=== PATIENT | female | born 1995 | race Caucasian/White ===

== ENCOUNTER 2016-12-07 18:43 | Emergency (ER) | payer OTHER, MEDICAID ==
[~2016-12-07] VITALS: Ht 172.7 cm; Wt 59.0 kg
[~2016-12-07 18:43] MED LIST: ACHYD1T PO; ALBU17AE23 IH; ALBU17AE3 IH; ALBUTERAL INHALER; AMOX250C PO; AMOX500C2 PO; AMOXIL; AZIT-21 PO; CARAFATE; CEPH500C PO; CLIN300C3 PO; DCS100C PO; DIPH25CA79 PO; DOCU100C37 PO; FAMO20TA5 PO; FLUC200T PO; FLUC200T5; FLUO20CA25 PO; HYDR-3812 PO; HYDR-3816 PO; HYDR1CAP2 PO; HYDR1TAB8 OP; HYDR25CA PO; IBP800T PO; IBUP-1780 PO; LORA10TA7 PO; METO-354 PO; METR500T PO; METR500T21 PO; MTR500T PO; NITR100C10; NITR100C3 PO; NITR100C44 PO; OMEP20CA12 PO; OMEP20CA6 PO; ONDA-42 SL; ONDA-43 PO; ONDA8TAB13 PO; ONDAN4ODT PO; OXYC-465 PO; PANT40SU PO; PANT40TA2 PO; PRD20T PO; PRED20TA PO; PREN-136 PO; PREN-148 PO; PROTONIX; RANI150C11 PO; RANI75TA30 PO; RNT150T PO; SERT25TA PO; [UNRECOGNIZED DRUG - OTHER] PO
[2016-12-07 19:07] LABS: BILIRUBIN,URINE NEGATIVE (NEGATIVE); KETONES,URINE NEGATIVE (NEGATIVE); LEUKOCYTE ESTERASE ,URINE 2+ (NEGATIVE); NITRITE,URINE NEGATIVE (NEGATIVE); PH,URINE 6 (5-9); PROTEIN,URINE 1+ (NEGATIVE); UROBILINOGEN,URINE NORMAL (NORMAL)
--- NOTE | 2016-12-07 19:17 | ED Abdominal Pain ---
General Chief Complaint: Abdominal/GI Problems Stated Complaint: UPPER ABD PAIN Nursing Triage Note: patient reports LUQ abdomen for 2 months with nausea, patient reports pain is worse with BMs. Patient reports she was seen here for same previously and was seen by OBGYN this week. Sepsis Screen: No Definite Risk Source of Information: Patient, Other (significant other) Exam Limitations: No Limitations History of Present Illness Time Seen By Provider: 19:17 Initial Comments 21-year-old female patient presents to the emergency department complaints of left upper quadrant abdominal pain for approximately 2 months. Does complain of nausea. Pain is worse with having bowel movements. Denies diarrhea, constipation, hematochezia, melena. Patient does report hesitancy with urination. Patient did have a gallbladder ultrasound which was negative. Patient was seen by Dr. Julien recently with an ultrasound of the pelvis. Patient is supposed follow-up with him for these results. Patient was started on Diflucan due to a recent yeast infection. Patient was also seen in the emergency department by Dr. Sung on 11/18 and given metronidazole twice a day for 7 days due to bacterial vaginosis. Patient states she still has several pills left and did not start the medication for approximately one week after being seen. Later states she also lost the prescription and started some metronidazole she had from a 1 year ago. Patient had recent upper endoscopy by Dr. Eaton with findings of hiatal hernia, esophagitis, duodenal ulcers, and gastric ulcers. Patient states she is a lost approximately 40 pounds in 3 months. Delivered her last child 3 months ago. Reports gaining 30 pounds with her last . Timing/Duration: Other (2 months) Severity/Quality: Aching Location: LUQ Radiation: No Radiation Activities at Onset: None Modifying Factors: Worsens With Defecating Allergies and Home Medications Allergies Coded Allergies: paroxetine (Verified Allergy, Severe, DIFF SWALLOWING, 10/09/16) Home Medications Fluconazole 200 Mg Tablet #3 (Reported) Metronidazole 500 Mg Tablet #14 500 MG PO BID Prescribed by: JAYLEN SUNG on 11/18/16 0916 Metronidazole 500 Mg Tablet #14 500 MG PO BID Prescribed by: MALORIE FLORES on 12/07/16 2048 Polyethylene Glycol 3350 119 Gm Powder #1 17 GM PO UD 17 g po BID x3d, then 17 g po qHS prn constipation. Prescribed by: MALORIE FLORES on 12/07/162047 Review of Systems Constitutional: No chills, No diaphoresis, No fever, No malaise EENTM: No Symptoms Reported Respiratory: No Symptoms Reported Cardiovascular: No Symptoms Reported Gastrointestinal: See HPIDenies Abdomen Distended, Abdominal PainDenies Blood Streaked Stools, Denies Constipated, Denies Diarrhea, Denies Difficulty Swallowing, Denies Nausea, Poor AppetiteDenies Poor Fluid Intake, Denies Rectal Bleeding, Denies Vomiting Genitourinary: Denies Burning, Denies Discharge, Denies Drainage, Denies Frequency, Denies Flank Pain, Denies Hematuria, Denies Pain, Other (hesitency) Musculoskeletal: no symptoms reported Skin: no symptoms reported Psychiatric/Neurological: No Symptoms Reported All Other Systems Reviewed Negative Unless Noted: Yes (Negative excepted noted.) Past Izhpilb-Eoqfuh-Srifjo Hx Patient Social History Alcohol Use: Denies Use Recreational Drug Use: No Smoking Status: Current Everyday Smoker Type Used: Cigarettes Former Smoker/When Quit: May 30, 2014 Recent Foreign Travel: No Contact w/Someone Who Travel: No Recent Infectious Disease Expo: No Recent Hopitalizations: Yes (CHILD 08/2016) Physical Abuse Screen: No Sexual Abuse: No Immunizations Up To Date Tetanus Booster (TDap): Less than 5yrs Date of Influenza Vaccine: Nov 22, 2014 Seasonal Allergies Seasonal Allergies: Yes Surgeries HX Surgeries: Yes (EGDs X2 ) Respiratory Hx Respiratory Disorders: Yes (prior exercise induced asthma) Respiratory Disorders: Asthma Cardiovascular Hx Cardiac Disorders: Yes Cardiac Disorders: Irregular Heartbeat Neurological Hx Neurological Disorders: No 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 System Hx 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 Disorders: No (ABNORMAL PAP) Sexually Transmitted Disease: No HIV/AIDS: No Female 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 Genitourinary Hx Genitourinary Disorders: Yes Genitourinary Disorders: UTI-Chronic Gastrointestinal Hx Gastrointestinal Disorders: Yes (EOSINOPHILLIC GASTROENTERITIS/CHRONIC STOMACH PROBLEMS) Gastrointestinal Disorders: Crohns Disease Musculoskeletal Hx Musculoskeletal Disorders: Yes Musculoskeletal Disorders: Fractures Endocrine Hx Endocrine Disorders: No HEENT HX ENT Disorders: No (GLASSES) Cancer Hx Cancer: No Psychosocial Hx Psychiatric Problems: Yes Behavioral Health Disorders: Anxiety, Bipolar, Depression Integumentary HX Skin/Integumentary Disorder: No Blood Transfusions Hx Blood Disorders: No Adverse Reaction to a Blood Tr: No (N/A) Reviewed Nursing Assessment Reviewed/Agree w Nursing PMH: Yes Family Medical History Significant Family History: No Pertinent Family Hx Family Medial History: FH: bipolar disorder 19 MOTHER FH: heart disease UNCLE Hepatitis C 19 MOTHER Hypertension MATERNAL GRANDFATHER Physical Exam Vital Signs Capillary Refill : Less Than 3 Seconds General Appearance: WD/WN no apparent distress other (Patient sitting up in the exam bed looking at her phone. NAD.) thin HEENT: PERRL/EOMI pharynx normal Neck: supple normal inspection Respiratory: lungs clear normal breath sounds no respiratory distress Cardiovascular: normal peripheral pulses regular rate, rhythm no edema no murmur Peripheral Pulses: 2+ Dorsalis Pedis (R), 2+ Left Dors-Pedis (L), 2+ Radial Pulses (R), 2+ Radial Pulses (L) Gastrointestinal: normal bowel sounds non tender (unable to reproduce tenderness on exam.) softNo guarding, No rebound, No hernia, No mass Genital/Rectal: other (pelvic exam deferred as patient had recent pelvic exam and patient is scheduled to f/u with dr. julien.) Extremities: normal inspection no pedal edema normal capillary refill Back: normal inspection no CVA tenderness Neurologic/Psychiatric: alert oriented x 3 depressed affect (flat, depressed affect.) Skin: normal color warm/dry Laceration Repair : Suture Size: 4-0 Progress/Results/Core Measures Results/Orders Lab Results Laboratory Tests Test 12/07/16 18:59 Range/Units Urine Bacteria TRACE /HPF Urine Bilirubin NEGATIVE NEGATIVE Urine Casts NONE /LPF Urine Clarity SLIGHTLY CLOUDY Urine Color YELLOW Urine Crystals NONE /LPF Urine Culture Indicated NO Urine Glucose (UA) NEGATIVE NEGATIVE Urine Ketones NEGATIVE NEGATIVE Urine Leukocyte Esterase 2+ H NEGATIVE Urine Mucus SMALL H /LPF Urine Nitrite NEGATIVE NEGATIVE Urine Protein 1+ H NEGATIVE Urine RBC NONE /HPF Urine RBC (Auto) NEGATIVE NEGATIVE Urine Specific [place] 1.020 1.016-1.022 Urine Squamous Epithelial Cells 2-5 /HPF Urine Urobilinogen NORMAL NORMAL MG/DL Urine WBC 0-2 /HPF Urine pH 6 5-9 My Orders Orders-MALORIE FLORES Acute Abd Series (12/07/16 19:31) Vital Signs/I&O Blood Pressure Mean: 89 Diagnostic Imaging Diagonstic Imaging: Xray Plain Films/CT/US/NM/MRI: abdomen Comments FINDINGS: PA chest: Heart size is normal. The pulmonary vessels appear unremarkable. There is no pneumothorax, mediastinal widening or pleural fluid demonstrated. The lungs are clear. Abdomen: AP upright and supine views of the abdomen were obtained. There is no evidence of free intraperitoneal air. The bowel gas pattern is unremarkable. No urinary tract calcifications are suspected. The osseous structures appear unremarkable. IMPRESSION: No evidence of an acute cardiopulmonary or abdominal process. Dictated by: Dictated on workstation # [id number] Reviewed: Reviewed by Me (radiology report reviewed by me.) Departure Communication Progress Notes All records reviewed from her recent visits and procedures. All laboratory and diagnostic findings discussed with the patient. I discussed with the patient the importance of taking her medications as instructed by the prescriber and until completion. Also discussed with the patient that she was diagnosed with bacterial vaginosis and needs to complete a full treatment of this as well as to continue with the Diflucan as prescribed by Dr. Julien. Advised patient to follow-up with Dr. Julien as an outpatient as well as to find a primary care physician and establish care. Patient states she has difficulty with remembering to take her medication. I have advised patient to set a timer or alarm on her phone to remind her of medication times. Proceed with discharge to home. All return precautions were discussed with the patient as described in the discharge instructions of this report. Patient voices understanding and agrees with the treatment plan. Patient case discussed with Dr. Yusuf, he agrees with the plan of care. Impression Impression: Primary Impression: Chronic abdominal pain Additional Impression: Non compliance w medication regimen Disposition: 01 HOME, SELF-CARE Condition: Improved Departure-Patient Inst. Decision time for Depature: 20:46 Referrals: CHATA JULIEN MD NO,LOCAL PHYSICIAN (PCP) Primary Care Physician Patient Instructions: Acute Abdomen (Belly Pain), Adult (DC), Urinary Tract Infection, Adult (DC) Add. Discharge Instructions: All discharge instructions reviewed with patient and/or family. Voiced understanding. Medications as instructed. Take antibiotics as prescribed. Finish the complete 7 days of antibiotics. If you have difficulty remembering the evening or afternoon dose, set a timer on your phone to remind you. Drink plenty of fluids. Avoid caffeinated beverages, carbonated beverages, fatty foods, spicy foods, alcohol, smoking, second hand smoke, marijuana, Motrin, Aleve, and aspirin. Do not eat within 2 hours of lying down. Follow-up with Dr. Julien and the family practitioner of your choice for recheck, call for appointment time Thursday. Return to the emergency department for worsened symptoms or any other concerns. Scripts Polyethylene Glycol 3350 (Miralax)119 Gm [id number] Gm PO UD #1 EA Ref 0 17 g po BID x3d, then 17 g po qHS prn constipation. Prov:MALORIE FLORES 12/07/16 Metronidazole 500 Mg [id number] Mg PO BID #14 TAB Ref 0 Prov:MALORIE FLORES 12/07/16 Work/School Note: [employer] MALORIE FLORES Dec 07, 2016 19:17
[2016-12-07 19:20] LABS: WBC,URINE 0-2 /HPF
--- NOTE | 2016-12-07 20:02 | Diagnostic Imaging Report ---
INDICATION: Upper abdominal pain. COMPARISON: None. EXAMINATION: Acute abdomen series. FINDINGS: PA chest: Heart size is normal. The pulmonary vessels appear unremarkable. There is no pneumothorax, mediastinal widening or pleural fluid demonstrated. The lungs are clear. Abdomen: AP upright and supine views of the abdomen were obtained. There is no evidence of free intraperitoneal air. The bowel gas pattern is unremarkable. No urinary tract calcifications are suspected. The osseous structures appear unremarkable. IMPRESSION: No evidence of an acute cardiopulmonary or abdominal process. Dictated by: Dictated on workstation # [id number]
[2016-12-07] MEDS ORDERED: METR500T21 PO (20:48)
[2016-12-07] MEDS ORDERED: POLY119P5 PO (20:48)
[2016-12-07 20:59] VITALS: BP 118/68
== END 2016-12-07 21:00 | disposition home or self-care (01) ==
LOC: EDUNIT# 18:43 → ER 18:45
DX: R10.12 Left upper quadrant pain (principal); G89.29 Other chronic pain; F17.210 Nicotine dependence, cigarettes, uncomplicated; Z91.19 Patient's noncompliance with other medical treatment and regimen
CPT/HCPCS: 74022; 81000

== ENCOUNTER 2016-12-08 15:22 | Emergency (ER) | payer OTHER, MEDICAID ==
[~2016-12-08] VITALS: Ht 172.7 cm; Wt 59.0 kg
[~2016-12-08 15:22] MED LIST changes: +POLY119P5 PO
[2016-12-08] MEDS ORDERED: HYDROcodone/APAP 7.5 MG/325 MG (LORTAB, LORCET PLUS) TABLET PO STA (16:03)
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
[2016-12-08 17:34] VITALS: BP 114/77
== END 2016-12-08 17:34 | disposition home or self-care (01) ==
LOC: EDUNIT# 15:22 → ER 15:23
DX: S00.03XA Contusion of scalp, initial encounter (principal); S00.83XA Contusion of other part of head, initial encounter; Y04.0XXA Assault by unarmed brawl or fight, initial encounter; Y99.8 Other external cause status
CPT/HCPCS: 70450; 70486; 72125

== ENCOUNTER 2017-02-14 17:17 | Emergency (ER) | payer MEDICAID, OTHER ==
[~2017-02-14] VITALS: Ht 172.7 cm; Wt 59.0 kg
[2017-02-14 17:46] LABS: BILIRUBIN,URINE NEGATIVE (NEGATIVE); KETONES,URINE NEGATIVE (NEGATIVE); LEUKOCYTE ESTERASE ,URINE 1+ (NEGATIVE); NITRITE,URINE NEGATIVE (NEGATIVE); PH,URINE 8 (5-9); PROTEIN,URINE NEGATIVE (NEGATIVE); UROBILINOGEN,URINE NORMAL (NORMAL)
[2017-02-14 17:52] LABS: SQUAMOUS EPITHELIAL CELL,UR 0-2 /HPF; WBC,URINE 0-2 /HPF
[2017-02-14] MEDS ORDERED: AZITHROMYCIN 250 MG TAB (ZITHROMAX) PO ONE (18:00)
[2017-02-14] MEDS ORDERED: cefTRIAXone 1 GM (ROCEPHIN) VIAL IM ONE (18:00)
[2017-02-14] MEDS ORDERED: LIDOCAINE 1% INJ 20 ML (XYLOCAINE) VIAL INJ ONE (18:00)
--- NOTE | 2017-02-14 18:17 | ED GI ---
General Chief Complaint: Abdominal/GI Problems Stated Complaint: ABD PAIN, BLOOD IN STOOL, 7 WKS PREG Nursing Triage Note: PT REPORTS LOWER ABDOMINAL PAIN X 2 MONTHS. PT REPORTS SHE WAS SEEN IN ED BEFORE FOR SIMILIAR PAIN AND DIAGNOSED WITH CONSTIPATION. PT REPORTS SHE NOTICED BLOOD IN HER STOOL TODAY. PT ALSO REPORTS VAGINAL DISCHARGE AND ODOR. Sepsis Screen: No Definite Risk Source of Information: Patient Exam Limitations: No Limitations History of Present Illness Time Seen By Provider: 17:25 Initial Comments This 21-year-old lady presents to the emergency room with primary complaint of bloody stool. She had one bowel movement today with blood around it. She denies any prior episodes. She also reports having migratory abdominal pain for the past few months. It seems to hurt worse around the time she has a bowel movement. Pain seems to be more concentrated in the right lower quadrant but is not consistent. She has nausea without vomiting. She reports being approximately 7 weeks with last menstrual period at the end of November. She had one ultrasound performed at the [facility] demonstrating a single live intrauterine . She reports there was some fluid in the right adnexa based on what was communicated to her. Patient also gives a history of ulcers and H. pylori. She admits to not completing the therapy as prescribed for H. pylori. She has had endoscopy 3. She also reports having a history of abnormal Pap smears multiple times. Finally she complains of vaginal discharge and odor. Patient did not state a history of Crohn's disease but it is noted in her chart. Allergies and Home Medications Allergies Coded Allergies: paroxetine (Verified Allergy, Severe, DIFF SWALLOWING, 10/09/16) Home Medications No Active Prescriptions or Reported Meds Review of Systems Constitutional: no symptoms reported EENTM: No Symptoms Reported Respiratory: No Symptoms Reported Cardiovascular: No Symptoms Reported Gastrointestinal: See HPI Genitourinary: See HPI Musculoskeletal: no symptoms reported Skin: no symptoms reported Psychiatric/Neurological: No Symptoms Reported Endocrine: No Symptoms Reported Past Mghuste-Yxmsts-Obnfqa Hx Patient Social History Alcohol Use: Denies Use Recreational Drug Use: No Smoking Status: Former Smoker Type Used: Cigarettes Former Smoker/When Quit: May 30, 2014 Recent Foreign Travel: No Contact w/Someone Who Travel: No Recent Infectious Disease Expo: No Recent Hopitalizations: Yes (CHILD 08/2016) Immunizations Up To Date Tetanus Booster (TDap): Less than 5yrs Date of Influenza Vaccine: Nov 22, 2014 Seasonal Allergies Seasonal Allergies: Yes Surgeries HX Surgeries: Yes (EGDs X3) Respiratory Hx Respiratory Disorders: Yes (prior exercise induced asthma) Respiratory Disorders: Asthma Cardiovascular Hx Cardiac Disorders: Yes Cardiac Disorders: Irregular Heartbeat Neurological Hx Neurological Disorders: No 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 System : Yes Hx 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 Disorders: No (ABNORMAL PAP) Sexually Transmitted Disease: No HIV/AIDS: No Female 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 Genitourinary Hx Genitourinary Disorders: Yes Genitourinary Disorders: UTI-Chronic Gastrointestinal Hx Gastrointestinal Disorders: Yes (EOSINOPHILLIC GASTROENTERITIS/CHRONIC STOMACH PROBLEMS H PYLORI) Gastrointestinal Disorders: Crohns Disease Musculoskeletal Hx Musculoskeletal Disorders: Yes Musculoskeletal Disorders: Fractures Endocrine Hx Endocrine Disorders: No HEENT HX ENT Disorders: No (GLASSES) Cancer Hx Cancer: No Psychosocial Hx Psychiatric Problems: Yes Behavioral Health Disorders: Anxiety, Bipolar, Depression Integumentary HX Skin/Integumentary Disorder: No Blood Transfusions Hx Blood Disorders: No Adverse Reaction to a Blood Tr: No (N/A) Family Medical History Significant Family History: No Pertinent Family Hx Family Medial History: FH: bipolar disorder 19 MOTHER FH: heart disease UNCLE Hepatitis C 19 MOTHER Hypertension MATERNAL GRANDFATHER Physical Exam Vital Signs VS - Last 72 Hours, by Label 02/14/17 17:30 Temp 98.1 Pulse 79 Resp 18 B/P 126/74 Pulse Ox 98 Capillary Refill : Less Than 3 Seconds General Appearance: WD/WN no apparent distress HEENT: PERRL/EOMI normal ENT inspection Neck: normal inspection Respiratory: lungs clear normal breath sounds no respiratory distress no accessory muscle use Cardiovascular: regular rate, rhythm no edema no murmur Gastrointestinal: normal bowel sounds non tender soft Rectal: normal exam normal rectal tone heme negative stool Extremities: normal inspection no pedal edema Pelvic: normal external exam normal adnexa discharge (mucousy purulent discharge from the cervical os) tender w/ cervical motion other (erythematous friable tissue posterior to the cervical os) Neurologic/Psychiatric: clock smith II-XII nml as tested no motor/sensory deficits alert normal mood/affect oriented x 3 Skin: normal color warm/dry Laceration Repair : Suture Size: 4-0 Progress/Results/Core Measures Results/Orders Lab Results Laboratory Tests Test 02/14/17 17:39 02/14/17 17:46 Range/Units Urine Amorphous Sediment FEW ZAN PHOSPHATE H /LPF Urine Bacteria NONE /HPF Urine Bilirubin NEGATIVE NEGATIVE Urine Casts NONE /LPF Urine Clarity CLEAR Urine Color YELLOW Urine Crystals PRESENT H /LPF Urine Culture Indicated NO Urine Glucose (UA) NEGATIVE NEGATIVE Urine Ketones NEGATIVE NEGATIVE Urine Leukocyte Esterase 1+ H NEGATIVE Urine Mucus NEGATIVE /LPF Urine Nitrite NEGATIVE NEGATIVE Urine Test POSITIVE NEGATIVE Urine Protein NEGATIVE NEGATIVE Urine RBC NONE /HPF Urine RBC (Auto) NEGATIVE NEGATIVE Urine Specific [place] 1.015 L 1.016-1.022 Urine Squamous Epithelial Cells 0-2 /HPF Urine Urobilinogen NORMAL NORMAL MG/DL Urine WBC 0-2 /HPF Urine pH 8 5-9 Micro Results Microbiology My Orders Orders-DIVINA CASANOVA MD Wet Prep (02/14/17 17:38) Neisseria Gonorrhea Dna (02/14/17 17:38) Chlamydia Dna (02/14/17 17:38) Genital Culture (02/14/17 17:38) Ua Culture If Indicated (02/14/17 17:38) Fecal Occult Bedside (02/14/17 17:38) Hcg,Qualitative Urine (02/14/17 17:52) Ceftriaxone Injection (Rocephin Injectio (02/14/17 18:00) Lidocaine 1% Injection (Xylocaine 1% Inj (02/14/17 18:00) Azithromycin Tablet (Zithromax Tablet) (02/14/17 18:00) Medications Given in ED Current Medications Medications Dose Ordered Sig/Angel Route Start Time Stop Time Status Last Admin Dose Admin Azithromycin 500 mg ONCE ONCE PO 02/14/17 18:00 02/14/17 18:01 DC 02/14/17 17:58 500 MG Ceftriaxone Sodium 1,000 mg ONCE ONCE IM 02/14/17 18:00 02/14/17 18:01 DC 02/14/17 17:57 1,000 MG Lidocaine HCl 2.1 ml ONCE ONCE INJ 02/14/17 18:00 02/14/17 18:01 DC 02/14/17 17:58 2.1 ML Vital Signs/I&O Vital Sign - Last 12Hours 02/14/17 17:30 Temp 98.1 Pulse 79 Resp 18 B/P 126/74 Pulse Ox 98 Blood Pressure Mean: 91 Point of Care Testing Fecal Occult: Negative Progress Note : Progress Note Patient was treated empirically with Rocephin and azithromycin. She was strongly encouraged to follow up with Dr. Vann for review of the final vaginal culture results. She was instructed to have nothing per vagina until then. She has established care appointment with [facility] and was urged to follow-up there as soon as possible. Departure Impression Impression: Primary Impression: Cervicitis Additional Impressions: Generalized abdominal pain Bloody stool Disposition: HOME, SELF-CARE Condition: Improved Departure-Patient Inst. Decision time for Depature: 18:15 Referrals: NO,LOCAL PHYSICIAN (PCP/Family) Primary Care Physician Patient Instructions: Acute Abdomen (Belly Pain), Adult (DC) Add. Discharge Instructions: Follow-up with Dr. Vann and your primary care provider soon as possible. No intercourse or anything vaginally until your final cultures are reviewed with a doctor. Return to emergency room if symptoms worsen. If symptoms do not improve after today's antibiotic treatment, ask your doctor about possibly performing stool studies and cultures. All discharge instructions reviewed with patient and/or family. Voiced understanding. Scripts No Active Prescriptions or Reported Meds Copy Copies To 1: CHATA VANN MD Copies To 2: NORAH HEBERT MD, JOSHUA T MD Feb 14, 2017 18:17
[2017-02-14 18:25] VITALS: BP 121/72
== END 2017-02-14 18:24 | disposition home or self-care (01) ==
LOC: EDUNIT# 17:17 → ER 17:19
DX: O99.611 Diseases of the digestive system complicating pregnancy, first trimester (principal); K92.1 Melena; O26.891 Other specified pregnancy related conditions, first trimester; R10.84 Generalized abdominal pain; O23.591 Infection of other part of genital tract in pregnancy, first trimester; Z3A.01 Less than 8 weeks gestation of pregnancy
CPT/HCPCS: 36415; 81000; 84703; 87070; 87210; 87491; 87591; 96372; 99284

== ENCOUNTER 2017-04-08 18:21 | Emergency (ER) | payer MEDICAID ==
[~2017-04-08] VITALS: Ht 172.7 cm; Wt 59.0 kg
[2017-04-08] MEDS ORDERED: METR500T21 (18:39)
[2017-04-08] MEDS ORDERED: FLUC200T5 (18:39)
--- NOTE | 2017-04-08 18:40 | ED Upper Extremity ---
General Chief Complaint: Upper Extremity Stated Complaint: L WRIST PAIN Nursing Triage Note: AMBULATED TO ROOM 10 WITH COMPLAINTS OF CHRONIC LEFT WRIST PAIN THAT BEGAN HURTING AGAIN ON THURSDAY. Nursing Sepsis Screen: No Definite Risk Source: patient Exam Limitations: no limitations History of Present Illness Time seen by provider: 18:37 Initial Comments To ER with many months of left wrist pain and instability. She states that yesterday she reached behind her back to scratch her back at work and felt as though her wrist popped out of place. She does not recall any particular injury but states that the wrist instability and popping sensation has been present for many months. Onset: just prior to arrival Severity: moderate Pain/Injury Location: left wrist Method of Injury: unknown Modifying Factors: Worse With Movement Allergies and Home Medications Allergies Coded Allergies: paroxetine (Verified Allergy, Severe, DIFF SWALLOWING, 10/09/16) Home Medications Fluconazole 200 Mg Tablet, #3 (Reported) Metronidazole 500 Mg Tablet, #14 (Reported) Constitutional: see HPI EENTM: see HPI Respiratory: no symptoms reported Cardiovascular: no symptoms reported Genitourinary: no symptoms reported Musculoskeletal: see HPI Skin: no symptoms reported Psychiatric/Neurological: No Symptoms Reported Past Bupteus-Zkikvl-Jbltgx Hx Patient Social History Type Used: Cigarettes Former Smoker/When Quit: May 30, 2014 Recent Foreign Travel: No Contact w/Someone Who Travel: No Recent Infectious Disease Expo: No Recent Hopitalizations: No Immunizations Up To Date Tetanus Booster (TDap): Less than 5yrs Date of Influenza Vaccine: Nov 22, 2014 Seasonal Allergies Seasonal Allergies: Yes Surgeries HX Surgeries: Yes (EGDs X3) Respiratory Hx Respiratory Disorders: Yes (prior exercise induced asthma) Respiratory Disorders: Asthma Cardiovascular Hx Cardiac Disorders: Yes Cardiac Disorders: Irregular Heartbeat Neurological Hx Neurological Disorders: No 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 System Hx 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 Disorders: No (ABNORMAL PAP) Sexually Transmitted Disease: No HIV/AIDS: No Female 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 Genitourinary Hx Genitourinary Disorders: Yes Genitourinary Disorders: UTI-Chronic Gastrointestinal Hx Gastrointestinal Disorders: Yes (EOSINOPHILLIC GASTROENTERITIS/CHRONIC STOMACH PROBLEMS H PYLORI) Gastrointestinal Disorders: Crohns Disease Musculoskeletal Hx Musculoskeletal Disorders: Yes Musculoskeletal Disorders: Fractures Endocrine Hx Endocrine Disorders: No HEENT HX ENT Disorders: No (GLASSES) Cancer Hx Cancer: No Psychosocial Hx Psychiatric Problems: Yes Behavioral Health Disorders: Anxiety, Bipolar, Depression Integumentary HX Skin/Integumentary Disorder: No Blood Transfusions Hx Blood Disorders: No Adverse Reaction to a Blood Tr: No (N/A) Family Medical History Significant Family History: No Pertinent Family Hx Family Medial History: FH: bipolar disorder 19 MOTHER FH: heart disease UNCLE Hepatitis C 19 MOTHER Hypertension MATERNAL GRANDFATHER Physical Exam Vital Signs Vital Sign - Last 12Hours 04/08/17 18:30 Temp 98.0 Pulse 92 B/P (MAP) 116/66 Pulse Ox 98 Capillary Refill : Less Than 3 Seconds General Appearance: WD/WN, no apparent distress HEENT: PERRL/EOMI, normal ENT inspection Neck: non-tender, full range of motion Cardiovascular: regular rate, rhythm, no murmur Respiratory: no respiratory distress, no accessory muscle use Gastrointestinal: normal bowel sounds, non tender Shoulder: normal inspection, non-tender Elbow/Forearm: normal inspection, non-tender, Left Hand: Left (there is no ecchymosis deformity abrasion or erythema) Laceration Repair : Suture Size: 4-0 Progress/Results/Core Measures Results/Orders My Orders Orders - JAVI ALANIZ APRN Wrist, Left, 3 Views Or More (04/08/17 18:37) Vital Signs/I&O Vital Sign - Last 12Hours 04/08/17 18:30 Temp 98.0 Pulse 92 B/P (MAP) 116/66 Pulse Ox 98 Blood Pressure Mean: 83 Departure Impression Impression: Primary Impression: Wrist joint instability Disposition: 01 HOME, SELF-CARE Condition: Stable Departure-Patient Inst. Decision time for Depature: 18:39 Referrals: CAT SY,LOCAL PHYSICIAN (PCP) Primary Care Physician Patient Instructions: Common Wrist Injuries (DC) Add. Discharge Instructions: 1. Wear the splint at all times except when showering until directed otherwise by Dr. Sy 2. Call Dr. Sy tomorrow to make an appointment to be seen All discharge instructions reviewed with patient and/or family. Voiced understanding. JAVI ALANIZ APRN April 08, 2017 18:40
--- NOTE | 2017-04-08 18:59 | Diagnostic Imaging Report ---
INDICATION: Pain. Three views were obtained. FINDINGS: The alignment is normal. There is no fracture or dislocation. Soft tissues are unremarkable. IMPRESSION: No focal abnormality in the left wrist. Dictated by: Dictated on workstation # [id number]
[2017-04-08 19:19] VITALS: BP 116/66
== END 2017-04-08 19:19 | disposition home or self-care (01) ==
LOC: EDUNIT# 18:21 → ER 18:23
DX: M25.532 Pain in left wrist (principal)
CPT/HCPCS: 73110; 99283

== ENCOUNTER 2017-06-11 06:39 | Emergency (ER) | payer MEDICAID ==
[~2017-06-11] VITALS: Ht 172.7 cm; Wt 63.5 kg
[~2017-06-11 06:39] MED LIST changes: +METR500T21
[2017-06-11] MEDS ORDERED: NITR100C10 (07:02)
[2017-06-11] MEDS ORDERED: BUPR150T14 (07:02)
[2017-06-11] MEDS ORDERED: FLUO20CA25 (07:02)
[2017-06-11 07:13] LABS: BASOPHILS % (AUTO) 0 % (0-10); EOSINOPHILS # (AUTO) 0.1 10^3/uL (0.0-0.3); EOSINOPHILS % (AUTO) 1 % (0-10); LYMPHOCYTES # (AUTO) 1.9 X 10^3 (1.0-4.0); LYMPHOCYTES % (AUTO) 20 % (12-44); MEAN CORPUSCULAR HEMOGLOBIN 30 PG (25-34); MEAN CORPUSCULAR HGB CONC 33 G/DL (32-36); MEAN CORPUSCULAR VOLUME 90 FL (80-99); MEAN PLATELET VOLUME 9.3 FL (7.4-10.4); MONOCYTES # (AUTO) 0.8 X 10^3 (0.0-1.0); MONOCYTES % (AUTO) 9 % (0-12); NEUTROPHILS # (AUTO) 6.5 X 10^3 (1.8-7.8); NEUTROPHILS % (AUTO) 70 % (42-75); PLATELET COUNT 249 10^3/uL (130-400); RED BLOOD COUNT 3.91 10^6/uL (4.35-5.85); RED CELL DISTRIBUTION WIDTH 12.8 % (10.0-14.5); WHITE BLOOD COUNT 9.3 10^3/uL (4.3-11.0)
[2017-06-11 07:14] LABS: BILIRUBIN,URINE NEGATIVE (NEGATIVE); KETONES,URINE NEGATIVE (NEGATIVE); LEUKOCYTE ESTERASE ,URINE NEGATIVE (NEGATIVE); NITRITE,URINE NEGATIVE (NEGATIVE); PH,URINE 7 (5-9); PROTEIN,URINE NEGATIVE (NEGATIVE); UROBILINOGEN,URINE NORMAL (NORMAL)
[2017-06-11 07:29] LABS: WBC,URINE RARE /HPF
[2017-06-11 07:38] LABS: ALANINE AMINOTRANSFERASE 11 U/L (0-55); ALBUMIN 3.5 GM/DL (3.2-4.5); ANION GAP 11 MMOL/L (5-14); ASPARTATE AMINO TRANSFERASE 11 U/L (5-34); BILIRUBIN,TOTAL 0.4 MG/DL (0.1-1.0); BLOOD UREA NITROGEN 6 MG/DL (7-18); BUN/CREATININE RATIO 11; CALCIUM 9.1 MG/DL (8.5-10.1); CARBON DIOXIDE 22 MMOL/L (21-32); CHLORIDE 104 MMOL/L (98-107); CREATININE SERUM 0.57 MG/DL (0.60-1.30); GFR ESTIMATED > 60; GLUCOSE 76 MG/DL (70-105); POTASSIUM 3.5 MMOL/L (3.6-5.0); SODIUM 137 MMOL/L (135-145); TOTAL PROTEIN 6.4 GM/DL (6.4-8.2)
--- NOTE | 2017-06-11 08:08 | ED General ---
General Chief Complaint: Psych/Social Disorder Stated Complaint: FEVER,ANXIETY,24 WKS PREG Nursing Triage Note: States that she has been taking Wellbutin times 5 days. States that for last 2 days has felt like heart is racing and she is hot, her mind won't shut off and that her baby is very active. She has researched it and she thinks she is having a reaction. Now states that she has nausea and a rash on back. Nursing Sepsis Screen: No Definite Risk Source of Information: Patient Exam Limitations: No Limitations History of Present Illness Time Seen by Provider: 08:03 Initial Comments The patient is a 21-year-old white female who is 24 weeks . She presents today with complaints of what she believes to be a medication reaction with Wellbutrin. She states that she has been taking this about 5 days. She finds herself troubled by hot flashes palpitations anxiety and even the sense that she might have a seizure. She has been here 56 times lifetime. She has had previous pregnancies with deliveries on 01/09/15 and 09/05/16. She is estimated to be 24 weeks at this time. She states she believes the baby to even be more active on this medication. She reports that the symptoms seem to be abating since she has been here. Timing/Duration: 24 Hours Modifying Factors: improves with Medication Allergies and Home Medications Allergies Coded Allergies: paroxetine (Verified Allergy, Severe, DIFF SWALLOWING, 10/09/16) fluoxetine (Unverified Allergy, Unknown, 06/11/17) Home Medications Bupropion HCl 150 Mg Tablet.er, #60 (Reported) Fluconazole 200 Mg Tablet, #3 (Reported) Fluoxetine HCl 20 Mg Capsule, #30 (Reported) Metronidazole 500 Mg Tablet, #14 (Reported) Nitrofurantoin Monohyd/M-Cryst 100 Mg Capsule, #14 (Reported) Constitutional: see HPI EENTM: no symptoms reported Respiratory: no symptoms reported Cardiovascular: palpitations Gastrointestinal: no symptoms reported Genitourinary: no symptoms reported Musculoskeletal: no symptoms reported Skin: no symptoms reported Psychiatric/Neurological: Anxiety, Emotional Problems Hematologic/Lymphatic: No Symptoms Reported Immunological/Allergic: no symptoms reported Past Ckrabqv-Giyaev-Mmpswv Hx Patient Social History Alcohol Use: Denies Use Recreational Drug Use: No Type Used: Cigarettes Former Smoker/When Quit: May 30, 2014 Recent Foreign Travel: No Contact w/Someone Who Travel: No Recent Infectious Disease Expo: No Recent Hopitalizations: No Immunizations Up To Date Tetanus Booster (TDap): Less than 5yrs Date of Influenza Vaccine: Nov 22, 2014 Seasonal Allergies Seasonal Allergies: Yes Surgeries HX Surgeries: Yes (EGDs X3) Respiratory Hx Respiratory Disorders: Yes (prior exercise induced asthma) Respiratory Disorders: Asthma Cardiovascular Hx Cardiac Disorders: Yes Cardiac Disorders: Irregular Heartbeat Neurological Hx Neurological Disorders: No 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 System Hx : 2 Hx Para: 3 Hx 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 Disorders: No (ABNORMAL PAP) Sexually Transmitted Disease: No HIV/AIDS: No Female 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 Genitourinary Hx Genitourinary Disorders: Yes Genitourinary Disorders: UTI-Chronic Gastrointestinal Hx Gastrointestinal Disorders: Yes (EOSINOPHILLIC GASTROENTERITIS/CHRONIC STOMACH PROBLEMS H PYLORI) Gastrointestinal Disorders: Crohns Disease Musculoskeletal Hx Musculoskeletal Disorders: Yes Musculoskeletal Disorders: Fractures Endocrine Hx Endocrine Disorders: No HEENT HX ENT Disorders: No (GLASSES) Cancer Hx Cancer: No Psychosocial Hx Psychiatric Problems: Yes Behavioral Health Disorders: Anxiety, Bipolar, Depression Integumentary HX Skin/Integumentary Disorder: No Blood Transfusions Hx Blood Disorders: No Adverse Reaction to a Blood Tr: No (N/A) Family Medical History Significant Family History: No Pertinent Family Hx Family Medial History: FH: bipolar disorder 19 MOTHER FH: heart disease UNCLE Hepatitis C 19 MOTHER Hypertension MATERNAL GRANDFATHER Physical Exam Vital Signs Vital Sign - Last 12Hours 06/11/17 06:52 Temp 98.0 Pulse 96 Resp 18 B/P (MAP) 128/70 Pulse Ox 99 Capillary Refill : Less Than 3 Seconds General Appearance: Anxious, Mild Distress Eyes: Bilateral Eye Normal Inspection HEENT: Normal ENT Inspection Neck: Full Range of Motion, Normal Inspection, Non Tender, Supple, Carotid Bruit Respiratory: Chest Non Tender Cardiovascular: Regular Rate, Rhythm, No Edema, No Gallop, No JVD, No Murmur, Normal Peripheral Pulses Gastrointestinal: Normal Bowel Sounds, No Organomegaly, No Pulsatile Mass, Non Tender, Soft Extremity: Normal Capillary Refill, Normal Inspection, Normal Range of Motion, Non Tender, No Calf Tenderness, No Pedal Edema Neurologic/Psychiatric: Alert, Oriented x3, No Motor/Sensory Deficits, technical asst II- XII Norm as Tested Skin: Normal Color, Warm/Dry Lymphatic: No Adenopathy Laceration Repair : Suture Size: 4-0 Progress/Results/Core Measures Results/Orders Lab Results Laboratory Tests Test 06/11/17 06:50 06/11/17 07:07 Range/Units Urine Color YELLOW Urine Clarity CLEAR Urine pH 7 5-9 Urine Specific [place] 1.005 L 1.016-1.022 Urine Protein NEGATIVE NEGATIVE Urine Glucose (UA) NEGATIVE NEGATIVE Urine Ketones NEGATIVE NEGATIVE Urine Nitrite NEGATIVE NEGATIVE Urine Bilirubin NEGATIVE NEGATIVE Urine Urobilinogen NORMAL NORMAL MG/DL Urine Leukocyte Esterase NEGATIVE NEGATIVE Urine RBC (Auto) NEGATIVE NEGATIVE Urine RBC NONE /HPF Urine WBC RARE /HPF Urine Squamous Epithelial Cells 2-5 /HPF Urine Crystals NONE /LPF Urine Bacteria TRACE /HPF Urine Casts NONE /LPF Urine Mucus NEGATIVE /LPF Urine Culture Indicated NO Urine Opiates Screen NEGATIVE NEGATIVE Urine Oxycodone Screen NEGATIVE NEGATIVE Urine Methadone Screen NEGATIVE NEGATIVE Urine Propoxyphene Screen NEGATIVE NEGATIVE Urine Barbiturates Screen NEGATIVE NEGATIVE Ur Tricyclic Antidepressants Screen NEGATIVE NEGATIVE Urine Phencyclidine Screen NEGATIVE NEGATIVE Urine Amphetamines Screen NEGATIVE NEGATIVE Urine Methamphetamines Screen NEGATIVE NEGATIVE Urine Benzodiazepines Screen NEGATIVE NEGATIVE Urine Cocaine Screen NEGATIVE NEGATIVE Urine Cannabinoids Screen NEGATIVE NEGATIVE White Blood Count 9.3 4.3-11.0 10^3/uL Red Blood Count 3.91 L 4.35-5.85 10^6/uL Hemoglobin 11.8 11.5-16.0 G/DL Hematocrit 35 35-52 % Mean Corpuscular Volume 90 80-99 FL Mean Corpuscular Hemoglobin 30 25-34 PG Mean Corpuscular Hemoglobin Concent 33 32-36 G/DL Red Cell Distribution Width 12.8 10.0-14.5 % Platelet Count 249 130-400 10^3/uL Mean Platelet Volume 9.3 7.4-10.4 FL Neutrophils (%) (Auto) 70 42-75 % Lymphocytes (%) (Auto) 20 12-44 % Monocytes (%) (Auto) 9 0-12 % Eosinophils (%) (Auto) 1 0-10 % Basophils (%) (Auto) 0 0-10 % Neutrophils # (Auto) 6.5 1.8-7.8 X 10^3 Lymphocytes # (Auto) 1.9 1.0-4.0 X 10^3 Monocytes # (Auto) 0.8 0.0-1.0 X 10^3 Eosinophils # (Auto) 0.1 0.0-0.3 10^3/uL Basophils # (Auto) 0.0 0.0-0.1 10^3/uL Sodium Level 137 135-145 MMOL/L Potassium Level 3.5 L 3.6-5.0 MMOL/L Chloride Level 104 98-107 MMOL/L Carbon Dioxide Level 22 21-32 MMOL/L Anion Gap 11 5-14 MMOL/L Blood Urea Nitrogen 6 L 7-18 MG/DL Creatinine 0.57 L 0.60-1.30 MG/DL Estimat Glomerular Filtration Rate > 60 BUN/Creatinine Ratio 11 Glucose Level 76 70-105 MG/DL Calcium Level 9.1 8.5-10.1 MG/DL Total Bilirubin 0.4 0.1-1.0 MG/DL Aspartate Amino Transf (AST/SGOT) 11 5-34 U/L Alanine Aminotransferase (ALT/SGPT) 11 0-55 U/L Alkaline Phosphatase 44 40-136 U/L Total Protein 6.4 6.4-8.2 GM/DL Albumin 3.5 3.2-4.5 GM/DL My Orders Orders - DARLING SOFIA MD Cbc With Automated Diff (06/11/17 06:51) Comprehensive Metabolic Panel (06/11/17 06:51) Drug Screen Stat (Urine) (06/11/17 06:51) Ua Culture If Indicated (06/11/17 06:51) Vital Signs/I&O Vital Sign - Last 12Hours 06/11/17 06:52 Temp 98.0 Pulse 96 Resp 18 B/P (MAP) 128/70 Pulse Ox 99 Blood Pressure Mean: 89 Departure Impression Impression: Primary Impression: untoward medication effect Disposition: 01 HOME, SELF-CARE Condition: Improved Departure-Patient Inst. Decision time for Depature: 08:07 Referrals: NO,LOCAL PHYSICIAN (PCP) Primary Care Physician Add. Discharge Instructions: All discharge instructions reviewed with patient and/or family. Voiced understanding. Contact Dr. Vann's office prior to taking any more Wellbutrin DARLING SOFIA MD Jun 11, 2017 08:07
[2017-06-11 08:15] VITALS: BP 124/68
== END 2017-06-11 08:15 | disposition home or self-care (01) ==
LOC: EDUNIT# 06:39 → ER 06:42
DX: O99.89 Other specified diseases and conditions complicating pregnancy, childbirth and the puerperium (principal); F31.9 Bipolar disorder, unspecified; T43.295A Adverse effect of other antidepressants, initial encounter; F41.9 Anxiety disorder, unspecified; Z3A.24 24 weeks gestation of pregnancy
CPT/HCPCS: 36415; 80053; 80306; 81000; 85025; 99283

== ENCOUNTER 2017-06-16 14:03 | Outpatient (CLI) | payer MEDICAID ==
[~2017-06-16] VITALS: Ht 172.7 cm; Wt 66.2 kg
[~2017-06-16 14:03] MED LIST changes: +BUPR150T14; +FLUO20CA25
[2017-06-16] MEDS ORDERED: METR500T PO (14:39)
[2017-06-16] MEDS ORDERED: NITR-65 PO (14:39)
[2017-06-16] MEDS ORDERED: PREN1TAB86 PO (14:39)
[2017-06-16 14:41] LABS: BILIRUBIN,URINE NEGATIVE (NEGATIVE); KETONES,URINE 1+ (NEGATIVE); LEUKOCYTE ESTERASE ,URINE NEGATIVE (NEGATIVE); NITRITE,URINE NEGATIVE (NEGATIVE); PH,URINE 6.5 (5-9); PROTEIN,URINE NEGATIVE (NEGATIVE); UROBILINOGEN,URINE NORMAL (NORMAL)
[2017-06-16 14:50] LABS: SQUAMOUS EPITHELIAL CELL,UR RARE /HPF; WBC,URINE RARE /HPF
[2017-06-16 15:00] VITALS: BP 112/64
[2017-06-16 15:03] LABS: BASOPHILS # (AUTO) 0.1 10^3/uL (0.0-0.1); BASOPHILS % (AUTO) 0 % (0-10); EOSINOPHILS # (AUTO) 0.1 10^3/uL (0.0-0.3); EOSINOPHILS % (AUTO) 1 % (0-10); LYMPHOCYTES # (AUTO) 1.9 X 10^3 (1.0-4.0); LYMPHOCYTES % (AUTO) 16 % (12-44); MEAN CORPUSCULAR HEMOGLOBIN 30 PG (25-34); MEAN CORPUSCULAR HGB CONC 34 G/DL (32-36); MEAN CORPUSCULAR VOLUME 90 FL (80-99); MEAN PLATELET VOLUME 9.4 FL (7.4-10.4); MONOCYTES % (AUTO) 8 % (0-12); NEUTROPHILS # (AUTO) 8.8 X 10^3 (1.8-7.8); NEUTROPHILS % (AUTO) 74 % (42-75); PLATELET COUNT 243 10^3/uL (130-400); RED BLOOD COUNT 3.73 10^6/uL (4.35-5.85); RED CELL DISTRIBUTION WIDTH 12.7 % (10.0-14.5); WHITE BLOOD COUNT 11.9 10^3/uL (4.3-11.0)
[2017-06-16 15:25] VITALS: BP 101/53
[2017-06-16 15:38] LABS: ALANINE AMINOTRANSFERASE 12 U/L (0-55); ALBUMIN 3.4 GM/DL (3.2-4.5); ANION GAP 8 MMOL/L (5-14); ASPARTATE AMINO TRANSFERASE 11 U/L (5-34); BILIRUBIN,TOTAL 0.3 MG/DL (0.1-1.0); BLOOD UREA NITROGEN 7 MG/DL (7-18); BUN/CREATININE RATIO 12; CALCIUM 8.8 MG/DL (8.5-10.1); CARBON DIOXIDE 22 MMOL/L (21-32); CHLORIDE 105 MMOL/L (98-107); CREATININE SERUM 0.57 MG/DL (0.60-1.30); GFR ESTIMATED > 60; GLUCOSE 106 MG/DL (70-105); POTASSIUM 3.5 MMOL/L (3.6-5.0); SODIUM 135 MMOL/L (135-145); TOTAL PROTEIN 6.1 GM/DL (6.4-8.2)
[2017-06-16] MEDS ORDERED: D5 LR IV SOLUTION 1,000 ML IV ONE ×2 (15:40→15:45)
[2017-06-16 15:45] VITALS: BP 109/56
--- NOTE | 2017-06-17 11:24 | Physician Query-Final Dx ---
ILIANA KAMARA 06/17/17 1124: Clinic Account Progress/Dx Physician Query: Please give diagnosis Date of Service Jun 16, 2017 at 14:03 CHATA VINCENT MD 06/17/17 2345: Clinic Account Progress/Dx DIAGNOSIS: Diagnosis false labor ILIANA KAMARA Jun 17, 2017 11:24 CHATA VINCENT MD Jun 17, 2017 23:45
== END 2017-06-16 16:50 | disposition home or self-care (01) ==
LOC: WSo 14:03 → LDRP 14:03 → WSo 16:50
PROVIDERS: ATTEND Obstetrics & Gynecology
DX: O47.02 False labor before 37 completed weeks of gestation, second trimester (principal); Z3A.24 24 weeks gestation of pregnancy
CPT/HCPCS: 36415; 80053; 81000; 85025; 96360; 99214

== ENCOUNTER 2017-08-16 21:11 | Observation (INO) | payer MEDICAID ==
[~2017-08-16] VITALS: Ht 172.7 cm; Wt 72.7 kg
[~2017-08-16 21:11] MED LIST changes: +NITR-65 PO; +PREN1TAB86 PO
[2017-08-16 21:38] VITALS: BP 129/71
[2017-08-16] MEDS ORDERED: D5 LR IV SOLUTION 1,000 ML IV ONE (21:45)
[2017-08-16 22:17] LABS: BASOPHILS % (AUTO) 0 % (0-10); EOSINOPHILS # (AUTO) 0.1 10^3/uL (0.0-0.3); EOSINOPHILS % (AUTO) 0 % (0-10); LYMPHOCYTES # (AUTO) 1.1 X 10^3 (1.0-4.0); LYMPHOCYTES % (AUTO) 7 % (12-44); MEAN CORPUSCULAR HEMOGLOBIN 30 PG (25-34); MEAN CORPUSCULAR HGB CONC 33 G/DL (32-36); MEAN CORPUSCULAR VOLUME 90 FL (80-99); MONOCYTES # (AUTO) 1.1 X 10^3 (0.0-1.0); MONOCYTES % (AUTO) 7 % (0-12); NEUTROPHILS # (AUTO) 13.3 X 10^3 (1.8-7.8); NEUTROPHILS % (AUTO) 85 % (42-75); PLATELET COUNT 205 10^3/uL (130-400); RED BLOOD COUNT 3.73 10^6/uL (4.35-5.85); WHITE BLOOD COUNT 15.7 10^3/uL (4.3-11.0)
[2017-08-16] MEDS ORDERED: RIMA100T PO (22:30)
[2017-08-16 22:42] LABS: BILIRUBIN,URINE NEGATIVE (NEGATIVE); KETONES,URINE 3+ (NEGATIVE); LEUKOCYTE ESTERASE ,URINE 1+ (NEGATIVE); NITRITE,URINE NEGATIVE (NEGATIVE); PH,URINE 7 (5-9); PROTEIN,URINE 1+ (NEGATIVE); UROBILINOGEN,URINE NORMAL (NORMAL)
[2017-08-16 22:53] LABS: ALANINE AMINOTRANSFERASE 13 U/L (0-55); ALBUMIN 3.3 GM/DL (3.2-4.5); ANION GAP 10 MMOL/L (5-14); ASPARTATE AMINO TRANSFERASE 14 U/L (5-34); BILIRUBIN,TOTAL 0.9 MG/DL (0.1-1.0); BLOOD UREA NITROGEN 3 MG/DL (7-18); BUN/CREATININE RATIO 6; CALCIUM 8.5 MG/DL (8.5-10.1); CARBON DIOXIDE 19 MMOL/L (21-32); CHLORIDE 108 MMOL/L (98-107); CREATININE SERUM 0.52 MG/DL (0.60-1.30); GFR ESTIMATED > 60; GLUCOSE 86 MG/DL (70-105); POTASSIUM 3.3 MMOL/L (3.6-5.0); SODIUM 137 MMOL/L (135-145)
[2017-08-16 22:54] LABS: BAND NEUTROPHILS 4 %; BASOPHILS % (MANUAL) 1 %; LYMPHOCYTES % (MANUAL) 8 %; NEUTROPHILS % (MANUAL) 75 %
[2017-08-16 23:02] LABS: SQUAMOUS EPITHELIAL CELL,UR 25-50 /HPF
[2017-08-16] MEDS ORDERED: ceFAZolin 1,000 MG (ANCEF) VIAL ONE (23:20)
[2017-08-16] MEDS ORDERED: NS (IVPB) 50 ML ONE (23:21)
[2017-08-16] MEDS: ACETAMINOPHEN 500 MG TAB (TYLENOL) PO PRN (23:32)
[2017-08-16] MEDS: ceFAZolin INJECTION 1,000 MG in NS (IVPB) 50 ML IV SCH (23:34)
[2017-08-16] MEDS: D5 LR IV SOLUTION 1,000 ML IV SCH (23:34)
[2017-08-17 03:00] VITALS: BP 101/54
[2017-08-17] MEDS: ceFAZolin INJECTION 1,000 MG in NS (IVPB) 50 ML IV SCH ×3 (05:43→19:33)
[2017-08-17] MEDS: ACETAMINOPHEN 500 MG TAB (TYLENOL) PO PRN (06:00)
[2017-08-17 07:13] VITALS: BP 117/68
[2017-08-17 07:15] VITALS: BP 107/57
[2017-08-17] MEDS: D5 LR IV SOLUTION 1,000 ML IV SCH ×4 (07:30→17:20)
[2017-08-17] MEDS ORDERED: BUTORPHANOL INJ 2 MG/ML (STADOL) VIAL IV ONE (07:30)
--- NOTE | 2017-08-17 08:03 | History & Physical ---
History and Physical Date Seen by Provider: Aug 17, 2017 Time Seen by Provider: 07:58 this patient is a 21-year-old white female who presented last evening with complaint of pain and contractions and urinary frequency. Was consistent with a pyelonephritis. She has been started on Ancef. She also complains of diffuse myalgia and has experienced diarrhea and 8 pains over the last 2 days. She denies rupture membranes or bleeding. She is currently at 33 weeks gestation. Patient has had a persistent problem with bacterial vaginosis. has problems with GERD. Patient has a history of depression. Allergies are to Prozac and Paxil Medications are Diflucan vaginal meds Wellbutrin Past medical history, past surgical history, obstetric history, family history, social histories are per the antepartum record HEENT exam is normal Neck is supple no lymphadenopathy no thyromegaly Abdomen is gravid soft fairly significant tenderness on palpation suprapubically otherwisenontender nondistended Extreme show clubbing cyanosis. There is no Homans sign. 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 Monitor shows rare contractions with normal heart rate pattern Laboratory Tests Test 08/16/17 20:25 08/16/17 22:00 Range/Units Urine Color YELLOW Urine Clarity CLEAR Urine pH 7 5-9 Urine Specific [place] 1.010 L 1.016-1.022 Urine Protein 1+ H NEGATIVE Urine Glucose (UA) NEGATIVE NEGATIVE Urine Ketones 3+ H NEGATIVE Urine Nitrite NEGATIVE NEGATIVE Urine Bilirubin NEGATIVE NEGATIVE Urine Urobilinogen NORMAL NORMAL MG/DL Urine Leukocyte Esterase 1+ H NEGATIVE Urine RBC (Auto) 5+ H NEGATIVE Urine RBC 50-100 H /HPF Urine WBC 2-5 /HPF Urine Squamous Epithelial Cells 25-50 H /HPF Urine Crystals NONE /LPF Urine Bacteria TRACE /HPF Urine Casts NONE /LPF Urine Mucus NEGATIVE /LPF Urine Culture Indicated YES White Blood Count 15.7 H 4.3-11.0 10^3/uL Red Blood Count 3.73 L 4.35-5.85 10^6/uL Hemoglobin 11.2 L 11.5-16.0 G/DL Hematocrit 34 L 35-52 % Mean Corpuscular Volume 90 80-99 FL Mean Corpuscular Hemoglobin 30 25-34 PG Mean Corpuscular Hemoglobin Concent 33 32-36 G/DL Red Cell Distribution Width 13.0 10.0-14.5 % Platelet Count 205 130-400 10^3/uL Mean Platelet Volume 10.0 7.4-10.4 FL Neutrophils (%) (Auto) 85 H 42-75 % Lymphocytes (%) (Auto) 7 L 12-44 % Monocytes (%) (Auto) 7 0-12 % Eosinophils (%) (Auto) 0 0-10 % Basophils (%) (Auto) 0 0-10 % Neutrophils # (Auto) 13.3 H 1.8-7.8 X 10^3 Lymphocytes # (Auto) 1.1 1.0-4.0 X 10^3 Monocytes # (Auto) 1.1 H 0.0-1.0 X 10^3 Eosinophils # (Auto) 0.1 0.0-0.3 10^3/uL Basophils # (Auto) 0.0 0.0-0.1 10^3/uL Neutrophils % (Manual) 75 % Lymphocytes % (Manual) 8 % Monocytes % (Manual) 12 % Basophils % (Manual) 1 % Band Neutrophils 4 % Blood Morphology Comment NORMAL Sodium Level 137 135-145 MMOL/L Potassium Level 3.3 L 3.6-5.0 MMOL/L Chloride Level 108 H 98-107 MMOL/L Carbon Dioxide Level 19 L 21-32 MMOL/L Anion Gap 10 5-14 MMOL/L Blood Urea Nitrogen 3 L 7-18 MG/DL Creatinine 0.52 L 0.60-1.30 MG/DL Estimat Glomerular Filtration Rate > 60 BUN/Creatinine Ratio 6 Glucose Level 86 70-105 MG/DL Calcium Level 8.5 8.5-10.1 MG/DL Total Bilirubin 0.9 0.1-1.0 MG/DL Aspartate Amino Transf (AST/SGOT) 14 5-34 U/L Alanine Aminotransferase (ALT/SGPT) 13 0-55 U/L Alkaline Phosphatase 107 40-136 U/L Total Protein 6.0 L 6.4-8.2 GM/DL Albumin 3.3 3.2-4.5 GM/DL Laboratory Tests 08/16/17 22:00 Patient's white blood cell count is elevated with a left shift. UA is consistent with pyelonephritis was 50-100 white cells. Urine culture is pending Assessment and plan 33 week with pyelonephritis in a patient who has a history of urinary tract infections. She is currently on Ancef and we'll continue that pending the results of the urine culture. Supportive care and maintenance in regard to her allergy and other complaints. We will analgesics as necessary for comfort. Anticipate discharge home when symptoms have resolved pyelonephritis Allergies and Home Medications Allergies Coded Allergies: paroxetine (Verified Allergy, Severe, DIFF SWALLOWING, 10/09/16) fluoxetine (Unverified Allergy, Unknown, 06/11/17) Home Medications Metronidazole 500 Mg Tablet, 500 MG PO TWICE DAILY WEEKLY, (Reported) Vit W-Ca,Fe,FA(<1 mg) 1 Each Tablet, 1 TAB PO DAILY, (Reported) Rimantadine HCl 100 Mg Tablet, 100 MG PO PRN, (Reported) CHATA VINCENT MD Aug 17, 2017 8:03 am
[2017-08-17] MEDS: FAMOTIDINE 20MG/2ML IV (PEPCID) IVP SCH ×2 (08:53→20:11)
[2017-08-17] MEDS ORDERED: IOHEXOL 350 MG/ML 100 ML (OMNIPAQUE 350) VIAL IV ONE (09:00)
[2017-08-17] MEDS ORDERED: NS 100 ML (IVPB) BAG IV ONE (09:00)
--- NOTE | 2017-08-17 09:58 | Consultation-Cardiology ---
HPI-Cardiology Cardiology Consultation Date of Consultation 08/17/17 Date of Admission Time Seen by Provider: 09:00 Indication: chest pain HPI 21 years old lady well known to my practice, I have seen her in September 2016 for palpitation. Was in her usual state of health, she is 33 weeks , having fever and chills, back pain, started to have contractions and came to the hospital for evaluation during the hospital stay she started having chest pain described it as achiness on the left side of her chest radiating to the left axillary area and left shoulder, usually worsening by any movement or by taking a breath. Responded to pain medication. Patient was fairly anxious about her pain. Currently feeling better after receiving the pain medication. She denied any palpitation except for occasional feeling of skipped beat for the past few months. Being treated for pyelonephritis. She denied any syncope or near syncopal episode. Home Medications & Allergies Allergies: Coded Allergies: paroxetine (Verified Allergy, Severe, DIFF SWALLOWING, 10/09/16) fluoxetine (Unverified Allergy, Unknown, 06/11/17) Home Medication List Reviewed: Yes AAK-Tivvtf-Pnpxst Hx Patient Social History Smoking Status: Former Smoker Former smoker/When Quit: May 30, 2014 Type Used: Cigarettes Recent Foreign Travel: No Recent Infectious Disease Expo: No Recent Hopitalizations: No Physical Abuse Screen: No Sexual Abuse: No Immunizations Up To Date Tetanus Booster (TDap): Less than 5yrs Date of Influenza Vaccine: Nov 22, 2014 Past Medical History Past medical history as discussed below Family Medical History Significant Family History: No Pertinent Family Hx Family History: 19 MOTHER FH: bipolar disorder Hepatitis C UNCLE FH: heart disease MATERNAL GRANDFATHER Hypertension Constitutional: see HPI, weakness EENTM: see HPI Respiratory: see HPI, short of breath Cardiovascular: see HPI, chest pain Gastrointestinal: see HPI, heartburn Genitourinary: see HPI, frequency Musculoskeletal: see HPI, back pain Skin: no symptoms reported, see HPI, No change in color, No change in hair/ nails, No dryness, No hx of skin cancer, No lesions, No lumps, No pruritus, No rash, No other Psychiatric/Neurological: No Symptoms Reported, See HPI, Anxiety Reviewed Test Results Reviewed Test Results Lab Laboratory Tests Test 08/16/17 20:25 08/16/17 22:00 Range/Units Urine Color YELLOW Urine Clarity CLEAR Urine pH 7 5-9 Urine Specific [place] 1.010 L 1.016-1.022 Urine Protein 1+ H NEGATIVE Urine Glucose (UA) NEGATIVE NEGATIVE Urine Ketones 3+ H NEGATIVE Urine Nitrite NEGATIVE NEGATIVE Urine Bilirubin NEGATIVE NEGATIVE Urine Urobilinogen NORMAL NORMAL MG/DL Urine Leukocyte Esterase 1+ H NEGATIVE Urine RBC (Auto) 5+ H NEGATIVE Urine RBC 50-100 H /HPF Urine WBC 2-5 /HPF Urine Squamous Epithelial Cells 25-50 H /HPF Urine Crystals NONE /LPF Urine Bacteria TRACE /HPF Urine Casts NONE /LPF Urine Mucus NEGATIVE /LPF Urine Culture Indicated YES White Blood Count 15.7 H 4.3-11.0 10^3/uL Red Blood Count 3.73 L 4.35-5.85 10^6/uL Hemoglobin 11.2 L 11.5-16.0 G/DL Hematocrit 34 L 35-52 % Mean Corpuscular Volume 90 80-99 FL Mean Corpuscular Hemoglobin 30 25-34 PG Mean Corpuscular Hemoglobin Concent 33 32-36 G/DL Red Cell Distribution Width 13.0 10.0-14.5 % Platelet Count 205 130-400 10^3/uL Mean Platelet Volume 10.0 7.4-10.4 FL Neutrophils (%) (Auto) 85 H 42-75 % Lymphocytes (%) (Auto) 7 L 12-44 % Monocytes (%) (Auto) 7 0-12 % Eosinophils (%) (Auto) 0 0-10 % Basophils (%) (Auto) 0 0-10 % Neutrophils # (Auto) 13.3 H 1.8-7.8 X 10^3 Lymphocytes # (Auto) 1.1 1.0-4.0 X 10^3 Monocytes # (Auto) 1.1 H 0.0-1.0 X 10^3 Eosinophils # (Auto) 0.1 0.0-0.3 10^3/uL Basophils # (Auto) 0.0 0.0-0.1 10^3/uL Neutrophils % (Manual) 75 % Lymphocytes % (Manual) 8 % Monocytes % (Manual) 12 % Basophils % (Manual) 1 % Band Neutrophils 4 % Blood Morphology Comment NORMAL Sodium Level 137 135-145 MMOL/L Potassium Level 3.3 L 3.6-5.0 MMOL/L Chloride Level 108 H 98-107 MMOL/L Carbon Dioxide Level 19 L 21-32 MMOL/L Anion Gap 10 5-14 MMOL/L Blood Urea Nitrogen 3 L 7-18 MG/DL Creatinine 0.52 L 0.60-1.30 MG/DL Estimat Glomerular Filtration Rate > 60 BUN/Creatinine Ratio 6 Glucose Level 86 70-105 MG/DL Calcium Level 8.5 8.5-10.1 MG/DL Total Bilirubin 0.9 0.1-1.0 MG/DL Aspartate Amino Transf (AST/SGOT) 14 5-34 U/L Alanine Aminotransferase (ALT/SGPT) 13 0-55 U/L Alkaline Phosphatase 107 40-136 U/L Total Protein 6.0 L 6.4-8.2 GM/DL Albumin 3.3 3.2-4.5 GM/DL Physical Exam Vital Signs Vital Sign - Last 12Hours 08/16/17 21:38 Temp 97.4 Pulse 97 Resp 20 B/P (MAP) 129/71 O2 Delivery Room Air Capillary Refill : General Appearance: WD/WN, Mild Distress Eyes: Bilateral Eye Normal Inspection, Bilateral Eye PERRL, Bilateral Eye EOMI HEENT: PERRL/EOMI, TMs Normal, Normal ENT Inspection, Pharynx Normal Neck: Full Range of Motion, Normal Inspection, Non Tender, Supple, Carotid Bruit Respiratory: Chest Non Tender, Lungs Clear, Normal Breath Sounds, No Accessory Muscle Use, No Respiratory Distress Cardiovascular: No Edema, No Gallop, No JVD, Normal Peripheral Pulses, Systolic Murmur, Tachycardia Gastrointestinal: Normal Bowel Sounds, No Organomegaly, No Pulsatile Mass, Non Tender, Soft Back: Normal Inspection, No CVA Tenderness, No Vertebral Tenderness Extremity: Normal Capillary Refill, Normal Inspection, Normal Range of Motion, Non Tender, No Calf Tenderness, No Pedal Edema Neurologic/Psychiatric: Alert, Oriented x3, No Motor/Sensory Deficits, Normal Mood/Affect Skin: Normal Color, Warm/Dry Lymphatic: No Adenopathy A/P-Cardiology Admission Diagnosis Chest pain nonspecific etiology Sinus tachycardia Pyelonephritis Assessment/Plan Chest pain, nonspecific etiology, musculoskeletal in nature, EKG showed nondiagnostic changes, she has history of palpitation and frequent premature ventricular contractions. I will place the patient on telemetry and monitor for the next 24 hours, I will evaluate 2-D echocardiogram. Sinus tachycardia, could be secondary to anxiety or pyelonephritis. I will place patient on telemetry. Pyelonephritis, managed by Dr. Vann, receiving antibiotics. History of bacterial vaginosis for which she received metronidazole and Diflucan , 33 weeks, followed and managed by ROSELINE Sharif MD Aug 17, 2017 09:58
--- NOTE | 2017-08-17 10:17 | Diagnostic Imaging Report ---
PROCEDURE: CT angiography of the chest with contrast. TECHNIQUE: Multiple contiguous axial images were obtained through the chest after uneventful bolus administration of intravenous contrast. Reconstructed CTA MIP acquisitions were also performed. INDICATION: Left-sided chest pain. 100 mL of Omnipaque 350 administered intravenously. The patient is . The [id number] is limited inferiorly. The costophrenic angles are not fully included to decrease radiation. FINDINGS: There is moderate opacification of the pulmonary arteries with the central pulmonary trunk, right and left pulmonary arteries, and the lobar branches demonstrate normal opacification. Most of the segmental branches are evaluated without evidence of pulmonary embolism. Particularly the subsegmental branches are less optimally evaluated due to the level of arterial opacification. There is no significant consolidation. Minimal bibasilar atelectasis however is present. The heart size is normal. The thoracic aorta is normal in caliber. Anterior soft tissue density in the mediastinum is compatible with thymic remnant. No mass or lymphadenopathy seen otherwise. No pericardial or pleural effusion. The osseous structures appear grossly unremarkable. IMPRESSION: There is moderate opacification of the pulmonary arteries with no pulmonary embolism seen to the segmental level. The subsegmental branches are not well evaluated on this exam. Dictated by: Dictated on workstation # [id number]
[2017-08-17] MEDS ORDERED: oxyCODONE/APAP 10/325MG (PERCOCET 10) TABLET PO ONE (12:09)
[2017-08-17 12:22] VITALS: BP 115/70
[2017-08-17] MEDS: oxyCODONE/APAP 10/325MG (PERCOCET 10) TABLET PO PRN ×3 (12:22→20:11)
[2017-08-17 14:52] LABS: BASOPHILS % (AUTO) 0 % (0-10); EOSINOPHILS % (AUTO) 0 % (0-10); LYMPHOCYTES # (AUTO) 0.6 X 10^3 (1.0-4.0); LYMPHOCYTES % (AUTO) 6 % (12-44); MEAN CORPUSCULAR HEMOGLOBIN 30 PG (25-34); MEAN CORPUSCULAR HGB CONC 33 G/DL (32-36); MEAN CORPUSCULAR VOLUME 92 FL (80-99); MEAN PLATELET VOLUME 9.8 FL (7.4-10.4); MONOCYTES # (AUTO) 0.6 X 10^3 (0.0-1.0); MONOCYTES % (AUTO) 6 % (0-12); NEUTROPHILS # (AUTO) 8.8 X 10^3 (1.8-7.8); NEUTROPHILS % (AUTO) 88 % (42-75); PLATELET COUNT 191 10^3/uL (130-400); RED BLOOD COUNT 3.64 10^6/uL (4.35-5.85); RED CELL DISTRIBUTION WIDTH 13.2 % (10.0-14.5)
--- NOTE | 2017-08-17 15:33 | Physical Therapy Evaluation ---
PT Evaluation-General Medical Diagnosis Admission Date Aug 17, 2017 at 07:16 Medical Diagnosis: flank pain Onset Date: Aug 16, 2017 Therapy Diagnosis Therapy Diagnosis: pain Height/Weight Height (Feet): 5 Height (Inches): 8.00 Weight (Pounds): 160 Weight (Ounces): 6.0 Precautions Precautions/Isolations: Standard Precautions Referral Physician: Ruperto Reason for Referral: Evaluation/Treatment Medical History Current History Pt is 33 weeks , admitted yesterday with contractions. Currently complaining of a sharp pain posterior to her left breast that radiates to her back medial border of inferior scapula. Describes it as a "knife/stabbing pain " a "stitch"; also notes pain left cervical paraspinal and upper trap region. Reports increased pain with a deep breath. She reports she has been belching and when she belches it is painful. Prior/Core FIM Prior Level of Function Functional [place] Measure 0=Not Assessed/NA 4=Minimal Assistance 1=Total Assistance 5=Supervision or Setup 2=Maximal Assistance 6=Modified [place] 3=Moderate Assistance 7=Complete [place] PT Evaluation-Current Subjective Pt reports her pain is less currently due to recent pain medication. Reports her pain is less when she is standing. Currently rates her pain as 6/10 -- and as described as above. Pt expresses concern that it is more medically involved. She is currently wearing telemetry and has been seen by Dr. Espino. Transfers Functional [place] Measure 0=Not Assessed/NA 4=Minimal Assistance 1=Total Assistance 5=Supervision or Setup 2=Maximal Assistance 6=Modified [place] 3=Moderate Assistance 7=Complete [place] Treatment Assessment reveals slightly decreased mobility of the first rib on the left as well as sluggish movement in the thoracic spine region left side. Performed light joint mobilization to these areas as well as soft tissue work in the left upper trap region. Instructed pt in and demonstrated how to perform self stretching for thoracic rotation, flexion/extension and overhead reach all paired with deep breathing to facilitate mobility as well as self mobilization througout the thoracici spine. Post treatment, pt reports her pain was slightly decreased. Assessment/Needs Rehab Potential: Good PT Custodial Goals Custodial Goals PT Slat Pickler Goals Time Frame: Aug 19, 2017 Goal is for pt to perform HEP indep and report decreased pain. PT Plan Problem List Problem List: Other (pain) Treatment/Plan Treatment Plan: Continue Plan of Care Treatment Plan: Education, Therapeutic Exercise, Other (manual therapy techniques) Treatment Duration: Aug 19, 2017 Frequency: 5 times per week Estimated Hrs Per Day: .25 hour per day (to .5 hr/day) Patient and/or Family Agrees t: Yes Safety Risks/Education Teaching Recipient: Patient Teaching Methods: Demonstration, Discussion Response to Teaching: Return Demonstration Education on HEP as described above. Time/GCodes Time In: 1420 Time Out: 1453 Total Billed Treatment Time: 33 Total Billed Treatment visit EVM 15 Man 18 ANTONIO BLACK PT Aug 17, 2017 15:33
[2017-08-17 16:28] VITALS: BP 90/52
[2017-08-17 19:34] VITALS: BP 128/65
[2017-08-17] MEDS ORDERED: hydrOXYzine (VISTARIL) 25 MG CAP PO PRN (19:45)
[2017-08-18] MEDS: D5 LR IV SOLUTION 1,000 ML IV SCH (02:15)
[2017-08-18] MEDS: ceFAZolin INJECTION 1,000 MG in NS (IVPB) 50 ML IV SCH (02:15)
[2017-08-18] MEDS: oxyCODONE/APAP 10/325MG (PERCOCET 10) TABLET PO PRN ×2 (02:30→08:43)
[2017-08-18 02:31] VITALS: BP 110/55
--- NOTE | 2017-08-18 07:39 | Progress Note-Standard ---
Standard Progress Note Progress Notes/Assess & Plan Date Seen by Provider: Aug 18, 2017 Time Seen by Provider: 07:36 Progress/Assessment & Plan patient is now without complaint. Her shoulder pain has improved her pelvic pain has decreased significantly wedged contractions resolved. She is tolerating by mouth well. Voiding well and is requesting discharge home. Laboratory Tests Test 08/17/17 14:33 Range/Units White Blood Count 10.0 4.3-11.0 10^3/uL Red Blood Count 3.64 L 4.35-5.85 10^6/uL Hemoglobin 11.0 L 11.5-16.0 G/DL Hematocrit 34 L 35-52 % Mean Corpuscular Volume 92 80-99 FL Mean Corpuscular Hemoglobin 30 25-34 PG Mean Corpuscular Hemoglobin Concent 33 32-36 G/DL Red Cell Distribution Width 13.2 10.0-14.5 % Platelet Count 191 130-400 10^3/uL Mean Platelet Volume 9.8 7.4-10.4 FL Neutrophils (%) (Auto) 88 H 42-75 % Lymphocytes (%) (Auto) 6 L 12-44 % Monocytes (%) (Auto) 6 0-12 % Eosinophils (%) (Auto) 0 0-10 % Basophils (%) (Auto) 0 0-10 % Neutrophils # (Auto) 8.8 H 1.8-7.8 X 10^3 Lymphocytes # (Auto) 0.6 L 1.0-4.0 X 10^3 Monocytes # (Auto) 0.6 0.0-1.0 X 10^3 Eosinophils # (Auto) 0.0 0.0-0.3 10^3/uL Basophils # (Auto) 0.0 0.0-0.1 10^3/uL Vital Signs Date Time Temp Pulse Resp B/P (MAP) Pulse Ox O2 Delivery O2 Flow Rate FiO2 08/18/17 02:31 97.5 93 18 110/55 99 Room Air 08/18/17 01:00 82 08/17/17 19:34 98.8 100 18 128/65 99 Room Air 08/17/17 19:00 113 08/17/17 16:28 99.5 109 18 90/52 99 08/17/17 12:22 99.0 104 20 115/70 100 Room Air vital signs are stable. Patient is afebrile. Microbiology 08/16/17 Wet Prep - Final, Complete 08/16/17 Urine Culture - Preliminary, Resulted NO GROWTH The abdomen is gravid soft nontender nondistended Extremities show no clubbing cyanosis. There is no Homans sign. assessment and plan hospital day number 2 for observation for labor and symptoms and side effects of a urinary tract infection. Patient also has muscular aches and pains related to changes due to . She was improved in that regard with her physical therapy evaluation. We will continue physical therapy outpatient. is now on Keflex by mouth will continue that for another week and follow-up in clinic. Final Diagnosis UTI/false labor CHATA VINCENT MD Aug 18, 2017 7:38 am
[2017-08-18] MEDS ORDERED: CEPH250C PO (07:42)
[2017-08-18] MEDS ORDERED: OXYC-465 PO (07:42)
[2017-08-18] MEDS ORDERED: HYDR-3781 PO (07:42)
--- NOTE | 2017-08-18 07:44 | Discharge Instructions ---
Discharge Instructions Discharge Medications New, Converted or Re-Newed RX: RX on Chart Patient Instructions Patient Instructions: as directed Return to The Hospital For: as directed Activity & Diet Discharge Diet: No Restrictions Activity as Tolerated: Yes Orders-Post D/C & Referrals return to clinic as scheduled for her KOBI return promptly for any signs symptoms and indications of labor schedule outpatient follow up appointment with physical therapy for back shoulder and neck pain Please call in rx to patient pharmacy CHATA VINCENT MD Aug 18, 2017 7:44 am
[2017-08-18 08:40] VITALS: BP 103/60
--- NOTE | 2017-08-18 08:49 | Physical Therapy Progress Note ---
Therapy Progress Note Patient visit. Pt notes she is still a bit sore /, but is feeling better. Reports the treatment yesterday helped and she did the stretches last night. Feel her pain is manageable at this time and is discharging home. She reports she feels she will be able to care for her children. Doctor wrote for continued therapy on an outpt basis. Assisted nursing with establishing the appointment. DC PT on the inpt level. Pt visit only this date. ANTONIO BLACK PT Aug 18, 2017 08:49
[2017-08-18] MEDS ORDERED: CEPHALEXIN 250 MG (KEFLEX) CAP PO SCH (09:00)
[2017-08-18 09:54] VITALS: BP 103/60
[2017-08-18 11:10] VITALS: BP 103/60
== END 2017-08-18 07:42 | disposition home or self-care (01) ==
LOC: WSo 21:11 → LDRP 21:11 → WSo 08-17 07:15 → LDRP 08-17 07:15 → UNDOADMOB 08-17 07:16 → LDRP 08-17 08:15 → UNDODISOB 08-18 11:10 → EDSTATUS 08-18 13:52
PROVIDERS: ADMIT Obstetrics & Gynecology; ATTEND Obstetrics & Gynecology
DX: R07.9 Chest pain, unspecified (principal); R00.0 Tachycardia, unspecified; O23.03 Infections of kidney in pregnancy, third trimester; O23.593 Infection of other part of genital tract in pregnancy, third trimester; O99.613 Diseases of the digestive system complicating pregnancy, third trimester; K21.9 Gastro-esophageal reflux disease without esophagitis; O99.343 Other mental disorders complicating pregnancy, third trimester; Z3A.33 33 weeks gestation of pregnancy
CPT/HCPCS: 36415; 71275; 80053; 81000; 85007; 85025; 85027; 87088; 87210; 93005; 93306; 99211; G0378

== ENCOUNTER 2017-08-24 12:36 | Outpatient (CLI) | payer MEDICAID ==
[~2017-08-24] VITALS: Ht 172.7 cm; Wt 72.1 kg
[~2017-08-24 12:36] MED LIST changes: +CEPH250C PO; +HYDR-3781 PO; +RIMA100T PO
[2017-08-24 12:53] LABS: BILIRUBIN,URINE NEGATIVE (NEGATIVE); KETONES,URINE 1+ (NEGATIVE); LEUKOCYTE ESTERASE ,URINE 1+ (NEGATIVE); NITRITE,URINE NEGATIVE (NEGATIVE); PH,URINE 7 (5-9); PROTEIN,URINE NEGATIVE (NEGATIVE); UROBILINOGEN,URINE 1 MG/DL (NORMAL)
[2017-08-24 13:00] VITALS: BP 117/64
[2017-08-24 13:11] LABS: WBC,URINE RARE /HPF
[2017-08-24] MEDS ORDERED: D5 LR IV SOLUTION 1,000 ML IV SCH (13:45)
[2017-08-24] MEDS ORDERED: CATHETER FLUSH 10 ML SYR IV PRN (14:30)
--- NOTE | 2017-08-25 11:10 | Physician Query-Final Dx ---
VIOLA DELAROSA 08/25/17 1110: Clinic Account Progress/Dx Physician Query: Please give diagnosis Date of Service Aug 24, 2017 at 12:36 CHATA VINCENT MD 08/26/17 0719: Clinic Account Progress/Dx DIAGNOSIS: Diagnosis false labor VIOLA DELAROSA Aug 25, 2017 11:10 CHATA VINCENT MD Aug 26, 2017 07:19
== END 2017-08-24 15:00 | disposition home or self-care (01) ==
LOC: LDRP 12:36 → WSo 12:36
PROVIDERS: ATTEND Obstetrics & Gynecology
DX: O47.03 False labor before 37 completed weeks of gestation, third trimester (principal); Z3A.34 34 weeks gestation of pregnancy
CPT/HCPCS: 81000; 87088; 96360; 99213

== ENCOUNTER 2017-09-07 13:28 | Outpatient (CLI) | payer MEDICAID ==
[~2017-09-07] VITALS: Ht 170.9 cm; Wt 74.0 kg
[2017-09-07 13:40] VITALS: BP 114/67
[2017-09-07 13:57] LABS: BILIRUBIN,URINE NEGATIVE (NEGATIVE); KETONES,URINE NEGATIVE (NEGATIVE); LEUKOCYTE ESTERASE ,URINE NEGATIVE (NEGATIVE); NITRITE,URINE NEGATIVE (NEGATIVE); PH,URINE 7 (5-9); PROTEIN,URINE NEGATIVE (NEGATIVE); UROBILINOGEN,URINE NORMAL (NORMAL)
[2017-09-07] MEDS ORDERED: FLUC150T PO (14:01)
[2017-09-07 14:04] LABS: WBC,URINE RARE /HPF
[2017-09-07] MEDS ORDERED: INFLUENZA TRIvalent 2017-2018 0.5 ML/45 MCG SYR IM ONE (14:15)
[2017-09-07] MEDS ORDERED: AZIT500T2 PO (14:18)
--- NOTE | 2017-09-08 16:45 | Physician Query-Final Dx ---
VIOLA DELAROSA 09/08/17 1645: Clinic Account Progress/Dx Physician Query: Please give diagnosis Date of Service Sep 07, 2017 at 13:28 CHATA VINCENT MD 09/09/17 0724: Clinic Account Progress/Dx DIAGNOSIS: Diagnosis false labor VIOLA DELAROSA Sep 08, 2017 16:45 CHATA VINCENT MD Sep 09, 2017 07:24
== END 2017-09-07 14:20 | disposition home or self-care (01) ==
LOC: WSo 13:28 → LDRP 13:30 → WSo 14:20
PROVIDERS: ATTEND Obstetrics & Gynecology
DX: O47.03 False labor before 37 completed weeks of gestation, third trimester (principal); Z3A.36 36 weeks gestation of pregnancy
CPT/HCPCS: 81000; 87088; 99214

== ENCOUNTER 2017-09-10 15:27 | Emergency (ER) | payer MEDICAID ==
[~2017-09-10] VITALS: Ht 172.7 cm; Wt 74.8 kg
[~2017-09-10 15:27] MED LIST changes: +AZIT500T2 PO; +FLUC150T PO
[2017-09-10 16:24] VITALS: BP 98/65
[2017-09-15] MEDS ORDERED: OXYC-465 PO (07:05)
[2017-09-15] MEDS ORDERED: IBUP-1780 PO (07:05)
[2017-09-15] MEDS ORDERED: DOCU100C37 PO (07:05)
== END 2017-09-10 17:40 | disposition left against medical advice (07) ==
LOC: EDUNIT# 15:27 → ER 15:28
DX: R07.9 Chest pain, unspecified (principal); J11.1 Influenza due to unidentified influenza virus with other respiratory manifestations
CPT/HCPCS: 99281

== ENCOUNTER 2017-09-13 10:49 | Outpatient (CLI) | payer MEDICAID ==
[~2017-09-13] VITALS: Ht 172.7 cm; Wt 72.6 kg
[2017-09-13 11:03] VITALS: BP 109/63
[2017-09-13] MEDS ORDERED: INFLUENZA TRIvalent 2017-2018 0.5 ML/45 MCG SYR IM ONE (11:30)
[2017-09-13] MEDS ORDERED: RANI150T90 PO (11:53)
[2017-09-13 13:00] VITALS: BP 109/63
--- NOTE | 2017-09-14 16:10 | Physician Query-Final Dx ---
ILIANA KAMARA 09/14/17 1610: Clinic Account Progress/Dx Physician Query: Please give diagnosis Date of Service Sep 13, 2017 at 10:49 CHATA VINCENT MD 09/15/17 0717: Clinic Account Progress/Dx DIAGNOSIS: Diagnosis false labor ILIANA KAMARA Sep 14, 2017 16:10 CHATA VINCENT MD Sep 15, 2017 07:17
== END 2017-09-13 13:00 | disposition home or self-care (01) ==
LOC: LDRP 10:49 → WSo 10:49
PROVIDERS: ATTEND Obstetrics & Gynecology
DX: O47.1 False labor at or after 37 completed weeks of gestation (principal); Z3A.37 37 weeks gestation of pregnancy
CPT/HCPCS: 90471; 99214

== ENCOUNTER 2017-09-14 11:14 | Inpatient (IN) | payer MEDICAID ==
[2017-09-14] VITALS (35 sets, daily range): BP systolic 106–132; BP diastolic 49–82
[~2017-09-14 11:14] MED LIST changes: +D5 LR IV SOLUTION 1,000 ML IV ONE; +RANI150T90 PO
[2017-09-14] MEDS ORDERED: OXYTOCIN/NORMAL SALINE 500 ML IV SCH ×3 (11:48→13:14)
[2017-09-14] MEDS ORDERED: D5 LR IV SOLUTION 1,000 ML IV SCH ×2 (11:48→13:13)
[2017-09-14] MEDS ORDERED: MINERAL OIL CONCENTRATE 99.9% 15 ML UDC TOP PRN (12:00)
[2017-09-14 12:01] LABS: BASOPHILS % (AUTO) 0 % (0-10); EOSINOPHILS # (AUTO) 0.1 10^3/uL (0.0-0.3); EOSINOPHILS % (AUTO) 1 % (0-10); LYMPHOCYTES # (AUTO) 2.1 X 10^3 (1.0-4.0); LYMPHOCYTES % (AUTO) 16 % (12-44); MEAN CORPUSCULAR HEMOGLOBIN 29 PG (25-34); MEAN CORPUSCULAR HGB CONC 33 G/DL (32-36); MEAN CORPUSCULAR VOLUME 88 FL (80-99); MEAN PLATELET VOLUME 10.6 FL (7.4-10.4); MONOCYTES % (AUTO) 8 % (0-12); NEUTROPHILS # (AUTO) 9.4 X 10^3 (1.8-7.8); NEUTROPHILS % (AUTO) 75 % (42-75); PLATELET COUNT 233 10^3/uL (130-400); RED BLOOD COUNT 3.97 10^6/uL (4.35-5.85); RED CELL DISTRIBUTION WIDTH 13.5 % (10.0-14.5); WHITE BLOOD COUNT 12.5 10^3/uL (4.3-11.0)
[2017-09-14] MEDS ORDERED: SUFENTA 0.6MCG/ML BUPIVA 0.125 100 ML ONE (12:57)
[2017-09-14] MEDS ORDERED: TETANUS,DIPTH,PERTUSS P/F (BOOSTRIX) 0.5 ML VIAL IM ONE (13:15)
[2017-09-14] MEDS ORDERED: BENZOCAINE/MENTHOL (DERMOPLAST) 56 ML CAN TP PRN (13:15)
--- NOTE | 2017-09-14 13:16 | OB Bishop Score ---
Reese Score 9 CHATA VINCENT MD Sep 14, 2017 1:16 pm
[2017-09-14] MEDS ORDERED: fentaNYL INJECTION 100 MCG/2 ML AMP ONE (13:20)
[2017-09-14] MEDS ORDERED: CATHETER FLUSH 10 ML SYR IV SCH (14:00)
--- NOTE | 2017-09-14 15:20 | History & Physical ---
History and Physical Date Seen by Provider: Sep 14, 2017 Time Seen by Provider: 15:15 this patient is a 22-year-old white female with a due date October 04, 2017 putting her at 37 and 1/7 weeks gestation. She was seen in my clinic on this date found to be dilated 4 cm and 70 percent effaced. She had been 2-2-1/ 2 on the day prior up in labor and delivery. She complained of persistent contractions of persistent wetness. Nitrazine was negative but fern test was equivocal. Her KIKE was 3.8. GBS culture after 35 weeks gestation that was negative. She was sent to labor and delivery for admission and management. I suspect she is in early labor and I'm concerned that she may be leaking amniotic fluid. She does have a history of very rapid labors. On labor and delivery she has been allowed an epidural and her cervix had changed to almost 5 cm since she was seen in my clinic. Her contractions are somewhat irregular. Allergies are to Prozac and Paxil. Indications are vitamins Past medical history, past surgical history, obstetric history, family history, and social histories are per the antepartum record HEENT exam is normal Neck is supple no lymphadenopathy no thyromegaly Abdomen is gravid soft nontender nondistended Extremities show clubbing cyanosis. There is no Homans sign Pelvic exam current exam is 5+ and Ms. dilated 70-80 percent effaced and 0 to + 1 station vertex presentation with a bulging bag that was ruptured artificially releasing clear fluid. Monitor shows contractions every 4-8 minutes. Areas a normal heart rate pattern. Laboratory Tests 09/14/17 11:38 Lab work is reassuring Assessment and plan at 37-1/7 weeks gestation likely in labor. She also possibly has been leaking some amniotic fluid. However there was a small amount of fluid on amniotomy. Her KIKE my clinic was 3.8 cm area that was down from over 6 cm earlier this month. She is currently receiving Pitocin for induction of labor and/or augmentation of labor UA she has a very favorable cervix has had both of her other 2 babies at 37 weeks gestation and history of rapid labors. I expect she will have her baby vaginally fairly shortly term with oligohydramnios and early labor Allergies and Home Medications Allergies Coded Allergies: paroxetine (Verified Allergy, Severe, DIFF SWALLOWING, 10/09/16) fluoxetine (Unverified Allergy, Unknown, 06/11/17) Home Medications Vit W-Ca,Fe,FA(<1 mg) 1 Each Tablet, 1 TAB PO DAILY, (Reported) Ranitidine HCl 150 Mg Tablet, 150 MG PO BID, (Reported) CHATA VINCENT MD Sep 14, 2017 3:20 pm
[2017-09-14] MEDS ORDERED: LIDOCAINE/EPI 2% 1:200,00 (XYLOCAINE) 10 ML VIAL ONE (15:59)
[2017-09-14] MEDS ORDERED: METHYLERGONOVINE 0.2 MG/ML (METHERGINE) AMP ONE (16:45)
[2017-09-14] MEDS: KETOROLAC 30 MG/ML VIAL IV SCH (17:26)
[2017-09-14] MEDS ORDERED: LACTATED RINGERS 1,000 ML IV ONE (17:57)
[2017-09-14] MEDS ORDERED: NALOXONE 0.4 MG/ML 1 ML (NARCAN) VIAL IV PRN (18:00)
[2017-09-14] MEDS ORDERED: CATHETER FLUSH 10 ML SYR IV PRN (18:00)
[2017-09-14] MEDS ORDERED: EPIDURAL (SUFENTA 0.6MCG/ML BUPIVA 0.125%) 100 ML BAG EPI SCH (18:00)
[2017-09-14] MEDS ORDERED: APAP 300 MG/CODEINE 30 MG (TYLENOL #3) TAB PO PRN (18:15)
[2017-09-14] MEDS ORDERED: METHYLERGONOVINE 0.2 MG/ML (METHERGINE) AMP IM NR (19:00)
[2017-09-14] MEDS ORDERED: WITCH HAZEL(TUCKS) 40 EA JAR ONE (20:43)
[2017-09-14] MEDS: DOCUSATE SODIUM 100 MG (COLACE) CAP PO SCH (22:19)
[2017-09-14] MEDS: oxyCODONE/APAP 10/325MG (PERCOCET 10) TABLET PO PRN (22:20)
[2017-09-15] MEDS: KETOROLAC 30 MG/ML VIAL IV SCH ×3 (00:18→20:11)
[2017-09-15 03:20] VITALS: BP 97/63
[2017-09-15] MEDS: oxyCODONE/APAP 10/325MG (PERCOCET 10) TABLET PO PRN ×5 (03:46→22:02)
--- NOTE | 2017-09-15 05:48 | OPERATIVE REPORT ---
DATE OF SERVICE: 09/14/2017 DELIVERY NOTE The patient delivered by the term operative vaginal delivery, a viable male infant with Apgars of 7 and 9 at 1 and 5 minutes respectively, weight 7 pounds 15 ounces, cord blood pH was 7.10 and the time was 1627. Mom was pushing, the heart rate dropped down onto the 90s and after about 5 minutes, the mom unable to expel the baby. Rae forceps were applied. Correct placement was confirmed and then with gentle traction along with pelvic access with the next two contractions, the head delivered over the perineum. The was bulb suctioned on delivery of the head and again on completion of delivery. The infant was stimulated and dried while the cord remained pulsatile. The was quickly pink, moved all extremities, had excellent tone and reflexes after about the first minute. Baby had a lusty cry and was quickly pink. The umbilical cord when pulseless was doubly clamped. Father cut the cord. The baby was passed to mom's abdomen. The placenta delivered spontaneously Razo. It was normal with a 3-vessel cord. The cervix, vagina, rectum and perineum were examined and found intact except for a first degree left posterior lateral perineal laceration and a right labial laceration in the upper one third of the labia majora and minora. Both of these were repaired under local analgesia with a single suture of 3-0 Vicryl Rapide. The patient tolerated the repair well. The patient had fairly minimal bleeding for the first 8-10 minutes after delivery, but then began experiencing increased lochia and bleeding, massage and increasing the Pitocin and adding a dose of Methergine were controlling the bleeding. Good examination of the vagina was accomplished. There were no lacerations in the vaginal wall. There were no cervical lacerations. Once the uterus was finally began to contract vigorously, then the bleeding normalized. Sponge and needle counts were correct on completion of the delivery and the repair. Estimated blood loss was around 500 mL. The patient tolerated the delivery and the repair well and remained in the LDR for recovery. The baby remained with the mom. Job ID: [id number] DocumentID: [id number] Dictated Date: 09/14/2017 17:03:44 Manager Cardiac Date: 09/15/2017 05:48:11 Dictated By: CHATA VINCENT MD
--- NOTE | 2017-09-15 07:02 | Progress Note-Standard ---
Standard Progress Note Progress Notes/Assess & Plan Date Seen by Provider: Sep 15, 2017 Time Seen by Provider: 07:02 Progress/Assessment & Plan patient is without complaint. She is ablating, voiding, tolerating by mouth, has good pain control. Vital Signs Date Time Temp Pulse Resp B/P (MAP) Pulse Ox O2 Delivery O2 Flow Rate FiO2 09/14/17 20:00 98.2 82 18 116/58 98 Room Air 09/14/17 18:29 97.3 88 18 123/82 09/14/17 18:13 67 18 124/55 09/14/17 17:58 71 18 113/59 09/14/17 17:43 97.7 70 18 107/57 09/14/17 17:28 65 18 107/57 09/14/17 17:13 79 18 108/53 09/14/17 17:07 87 18 110/67 09/14/17 16:53 81 18 124/57 09/14/17 16:44 92 18 124/49 vital signs are stable. Patient afebrile. Fundus is firm below the umbilicus and nontender. Extreme show clubbing cyanosis. There is no Homans sign. There is minimal pretibial pitting edema that is normal. Assessment and plan day number 1 status post term operative vaginal delivery doing well. Plan is for routine convalescence care today and discharge home tomorrow Final Diagnosis term operative vaginal delivery CHATA VINCENT MD Sep 15, 2017 7:02 am
[2017-09-15] MEDS ORDERED: IBUP-1780 PO (07:05)
[2017-09-15] MEDS ORDERED: DOCU100C37 PO (07:05)
[2017-09-15] MEDS ORDERED: OXYC-465 PO (07:05)
--- NOTE | 2017-09-15 07:06 | Discharge Instructions ---
Discharge Instructions Discharge Medications New, Converted or Re-Newed RX: RX on Chart Patient Instructions Patient Instructions: as directed Return to The Hospital For: as directed Activity & Diet Discharge Diet: No Restrictions Activity as Tolerated: No Orders-Post D/C & Referrals Follow Up Appt: Call to make follow up appt. for patient in 4 weeks. Activity Per routine post vaginal delivery instructions. Please call in RX to patient pharmacy. Diet as tolerated Patient may shower or tub bathe as desired. CHATA VINCENT MD Sep 15, 2017 7:06 am
[2017-09-15 09:10] VITALS: BP 100/57
[2017-09-15] MEDS: DOCUSATE SODIUM 100 MG (COLACE) CAP PO SCH ×2 (09:13→20:13)
[2017-09-15] MEDS: IBUPROFEN 800 MG (MOTRIN) TAB PO SCH ×2 (13:31→20:13)
[2017-09-15 13:38] VITALS: BP 111/68
--- NOTE | 2017-09-15 15:06 | Anesthesia-Regional Post-Op ---
Regional Patient Condition Mental Status: Alert, Oriented x3 Circulation: Same as Pre-Op Headache: Absent Sensation: Full Recovery Motor Block: Absent Post Op Complications Complications None Follow Up Care/Instructions Patient Instructions None needed. Anesthesia/Patient Condition Patient is doing well, no complaints, stable vital signs, no apparent adverse anesthesia problems. MARTÍNEZ SMITH DO Sep 15, 2017 15:06
[2017-09-15 20:13] VITALS: BP 117/68
[2017-09-16 02:16] VITALS: BP 100/55
[2017-09-16] MEDS: IBUPROFEN 800 MG (MOTRIN) TAB PO SCH ×3 (02:16→14:55)
[2017-09-16] MEDS: oxyCODONE/APAP 10/325MG (PERCOCET 10) TABLET PO PRN ×3 (04:05→14:55)
--- NOTE | 2017-09-16 07:47 | Progress Note-Standard ---
Standard Progress Note Progress Notes/Assess & Plan Date Seen by Provider: Sep 16, 2017 Time Seen by Provider: 07:45 Progress/Assessment & Plan patient is without complaint. She is ablating, voiding, tolerating by mouth, has good pain control. Vital Signs Date Time Temp Pulse Resp B/P (MAP) Pulse Ox O2 Delivery O2 Flow Rate FiO2 09/14/17 20:00 98.2 82 18 116/58 98 Room Air 09/14/17 18:29 97.3 88 18 123/82 09/14/17 18:13 67 18 124/55 09/14/17 17:58 71 18 113/59 09/14/17 17:43 97.7 70 18 107/57 09/14/17 17:28 65 18 107/57 09/14/17 17:13 79 18 108/53 09/14/17 17:07 87 18 110/67 09/14/17 16:53 81 18 124/57 09/14/17 16:44 92 18 124/49 vital signs are stable. Patient afebrile. Fundus is firm below the umbilicus and nontender. Extreme show clubbing cyanosis. There is no Homans sign. There is minimal pretibial pitting edema that is normal. Assessment and plan day number 1 status post term operative vaginal delivery doing well. Plan is for routine convalescence care today and discharge home tomorrow September 16, 2017 Patient without complaint. She is ambulating, voiding, tolerating by mouth, has good pain control. Vital Signs Date Time Temp Pulse Resp B/P (MAP) Pulse Ox O2 Delivery O2 Flow Rate FiO2 09/16/17 02:16 97.0 58 20 100/55 99 Room Air 09/15/17 20:13 97.6 70 20 117/68 99 Room Air 09/15/17 13:38 97.3 78 20 111/68 09/15/17 09:10 98.0 70 20 100/57 99 Room Air vital signs are stable. Patient is afebrile. Fundus is firm below the umbilicus nontender. Extreme show clubbing cyanosis. There is no Homans sign. Assessment and plan status post term operative vaginal delivery doing well. Plan is for discharge home when necessary patient request Final Diagnosis term operative vaginal delivery CHATA VINCENT MD Sep 16, 2017 7:47 am
[2017-09-16 07:50] VITALS: BP 109/70
[2017-09-16] MEDS: DOCUSATE SODIUM 100 MG (COLACE) CAP PO SCH (09:00)
[2017-09-16 13:39] VITALS: BP 116/68
[2017-09-16 14:55] VITALS: BP 109/66
== END 2017-09-16 16:30 | disposition home or self-care (01) | DRG 775 ==
LOC: LDRP 11:14
PROVIDERS: ADMIT Obstetrics & Gynecology; ATTEND Obstetrics & Gynecology
PROC: 0HQ9XZZ Repair Perineum Skin, External Approach (ICD-10-PCS; principal; 2017-09-14)
PROC: 10E0XZZ Delivery of Products of Conception, External Approach (ICD-10-PCS; 2017-09-14)
DX: O70.0 First degree perineal laceration during delivery (principal); O41.03X0 Oligohydramnios, third trimester, not applicable or unspecified; Z3A.37 37 weeks gestation of pregnancy; Z37.0 Single live birth
CPT/HCPCS: 36415; 85025; 86850; 86900; 86901

== ENCOUNTER 2017-11-17 18:58 | Emergency (ER) | payer MEDICAID ==
[~2017-11-17] VITALS: Ht 172.7 cm; Wt 65.8 kg
[~2017-11-17 18:58] MED LIST changes: -D5 LR IV SOLUTION 1,000 ML IV ONE
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
--- NOTE | 2017-11-17 19:24 | Diagnostic Imaging Report ---
INDICATION: Right wrist pain Three views of the right wrist show no fracture, dislocation or other acute abnormalities. IMPRESSION: Negative right wrist Dictated by: Dictated on workstation # [id number]
[2017-11-17 19:31] VITALS: BP 143/68
== END 2017-11-17 19:37 | disposition home or self-care (01) ==
LOC: EDUNIT# 18:58 → ER 19:00
DX: M25.531 Pain in right wrist (principal); J45.909 Unspecified asthma, uncomplicated; F41.9 Anxiety disorder, unspecified; F31.9 Bipolar disorder, unspecified; Z97.5 Presence of (intrauterine) contraceptive device; Z82.49 Family history of ischemic heart disease and other diseases of the circulatory system; Z87.440 Personal history of urinary (tract) infections; Z87.891 Personal history of nicotine dependence; Z87.19 Personal history of other diseases of the digestive system; W22.09XA Striking against other stationary object, initial encounter
CPT/HCPCS: 73110; 99282

== ENCOUNTER 2018-04-12 13:29 | Emergency (ER) | payer SELFPAY ==
[~2018-04-12] VITALS: Ht 172.7 cm; Wt 65.8 kg
[~2018-04-12 13:29] MED LIST changes: +ACHD5005 PO; +HYDR-34 PO; -HYDR-3812 PO; -HYDR-3816 PO
--- NOTE | 2018-04-12 14:39 | ED EENT ---
History of Present Illness General Chief Complaint: Oral/Throat Problems Stated Complaint: SWOLLEN THROAT,FEVER Nursing Triage Note: C/O FEVER FOR 2 DAYS; ALSO HAS BEEN COUGHING FOR @2 WEEKS. PT. STATES SHE HAS WHITE SPOTS ON THROAT, CHEST HURTS WHEN BREATHING ET "CANNOT TAKE DEEP BREATHS". Source: patient Exam Limitations: no limitations History of Present Illness Date Seen by Provider: April 12, 2018 Time Seen by Provider: 14:39 Initial Comments 22-year-old female patient presents to the emergency department with complaints of cough for 2 weeks and fever with sore throat for 2 days. Denies shortness of air, but states her ribs and chest to hurt with breathing. Patient does have a history of exercise-induced asthma and reactive airway disease. Denies contacting a PCP for symptoms. Timing/Duration: gradual Location: throat Prearrival Treatment: no prearrival treatment Modifying Factors: Worse With Coughing, Worse With Other (throat pain worse with swallowing) Allergies and Home Medications Allergies Coded Allergies: paroxetine (Verified Allergy, Severe, DIFF SWALLOWING, 10/09/16) fluoxetine (Unverified Allergy, Unknown, 06/11/17) Home Medications Cephalexin 500 Mg Capsule, 500 MG PO TID Prescribed by: MALORIE FLORES on 04/12/18 1526 Prednisone 20 Mg Tab, 40 MG PO DAILY Prescribed by: MALORIE FLORES on 04/12/18 1526 Patient Home Medication List Home Medication List Reviewed: Yes Review of Systems Constitutional: chills, fever, malaise Eyes: No Symptoms Reported Ears: No Symptoms Reported Nose: no symptoms reported Mouth: no symptoms reported Throat: see HPI, pain; denies hoarse, denies aphonia, denies muffled; painful swallowing; denies difficulty with fluids Respiratory: see HPI, cough, phlegm (yellow to green phlegm), short of breath ( intermittent shortness of air. Denies current shortness of air.); No stridor; wheezing (intermittent wheezing), other Cardiovascular: no symptoms reported; No chest pain, No palpitations Gastrointestinal: No abdominal pain, No constipation, No diarrhea, No loss of appetite, No nausea, No vomiting Musculoskeletal: no symptoms reported Skin: no symptoms reported Neurological: No Symptoms Reported All Other Systems Reviewed Negative Unless Noted: Yes (Negative excepted noted.) Past Htmknck-Pxjohz-Kprqym Hx Patient Social History Alcohol Use: Denies Use Recreational Drug Use: No Type Used: Cigarettes Former Smoker, Quit: Jan 05, 2017 2nd Hand Smoke Exposure: Yes Recent Foreign Travel: No Contact w/Someone Who Travel: No Recent Infectious Disease Expo: No Recent Hopitalizations: No Physical Abuse: No Sexual Abuse: No Immunizations Up To Date Tetanus Booster (TDap): Unknown PED Vaccines UTD: No Date of Influenza Vaccine: Aug 30, 2017 Seasonal Allergies Seasonal Allergies: Yes Past Medical History Surgeries: Yes (EGDs X3) Respiratory: Yes (prior exercise induced asthma) Asthma Cardiac: Yes Irregular Heartbeat Neurological: No : No 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 Disorders: No (ABNORMAL PAP) Female 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 Sexually Transmitted Disease: No HIV/AIDS: No Genitourinary: No UTI-Chronic Gastrointestinal: Yes (EOSINOPHILLIC GASTROENTERITIS/CHRONIC STOMACH PROBLEMS H PYLORI) Crohns Disease Musculoskeletal: Yes Fractures Endocrine: No HEENT: No Cancer: No Psychosocial: Yes Anxiety, Bipolar, Depression Nursing Suicide Risk Score: 0 Integumentary: No Blood Disorders: No Adverse Reaction/Blood Tranf: No (N/A) Family Medical History Reviewed Nursing Family Hx FH: bipolar disorder 19 MOTHER FH: heart disease UNCLE Hepatitis C 19 MOTHER Hypertension MATERNAL GRANDFATHER No Pertinent Family Hx Physical Exam Vital Signs Vital Signs - First Documented 04/12/18 04/12/18 14:19 15:56 Temp 97.1 Pulse 73 Resp 20 B/P (MAP) 110/63 (79) Pulse Ox 100 O2 Delivery Room Air General Appearance: WD/WN, no apparent distress Eyes: bilateral eye normal inspection, bilateral eye PERRL, bilateral eye EOMI Ears: bilateral ear auricle normal, bilateral ear canal normal, bilateral ear TM normal Nose: No sinus tenderness; other (positive nasal congestion) Mouth/Throat: normal mouth inspection; No excessive drooling, No mandibular swelling, No maxillary swelling, No pharynx swelling, No tongue swollen; tonsillar exudate, tonsillar swelling; No uvula swelling, No voice changes Neck: full range of motion, supple, other (lymphadenopathy bilaterally with tenderness to palpation.) Cardiovascular: normal peripheral pulses, regular rate, rhythm, no edema, no murmur Respiratory: lungs clear, no respiratory distress, no accessory muscle use, decreased breath sounds (decreased breath sounds bilateral bases) Gastrointestinal: normal bowel sounds, non tender, soft, no organomegaly; No distended Neurologic/Psychiatric: alert, normal mood/affect, oriented x 3 Skin: normal color, warm/dry Procedures/Interventions Suture Size: 4-0 Progress/Results/Core Measures Results/Orders Lab Results Laboratory Tests Test 04/12/18 14:12 Range/Units Group A Streptococcus Screen NEGATIVE NEGATIVE My Orders Orders - MALORIE FLORES PA Rapid Strep A Screen (04/12/18 13:39) Chest Pa/Lat (2 View) (04/12/18 14:13) Ketorolac Injection (Toradol Injection) (04/12/18 15:12) Ceftriaxone Injection (Rocephin Injectio (04/12/18 15:15) Lidocaine 1% Inj 50 Ml (Xylocaine 1% Inj (04/12/18 15:15) Rx-Albuterol Inhaler (Rx-Proair) (04/12/18 15:16) Lidocaine 1% Inj 20 Ml (Xylocaine 1% Inj (04/12/18 15:35) Medications Given in ED Current Medications Medications Dose Ordered Sig/Angel Route Start Time Stop Time Status Last Admin Dose Admin Ceftriaxone Sodium 1,000 mg ONCE ONCE IM 04/12/18 15:15 04/12/18 15:16 DC 04/12/18 15:45 1,000 MG Lidocaine HCl 2.1 ml ONCE ONCE IJ 04/12/18 15:15 04/12/18 15:16 DC 04/12/18 15:45 2.1 ML Vital Signs/I&O 04/12/18 04/12/18 14:19 15:56 Temp 97.1 97.1 Pulse 73 73 Resp 20 B/P (MAP) 110/63 (79) 110/63 (79) Pulse Ox 100 100 O2 Delivery Room Air Blood Pressure Mean: 79 Diagnostic Imaging Diagonstic Imaging: Xray Plain Films/CT/US/NM/MRI: chest Comments CHEST PA/LAT (2 VIEW) EXAMINATION: CHEST (PA AND LATERAL) CLINICAL INDICATION: 22-year-old female, fever for two days and cough. COMPARISON: CT chest 2016. Chest radiograph April 11, 2015. FINDINGS: Heart size and mediastinal contours are unchanged. There is no identified pneumothorax. There is no pleural effusion. There is no identified focal airspace consolidation. IMPRESSION: No identified acute cardiopulmonary abnormality. Dictated by: Dictated on workstation # [id number] Reviewed: Reviewed by Me (radiology report reviewed by me) Departure Communication (Admissions) Laboratory and diagnostic findings discussed with the patient. Plan for discharge to home. Patient was given 1 g Rocephin IM and 60 mg of Toradol IM prior to discharge. Patient to return to the emergency department for worsened symptoms or any other concerns. Impression Primary Impression: Acute pharyngitis Qualified Codes: J02.9 - Acute pharyngitis, unspecified Additional Impression: Bronchitis, acute Qualified Codes: J20.9 - Acute bronchitis, unspecified Disposition: HOME, SELF-CARE Condition: Improved Departure-Patient Inst. Decision time for Depature: 15:14 Referrals: NO,LOCAL PHYSICIAN (PCP/Family) Primary Care Physician Patient Instructions: Acute Bronchitis, Adult (DC), DR. MONTIEL-TONSILS, Strep Throat (DC) Add. Discharge Instructions: All discharge instructions reviewed with patient and/or family. Voiced understanding. Medications as instructed. Tylenol Extra Strength over-the- counter as directed for pain or fever. Ibuprofen 800 mg by mouth every 8 hours as needed for pain or fever. Push fluids. Throat lozenges and throat sprays wipn-klt-tdeindt as needed for throat pain. Warm salt water gargles as needed for pain. Tqvn-kdq-uinmuds decongestants as needed for symptoms. Follow-up with your primary care provider of choice for recheck as an outpatient if no improvement in symptoms. Return in the emergency department for worsened symptoms or any other concerns. 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
--- NOTE | 2018-04-12 14:43 | Diagnostic Imaging Report ---
EXAMINATION: CHEST (PA AND LATERAL) CLINICAL INDICATION: 22-year-old female, fever for two days and cough. COMPARISON: CT chest 08/17/2017. Chest radiograph April 11, 2015. FINDINGS: Heart size and mediastinal contours are unchanged. There is no identified pneumothorax. There is no pleural effusion. There is no identified focal airspace consolidation. IMPRESSION: No identified acute cardiopulmonary abnormality. Dictated by: Dictated on workstation # [id number]
[2018-04-12] MEDS ORDERED: KETOROLAC 60 MG/2 ML VIAL IM STA (15:12)
[2018-04-12] MEDS ORDERED: LIDOCAINE 1% INJ 50 ML (XYLOCAINE) VIAL IJ ONE (15:15)
[2018-04-12] MEDS ORDERED: cefTRIAXone 1 GM (ROCEPHIN) VIAL IM ONE (15:15)
[2018-04-12] MEDS ORDERED: RX-ALBUTEROL INHALER (PROAIR) 8 GM IH STA (15:16)
[2018-04-12] MEDS ORDERED: PRD20T PO (15:26)
[2018-04-12] MEDS ORDERED: CEPH500C PO (15:26)
[2018-04-12] MEDS ORDERED: LIDOCAINE 1% INJ 20 ML 20 ML VIAL ONE (15:35)
[2018-04-12 15:56] VITALS: BP 110/63
== END 2018-04-12 16:00 | disposition home or self-care (01) ==
LOC: EDUNIT# 13:29 → ER 13:30
DX: J02.9 Acute pharyngitis, unspecified (principal); J20.9 Acute bronchitis, unspecified; J45.990 Exercise induced bronchospasm; F41.9 Anxiety disorder, unspecified; F31.9 Bipolar disorder, unspecified; Z97.5 Presence of (intrauterine) contraceptive device; Z82.49 Family history of ischemic heart disease and other diseases of the circulatory system; Z87.19 Personal history of other diseases of the digestive system; Z87.891 Personal history of nicotine dependence; Z88.8 Allergy status to other drugs, medicaments and biological substances; Z79.52 Long term (current) use of systemic steroids
CPT/HCPCS: 71046; 87430; 96372

== ENCOUNTER 2018-05-04 17:34 | Emergency (ER) | payer SELFPAY | END 2018-05-04 17:55 | disposition left against medical advice (07) | LOC: EDUNIT# 17:34 → ER 17:35 | DX: R11.10 Vomiting, unspecified (principal) ==

== ENCOUNTER 2018-07-07 14:30 | Emergency (ER) | payer SELFPAY ==
[~2018-07-07] VITALS: Ht 172.7 cm; Wt 59.0 kg
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
[2018-07-07] MEDS ORDERED: METH-313 PO (15:56)
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
--- NOTE | 2018-07-07 16:19 | Diagnostic Imaging Report ---
EXAMINATION: Cervical spine. INDICATION: Neck pain. FINDINGS: AP, lateral, odontoid, and both oblique views were obtained. The lateral view shows slight anterior angulation of the upper four cervical segments. This appearance is similar to the prior CT cervical spine exam of 12/08/2016. The intervertebral disc spaces are fairly well maintained. The oblique views failed to show any sign of bony foraminal encroachment. There is no fracture or acute bony abnormality evident. There is no evidence for retropharyngeal edema. The lung apices are clear. IMPRESSION: There is no evidence for an acute bony abnormality. Dictated by: Dictated on workstation # [id number]
[2018-07-07 16:28] VITALS: BP 129/79
== END 2018-07-07 16:28 | disposition home or self-care (01) ==
LOC: EDUNIT# 14:30 → ER 14:32
DX: S16.1XXA Strain of muscle, fascia and tendon at neck level, initial encounter (principal); J45.990 Exercise induced bronchospasm; F41.9 Anxiety disorder, unspecified; F31.9 Bipolar disorder, unspecified; Z88.8 Allergy status to other drugs, medicaments and biological substances; Z87.891 Personal history of nicotine dependence; Z87.440 Personal history of urinary (tract) infections; Z87.19 Personal history of other diseases of the digestive system; V49.49XA Driver injured in collision with other motor vehicles in traffic accident, initial encounter
CPT/HCPCS: 70450; 72050

== ENCOUNTER 2018-12-29 13:39 | Emergency (ER) | payer MEDICAID, OTHER ==
[~2018-12-29] VITALS: Ht 172.7 cm; Wt 61.2 kg
[~2018-12-29 13:39] MED LIST changes: +METH-313 PO; +METR-145; +METR-145 PO; -METR500T21; -METR500T21 PO
[2018-12-29] MEDS ORDERED: ORPHENADRINE 60 MG/2 ML (NORFLEX) AMP IV ONE (14:15)
[2018-12-29] MEDS ORDERED: KETOROLAC 30 MG/ML VIAL IVP ONE (14:15)
[2018-12-29] MEDS ORDERED: METH-313 PO (14:19)
[2018-12-29] MEDS ORDERED: PRD20T PO (14:19)
--- NOTE | 2018-12-29 14:19 | ED Back Pain ---
General Stated Complaint: LOWER BACK PAIN Source of Information: Patient Exam Limitations: No Limitations History of Present Illness Date Seen by Provider: Dec 29, 2018 Time Seen by Provider: 14:16 Initial Comments To ER with right low back pain for about one week. She's been using icy hot patches, alternating they are back and body and Aleve with minimal and temporary improvement. The pain does not radiate down either leg, no bowel or bladder loss of control and no dysuria. No history of this. No preceding trauma that she can recall. It's much worse with movement and bending forward. It radiates up the right side of her back to the midthoracic spine. No fevers or chills. Location: Lumbar Spine, Paraspinous Muscles Timing/Duration: 1 Week Severity: Moderate Associated Symptoms: lower back pain Allergies and Home Medications Allergies Coded Allergies: paroxetine (Verified Allergy, Severe, DIFF SWALLOWING, 10/09/16) fluoxetine (Unverified Allergy, Unknown, 06/11/17) Home Medications Methocarbamol 750 Mg Tablet, 750 MG PO Q6H PRN for PAIN-MODERATE TO SEVERE Prescribed by: JAVI ALANIZ on 07/07/18 1556 Methocarbamol 750 Mg Tablet, 750 MG PO Q6H PRN for PAIN-MODERATE Prescribed by: JAVI ALANIZ on 12/29/18 1419 Prednisone 20 Mg Tab, 40 MG PO DAILY Prescribed by: JAVI ALANIZ on 12/29/18 1419 Patient Home Medication List Home Medication List Reviewed: Yes Review of Systems Constitutional: see HPI; No chills, No fever EENTM: see HPI Respiratory: no symptoms reported Cardiovascular: no symptoms reported Genitourinary: no symptoms reported Musculoskeletal: see HPI, back pain Skin: no symptoms reported Psychiatric/Neurological: No Symptoms Reported Past Ykhmwie-Iefvpw-Rzxhfi Hx Patient Social History Type Used: Cigarettes Former Smoker, Quit: Jan 05, 2017 2nd Hand Smoke Exposure: Yes Recent Hopitalizations: No Immunizations Up To Date Tetanus Booster (TDap): Unknown PED Vaccines UTD: No Date of Influenza Vaccine: Aug 30, 2017 Seasonal Allergies Seasonal Allergies: Yes Past Medical History Surgeries: Yes (EGDs X3) Respiratory: Yes (prior exercise induced asthma) Asthma Cardiac: Yes Irregular Heartbeat Neurological: No 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 Disorders: No (ABNORMAL PAP) Female 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 Sexually Transmitted Disease: No HIV/AIDS: No Genitourinary: No UTI-Chronic Gastrointestinal: Yes (EOSINOPHILLIC GASTROENTERITIS/CHRONIC STOMACH PROBLEMS H PYLORI) Crohns Disease Musculoskeletal: Yes Fractures Endocrine: No HEENT: No Cancer: No Psychosocial: Yes Anxiety, Bipolar, Depression Integumentary: No Blood Disorders: No Adverse Reaction/Blood Tranf: No (N/A) Family Medical History FH: bipolar disorder 19 MOTHER FH: heart disease UNCLE Hepatitis C 19 MOTHER Hypertension MATERNAL GRANDFATHER No Pertinent Family Hx Physical Exam Vital Signs Capillary Refill : Height, Weight, BMI Height: 5'8.00" Weight: 130lbs. 0oz. 58.534797tz; 24.3 BMI Method:Stated General Appearance: No Apparent Distress, WD/WN HEENT: PERRL/EOMI Respiratory: No Accessory Muscle Use, No Respiratory Distress Gastrointestinal: Normal Bowel Sounds, Non Tender, Soft Back: Decreased Range of Motion, Other (the right sacroiliac joint is the location of pain, this area and just superior to this is tender to palpation.) Extremity: Normal Capillary Refill, Normal Inspection Neurologic/Psychiatric: Alert, Oriented x3 Skin: Normal Color, Warm/Dry Procedures/Interventions Suture Size: 4-0 Progress/Results/Core Measures Results/Orders Lab Results Laboratory Tests Test 12/29/18 14:03 12/29/18 14:12 Range/Units Urine Color YELLOW Urine Clarity CLEAR Urine pH 6.5 5-9 Urine Specific [place] 1.005 L 1.016-1.022 Urine Protein NEGATIVE NEGATIVE Urine Glucose (UA) NEGATIVE NEGATIVE Urine Ketones NEGATIVE NEGATIVE Urine Nitrite NEGATIVE NEGATIVE Urine Bilirubin NEGATIVE NEGATIVE Urine Urobilinogen NORMAL NORMAL MG/DL Urine Leukocyte Esterase 1+ H NEGATIVE Urine RBC (Auto) NEGATIVE NEGATIVE Urine RBC NONE /HPF Urine WBC 0-2 /HPF Urine Squamous Epithelial Cells 10-25 H /HPF Urine Crystals NONE /LPF Urine Bacteria FEW H /HPF Urine Casts NONE /LPF Urine Mucus NEGATIVE /LPF Urine Culture Indicated YES White Blood Count 7.0 4.3-11.0 10^3/uL Red Blood Count 4.70 4.35-5.85 10^6/uL Hemoglobin 14.5 11.5-16.0 G/DL Hematocrit 44 35-52 % Mean Corpuscular Volume 93 80-99 FL Mean Corpuscular Hemoglobin 31 25-34 PG Mean Corpuscular Hemoglobin Concent 33 32-36 G/DL Red Cell Distribution Width 12.9 10.0-14.5 % Platelet Count 398 130-400 10^3/uL Mean Platelet Volume 8.9 7.4-10.4 FL Neutrophils (%) (Auto) 65 42-75 % Lymphocytes (%) (Auto) 28 12-44 % Monocytes (%) (Auto) 6 0-12 % Eosinophils (%) (Auto) 1 0-10 % Basophils (%) (Auto) 0 0-10 % Neutrophils # (Auto) 4.6 1.8-7.8 X 10^3 Lymphocytes # (Auto) 1.9 1.0-4.0 X 10^3 Monocytes # (Auto) 0.4 0.0-1.0 X 10^3 Eosinophils # (Auto) 0.1 0.0-0.3 10^3/uL Basophils # (Auto) 0.0 0.0-0.1 10^3/uL Sodium Level 141 135-145 MMOL/L Potassium Level 3.8 3.6-5.0 MMOL/L Chloride Level 104 98-107 MMOL/L Carbon Dioxide Level 27 21-32 MMOL/L Anion Gap 10 5-14 MMOL/L Blood Urea Nitrogen 13 7-18 MG/DL Creatinine 0.77 0.60-1.30 MG/DL Estimat Glomerular Filtration Rate > 60 BUN/Creatinine Ratio 17 Glucose Level 56 *L 70-105 MG/DL Calcium Level 9.4 8.5-10.1 MG/DL Serum Test, Qualitative NEGATIVE NEGATIVE My Orders Orders - JAVI ALANIZ APRN Ua Culture If Indicated (12/29/18 14:14) Hcg,Qualitative Serum (12/29/18 14:14) Cbc With Automated Diff (12/29/18 14:14) Basic Metabolic Panel (12/29/18 14:14) Iv Heplock-Insert (Order) (12/29/18 14:14) Ketorolac Injection (Toradol Injection) (12/29/18 14:15) Orphenadrine Injection (Norflex Injectio (12/29/18 14:15) Urine Culture (12/29/18 14:03) Departure Communication (Admissions) 1502-feeling much better at this time. We'll discharged home. 1512-lab reports a low glucose. However patient states that she ate just before she came here, has no symptoms of diaphoresis nausea or lightheadedness. We will discharged home. Impression Primary Impression: Sacroiliitis Disposition: HOME, SELF-CARE Condition: Stable Departure-Patient Inst. Decision time for Depature: 14:18 Referrals: NO,LOCAL PHYSICIAN (PCP/Family) Primary Care Physician Patient Instructions: Sacroiliac Joint Pain Add. Discharge Instructions: 1. Return to ER for any concerns 2. Follow-up with your doctor next week 3. Scripts Methocarbamol (Robaxin-750) 750 Mg Tablet 750 MG PO Q6H PRN for PAIN-MODERATE, #10 TAB Prov: JAVI ALANIZ APRN 12/29/18 Prednisone (Prednisone) 20 Mg Tab 40 MG PO DAILY, #6 TAB Prov: JAVI ALANIZ APRN 12/29/18 Work/School Note: Work Release Form Date Seen in the Emergency Department: Dec 29, 2018 Return to Work: Dec 31, 2018 Images Torso/Trunk 1 - Tenderness JAVI ALANIZ APRN Dec 29, 2018 14:19
[2018-12-29 14:26] LABS: BASOPHILS % (AUTO) 0 % (0-10); EOSINOPHILS # (AUTO) 0.1 10^3/uL (0.0-0.3); EOSINOPHILS % (AUTO) 1 % (0-10); HEMATOCRIT 44 % (35-52); HEMOGLOBIN 14.5 G/DL (11.5-16.0); LYMPHOCYTES # (AUTO) 1.9 X 10^3 (1.0-4.0); LYMPHOCYTES % (AUTO) 28 % (12-44); MEAN CORPUSCULAR HEMOGLOBIN 31 PG (25-34); MEAN CORPUSCULAR HGB CONC 33 G/DL (32-36); MEAN CORPUSCULAR VOLUME 93 FL (80-99); MEAN PLATELET VOLUME 8.9 FL (7.4-10.4); MONOCYTES # (AUTO) 0.4 X 10^3 (0.0-1.0); MONOCYTES % (AUTO) 6 % (0-12); NEUTROPHILS # (AUTO) 4.6 X 10^3 (1.8-7.8); NEUTROPHILS % (AUTO) 65 % (42-75); PLATELET COUNT 398 10^3/uL (130-400); RED CELL DISTRIBUTION WIDTH 12.9 % (10.0-14.5)
[2018-12-29 14:27] LABS: BILIRUBIN,URINE NEGATIVE (NEGATIVE); CLARITY,URINE CLEAR; COLOR,URINE YELLOW; GLUCOSE, URINE (UA) NEGATIVE (NEGATIVE); KETONES,URINE NEGATIVE (NEGATIVE); LEUKOCYTE ESTERASE ,URINE 1+ (NEGATIVE); NITRITE,URINE NEGATIVE (NEGATIVE); PH,URINE 6.5 (5-9); PROTEIN,URINE NEGATIVE (NEGATIVE); UROBILINOGEN,URINE NORMAL (NORMAL)
[2018-12-29 14:42] LABS: BACTERIA,URINE FEW /HPF; WBC,URINE 0-2 /HPF
[2018-12-29 14:47] LABS: BUN/CREATININE RATIO 17; CALCIUM 9.4 MG/DL (8.5-10.1); CARBON DIOXIDE 27 MMOL/L (21-32); CHLORIDE 104 MMOL/L (98-107); CREATININE SERUM 0.77 MG/DL (0.60-1.30); GFR ESTIMATED > 60; POTASSIUM 3.8 MMOL/L (3.6-5.0); SODIUM 141 MMOL/L (135-145)
[2018-12-29 15:05] LABS: GLUCOSE 56 MG/DL (70-105)
[2018-12-29 15:23] VITALS: BP 111/79
== END 2018-12-29 15:23 | disposition home or self-care (01) ==
LOC: EDUNIT# 13:39 → ER 13:40
DX: M46.1 Sacroiliitis, not elsewhere classified (principal); J45.909 Unspecified asthma, uncomplicated; F41.9 Anxiety disorder, unspecified; F31.9 Bipolar disorder, unspecified; Z87.440 Personal history of urinary (tract) infections; Z87.19 Personal history of other diseases of the digestive system; Z97.5 Presence of (intrauterine) contraceptive device; Z82.49 Family history of ischemic heart disease and other diseases of the circulatory system; Z88.8 Allergy status to other drugs, medicaments and biological substances; Z79.52 Long term (current) use of systemic steroids; Z87.891 Personal history of nicotine dependence
CPT/HCPCS: 36415; 80048; 81000; 84703; 85025; 87088

== ENCOUNTER 2019-04-13 15:36 | Emergency (ER) | payer MEDICAID ==
[~2019-04-13] VITALS: Ht 172.7 cm; Wt 59.0 kg
[2019-04-13 16:45] LABS: BILIRUBIN,URINE NEGATIVE (NEGATIVE); CLARITY,URINE SLIGHTLY CLOUDY; COLOR,URINE YELLOW; GLUCOSE, URINE (UA) NEGATIVE (NEGATIVE); KETONES,URINE NEGATIVE (NEGATIVE); LEUKOCYTE ESTERASE ,URINE NEGATIVE (NEGATIVE); NITRITE,URINE NEGATIVE (NEGATIVE); PH,URINE 6 (5-9); PROTEIN,URINE NEGATIVE (NEGATIVE); UROBILINOGEN,URINE NORMAL (NORMAL)
[2019-04-13 16:58] LABS: BACTERIA,URINE NEGATIVE /HPF; RBC,URINE RARE /HPF; WBC,URINE RARE /HPF
--- NOTE | 2019-04-13 17:35 | NUR ---
MANOJ REPORTS PT HAS REFUSED A VAGINAL EXAM.
--- NOTE | 2019-04-13 17:39 | ED GU-Female ---
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 STATES HAS BEEN GOING ON FOR THE LAST MONTH. WAS DIAGNOSED WITH STI A MONTH AGO. STATES PAIN AND BLEEDING WORSENED LAST NIGHT. PT STATES SHE IS HAVING CRAMPING. STATES BLEEDING IS WORSE AFTER INTERCOURSE. Nursing Sepsis Screen: No Definite Risk Source: patient Exam Limitations: no limitations History of Present Illness Date Seen by Provider: April 13, 2019 Time Seen by Provider: 16:28 Initial Comments 23-year-old female who presents to the emergency room with complaints of intermittent vaginal bleeding after intercourse for the past month. She reports she has history of STDs but has received treatment. She reports that the bleeding is only after intercourse and believes that her IUD is in the wrong place. Timing/Duration: other (1 month) Associated Symptoms: denies symptoms Allergies and Home Medications Allergies Coded Allergies: paroxetine (Verified Allergy, Severe, DIFF SWALLOWING, 10/09/16) fluoxetine (Unverified Allergy, Unknown, 06/11/17) Home Medications Methocarbamol 750 Mg Tablet, 750 MG PO Q6H PRN for PAIN-MODERATE TO SEVERE Prescribed by: JAVI ALANIZ on 07/07/18 1556 Methocarbamol 750 Mg Tablet, 750 MG PO Q6H PRN for PAIN-MODERATE Prescribed by: JAVI ALANIZ on 12/29/18 1419 Prednisone 20 Mg Tab, 40 MG PO DAILY Prescribed by: JAVI ALANIZ on 12/29/18 1419 Patient Home Medication List Home Medication List Reviewed: Yes Review of Systems Review of Systems Constitutional: see HPI; No chills, No fever Genitourinary: see HPI, other (vaginal bleeding after intercourse) : No All Other Systemes Reviewed Negative Unless Noted: Yes Past Kfxsuha-Nmqqfc-Tldpqj Hx Past Med/Social Hx: Reviewed Nursing Past Med/Soc Hx Patient Social History Alcohol Use: Denies Use Recreational Drug Use: No Type Used: Cigarettes Former Smoker, Quit: Jan 05, 2017 2nd Hand Smoke Exposure: Yes Recent Foreign Travel: No Contact w/Someone Who Travel: No Recent Infectious Disease Expo: No Recent Hopitalizations: No Immunizations Up To Date Tetanus Booster (TDap): Unknown PED Vaccines UTD: Yes Date of Influenza Vaccine: Aug 30, 2017 Seasonal Allergies Seasonal Allergies: Yes Past Medical History Surgeries: Yes (EGDs X3) Respiratory: Yes (prior exercise induced asthma) Asthma Cardiac: Yes Irregular Heartbeat Neurological: No 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 Disorders: No (ABNORMAL PAP) Female 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 Sexually Transmitted Disease: No HIV/AIDS: No Genitourinary: No UTI-Chronic Gastrointestinal: Yes (EOSINOPHILLIC GASTROENTERITIS/CHRONIC STOMACH PROBLEMS H PYLORI) Crohns Disease Musculoskeletal: Yes Fractures Endocrine: No HEENT: No Cancer: No Psychosocial: Yes Anxiety, Bipolar, Depression Integumentary: No Blood Disorders: No Adverse Reaction/Blood Tranf: No (N/A) Family Medical History Reviewed Nursing Family Hx FH: bipolar disorder 19 MOTHER FH: heart disease UNCLE Hepatitis C 19 MOTHER Hypertension MATERNAL GRANDFATHER No Pertinent Family Hx Physical Exam Vital Signs Vital Signs - First Documented 04/13/19 15:47 Temp 98.4 Pulse 81 Resp 20 B/P (MAP) 114/75 (88) Pulse Ox 99 O2 Delivery Room Air Capillary Refill : Less Than 3 Seconds Height, Weight, BMI Height: 5'8.00" Weight: 130lbs. 0oz. 58.285156qh; 24.3 BMI Method:Stated General Appearance: WD/WN, no apparent distress Cardiovascular: normal peripheral pulses, regular rate, rhythm, no edema, no gallop, no JVD, no murmur Respiratory: chest non-tender, lungs clear, normal breath sounds, no respiratory distress, no accessory muscle use, respiratory distress Extremities: normal capillary refill Neurologic/Psychiatric: alert, normal mood/affect, oriented x 3 Skin: normal color, warm/dry Procedures/Interventions Suture Size: 4-0 Progress/Results/Core Measures Suspected Sepsis Recent Fever Within 48 Hours: No Infection Criteria Present: None New/Unexplained Altered Menta: No Sepsis Screen: No Definite Risk SIRS Temperature:98.4 Pulse: 81 Respiratory Rate: 20 Blood Pressure 114 /75 Mean: 88 Results/Orders Lab Results Laboratory Tests Test 04/13/19 16:39 Range/Units Urine Color YELLOW Urine Clarity SLIGHTLY CLOUDY Urine pH 6 5-9 Urine Specific [place] 1.010 L 1.016-1.022 Urine Protein NEGATIVE NEGATIVE Urine Glucose (UA) NEGATIVE NEGATIVE Urine Ketones NEGATIVE NEGATIVE Urine Nitrite NEGATIVE NEGATIVE Urine Bilirubin NEGATIVE NEGATIVE Urine Urobilinogen NORMAL NORMAL MG/DL Urine Leukocyte Esterase NEGATIVE NEGATIVE Urine RBC (Auto) 2+ H NEGATIVE Urine RBC RARE /HPF Urine WBC RARE /HPF Urine Squamous Epithelial Cells 10-25 H /HPF Urine Crystals NONE /LPF Urine Bacteria NEGATIVE /HPF Urine Casts NONE /LPF Urine Mucus NEGATIVE /LPF Urine Culture Indicated NO My Orders Orders - MANOJ EVERETT Ua Culture If Indicated (04/13/19 16:28) Urine Bedside (04/13/19 16:28) Lokesh Payam Dna Urine Test (04/13/19 17:02) Chlamydia Trachomatis Urine (04/13/19 17:02) Us Non Ob Pelvis Comp/Transvag (04/13/19 16:28) Vital Signs/I&O Capillary Refill : Less Than 3 Seconds Blood Pressure Mean: 88 Progress Note : Time: 17:33 Progress Note I have seen and evaluated the patient. She has deferred her vaginal exam at this time. She agrees with plan of care, plans for discharge, return precautions were given. Diagnostic Imaging Comments NAME: KENDELL GONZALEZ [facility] REC#: [id number] PT STATUS: DEP ER : 1995 PHYSICIAN: MANOJ EVERETT ADMIT DATE: 04/13/19/ER Signed Date of Exam: 04/13/19 US NON OB PELVIS COMP/TRANSVAG PROCEDURE: US Non-OB pelvis comp/trans. TECHNIQUE: Multiple realtime grayscale images were obtained of the pelvis in various projections endovaginally. Transabdominal imaging was also performed. INDICATION: Abdominal pain. FINDINGS: Uterus measures 7.0 x 5.4 x 4.1 cm with normal endometrial thickness of 0.2 cm. There is no evidence of uterine mass. No pelvic free fluid is identified. There is intrauterine device in the fundal endometrium. No adnexal region abnormality is identified. There is normal blood flow to both ovaries with multiple small follicles. IMPRESSION: Unremarkable pelvic ultrasound with good positioning of intrauterine device. Dictated by: Dictated on workstation # [id number] Dict: 04/13/195 Trans: 04/13/191854 Interpreted by: LIBRA LOPEZ MD Electronically signed by: LIBRA LOPEZ MD 04/13/191854 Reviewed: Reviewed by Me Departure Impression Primary Impression: vaginal bleeding after intercourse Disposition: 01 HOME, SELF-CARE Condition: Stable/Unchanged Departure-Patient Inst. Decision time for Depature: 17:33 Referrals: [facility] (PCP/Family) Primary Care Physician Patient Instructions: IRREGULAR VAGINAL BLEEDING Add. Discharge Instructions: Call first thing tomorrow morning to schedule an appointment with Cindy Willson at replaced by [facility]. Return back to the emergency room for worsening symptoms or concerns as needed. All discharge instructions reviewed with patient and/or family. Voiced understanding. MANOJ EVERETT April 13, 2019 17:39
[2019-04-13 17:47] VITALS: BP 114/75
== END 2019-04-13 17:47 | disposition home or self-care (01) ==
LOC: EDUNIT# 15:36 → ER 15:38
DX: N93.9 Abnormal uterine and vaginal bleeding, unspecified (principal); J45.990 Exercise induced bronchospasm; F41.9 Anxiety disorder, unspecified; F31.9 Bipolar disorder, unspecified; B19.20 Unspecified viral hepatitis C without hepatic coma; Z82.49 Family history of ischemic heart disease and other diseases of the circulatory system; Z87.19 Personal history of other diseases of the digestive system; Z87.440 Personal history of urinary (tract) infections; Z88.8 Allergy status to other drugs, medicaments and biological substances; Z86.19 Personal history of other infectious and parasitic diseases; Z97.5 Presence of (intrauterine) contraceptive device; Z79.52 Long term (current) use of systemic steroids; Z87.891 Personal history of nicotine dependence
CPT/HCPCS: 36415; 76830; 76856; 81000; 84703; 87491; 87591

== ENCOUNTER 2020-01-25 10:37 | Emergency (ER) | payer MEDICAID ==
[~2020-01-25] VITALS: Ht 172 cm; Wt 54.8 kg
[~2020-01-25 10:37] MED LIST changes: -FLUO20CA25; +FLUO20CA46
[2020-01-25 10:44] VITALS: BP 102/70
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
[2020-01-25 11:39] LABS: BILIRUBIN,URINE NEGATIVE (NEGATIVE); CLARITY,URINE CLOUDY; COLOR,URINE YELLOW; GLUCOSE, URINE (UA) NEGATIVE (NEGATIVE); KETONES,URINE NEGATIVE (NEGATIVE); LEUKOCYTE ESTERASE ,URINE 1+ (NEGATIVE); NITRITE,URINE POSITIVE (NEGATIVE); PH,URINE 5.5 (5-9); PROTEIN,URINE NEGATIVE (NEGATIVE)
[2020-01-25 11:55] LABS: AMPHETAMINE SCREEN, URINE POSITIVE (NEGATIVE); BARBITURATE SCREEN URINE NEGATIVE (NEGATIVE); BENZODIAZEPINES SCREEN URINE NEGATIVE (NEGATIVE); CANNABINOID SCREEN, URINE POSITIVE (NEGATIVE); COCAINE SCREEN URINE NEGATIVE (NEGATIVE); METHADONE STAT NEGATIVE (NEGATIVE); METHAMPHETAMINE SCREEN URINE S POSITIVE (NEGATIVE); OPIATE SCREEN URINE NEGATIVE (NEGATIVE); OXYCODONE STAT NEGATIVE (NEGATIVE); PROPOXYPHENE STAT NEGATIVE (NEGATIVE); TRICYCLIC ANTIDEPRESSANTS SCRE NEGATIVE (NEGATIVE)
[2020-01-25 11:57] LABS: BACTERIA,URINE LARGE /HPF; WBC,URINE 50-100 /HPF
[2020-01-25 11:57] LABS: BASOPHILS % (AUTO) 0 % (0-10); EOSINOPHILS # (AUTO) 0.1 10^3/uL (0.0-0.3); EOSINOPHILS % (AUTO) 1 % (0-10); HEMATOCRIT 40 % (35-52); HEMOGLOBIN 13.9 G/DL (11.5-16.0); LYMPHOCYTES # (AUTO) 1.7 X 10^3 (1.0-4.0); LYMPHOCYTES % (AUTO) 27 % (12-44); MEAN CORPUSCULAR HEMOGLOBIN 31 PG (25-34); MEAN CORPUSCULAR HGB CONC 35 G/DL (32-36); MEAN CORPUSCULAR VOLUME 90 FL (80-99); MEAN PLATELET VOLUME 8.8 FL (7.4-10.4); MONOCYTES # (AUTO) 0.4 X 10^3 (0.0-1.0); MONOCYTES % (AUTO) 7 % (0-12); NEUTROPHILS % (AUTO) 65 % (42-75); PLATELET COUNT 356 10^3/uL (130-400); WHITE BLOOD COUNT 6.2 10^3/uL (4.3-11.0)
--- NOTE | 2020-01-25 12:09 | NUR ---
REPORT GIVEN TO SHORTY ALMANZAR
[2020-01-25 12:22] LABS: ALANINE AMINOTRANSFERASE 11 U/L (0-55); ALBUMIN 4.4 GM/DL (3.2-4.5); ALKALINE PHOSPHATASE 40 U/L (40-136); BUN/CREATININE RATIO 20; CALCIUM 9.4 MG/DL (8.5-10.1); CARBON DIOXIDE 25 MMOL/L (21-32); CHLORIDE 106 MMOL/L (98-107); CREATININE SERUM 0.81 MG/DL (0.60-1.30); GFR ESTIMATED > 60; GLUCOSE 101 MG/DL (70-105); SALICYLATE < 5.0 MG/DL (5.0-20.0); SODIUM 139 MMOL/L (135-145); TOTAL PROTEIN 6.9 GM/DL (6.4-8.2)
[2020-01-25 12:27] LABS: ACETAMINOPHEN < 10 UG/ML (10-30)
[2020-01-25 12:42] LABS: TSH (THYROID ANALYZER) 0.63 UIU/ML (0.35-4.94)
--- NOTE | 2020-01-25 13:20 | NUR ---
[facility] mental health to assess the patient.
[2020-01-25] MEDS ORDERED: HYDR25CA PO (14:27)
[2020-01-25] MEDS ORDERED: NITR-65 PO (14:27)
[2020-01-25] MEDS ORDERED: hydrOXYzine (VISTARIL/ATARAX) 25 MG capsule/tablet PO ONE (14:30)
[2020-01-25] MEDS ORDERED: NITROFURANTOIN 100 MG (MACROBID) CAPSULE PO ONE (14:30)
== END 2020-01-25 15:08 | disposition home or self-care (01) ==
LOC: EDUNIT# 10:37 → ER 10:38
DX: F41.9 Anxiety disorder, unspecified (principal); N39.0 Urinary tract infection, site not specified; F43.10 Post-traumatic stress disorder, unspecified; J45.909 Unspecified asthma, uncomplicated; F31.9 Bipolar disorder, unspecified; Z77.22 Contact with and (suspected) exposure to environmental tobacco smoke (acute) (chronic); Z87.891 Personal history of nicotine dependence; Z88.8 Allergy status to other drugs, medicaments and biological substances; Z79.52 Long term (current) use of systemic steroids; Z82.49 Family history of ischemic heart disease and other diseases of the circulatory system
CPT/HCPCS: 36415; 80053; 80306; 80320; 80329; 81000; 84443; 84703; 85025; 87077; 87088; 87186; 93005

== ENCOUNTER 2020-02-25 22:55 | Observation (INO) | payer MEDICAID ==
[~2020-02-25] VITALS: Ht 157 cm; Wt 55.7 kg
[2020-02-25] MEDS ORDERED: NS IV 1000 ML 1,000 ML IV SCH (23:18)
[2020-02-25 23:32] LABS: BASOPHILS % (AUTO) 0 % (0-10); EOSINOPHILS # (AUTO) 0.2 10^3/uL (0.0-0.3); EOSINOPHILS % (AUTO) 2 % (0-10); HEMATOCRIT 39 % (35-52); HEMOGLOBIN 13.5 G/DL (11.5-16.0); LYMPHOCYTES # (AUTO) 3.5 X 10^3 (1.0-4.0); LYMPHOCYTES % (AUTO) 33 % (12-44); MEAN CORPUSCULAR HEMOGLOBIN 31 PG (25-34); MEAN CORPUSCULAR HGB CONC 35 G/DL (32-36); MEAN CORPUSCULAR VOLUME 88 FL (80-99); MEAN PLATELET VOLUME 8.6 FL (7.4-10.4); MONOCYTES # (AUTO) 0.7 X 10^3 (0.0-1.0); MONOCYTES % (AUTO) 7 % (0-12); NEUTROPHILS # (AUTO) 6.2 X 10^3 (1.8-7.8); NEUTROPHILS % (AUTO) 58 % (42-75); PLATELET COUNT 407 10^3/uL (130-400); WHITE BLOOD COUNT 10.6 10^3/uL (4.3-11.0)
[2020-02-25 23:48] LABS: ALANINE AMINOTRANSFERASE 11 U/L (0-55); ALBUMIN 4.9 GM/DL (3.2-4.5); ALKALINE PHOSPHATASE 51 U/L (40-136); BUN/CREATININE RATIO 15; CALCIUM 9.5 MG/DL (8.5-10.1); CARBON DIOXIDE 24 MMOL/L (21-32); CHLORIDE 104 MMOL/L (98-107); GFR ESTIMATED > 60; GLUCOSE 125 MG/DL (70-105); MAGNESIUM 2.1 MG/DL (1.6-2.4); POTASSIUM 3.8 MMOL/L (3.6-5.0); SALICYLATE < 5.0 MG/DL (5.0-20.0); SODIUM 138 MMOL/L (135-145); TOTAL PROTEIN 7.7 GM/DL (6.4-8.2)
[2020-02-26 00:07] LABS: ACETAMINOPHEN < 10 UG/ML (10-30)
[2020-02-26 00:09] LABS: TSH (THYROID ANALYZER) 2.03 UIU/ML (0.35-4.94)
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
[2020-02-26] MEDS ORDERED: LACTATED RINGERS 1,000 ML IV ONE (04:26)
[2020-02-26] MEDS ORDERED: NS IV 1000 ML 1,000 ML ONE (05:14)
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
--- NOTE | 2020-02-26 05:18 | NUR ---
Notified Dr. Shetty pt's BP 87/48 at this time. Received order NS at 100mL/hr
[2020-02-26 05:21] VITALS: BP 87/48
[2020-02-26] MEDS ORDERED: NS IV 1000 ML 1,000 ML IV SCH (05:30)
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
[2020-02-26] MEDS ORDERED: FLU QUADRIvalent (5+ YOA) 2019-2020 (AFLURIA) 0.5 ML IM ONE ×2 (07:15→15:49)
[2020-02-26 07:37] VITALS: BP 92/60
--- NOTE | 2020-02-26 11:17 | NUR ---
[facility] Administrator responded to referral but pt was sleeping and did not disturb.
[2020-02-26 11:22] VITALS: BP 95/60
[2020-02-26] MEDS ORDERED: ACETAMINOPHEN 325 MG TABLET PO PRN (11:45)
--- NOTE | 2020-02-26 12:01 | NUR ---
fever of 100. tylenol ordered per MD. diet also advanced to soft for lunch since pt will DC this afternoon pending ride home
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
--- NOTE | 2020-02-26 12:30 | NUR ---
Pt to DC. PT stated to and this RN she does not have a home and does not have anyone she could call that would be willing to come get her. with permission from PT this RN called both emergency contacts listed twice leaving a message for one. No luck finding a ride at this time. will try again
[2020-02-26 12:57] LABS: BILIRUBIN,URINE NEGATIVE (NEGATIVE); CLARITY,URINE SL CLOUDY; COLOR,URINE YELLOW; GLUCOSE, URINE (UA) NEGATIVE (NEGATIVE); KETONES,URINE NEGATIVE (NEGATIVE); LEUKOCYTE ESTERASE ,URINE 2+ (NEGATIVE); NITRITE,URINE NEGATIVE (NEGATIVE); PROTEIN,URINE NEGATIVE (NEGATIVE)
[2020-02-26 13:06] LABS: BACTERIA,URINE LARGE /HPF
[2020-02-26 13:13] LABS: AMPHETAMINE SCREEN, URINE POSITIVE (NEGATIVE); BARBITURATE SCREEN URINE NEGATIVE (NEGATIVE); BENZODIAZEPINES SCREEN URINE NEGATIVE (NEGATIVE); CANNABINOID SCREEN, URINE NEGATIVE (NEGATIVE); COCAINE SCREEN URINE NEGATIVE (NEGATIVE); METHADONE STAT NEGATIVE (NEGATIVE); METHAMPHETAMINE SCREEN URINE S POSITIVE (NEGATIVE); OPIATE SCREEN URINE NEGATIVE (NEGATIVE); OXYCODONE STAT NEGATIVE (NEGATIVE); PROPOXYPHENE STAT NEGATIVE (NEGATIVE); TRICYCLIC ANTIDEPRESSANTS SCRE NEGATIVE (NEGATIVE)
[2020-02-26 15:30] VITALS: BP 109/75
--- NOTE | 2020-02-26 16:00 | NUR ---
emergency contacts have still not answered but Pt stated she would call a friend who would be able to pick her up later in the day.
--- NOTE | 2020-02-26 16:07 | NUR ---
flu shot given per patient request. right upper deltoid
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
[2020-02-26 17:24] VITALS: BP 109/75
== END 2020-02-26 17:24 | disposition home or self-care (01) ==
LOC: EDUNIT# 22:55 → ER 22:57 → 4TH 02-26 04:02
PROVIDERS: ADMIT Internal Medicine; ATTEND Internal Medicine
DX: S00.83XA Contusion of other part of head, initial encounter (principal); S00.11XA Contusion of right eyelid and periocular area, initial encounter; F15.188 Other stimulant abuse with other stimulant-induced disorder; F41.9 Anxiety disorder, unspecified; F31.9 Bipolar disorder, unspecified; F43.10 Post-traumatic stress disorder, unspecified; Z91.5 Personal history of self-harm; Y04.0XXA Assault by unarmed brawl or fight, initial encounter; Y07.03 Male partner, perpetrator of maltreatment and neglect; Z23 Encounter for immunization
CPT/HCPCS: 36415; 70450; 70486; 72125; 80053; 80306; 80320; 80329; 81000; 83735; 84443; 84703; 85025; 86141; 87077; 87088; 87186; G0378

== ENCOUNTER 2020-05-02 12:03 | Emergency (ER) | payer SELFPAY ==
[~2020-05-02] VITALS: Ht 172 cm; Wt 56.8 kg
[2020-05-02 12:35] LABS: BILIRUBIN,URINE NEGATIVE (NEGATIVE); CLARITY,URINE CLEAR; COLOR,URINE YELLOW; GLUCOSE, URINE (UA) NEGATIVE (NEGATIVE); KETONES,URINE NEGATIVE (NEGATIVE); LEUKOCYTE ESTERASE ,URINE 1+ (NEGATIVE); NITRITE,URINE POSITIVE (NEGATIVE); PH,URINE 6.5 (5-9); PROTEIN,URINE NEGATIVE (NEGATIVE)
[2020-05-02 12:44] LABS: BACTERIA,URINE LARGE /HPF
[2020-05-02 12:45] LABS: AMPHETAMINE SCREEN, URINE POSITIVE (NEGATIVE); BARBITURATE SCREEN URINE NEGATIVE (NEGATIVE); BENZODIAZEPINES SCREEN URINE NEGATIVE (NEGATIVE); CANNABINOID SCREEN, URINE POSITIVE (NEGATIVE); COCAINE SCREEN URINE NEGATIVE (NEGATIVE); METHADONE STAT NEGATIVE (NEGATIVE); METHAMPHETAMINE SCREEN URINE S POSITIVE (NEGATIVE); OPIATE SCREEN URINE NEGATIVE (NEGATIVE); OXYCODONE STAT NEGATIVE (NEGATIVE); PROPOXYPHENE STAT NEGATIVE (NEGATIVE); TRICYCLIC ANTIDEPRESSANTS SCRE NEGATIVE (NEGATIVE)
[2020-05-02 12:55] LABS: BASOPHILS % (AUTO) 0 % (0-10); EOSINOPHILS # (AUTO) 0.1 10^3/uL (0.0-0.3); EOSINOPHILS % (AUTO) 1 % (0-10); HEMATOCRIT 41 % (35-52); HEMOGLOBIN 13.9 G/DL (11.5-16.0); LYMPHOCYTES % (AUTO) 26 % (12-44); MEAN CORPUSCULAR HEMOGLOBIN 31 PG (25-34); MEAN CORPUSCULAR HGB CONC 34 G/DL (32-36); MEAN CORPUSCULAR VOLUME 89 FL (80-99); MEAN PLATELET VOLUME 8.7 FL (7.4-10.4); MONOCYTES # (AUTO) 0.6 X 10^3 (0.0-1.0); MONOCYTES % (AUTO) 8 % (0-12); NEUTROPHILS # (AUTO) 4.9 X 10^3 (1.8-7.8); NEUTROPHILS % (AUTO) 65 % (42-75); PLATELET COUNT 394 10^3/uL (130-400); RED CELL DISTRIBUTION WIDTH 12.5 % (10.0-14.5); WHITE BLOOD COUNT 7.5 10^3/uL (4.3-11.0)
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
[2020-05-02 13:01] LABS: CHLORIDE 102 MMOL/L (98-107); POTASSIUM 3.7 MMOL/L (3.6-5.0); SODIUM 138 MMOL/L (135-145)
[2020-05-02 13:02] LABS: ALBUMIN 4.7 GM/DL (3.2-4.5)
[2020-05-02 13:03] LABS: CALCIUM 9.6 MG/DL (8.5-10.1)
[2020-05-02 13:04] LABS: GLUCOSE 92 MG/DL (70-105); TOTAL PROTEIN 7.6 GM/DL (6.4-8.2)
[2020-05-02 13:05] LABS: CARBON DIOXIDE 26 MMOL/L (21-32)
[2020-05-02 13:06] LABS: BILIRUBIN,TOTAL 1.3 MG/DL (0.1-1.0)
[2020-05-02 13:08] LABS: ALKALINE PHOSPHATASE 54 U/L (40-136); CREATININE SERUM 0.79 MG/DL (0.60-1.30); GFR ESTIMATED > 60
[2020-05-02 13:09] LABS: ACETAMINOPHEN < 10 UG/ML (10-30); BUN/CREATININE RATIO 16
[2020-05-02 13:11] LABS: ALANINE AMINOTRANSFERASE 29 U/L (0-55); SALICYLATE < 5.0 MG/DL (5.0-20.0)
[2020-05-02] MEDS ORDERED: cefTRIAXone 1,000 MG/2.86 ml vial (IM ONLY) IM ONE (13:45)
[2020-05-02] MEDS ORDERED: LIDOCAINE 1% INJ 20 ML 20 ML VIAL INJ ONE (13:45)
--- NOTE | 2020-05-02 13:59 | NUR ---
[facility]. INFO FAXED TO DR SOLANO WHO WILL CALL DR SUNG BACK. TALKED WITH DEBI MESSINA WHO WILL ACCEPT TRANSPORT.
--- NOTE | 2020-05-02 14:41 | NUR ---
DR SUNG IN ROOM TALKING TO PT BECAUSE SHE DOES NOT WANT TO STAY AND SHE THINKS SHE IS PREGNENT. PT NOTIFIED THAT THE BLOOD AND URINE TEST WAS BOTH NEGATIVE.
--- NOTE | 2020-05-02 15:08 | NUR ---
PT HAS DECIDED SHE WANTS TO LEAVE NOTIFIED AND MIKIE NOTIFIED.
[2020-05-02] MEDS ORDERED: CEPH500T PO (15:12)
[2020-05-02 15:16] VITALS: BP 125/84
== END 2020-05-02 15:15 | disposition home or self-care (01) ==
LOC: EDUNIT# 12:03 → ER 12:04
DX: F41.9 Anxiety disorder, unspecified (principal); F32.9 Major depressive disorder, single episode, unspecified; F15.10 Other stimulant abuse, uncomplicated; N39.0 Urinary tract infection, site not specified; F43.10 Post-traumatic stress disorder, unspecified; F17.210 Nicotine dependence, cigarettes, uncomplicated; Z88.8 Allergy status to other drugs, medicaments and biological substances; Z82.49 Family history of ischemic heart disease and other diseases of the circulatory system
CPT/HCPCS: 36415; 80053; 80306; 80320; 80329; 81000; 84703; 85025; 87077; 87088; 87186; 93005

== ENCOUNTER 2020-05-13 09:23 | Emergency (ER) | payer SELFPAY ==
[~2020-05-13] VITALS: Ht 172.7 cm; Wt 54.5 kg
[~2020-05-13 09:23] MED LIST changes: +CEPH500T PO
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
[2020-05-13 11:35] VITALS: BP 109/64
== END 2020-05-13 11:37 | disposition home or self-care (01) ==
LOC: EDUNIT# 09:23 → ER 09:24
DX: S09.90XA Unspecified injury of head, initial encounter (principal); S16.1XXA Strain of muscle, fascia and tendon at neck level, initial encounter; S09.93XA Unspecified injury of face, initial encounter; F17.210 Nicotine dependence, cigarettes, uncomplicated; Z88.8 Allergy status to other drugs, medicaments and biological substances; Z82.49 Family history of ischemic heart disease and other diseases of the circulatory system; Y04.0XXA Assault by unarmed brawl or fight, initial encounter
CPT/HCPCS: 70450; 70486; 72125; 84703; 99283

== ENCOUNTER 2020-07-04 19:23 | Emergency (ER) | payer SELFPAY ==
[~2020-07-04] VITALS: Ht 173 cm; Wt 61.8 kg
[2020-07-04 19:51] VITALS: BP 129/80
[2020-07-04] MEDS ORDERED: OLANZapine 5 MG ODT (ZyPREXA ZYDIS) PO ONE (20:15)
[2020-07-04 20:20] LABS: BASOPHILS % (AUTO) 0 % (0-10); EOSINOPHILS # (AUTO) 0.1 10^3/uL (0.0-0.3); EOSINOPHILS % (AUTO) 1 % (0-10); HEMATOCRIT 38 % (35-52); HEMOGLOBIN 12.7 G/DL (11.5-16.0); LYMPHOCYTES # (AUTO) 1.6 X 10^3 (1.0-4.0); LYMPHOCYTES % (AUTO) 16 % (12-44); MEAN CORPUSCULAR HEMOGLOBIN 31 PG (25-34); MEAN CORPUSCULAR HGB CONC 34 G/DL (32-36); MEAN CORPUSCULAR VOLUME 91 FL (80-99); MEAN PLATELET VOLUME 8.4 FL (7.4-10.4); MONOCYTES # (AUTO) 0.8 X 10^3 (0.0-1.0); MONOCYTES % (AUTO) 8 % (0-12); NEUTROPHILS # (AUTO) 7.3 X 10^3 (1.8-7.8); NEUTROPHILS % (AUTO) 74 % (42-75); PLATELET COUNT 444 10^3/uL (130-400); RED CELL DISTRIBUTION WIDTH 12.2 % (10.0-14.5); WHITE BLOOD COUNT 9.9 10^3/uL (4.3-11.0)
[2020-07-04 20:32] LABS: BILIRUBIN,URINE NEGATIVE (NEGATIVE); COLOR,URINE YELLOW; GLUCOSE, URINE (UA) NEGATIVE (NEGATIVE); KETONES,URINE NEGATIVE (NEGATIVE); LEUKOCYTE ESTERASE ,URINE 2+ (NEGATIVE); NITRITE,URINE NEGATIVE (NEGATIVE); PROTEIN,URINE NEGATIVE (NEGATIVE)
[2020-07-04 20:36] LABS: CLARITY,URINE SL CLOUDY
[2020-07-04 20:37] LABS: BACTERIA,URINE TRACE /HPF
[2020-07-04 20:40] LABS: AMPHETAMINE SCREEN, URINE POSITIVE (NEGATIVE); BENZODIAZEPINES SCREEN URINE NEGATIVE (NEGATIVE); CANNABINOID SCREEN, URINE POSITIVE (NEGATIVE); COCAINE SCREEN URINE NEGATIVE (NEGATIVE); METHAMPHETAMINE SCREEN URINE S POSITIVE (NEGATIVE)
[2020-07-04 20:41] LABS: BARBITURATE SCREEN URINE NEGATIVE (NEGATIVE); METHADONE STAT NEGATIVE (NEGATIVE); OPIATE SCREEN URINE NEGATIVE (NEGATIVE); OXYCODONE STAT NEGATIVE (NEGATIVE); PROPOXYPHENE STAT NEGATIVE (NEGATIVE); TRICYCLIC ANTIDEPRESSANTS SCRE NEGATIVE (NEGATIVE)
[2020-07-04 20:42] LABS: ALANINE AMINOTRANSFERASE 33 U/L (0-55); ALBUMIN 4.7 GM/DL (3.2-4.5); ALKALINE PHOSPHATASE 84 U/L (40-136); BILIRUBIN,TOTAL 0.6 MG/DL (0.1-1.0); BUN/CREATININE RATIO 10; CARBON DIOXIDE 24 MMOL/L (21-32); CHLORIDE 104 MMOL/L (98-107); CREATININE SERUM 0.82 MG/DL (0.60-1.30); GFR ESTIMATED > 60; GLUCOSE 95 MG/DL (70-105); POTASSIUM 3.9 MMOL/L (3.6-5.0); SALICYLATE < 5.0 MG/DL (5.0-20.0); SODIUM 139 MMOL/L (135-145); TOTAL PROTEIN 7.6 GM/DL (6.4-8.2)
[2020-07-04 20:43] LABS: ACETAMINOPHEN < 10 UG/ML (10-30)
--- NOTE | 2020-07-04 21:15 | ED Psychosocial ---
General Chief Complaint: Psych/Social Disorder Stated Complaint: PSYCH EVAL Nursing Triage Note: pt presents to Ed with bizzare behaviors. pt is restless and very anxious. has walked out of ED once already. states she thinks she has schizophrenia but is not sure. appears to responding top external stimuli Source: patient Exam Limitations: no limitations History of Present Illness Date Seen by Provider: Jul 04, 2020 Time Seen by Provider: 20:03 Initial Comments Here with report of not doing well on her current medication regimen for her underlying mental health disorder. She thinks she might have schizophrenia which may very well be. She has multiple visits with us usually after methamphetamine abuse. She does admit to using methamphetamine recently. She has been taking hydroxyzine for anxiety. She is slow speaking and does appear to have possible auditory hallucinations but denies suicidality or homicidality. Denies fever, chills, breathing problems, nausea, vomiting, diarrhea or contact with COVID-19. Admits to being recently admitted inpatient in [place] for her psychiatric problems. She initially checked and but then left quickly became back. She consents to evaluation. She is concerned about her family and concerned that she is okay and they are okay. Timing/Duration: week, changing over time Severity: moderate Associated Symptoms: anxiety, impaired concentration Allergies and Home Medications Allergies Coded Allergies: paroxetine (Verified Allergy, Severe, DIFF SWALLOWING, 10/09/16) fluoxetine (Unverified Allergy, Unknown, 06/11/17) Home Medications Cephalexin 500 Mg Tablet, 500 MG PO BID Prescribed by: JAYLEN SUNG on 05/02/20 1512 Patient Home Medication List Home Medication List Reviewed: Yes Review of Systems Constitutional: see HPI; No chills, No fever EENTM: No nose congestion, No nose pain Respiratory: No cough, No short of breath Cardiovascular: No chest pain, No edema Gastrointestinal: No abdominal pain, No nausea, No vomiting Genitourinary: no symptoms reported Musculoskeletal: no symptoms reported Psychiatric/Neurological: Anxiety, Depressed, Emotional Problems All Other Systems Reviewed Negative Unless Noted: Yes Past Imwigpg-Lqrpyg-Etntfk Hx Past Med/Social Hx: Reviewed Nursing Past Med/Soc Hx Patient Social History Alcohol Use: Denies Use Alcohol Beverage of Choice: Beer Recreational Drug Use: No (pt denies) Drug of Choice: meth, marijuana Smoking Status: Current Everyday Smoker Type Used: Cigarettes Former Smoker, Quit: Jan 05, 2017 2nd Hand Smoke Exposure: Yes Recent Foreign Travel: No Contact w/Someone Who Travel: No Recent Infectious Disease Expo: No Recent Hopitalizations: Yes (psych) Physical Abuse: No Sexual Abuse: No Mistreated: No Fear: No Immunizations Up To Date Tetanus Booster (TDap): Unknown PED Vaccines UTD: Yes Date of Influenza Vaccine: Aug 30, 2017 Seasonal Allergies Seasonal Allergies: No Past Medical History Surgeries: No Respiratory: No Asthma Cardiac: No Irregular Heartbeat Neurological: No 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 Disorders: No (ABNORMAL PAP) Female 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 Sexually Transmitted Disease: No HIV/AIDS: No Genitourinary: No UTI-Chronic Gastrointestinal: No Crohns Disease Musculoskeletal: No Fractures Endocrine: No HEENT: No Cancer: No Psychosocial: Yes Anxiety, Personality Disorder, Schizophrenia Integumentary: No Blood Disorders: No Adverse Reaction/Blood Tranf: No (N/A) Family Medical History FH: bipolar disorder 19 MOTHER FH: heart disease UNCLE Hepatitis C 19 MOTHER Hypertension MATERNAL GRANDFATHER No Pertinent Family Hx Physical Exam Vital Signs - First Documented 07/04/20 19:51 Temp 36.9 Pulse 98 Resp 19 B/P (MAP) 129/80 (96) O2 Delivery Room Air Capillary Refill : Less Than 3 Seconds Height, Weight, BMI Height: 5'8.00" Weight: 130lbs. 0oz. 58.501765vn; 20.00 BMI Method:Stated General Appearance: WD/WN, no apparent distress HEENT: PERRL/EOMI, TMs normal, pharynx normal Neck: full range of motion, supple Respiratory: lungs clear, normal breath sounds Cardiovascular: regular rate, rhythm, no murmur Peripheral Pulses: 2+ Dorsalis Pedis (R), 2+ Left Dors-Pedis (L), 2+ Radial Pulses (R), 2+ Radial Pulses (L) Gastrointestinal: non tender, soft Extremities: non-tender, normal inspection Neurologic/Psychiatric: alert, oriented x 3 Appearance/Memory: appropriate appearance, neat Behavior/Eye Contact: cooperative, decreased rate of speech Thoughts/Hallucinations: auditory hallucinations (does appear to be hearing voices but denies this. Has stuttered conversation she is listening to something else and then answering.) Skin: normal color, warm/dry Procedures/Interventions Suture Size: 4-0 Progress/Results/Core Measures Results/Orders Lab Results Laboratory Tests Test 07/04/20 20:12 07/04/20 20:24 Range/Units White Blood Count 9.9 4.3-11.0 10^3/uL Red Blood Count 4.15 L 4.35-5.85 10^6/uL Hemoglobin 12.7 11.5-16.0 G/DL Hematocrit 38 35-52 % Mean Corpuscular Volume 91 80-99 FL Mean Corpuscular Hemoglobin 31 25-34 PG Mean Corpuscular Hemoglobin Concent 34 32-36 G/DL Red Cell Distribution Width 12.2 10.0-14.5 % Platelet Count 444 H 130-400 10^3/uL Mean Platelet Volume 8.4 7.4-10.4 FL Neutrophils (%) (Auto) 74 42-75 % Lymphocytes (%) (Auto) 16 12-44 % Monocytes (%) (Auto) 8 0-12 % Eosinophils (%) (Auto) 1 0-10 % Basophils (%) (Auto) 0 0-10 % Neutrophils # (Auto) 7.3 1.8-7.8 X 10^3 Lymphocytes # (Auto) 1.6 1.0-4.0 X 10^3 Monocytes # (Auto) 0.8 0.0-1.0 X 10^3 Eosinophils # (Auto) 0.1 0.0-0.3 10^3/uL Basophils # (Auto) 0.0 0.0-0.1 10^3/uL Sodium Level 139 135-145 MMOL/L Potassium Level 3.9 3.6-5.0 MMOL/L Chloride Level 104 98-107 MMOL/L Carbon Dioxide Level 24 21-32 MMOL/L Anion Gap 11 5-14 MMOL/L Blood Urea Nitrogen 8 7-18 MG/DL Creatinine 0.82 0.60-1.30 MG/DL Estimat Glomerular Filtration Rate > 60 BUN/Creatinine Ratio 10 Glucose Level 95 70-105 MG/DL Calcium Level 10.0 8.5-10.1 MG/DL Corrected Calcium 8.5-10.1 MG/DL Total Bilirubin 0.6 0.1-1.0 MG/DL Aspartate Amino Transf (AST/SGOT) 15 5-34 U/L Alanine Aminotransferase (ALT/SGPT) 33 0-55 U/L Alkaline Phosphatase 84 40-136 U/L Total Protein 7.6 6.4-8.2 GM/DL Albumin 4.7 H 3.2-4.5 GM/DL Serum Test, Qualitative NEGATIVE NEGATIVE Salicylates Level < 5.0 L 5.0-20.0 MG/DL Acetaminophen Level < 10 L 10-30 UG/ML Serum Alcohol < 10 <10 MG/DL Urine Color YELLOW Urine Clarity SL CLOUDY Urine pH 6.0 5-9 Urine Specific [place] <=1.005 1.016-1.022 Urine Protein NEGATIVE NEGATIVE Urine Glucose (UA) NEGATIVE NEGATIVE Urine Ketones NEGATIVE NEGATIVE Urine Nitrite NEGATIVE NEGATIVE Urine Bilirubin NEGATIVE NEGATIVE Urine Urobilinogen 0.2 < = 1.0 MG/DL Urine Leukocyte Esterase 2+ H NEGATIVE Urine RBC (Auto) NEGATIVE NEGATIVE Urine RBC NONE /HPF Urine WBC 2-5 /HPF Urine Squamous Epithelial Cells 2-5 /HPF Urine Crystals NONE /LPF Urine Bacteria TRACE /HPF Urine Casts NONE /LPF Urine Mucus NEGATIVE /LPF Urine Culture Indicated NO Urine Opiates Screen NEGATIVE NEGATIVE Urine Oxycodone Screen NEGATIVE NEGATIVE Urine Methadone Screen NEGATIVE NEGATIVE Urine Propoxyphene Screen NEGATIVE NEGATIVE Urine Barbiturates Screen NEGATIVE NEGATIVE Ur Tricyclic Antidepressants Screen NEGATIVE NEGATIVE Urine Phencyclidine Screen NEGATIVE NEGATIVE Urine Amphetamines Screen POSITIVE H NEGATIVE Urine Methamphetamines Screen POSITIVE H NEGATIVE Urine Benzodiazepines Screen NEGATIVE NEGATIVE Urine Cocaine Screen NEGATIVE NEGATIVE Urine Cannabinoids Screen POSITIVE H NEGATIVE My Orders Orders - JAYLEN SUNG MD Ua Culture If Indicated (07/04/20 20:03) Cbc With Automated Diff (07/04/20 20:03) Comprehensive Metabolic Panel (07/04/20 20:03) Alcohol (07/04/20 20:03) Drug Screen Stat (Urine) (07/04/20 20:03) Acetaminophen (07/04/20 20:03) Salicylate (07/04/20 20:03) Ekg Tracing (07/04/20 20:03) Ed Iv/Invasive Line Start (07/04/20 20:03) Monitor-Rhythm Ecg Trace Only (07/04/20 20:03) Bh Status Checks/Observation Q15M (07/04/20 20:03) Hcg,Qualitative Serum (07/04/20 20:03) Olanzapine Orally Dissolve Tab (Zyprexa (07/04/20 20:15) Medications Given in ED Current Medications Medications Dose Ordered Sig/Angel Route Start Time Stop Time Status Last Admin Dose Admin Olanzapine 5 mg ONCE ONCE PO 07/04/20 20:15 07/04/20 20:16 DC 07/04/20 20:14 5 MG Vital Signs/I&O 07/04/20 19:51 Temp 36.9 Pulse 98 Resp 19 B/P (MAP) 129/80 (96) O2 Delivery Room Air Blood Pressure Mean: 96 Progress Progress Note : Progress Note Seen and evaluated. Labs, UA, UDS and blood for test ordered. Zyprexa 5 mg by mouth ordered. Monitor patient. 2109: Patient has been cooperative and agreeing to evaluation but now states that she would like to leave. Apparently her mother is here and wants to take her to [facility]. We have advised that we will continue her care here and would try to find appropriate mental health care if needed but she would like to go. Denies suicidal or homicidal thoughts. Has taken no actions of harm currently. Patient signed out AMA. Left prior to instructions given. I did inform her that if she checked into another facility that she could let them know that she was seen here so we could transfer records if needed. Again offered to continue evaluation and she declined. Departure Impression Primary Impression: Anxiety Additional Impression: Drug abuse Disposition: AGAINST MEDICAL ADVICE Condition: Stable/Unchanged Departure-Patient Inst. Decision time for Depature: 21:16 Referrals: [facility] (PCP/Family) Primary Care Physician Patient Instructions: Drug Abuse and Drug Addiction (DC), Leaving Against Medical Advice Add. Discharge Instructions: All discharge instructions reviewed with patient and/or family. Voiced understanding. Verbal instructions as above. Patient left without paperwork. JAYLEN SUNG MD Jul 04, 2020 21:15
== END 2020-07-04 21:11 | disposition left against medical advice (07) ==
LOC: EDUNIT# 19:23 → ER 19:25
DX: F41.9 Anxiety disorder, unspecified (principal); F15.10 Other stimulant abuse, uncomplicated; F17.210 Nicotine dependence, cigarettes, uncomplicated; Z88.0 Allergy status to penicillin; Z82.49 Family history of ischemic heart disease and other diseases of the circulatory system
CPT/HCPCS: 80053; 80306; 81000; 84703; 85025; 93005; 99283; G0480 ×3; 36415; 80320; 80329

== ENCOUNTER 2020-08-19 19:59 | Emergency (ER) | payer SELFPAY ==
[~2020-08-19] VITALS: Ht 168 cm; Wt 60.8 kg
[~2020-08-19 19:59] MED LIST changes: -OXYC-465 PO; +OXYC-556 PO
[2020-08-19] MEDS ORDERED: HYDR-700 (20:28)
--- NOTE | 2020-08-19 20:59 | ED Psychosocial ---
General Chief Complaint: Psych/Social Disorder Stated Complaint: MENTAL HEALTH ISSUES Nursing Triage Note: c/o feeling suicidal since discharge from [facility] approx. 1 month ago. denies speaking with mental health about this. (RHIANNON ARANDA MOTHER SUPERIOR) History of Present Illness Date Seen by Provider: Aug 19, 2020 Time Seen by Provider: 20:59 Initial Comments This is a 24-year-old female who presents to the ER with suicidal ideation. States she was kicked at her mom's house 3 weeks ago and has been living "on the streets." States she can no longer live on the "street" because she does not feel as if she will live very much longer and feels like taking her own life. At this time she does not have an active plan. Reports increasing symptoms and depression and anxiety. States she was discharged from inpatient mental health services at [facility] in May and she was supposed to receive an Invega injection upon discharge, but she forgot to have this done. She is also having verbal and visual hallucinations. States she has been seeing a dos santos that she knows is there, although others are not able to see it. Also reports having vivid dreams of the future "that come true". States she was standing at a new location looking up her son because he was about to fall, and a couple days later, she found herself at this location although she had never been there prior. She states any time she is not distracted by coloring, friends, or doing an activity she has suicidal ideation. She does report recent methamphetamine use 3 days ago. But denies any drug or alcohol use since that time. She is requesting inpatient services for help. (RHIANNON ARANDA MOTHER SUPERIOR) Allergies and Home Medications Allergies Coded Allergies: paroxetine (Verified Allergy, Severe, DIFF SWALLOWING, 10/09/16) fluoxetine (Unverified Allergy, Unknown, 06/11/17) Home Medications Cephalexin 500 Mg Tablet, 500 MG PO BID Prescribed by: JAYLEN SUNG on 05/02/20 1512 Patient Home Medication List Home Medication List Reviewed: Yes (RHIANNON ARANDA APRN) Review of Systems Constitutional: no symptoms reported EENTM: no symptoms reported Respiratory: no symptoms reported Cardiovascular: no symptoms reported Gastrointestinal: no symptoms reported Genitourinary: no symptoms reported Musculoskeletal: no symptoms reported Skin: no symptoms reported Psychiatric/Neurological: No Symptoms Reported (RHIANNON ARANDA APRN) Past Mrgptsr-Kgxmuf-Fmdzft Hx Patient Social History Alcohol Use: Rarely Uses Number of Drinks Today: AA Alcohol Beverage of Choice: Beer Recreational Drug Use: Yes Drug of Choice: meth, cannibus,rx Smoking Status: Current Everyday Smoker Type Used: Cigarettes Former Smoker, Quit: Jan 05, 2017 2nd Hand Smoke Exposure: Yes Recent Foreign Travel: No Contact w/Someone Who Travel: No Recent Infectious Disease Expo: No Recent Hopitalizations: Yes (psych) Physical Abuse: No Sexual Abuse: No Mistreated: No Fear: No (RHIANNON ARANDA APRN) Immunizations Up To Date Tetanus Booster (TDap): Unknown PED Vaccines UTD: Yes Date of Influenza Vaccine: Aug 30, 2017 (RHIANNON ARANDA APRN) Seasonal Allergies Seasonal Allergies: No (RHIANNON ARANDA APRN) Past Medical History Surgeries: No (egd) Respiratory: No Asthma Cardiac: No Irregular Heartbeat Neurological: No : No 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 Disorders: No (ABNORMAL PAP) Female 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 [facility] NURSE STAFF History: IUD Sexually Transmitted Disease: No HIV/AIDS: No Genitourinary: No UTI-Chronic Gastrointestinal: No Crohns Disease Musculoskeletal: No Fractures Endocrine: No HEENT: No Cancer: No Psychosocial: Yes Anxiety, Personality Disorder, Schizophrenia Integumentary: No Blood Disorders: No Adverse Reaction/Blood Tranf: No (N/A) (RHIANNON ARANDA APRN) Family Medical History FH: bipolar disorder 19 MOTHER FH: heart disease UNCLE Hepatitis C 19 MOTHER Hypertension MATERNAL GRANDFATHER No Pertinent Family Hx (RHIANNON ARANDA APRN) Physical Exam Vital Signs - First Documented 08/19/20 20:20 Temp 36.6 Pulse 81 Resp 16 B/P (MAP) 125/86 (99) Pulse Ox 99 O2 Delivery Room Air (JAYLEN SUNG MD) Capillary Refill : Less Than 3 Seconds (RHIANNON ARANDA APRN) Height, Weight, BMI Height: 5'8.00" Weight: 130lbs. 0oz. 58.201608sp; 21.00 BMI Method:Stated General Appearance: WD/WN, no apparent distress HEENT: PERRL/EOMI, pharynx normal Neck: non-tender, full range of motion, supple, normal inspection Respiratory: chest non-tender, lungs clear, normal breath sounds, no respiratory distress, no accessory muscle use Cardiovascular: regular rate, rhythm, no edema, no murmur Gastrointestinal: normal bowel sounds, non tender, soft Extremities: normal range of motion, non-tender, normal inspection, normal capillary refill Neurologic/Psychiatric: no motor/sensory deficits, alert, oriented x 3, other (vigilant expression ) Behavior/Eye Contact: cooperative, good eye contact, decreased rate of speech, compulsive Thoughts/Hallucinations: flight of ideas, paranoid, persecution, visual hallucinations Skin: normal color, warm/dry (RHIANNON ARANDA APRN) Procedures/Interventions Suture Size: 4-0 (RHIANNON ARANDA APRN) Progress/Results/Core Measures Results/Orders Lab Results Laboratory Tests Test 08/19/20 20:26 08/19/20 20:55 Range/Units Urine Color YELLOW Urine Clarity CLEAR Urine pH 7.0 5-9 Urine Specific [place] <=1.005 1.016-1.022 Urine Protein NEGATIVE NEGATIVE Urine Glucose (UA) NEGATIVE NEGATIVE Urine Ketones NEGATIVE NEGATIVE Urine Nitrite NEGATIVE NEGATIVE Urine Bilirubin NEGATIVE NEGATIVE Urine Urobilinogen 0.2 < = 1.0 MG/DL Urine Leukocyte Esterase 2+ H NEGATIVE Urine RBC (Auto) NEGATIVE NEGATIVE Urine RBC 0-2 /HPF Urine WBC 2-5 /HPF Urine Squamous Epithelial Cells 10-25 H /HPF Urine Crystals NONE /LPF Urine Bacteria FEW H /HPF Urine Casts NONE /LPF Urine Mucus NEGATIVE /LPF Urine Yeast FEW H /HPF Urine Culture Indicated NO Urine Opiates Screen NEGATIVE NEGATIVE Urine Oxycodone Screen NEGATIVE NEGATIVE Urine Methadone Screen NEGATIVE NEGATIVE Urine Propoxyphene Screen NEGATIVE NEGATIVE Urine Barbiturates Screen NEGATIVE NEGATIVE Ur Tricyclic Antidepressants Screen NEGATIVE NEGATIVE Urine Phencyclidine Screen NEGATIVE NEGATIVE Urine Amphetamines Screen NEGATIVE NEGATIVE Urine Methamphetamines Screen NEGATIVE NEGATIVE Urine Benzodiazepines Screen NEGATIVE NEGATIVE Urine Cocaine Screen NEGATIVE NEGATIVE Urine Cannabinoids Screen NEGATIVE NEGATIVE White Blood Count 9.0 4.3-11.0 10^3/uL Red Blood Count 4.54 4.35-5.85 10^6/uL Hemoglobin 13.7 11.5-16.0 G/DL Hematocrit 41 35-52 % Mean Corpuscular Volume 89 80-99 FL Mean Corpuscular Hemoglobin 30 25-34 PG Mean Corpuscular Hemoglobin Concent 34 32-36 G/DL Red Cell Distribution Width 12.0 10.0-14.5 % Platelet Count 373 130-400 10^3/uL Mean Platelet Volume 8.9 7.4-10.4 FL Neutrophils (%) (Auto) 55 42-75 % Lymphocytes (%) (Auto) 34 12-44 % Monocytes (%) (Auto) 10 0-12 % Eosinophils (%) (Auto) 1 0-10 % Basophils (%) (Auto) 0 0-10 % Neutrophils # (Auto) 5.0 1.8-7.8 X 10^3 Lymphocytes # (Auto) 3.0 1.0-4.0 X 10^3 Monocytes # (Auto) 0.9 0.0-1.0 X 10^3 Eosinophils # (Auto) 0.1 0.0-0.3 10^3/uL Basophils # (Auto) 0.0 0.0-0.1 10^3/uL Sodium Level 140 135-145 MMOL/L Potassium Level 3.9 3.6-5.0 MMOL/L Chloride Level 102 98-107 MMOL/L Carbon Dioxide Level 28 21-32 MMOL/L Anion Gap 10 5-14 MMOL/L Blood Urea Nitrogen 6 L 7-18 MG/DL Creatinine 0.75 0.60-1.30 MG/DL Estimat Glomerular Filtration Rate > 60 BUN/Creatinine Ratio 8 Glucose Level 87 70-105 MG/DL Calcium Level 9.6 8.5-10.1 MG/DL Corrected Calcium 8.5-10.1 MG/DL Total Bilirubin 0.4 0.1-1.0 MG/DL Aspartate Amino Transf (AST/SGOT) 19 5-34 U/L Alanine Aminotransferase (ALT/SGPT) 18 0-55 U/L Alkaline Phosphatase 52 40-136 U/L Total Protein 7.7 6.4-8.2 GM/DL Albumin 4.6 H 3.2-4.5 GM/DL Salicylates Level < 5.0 L 5.0-20.0 MG/DL Acetaminophen Level < 10 L 10-30 UG/ML Serum Alcohol < 10 <10 MG/DL (JYALEN SUNG MD) My Orders Orders - JAYLEN SUNG MD Olanzapine Orally Dissolve Tab (Zyprexa (08/20/20 00:00) Diflucan 150mg Po (08/19/20 23:59) (JAYLEN SUNG MD) Medications Given in ED Current Medications Medications Dose Ordered Sig/Angel Route Start Time Stop Time Status Last Admin Dose Admin Lorazepam 0.5 mg ONCE ONCE IVP 08/19/20 22:00 08/19/20 22:01 DC 08/19/20 21:58 0.5 MG (JAYLEN SUNG MD) Vital Signs/I&O 08/19/20 20:20 Temp 36.6 Pulse 81 Resp 16 B/P (MAP) 125/86 (99) Pulse Ox 99 O2 Delivery Room Air (JAYLEN SUNG MD) Blood Pressure Mean: 99 Progress Progress Note : Progress Note 0: He came out of the room at this time was very accusatory toward staff, stating she needed IV fluids and she knows she needs IV fluids, but the nurse is refusing to help her. Repetitively insisted she needed medical help not "mental help". She began packing up her belongings stating she would rather on the streets than in this Hospital where nobody will help her. She attempted to remove her IV several times, stating she is just going to leave. After providing reassurance that I was here to help her she was able to calm down and relax in the bed. Staff is currently working on finding inpatient beds available. (RHIANNON ARANDA APRN) Progress Note : Progress Note 2300: Assumed care from Rhiannon Aranda APRN pending evaluation for mental health transfer. 2358: Currently there are no beds in [place] and [place] is evaluating her for inpatient. Patient is very concerned about her health and capability. Very concerned about her mental health and still states that she feels like she is going to and she is unable to cope. Zyprexa 5 mg by mouth. Patient does have yeast in her urine so we will give Diflucan 150 mg by mouth times one to resolve that issue. Patient would benefit from inpatient psychiatric care. Monitor patient. (JAYLEN SUNG MD) Progress Note #1: Time: 08:48 Progress Note Icing care of this patient from Dr. Sung at 06:00. She has been sleeping quietly since then. [facility] has been contacted. They're presently in meetings and have not been able to make a determination on her admission status at this point. Progress Note #2: Time: 10:15 Progress Note [facility] requested a COVID screening before admission. COVID screen was negative. Patient is now up and eating breakfast. She still desires transfer for help with her suicidal ideation and schizophrenia. Transfer has been accepted by Dr. Clement. [facility] with [facility] with [facility]. Transportation is anticipated prior to 14:00. Progress Note #3: Time: 12:20 Progress Note Patient is alert with normal vital signs. Transporter is here to take her to [facility]. Lab was notified the secondary COVID19 test will not be performed as the initial test was for screening purposes only on an asymptomatic patient. (DIVINA CASANOVA MD) Initial ECG Impression Date: Aug 19, 2020 (RHIANNON ARANDA MOTHER SUPERIOR) Departure Impression Primary Impression: Suicidal ideation Additional Impression: Schizophrenia Qualified Codes: F20.9 - Schizophrenia, unspecified Disposition: 65 XFER TO PSYCH HOSP/UNIT Condition: Stable Transfer Transfer Reason: Exceeds level of care Time Spoke to Accepting Phy: 10:11 Transfer Progress Notes Transfer accepted by Dr. Clement Transfer Time: 12:20 Transfer Facility: [facility] in [place], [place] Method of Transfer: HTS (DIVINA CASANOVA MD) Departure-Patient Inst. Referrals: [facility] (PCP/Family) Primary Care Physician RHIANNON ARANDA APRN Aug 19, 2020 20:59 JAYLEN SUNG MD Aug 20, 2020 00:03 DIVINA CASANOVA MD Aug 20, 2020 09:01
[2020-08-19 21:05] LABS: BASOPHILS % (AUTO) 0 % (0-10); EOSINOPHILS # (AUTO) 0.1 10^3/uL (0.0-0.3); EOSINOPHILS % (AUTO) 1 % (0-10); HEMATOCRIT 41 % (35-52); HEMOGLOBIN 13.7 G/DL (11.5-16.0); LYMPHOCYTES % (AUTO) 34 % (12-44); MEAN CORPUSCULAR HEMOGLOBIN 30 PG (25-34); MEAN CORPUSCULAR HGB CONC 34 G/DL (32-36); MEAN CORPUSCULAR VOLUME 89 FL (80-99); MEAN PLATELET VOLUME 8.9 FL (7.4-10.4); MONOCYTES # (AUTO) 0.9 X 10^3 (0.0-1.0); MONOCYTES % (AUTO) 10 % (0-12); NEUTROPHILS % (AUTO) 55 % (42-75); PLATELET COUNT 373 10^3/uL (130-400)
[2020-08-19 21:08] LABS: BILIRUBIN,URINE NEGATIVE (NEGATIVE); CLARITY,URINE CLEAR; COLOR,URINE YELLOW; GLUCOSE, URINE (UA) NEGATIVE (NEGATIVE); KETONES,URINE NEGATIVE (NEGATIVE); LEUKOCYTE ESTERASE ,URINE 2+ (NEGATIVE); NITRITE,URINE NEGATIVE (NEGATIVE); PROTEIN,URINE NEGATIVE (NEGATIVE)
[2020-08-19 21:15] LABS: ALBUMIN 4.6 GM/DL (3.2-4.5); CHLORIDE 102 MMOL/L (98-107); POTASSIUM 3.9 MMOL/L (3.6-5.0); SODIUM 140 MMOL/L (135-145)
[2020-08-19 21:16] LABS: CALCIUM 9.6 MG/DL (8.5-10.1)
[2020-08-19 21:17] LABS: GLUCOSE 87 MG/DL (70-105)
[2020-08-19 21:17] LABS: BACTERIA,URINE FEW /HPF; RBC,URINE 0-2 /HPF
[2020-08-19 21:18] LABS: YEAST,URINE FEW /HPF
[2020-08-19 21:18] LABS: TOTAL PROTEIN 7.7 GM/DL (6.4-8.2)
[2020-08-19 21:19] LABS: BILIRUBIN,TOTAL 0.4 MG/DL (0.1-1.0); CARBON DIOXIDE 28 MMOL/L (21-32)
[2020-08-19 21:21] LABS: ALKALINE PHOSPHATASE 52 U/L (40-136); CREATININE SERUM 0.75 MG/DL (0.60-1.30); GFR ESTIMATED > 60
[2020-08-19 21:22] LABS: BUN/CREATININE RATIO 8
[2020-08-19 21:24] LABS: ALANINE AMINOTRANSFERASE 18 U/L (0-55); SALICYLATE < 5.0 MG/DL (5.0-20.0)
[2020-08-19 21:29] LABS: ACETAMINOPHEN < 10 UG/ML (10-30)
[2020-08-19 21:30] LABS: AMPHETAMINE SCREEN, URINE NEGATIVE (NEGATIVE); BARBITURATE SCREEN URINE NEGATIVE (NEGATIVE); BENZODIAZEPINES SCREEN URINE NEGATIVE (NEGATIVE); CANNABINOID SCREEN, URINE NEGATIVE (NEGATIVE); COCAINE SCREEN URINE NEGATIVE (NEGATIVE); METHADONE STAT NEGATIVE (NEGATIVE); METHAMPHETAMINE SCREEN URINE S NEGATIVE (NEGATIVE); OPIATE SCREEN URINE NEGATIVE (NEGATIVE); OXYCODONE STAT NEGATIVE (NEGATIVE); PROPOXYPHENE STAT NEGATIVE (NEGATIVE); TRICYCLIC ANTIDEPRESSANTS SCRE NEGATIVE (NEGATIVE)
--- NOTE | 2020-08-19 21:45 | NUR ---
[facility] has no inpatient psych beds available
--- NOTE | 2020-08-19 21:47 | NUR ---
[facility] no female inpatient psych beds available.
--- NOTE | 2020-08-19 21:50 | NUR ---
farshad will review chart for possible admission. pt out to desk requesting iv fluids.
[2020-08-19] MEDS ORDERED: LORazepam INJ 2 MG/ML (ATIVAN) VIAL IVP ONE (22:00)
--- NOTE | 2020-08-19 22:25 | NUR ---
MEDICAL CHART FAXED TO [facility] AT [phone]
--- NOTE | 2020-08-19 23:26 | NUR ---
[facility] VERIFIED RECIEPT OF FAX.
[2020-08-19] MEDS ORDERED: FLUCONAZOLE 150 MG TABLET (ED ONLY) PO STA (23:59)
[2020-08-20] MEDS ORDERED: OLANZapine 5 MG ODT (ZyPREXA ZYDIS) PO ONE
--- NOTE | 2020-08-20 00:13 | NUR ---
ZYPREXA GIVEN FOR PT'S AGGITATION. NO OTHER NEEDS AT THIS TIME.
--- NOTE | 2020-08-20 01:00 | NUR ---
PT RESTING NO DISTRESS NOTED.
--- NOTE | 2020-08-20 03:00 | NUR ---
PT RESTING NO DISTRESS NOTED.
--- NOTE | 2020-08-20 05:00 | NUR ---
pt resting, no needs at this time.
--- NOTE | 2020-08-20 06:55 | NUR ---
Recieved report from SHORTY Gannon to assume care of pt at this time.
--- NOTE | 2020-08-20 07:17 | NUR ---
pt resting in room with lights dimmed at this time. no distress noted.
--- NOTE | 2020-08-20 08:31 | NUR ---
[facility] called at this time for an update. intake reports DR is in a meeting but will evaluate pt chart when he gets out.
--- NOTE | 2020-08-20 08:45 | NUR ---
pt reports no new needs at this time but agrees to breakfast meal tray. Dietary notified. Pt updated on progress with [facility].
--- NOTE | 2020-08-20 10:53 | NUR ---
pt resting at this time. no complaints reported.
[2020-08-20 12:23] VITALS: BP 103/68
== END 2020-08-20 12:23 ==
LOC: EDUNIT# 19:59 → ER 20:01
DX: R45.851 Suicidal ideations (principal); F20.9 Schizophrenia, unspecified; F17.210 Nicotine dependence, cigarettes, uncomplicated; Z20.828 Contact with and (suspected) exposure to other viral communicable diseases; Z82.49 Family history of ischemic heart disease and other diseases of the circulatory system; Z88.8 Allergy status to other drugs, medicaments and biological substances
CPT/HCPCS: 80053; 80306; 81000; 85025; 93005; 99284; G0480 ×3; U0002; 36415; 80320; 80329; 87635

== ENCOUNTER 2021-04-04 21:42 | Emergency (ER) | payer SELFPAY ==
[~2021-04-04] VITALS: Ht 172.7 cm; Wt 81.6 kg
[~2021-04-04 21:42] MED LIST changes: +HYDR-700
[2021-04-04 22:42] LABS: BASOPHILS % (AUTO) 0 % (0-10); EOSINOPHILS # (AUTO) 0.1 10^3/uL (0.0-0.3); EOSINOPHILS % (AUTO) 1 % (0-10); HEMATOCRIT 41 % (35-52); HEMOGLOBIN 13.6 g/dL (11.5-16.0); LYMPHOCYTES # (AUTO) 1.9 10^3/uL (1.0-4.0); LYMPHOCYTES % (AUTO) 20 % (12-44); MEAN CORPUSCULAR HEMOGLOBIN 30 pg (25-34); MEAN CORPUSCULAR HGB CONC 33 g/dL (32-36); MEAN CORPUSCULAR VOLUME 90 fL (80-99); MEAN PLATELET VOLUME 8.7 fL (9.0-12.2); MONOCYTES # (AUTO) 0.7 10^3/uL (0.0-1.0); MONOCYTES % (AUTO) 8 % (0-12); NEUTROPHILS # (AUTO) 6.8 10^3/uL (1.8-7.8); NEUTROPHILS % (AUTO) 71 % (42-75); PLATELET COUNT 341 10^3/uL (130-400); WHITE BLOOD COUNT 9.7 10^3/uL (4.3-11.0)
[2021-04-04 22:54] LABS: PROTHROMBIN TIME PATIENT 13.3 SEC (12.2-14.7)
[2021-04-04] MEDS ORDERED: KETOROLAC 30 MG/ML VIAL IVP ONE (23:00)
[2021-04-04 23:02] LABS: ALANINE AMINOTRANSFERASE 31 U/L (0-55); ALBUMIN 4.5 GM/DL (3.2-4.5); ALKALINE PHOSPHATASE 67 U/L (40-136); BILIRUBIN,TOTAL 0.4 MG/DL (0.1-1.0); BUN/CREATININE RATIO 9; CALCIUM 9.5 MG/DL (8.5-10.1); CARBON DIOXIDE 28 MMOL/L (21-32); CHLORIDE 103 MMOL/L (98-107); CREATINE KINASE 88 U/L (29-168); CREATININE SERUM 0.78 MG/DL (0.60-1.30); GFR ESTIMATED > 60; GLUCOSE 95 MG/DL (70-105); LIPASE 42 U/L (8-78); MAGNESIUM 2.5 MG/DL (1.6-2.4); SODIUM 137 MMOL/L (135-145); TOTAL PROTEIN 7.2 GM/DL (6.4-8.2)
[2021-04-04 23:12] LABS: BILIRUBIN,URINE NEGATIVE (NEGATIVE); CLARITY,URINE CLEAR; COLOR,URINE YELLOW; GLUCOSE, URINE (UA) NEGATIVE (NEGATIVE); KETONES,URINE NEGATIVE (NEGATIVE); LEUKOCYTE ESTERASE ,URINE 1+ (NEGATIVE); NITRITE,URINE NEGATIVE (NEGATIVE); PH,URINE 7.5 (5-9); PROTEIN,URINE NEGATIVE (NEGATIVE)
[2021-04-04 23:12] LABS: CREATINE KINASE MB 0.5 NG/ML (<6.6)
[2021-04-04 23:17] LABS: WBC,URINE 0-2 /HPF
[2021-04-04 23:18] LABS: BACTERIA,URINE TRACE /HPF; SQUAMOUS EPITHELIAL CELL,UR 0-2 /HPF
[2021-04-04 23:22] LABS: AMPHETAMINE SCREEN, URINE POSITIVE (NEGATIVE); BARBITURATE SCREEN URINE NEGATIVE (NEGATIVE); BENZODIAZEPINES SCREEN URINE NEGATIVE (NEGATIVE); CANNABINOID SCREEN, URINE NEGATIVE (NEGATIVE); COCAINE SCREEN URINE NEGATIVE (NEGATIVE); METHADONE STAT NEGATIVE (NEGATIVE); METHAMPHETAMINE SCREEN URINE S POSITIVE (NEGATIVE); OPIATE SCREEN URINE NEGATIVE (NEGATIVE); OXYCODONE STAT NEGATIVE (NEGATIVE); PROPOXYPHENE STAT NEGATIVE (NEGATIVE); TRICYCLIC ANTIDEPRESSANTS SCRE NEGATIVE (NEGATIVE)
[2021-04-04 23:31] LABS: ACETAMINOPHEN < 10 UG/ML (10-30)
--- NOTE | 2021-04-04 23:39 | ED General ---
General Chief Complaint: Chest Pain Stated Complaint: CHEST PAIN, BREATHING ISSUES,HEAD ACHE, DRUG USAGE Nursing Triage Note: PATIENT HAVING PAIN IN HER CHEST, STATES SHE HAS BEEN HAVING PAIN FOR SEVERAL WEEKS AND TODAY WHILE MOVING A COUCH BEGAN HAVING INCREASED PAIN AND SHORTNESS OF BREATH. ALSO VERBALIZES REMORSE FOR HER DRUG USAGE OF METHAMPHETAMINE AND CRACK SHE USED 2 DAYS AGO. STATES HER CHEST PAIN IS WORSE WHEN SHE USES THE AFOREMENTIONED ILLICIT DRUGS AND WITH ACTIVITY. Nursing Sepsis Screen: No Definite Risk Source of Information: Patient (SOMEWHAT DIFFICULT HISTORIAN) History of Present Illness Date Seen by Provider: April 04, 2021 Time Seen by Provider: 22:12 Initial Comments PT ARRIVES VIA POV FROM HOME C/O CHEST PAIN--STATES SHE HAS HAD IT FOR "MONTHS" STATES "IT USED TO BE SHARP AND NOW IT'S DULL AND HURTS TO TOUCH IT" --POINTS TO LEFT UPPER CHEST C/O PALPATIONS AT TIMES, NOT NOW C/O "TROUBLE BREATHING" AT TIMES, NOT NOW STATES SHE HAS BEEN HAVING "PANIC ATTACKS" AND HAS BEEN "SAD" LATELY STATES SHE HAD PAINS IN HER HEAD EARLIER TODAY, NOT NOW NO FEVER C/O NON-PRODUCTIVE COUGH--NOT SURE HOW LONG SHE HAS HAD IT NO LOSS OF TASTE/SMELL NO SORE THROAT NO GI SYMPTOMS NO BODY ACHES DENIES ANY KNOWN EXPOSURE TO COVID-19 HAS NOT RECEIVED COVID-19 VACCINE OR FLU VACCINE STATES SHE USES METH, COCAINE AND CRACK--STATES SHE SMOKED METH TODAY AND USED CRACK 2 DAYS AGO STATES THAT HER SYMPTOMS ARE WORSE WHEN SHE USES DRUGS STATES "I'VE BEEN CONCERNED ABOUT MY MENTAL" STATES "IT FEELS LIKE I'M TOXIC IN AN ABSTRACT PSYCHOSIS" "OVER JEALOUS" "DELUSIONAL PSYCHOSIS" "THOUGHTS ALL MESSED UP" --THESE SYMPTOMS ARE ONGOING AND ARE NOT NEW TODAY, AND OCCUR WHEN SHE USES DRUGS DENIES ANY SUICIDAL OR HOMICIDAL THOUGHTS/GESTURES/ATTEMPTS PT HAS NOT TAKEN ANY OF HER REGULAR MEDICATIONS TODAY, AND HAS NOT TAKEN ANYTHING FOR CURRENT SYMPTOMS AT ANY TIME HAS NOT [facility]IL [facility]. Allergies and Home Medications Allergies Coded Allergies: paroxetine (Verified Allergy, Severe, DIFF SWALLOWING, 10/09/16) fluoxetine (Unverified Allergy, Unknown, 06/11/17) Home Medications Cephalexin 500 Mg Tablet, 500 MG PO BID Prescribed by: JAYLEN SUNG on 05/02/20 1512 Naproxen 500 Mg Tablet., 500 MG PO BID Prescribed by: EDELMIRA CANTU on 04/04/21 6232 Patient Home Medication List Home Medication List Reviewed: Yes Review of Systems Review of Systems Constitutional: no symptoms reported; No chills, No diaphoresis, No dizziness, No fever, No malaise EENTM: no symptoms reported Respiratory: see HPI Cardiovascular: see HPI Gastrointestinal: no symptoms reported Genitourinary: No discharge; dysuria : No (LMP--UNKONWN, HAD IUD IN PLACE, BUT WAS REMOVED 08/2020-NO PERIOD SINCE) Musculoskeletal: no symptoms reported Skin: no symptoms reported Psychiatric/Neurological: See HPI Past Jaaeldx-Vgotcz-Klloex Hx Past Med/Social Hx: Reviewed and Corrections made Patient Social History Alcohol Use: Occasionally Uses Number of Drinks Today: AA Alcohol Beverage of Choice: Beer Drug of Choice: meth, cannibus, COCAINE, CRACK Smoking Status: Current Everyday Smoker Type Used: Cigarettes 2nd Hand Smoke Exposure: Yes Recent Infectious Disease Expo: No Substance type: Methamphetamine, Marijuana, Other (COCAINE, CRACK,) Immunizations Up To Date Tetanus Booster (TDap): Unknown PED Vaccines UTD: Yes Date of Influenza Vaccine: Aug 30, 2017 Seasonal Allergies Seasonal Allergies: No Past Medical History Surgeries: Yes (EGD) Respiratory: Yes Asthma Cardiac: Yes Palpitations Neurological: No : No (NO PERIOD SINCE IUD PLACED, BUT IT WAS REMOVED 08/2020) 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 Disorders: Yes (ABNORMAL PAP) Female 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 History: IUD (REMOVED 08/2020) Sexually Transmitted Disease: No HIV/AIDS: No Genitourinary: Yes UTI-Chronic Gastrointestinal: Yes (GASTRITIS) Crohns Disease, Esophagitis Musculoskeletal: Yes Fractures Endocrine: No HEENT: No Cancer: No Psychosocial: Yes (POLYSUBSTANCE ABUSE; PARANOID SCHIZOPHRENIA) Anxiety, Personality Disorder, Schizophrenia, Depression Integumentary: No Blood Disorders: No Adverse Reaction/Blood Tranf: No (N/A) Family Medical History FH: bipolar disorder 19 MOTHER FH: heart disease UNCLE Hepatitis C 19 MOTHER Hypertension MATERNAL GRANDFATHER No Pertinent Family Hx SOCIAL HISTORY: -ETOH--OCCASIONAL USE -DRUGS--LONG HISTORY OF METHAMPHETAMINES, COCAINE, CRACK, THC. DENIES IV USE--STATES SHE SMOKES DRUGS -SMOKES 1 PPD Physical Exam Vital Signs Vital Signs - First Documented 04/04/21 22:10 Temp 37.1 Pulse 93 Resp 22 B/P (MAP) 136/92 (107) Pulse Ox 100 O2 Delivery Room Air Capillary Refill : Less Than 3 Seconds Height, Weight, BMI Height: 5'8.00" Weight: 130lbs. 0oz. 58.303899bl; 27.00 BMI Method:Stated General Appearance: No Apparent Distress, WD/WN, Other (PT FREQUENTLY PUSHING ON HER LEFT CHEST AND BREAST, AND STATES PUSHING ON IT HURTS, YET SHE CONTINUES TO DO IT. ) HEENT: PERRL/EOMI Neck: Full Range of Motion, Normal Inspection, Non Tender, Supple; No Carotid Bruit, No JVD Respiratory: Normal Breath Sounds, No Accessory Muscle Use, No Respiratory Distress, Other (MARKED TENDERNESS TO LEFT UPPER CHEST AND BREAST. PALPATION REPRODUCES PAIN. BREAST APPEARS NORMAL. ) Cardiovascular: Regular Rate, Rhythm, No Edema, No JVD, No Murmur, Normal Peripheral Pulses Gastrointestinal: Non Tender, Soft Back: No CVA Tenderness Extremity: Normal Inspection Neurologic/Psychiatric: Alert, Oriented x3, No Motor/Sensory Deficits, supervisor nut processing II- XII Norm as Tested, Other (MILDLY ANXIOUS) Skin: Normal Color, Warm/Dry, Other (MULTIPLE SORES/SCARS/SCABS TO FACE) Procedures/Interventions Suture Size: 4-0 Progress/Results/Core Measures Suspected Sepsis Recent Fever Within 48 Hours: No Infection Criteria Present: None New/Unexplained Altered Menta: No Sepsis Screen: No Definite Risk SIRS Temperature: Pulse: 93 Respiratory Rate: 22 Laboratory Tests 04/04/21 22:25: White Blood Count 9.7 Blood Pressure 136 /92 Mean: 107 Laboratory Tests 04/04/21 22:25: Creatinine 0.78, INR Comment 1.0, Platelet Count 341, Total Bilirubin 0.4 Results/Orders Lab Results Laboratory Tests Test 04/04/21 22:25 04/04/21 23:05 Range/Units White Blood Count 9.7 4.3-11.0 10^3/uL Red Blood Count 4.55 3.80-5.11 10^6/uL Hemoglobin 13.6 11.5-16.0 g/dL Hematocrit 41 35-52 % Mean Corpuscular Volume 90 80-99 fL Mean Corpuscular Hemoglobin 30 25-34 pg Mean Corpuscular Hemoglobin Concent 33 32-36 g/dL Red Cell Distribution Width 12.6 10.0-14.5 % Platelet Count 341 130-400 10^3/uL Mean Platelet Volume 8.7 L 9.0-12.2 fL Immature Granulocyte % (Auto) 1 % Neutrophils (%) (Auto) 71 42-75 % Lymphocytes (%) (Auto) 20 12-44 % Monocytes (%) (Auto) 8 0-12 % Eosinophils (%) (Auto) 1 0-10 % Basophils (%) (Auto) 0 0-10 % Neutrophils # (Auto) 6.8 1.8-7.8 10^3/uL Lymphocytes # (Auto) 1.9 1.0-4.0 10^3/uL Monocytes # (Auto) 0.7 0.0-1.0 10^3/uL Eosinophils # (Auto) 0.1 0.0-0.3 10^3/uL Basophils # (Auto) 0.0 0.0-0.1 10^3/uL Immature Granulocyte # (Auto) 0.1 0.0-0.1 10^3/uL Prothrombin Time 13.3 12.2-14.7 SEC INR Comment 1.0 0.8-1.4 Activated Partial Thromboplast Time 29 24-35 SEC Sodium Level 137 135-145 MMOL/L Potassium Level 4.0 3.6-5.0 MMOL/L Chloride Level 103 98-107 MMOL/L Carbon Dioxide Level 28 21-32 MMOL/L Anion Gap 6 5-14 MMOL/L Blood Urea Nitrogen 7 7-18 MG/DL Creatinine 0.78 0.60-1.30 MG/DL Estimat Glomerular Filtration Rate > 60 BUN/Creatinine Ratio 9 Glucose Level 95 70-105 MG/DL Calcium Level 9.5 8.5-10.1 MG/DL Corrected Calcium 9.1 8.5-10.1 MG/DL Magnesium Level 2.5 H 1.6-2.4 MG/DL Total Bilirubin 0.4 0.1-1.0 MG/DL Aspartate Amino Transf (AST/SGOT) 17 5-34 U/L Alanine Aminotransferase (ALT/SGPT) 31 0-55 U/L Alkaline Phosphatase 67 40-136 U/L Total Creatine Kinase 88 29-168 U/L Creatine Kinase MB 0.5 <6.6 NG/ML Myoglobin 21.0 10.0-92.0 NG/ML Troponin I < 0.028 <0.028 NG/ML B-Type Natriuretic Peptide < 10.0 <100.0 PG/ML Total Protein 7.2 6.4-8.2 GM/DL Albumin 4.5 3.2-4.5 GM/DL Lipase 42 8-78 U/L Serum Test, Qualitative NEGATIVE NEGATIVE Acetaminophen Level < 10 L 10-30 UG/ML Serum Alcohol 13 H <10 MG/DL SARS-CoV-2 RNA (RT-PCR) Not Detected Not Detecte Urine Color YELLOW Urine Clarity CLEAR Urine pH 7.5 5-9 Urine Specific [place] 1.010 L 1.016-1.022 Urine Protein NEGATIVE NEGATIVE Urine Glucose (UA) NEGATIVE NEGATIVE Urine Ketones NEGATIVE NEGATIVE Urine Nitrite NEGATIVE NEGATIVE Urine Bilirubin NEGATIVE NEGATIVE Urine Urobilinogen 0.2 < = 1.0 MG/DL Urine Leukocyte Esterase 1+ H NEGATIVE Urine RBC (Auto) NEGATIVE NEGATIVE Urine RBC NONE /HPF Urine WBC 0-2 /HPF Urine Squamous Epithelial Cells 0-2 /HPF Urine Crystals NONE /LPF Urine Bacteria TRACE /HPF Urine Casts NONE /LPF Urine Mucus NEGATIVE /LPF Urine Culture Indicated NO Urine Opiates Screen NEGATIVE NEGATIVE Urine Oxycodone Screen NEGATIVE NEGATIVE Urine Methadone Screen NEGATIVE NEGATIVE Urine Propoxyphene Screen NEGATIVE NEGATIVE Urine Barbiturates Screen NEGATIVE NEGATIVE Ur Tricyclic Antidepressants Screen NEGATIVE NEGATIVE Urine Phencyclidine Screen NEGATIVE NEGATIVE Urine Amphetamines Screen POSITIVE H NEGATIVE Urine Methamphetamines Screen POSITIVE H NEGATIVE Urine Benzodiazepines Screen NEGATIVE NEGATIVE Urine Cocaine Screen NEGATIVE NEGATIVE Urine Cannabinoids Screen NEGATIVE NEGATIVE Micro Results Microbiology 04/04/21 Influenza Types A,B Antigen (RIGO) - Final, Complete My Orders Orders - EDELMIRA CANTU DO Ed Iv/Invasive Line Start (04/04/21 22:13) Ekg Tracing (04/04/21 22:13) Monitor-Rhythm Ecg Trace Only (04/04/21 22:13) Chest 1 View, Ap/Pa Only (04/04/21 22:13) Acetaminophen (04/04/21 22:13) Alcohol (04/04/21 22:13) BNP (04/04/21 22:13) Cbc With Automated Diff (04/04/21 22:13) Comprehensive Metabolic Panel (04/04/21 22:13) Creatine Kinase (04/04/21 22:13) Creatine Kinase Mb (04/04/21 22:13) Drug Screen Stat (Urine) (04/04/21 22:13) Hcg,Qualitative Serum (04/04/21 22:13) Lipase (04/04/21 22:13) Magnesium (04/04/21 22:13) Protime With Inr (04/04/21 22:13) Partial Thromboplastin Time (04/04/21 22:13) Ua Culture If Indicated (04/04/21 22:13) Myoglobin Serum (04/04/21 22:13) Troponin I (04/04/21 22:13) Influenza A And B Antigens (04/04/21 22:20) Covid 19 Inhouse Test (04/04/21 22:20) Ketorolac Injection (Toradol Injection) (04/04/21 23:00) Rx-Naproxen (Rx-Naprosyn) (04/04/21 23:42) Medications Given in ED Vital Signs/I&O 04/04/21 04/04/21 04/05/21 22:10 22:10 00:06 Temp 37.1 Pulse 93 99 Resp 22 18 B/P (MAP) 136/92 (107) 132/79 (107) Pulse Ox 100 100 O2 Delivery Room Air Room Air Capillary Refill : Less Than 3 Seconds Blood Pressure Mean: 107 Progress Note : Progress Note GIVEN TORADOL WITH EASING OF PAIN NO DETERIORATION IN PT'S CONDITION DURING ER STAY DISCUSSED PT'S DRUG USE AND STATES AT DISMISSAL THAT SHE HAS BEEN IN [facility] SUBSTANCE ABUSE PROGRAM, BUT STATES "THEY DON'T KNOW I'VE RELAPSED". STATES SHE HAS NOT BEEN THERE FOR A COUPLE OF MONTHS. PT STATES SHE WANTS TO GET CLEAN AND STATES SHE WILL CALL THEM IN THE MORNING TO GET BACK INTO THE PROGRAM. ECG Initial ECG Impression Date: April 04, 2021 Initial ECG Impression Time: 22:12 Initial ECG Rate: 88 Initial ECG Rhythm: Normal Sinus Diagnostic Imaging Comments CXR--NO ACUTE PROCESS, PENDING RADIOLOGIST REVIEW Reviewed: Reviewed by Me Departure Impression Primary Impression: Left-sided chest wall pain Additional Impression: Methamphetamine use Disposition: 01 HOME, SELF-CARE Condition: Improved Departure-Patient Inst. Decision time for Depature: 23:34 Referrals: [facility] [place] Primary Care Physician Patient Instructions: Chest Pain That Is Not Caused by the Heart (DC), Costochondritis (DC), Drug Abuse and Drug Addiction (DC), Methamphetamine, Drug Abuse Treatment Add. Discharge Instructions: HOME, REST NO DRUGS OR ALCOHOL AVOID PUSHING ON THE SORE AREAS ON YOUR CHEST FOLLOW UP WITH [facility] IN THE NEXT FEW DAYS FOR FURTHER CARE AND TO RE-ESTABLISH WITH THEIR SUBSTANCE ABUSE TREATMENT PROGRAM All discharge instructions reviewed with patient and/or family. Voiced understanding. Scripts Naproxen (Naproxen) 500 Mg Tablet. 500 MG PO BID, #20 TAB Prov: EDELMIRA CANTU DO 04/04/21 EDELMIRA CANTU DO April 04, 2021 23:39
[2021-04-04] MEDS ORDERED: RX-NAPROXEN (NAPROSYN) 250 MG TAB PPK#4 PO STA (23:42)
[2021-04-04] MEDS ORDERED: NAPR500T8 PO (23:42)
[2021-04-05 00:06] VITALS: BP 132/79
--- NOTE | 2021-04-05 06:23 | Diagnostic Imaging Report ---
INDICATION: Chest pain. FINDINGS: The heart size, mediastinal configuration, and pulmonary vascularity are within normal limits. There is no pleural effusion, pneumothorax, or pneumonia. The osseous structures are unremarkable. IMPRESSION: No acute cardiopulmonary abnormality. Dictated by: Dictated on workstation # [id number]
== END 2021-04-05 | disposition home or self-care (01) ==
LOC: EDUNIT# 21:42 → ER 21:47
DX: R07.89 Other chest pain (principal); F15.90 Other stimulant use, unspecified, uncomplicated; J45.909 Unspecified asthma, uncomplicated; F17.210 Nicotine dependence, cigarettes, uncomplicated; Z88.8 Allergy status to other drugs, medicaments and biological substances; Z20.822 Contact with and (suspected) exposure to COVID-19
CPT/HCPCS: 71045; 80053; 80306; 81000; 82550; 82553; 83690; 83735; 83874; 83880; 84484; 84703; 85025; 85610; 85730; 87804; 93005; 93041; 99284; G0480 ×2; U0002; 36415; 80320; 80329; 87635

== ENCOUNTER 2021-08-04 06:47 | Emergency (ER) | payer SELFPAY ==
[~2021-08-04] VITALS: Ht 172 cm; Wt 68.0 kg
[~2021-08-04 06:47] MED LIST changes: +NAPR500T8 PO
[2021-08-04 07:24] LABS: BASOPHILS % (AUTO) 1 % (0-10); EOSINOPHILS # (AUTO) 0.1 10^3/uL (0.0-0.3); EOSINOPHILS % (AUTO) 1 % (0-10); HEMATOCRIT 40 % (35-52); HEMOGLOBIN 13.3 g/dL (11.5-16.0); LYMPHOCYTES # (AUTO) 1.7 10^3/uL (1.0-4.0); LYMPHOCYTES % (AUTO) 21 % (12-44); MEAN CORPUSCULAR HEMOGLOBIN 31 pg (25-34); MEAN CORPUSCULAR HGB CONC 33 g/dL (32-36); MEAN CORPUSCULAR VOLUME 92 fL (80-99); MEAN PLATELET VOLUME 8.5 fL (9.0-12.2); MONOCYTES # (AUTO) 0.6 10^3/uL (0.0-1.0); MONOCYTES % (AUTO) 8 % (0-12); NEUTROPHILS # (AUTO) 5.6 10^3/uL (1.8-7.8); NEUTROPHILS % (AUTO) 69 % (42-75); PLATELET COUNT 364 10^3/uL (130-400); WHITE BLOOD COUNT 8.2 10^3/uL (4.3-11.0)
[2021-08-04 07:43] LABS: ALBUMIN 4.5 GM/DL (3.2-4.5); POTASSIUM 3.7 MMOL/L (3.6-5.0)
[2021-08-04 07:44] LABS: CALCIUM 9.6 MG/DL (8.5-10.1)
[2021-08-04 07:45] LABS: TOTAL PROTEIN 7.6 GM/DL (6.4-8.2)
[2021-08-04 07:47] LABS: BILIRUBIN,TOTAL 0.3 MG/DL (0.1-1.0)
[2021-08-04 07:49] LABS: CREATININE SERUM 0.73 MG/DL (0.60-1.30); PROTHROMBIN TIME PATIENT 13.1 SEC (12.2-14.7)
--- NOTE | 2021-08-04 08:11 | Diagnostic Imaging Report ---
Indication: Chest pain Frontal chest obtained at 0805 a.m. and compared to 04/04/2021. Heart and mediastinal silhouette are normal in appearance. The lungs are clear. There is no pneumothorax or pleural fluid. IMPRESSION: Negative chest. Dictated by: Dictated on workstation # [id number]
[2021-08-04] MEDS ORDERED: ASPIRIN 81 MG CHEW (CHILDREN'S ASA) PO ONE (08:15)
--- NOTE | 2021-08-04 08:21 | ED Chest Pain ---
General Chief Complaint: Cardiac/General Problems Stated Complaint: USED METH/SEEKING HELP/CHEST PRESSURE/SOB/ANXIETY Nursing Triage Note: pt presents to ed with complaints of cp and soa x 2 months but worse today. pt reports it got worse today after she smoked meth. Source: patient Exam Limitations: no limitations History of Present Illness Date Seen by Provider: Aug 04, 2021 Time Seen by Provider: 07:00 Initial Comments This 25-year-old young lady presents to the emergency room with primary complaint of chest pain. She has been having intermittent chest pain for a few months but reports a more in tenths chest pain over about the past 4 hours. She does use methamphetamines and last used last night. She uses by smoking. She does have a little bit of shortness of breath and pain with breathing. She describes it as a burning sensation. Patient also has paranoid schizophrenia for which she is medicated. Allergies and Home Medications Allergies Coded Allergies: paroxetine (Verified Allergy, Severe, DIFF SWALLOWING, 10/09/16) fluoxetine (Unverified Allergy, Unknown, 06/11/17) Patient Home Medication List Home Medication List Reviewed: Yes Cephalexin (Cephalexin) 500 Mg Tablet, 500 MG PO BID Prescribed by: JAYLEN SUNG on 05/02/20 1512 Hydroxyzine HCl (Hydroxyzine HCl) 25 Mg Tablet, (Reported) Entered as Reported by: POLO OLGUIN on 08/19/202027 Naproxen (Naproxen) 500 Mg Tablet.dr, 500 MG PO BID Prescribed by: EDELMIRA CANTU on 04/04/21 2342 Review of Systems Review of Systems Constitutional: no symptoms reported EENTM: No Symptoms Reported Respiratory: See HPI Cardiovascular: See HPI Gastrointestinal: No Symptoms Reported Genitourinary: No Symptoms Reported Musculoskeletal: no symptoms reported Skin: no symptoms reported Psychiatric/Neurological: See HPI Endocrine: No Symptoms Reported Hematologic/Lymphatic: No Symptoms Reported Past Lmirofh-Vohxfg-Oqbnvp Hx Patient Social History Tobacco Use?: Yes Tobacco type used: Cigarettes Smoking Status: Current Everyday Smoker Substance use?: Yes Substance type: Methamphetamine, Marijuana Alcohol Frequency: Several times a month Pt feels they are or have been: No Immunizations Up To Date Tetanus Booster (TDap): Unknown PED Vaccines UTD: Yes Seasonal Allergies Seasonal Allergies: No Past Medical History Surgery/Hospitalization HX: pmh: paranoid schizophrenia Surgeries: Yes (EGD) Respiratory: Yes Asthma Cardiac: Yes Palpitations Neurological: No : No 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 Disorders: Yes (ABNORMAL PAP) Female 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 Sexually Transmitted Disease: No HIV/AIDS: No Genitourinary: Yes UTI-Chronic Gastrointestinal: Yes (GASTRITIS) Crohns Disease, Esophagitis Musculoskeletal: Yes Fractures Endocrine: No HEENT: No Cancer: No Psychosocial: Yes (POLYSUBSTANCE ABUSE; PARANOID SCHIZOPHRENIA) Anxiety, Personality Disorder, Schizophrenia, Depression Integumentary: No Blood Disorders: No Adverse Reaction/Blood Tranf: No (N/A) Family Medical History FH: bipolar disorder 19 MOTHER FH: heart disease UNCLE Hepatitis C 19 MOTHER Hypertension MATERNAL GRANDFATHER No Pertinent Family Hx SOCIAL HISTORY: -ETOH--OCCASIONAL USE -DRUGS--LONG HISTORY OF METHAMPHETAMINES, COCAINE, CRACK, THC. DENIES IV USE--STATES SHE SMOKES DRUGS -SMOKES 1 PPD Physical Exam Vital Signs Vital Signs - First Documented 08/04/21 07:21 Temp 35.6 Pulse 81 Resp 20 B/P (MAP) 132/84 (100) Pulse Ox 100 Capillary Refill : Less Than 3 Seconds Height, Weight, BMI Height: 5'8.00" Weight: 130lbs. 0oz. 58.637614mn; 22.00 BMI Method:Stated General Appearance: WD/WN, Anxious, Mild Distress HEENT: PERRL/EOMI, Normal ENT Inspection Neck: Normal Inspection Respiratory: Lungs Clear, Normal Breath Sounds, No Accessory Muscle Use Cardiovascular: Regular Rate, Rhythm, No Edema, No Murmur Gastrointestinal: Normal Bowel Sounds, Non Tender, Soft Extremity: Normal Inspection, No Calf Tenderness, No Pedal Edema Neurologic/Psychiatric: Alert, Oriented x3, No Motor/Sensory Deficits, office sweeper II- XII Norm as Tested, Other (At times seems a bit confused. Responses to questions sometimes delayed. Seems frustrated at times and/or anxious) Skin: Normal Color, Warm/Dry Procedures/Interventions Suture Size: 4-0 Progress/Results/Core Measures Results/Orders Lab Results Laboratory Tests Test 08/04/21 07:13 08/04/21 09:37 Range/Units White Blood Count 8.2 4.3-11.0 10^3/uL Red Blood Count 4.36 3.80-5.11 10^6/uL Hemoglobin 13.3 11.5-16.0 g/dL Hematocrit 40 35-52 % Mean Corpuscular Volume 92 80-99 fL Mean Corpuscular Hemoglobin 31 25-34 pg Mean Corpuscular Hemoglobin Concent 33 32-36 g/dL Red Cell Distribution Width 12.5 10.0-14.5 % Platelet Count 364 130-400 10^3/uL Mean Platelet Volume 8.5 L 9.0-12.2 fL Immature Granulocyte % (Auto) 1 % Neutrophils (%) (Auto) 69 42-75 % Lymphocytes (%) (Auto) 21 12-44 % Monocytes (%) (Auto) 8 0-12 % Eosinophils (%) (Auto) 1 0-10 % Basophils (%) (Auto) 1 0-10 % Neutrophils # (Auto) 5.6 1.8-7.8 10^3/uL Lymphocytes # (Auto) 1.7 1.0-4.0 10^3/uL Monocytes # (Auto) 0.6 0.0-1.0 10^3/uL Eosinophils # (Auto) 0.1 0.0-0.3 10^3/uL Basophils # (Auto) 0.0 0.0-0.1 10^3/uL Immature Granulocyte # (Auto) 0.1 0.0-0.1 10^3/uL Prothrombin Time 13.1 12.2-14.7 SEC INR Comment 1.0 0.8-1.4 Activated Partial Thromboplast Time 27 24-35 SEC Sodium Level 137 135-145 MMOL/L Potassium Level 3.7 3.6-5.0 MMOL/L Chloride Level 101 98-107 MMOL/L Carbon Dioxide Level 25 21-32 MMOL/L Anion Gap 11 5-14 MMOL/L Blood Urea Nitrogen 6 L 7-18 MG/DL Creatinine 0.73 0.60-1.30 MG/DL Estimat Glomerular Filtration Rate 96 BUN/Creatinine Ratio 8 Glucose Level 96 70-105 MG/DL Calcium Level 9.6 8.5-10.1 MG/DL Corrected Calcium 9.2 8.5-10.1 MG/DL Magnesium Level 2.0 1.6-2.4 MG/DL Total Bilirubin 0.3 0.1-1.0 MG/DL Aspartate Amino Transf (AST/SGOT) 17 5-34 U/L Alanine Aminotransferase (ALT/SGPT) 21 0-55 U/L Alkaline Phosphatase 59 40-136 U/L Myoglobin 21.6 10.0-92.0 NG/ML Troponin I 0.029 H < 0.028 <0.028 NG/ML Total Protein 7.6 6.4-8.2 GM/DL Albumin 4.5 3.2-4.5 GM/DL Serum Test, Qualitative NEGATIVE NEGATIVE Influenza Type A (RT-PCR) Not Detected Not Detecte Influenza Type B (RT-PCR) Not Detected Not Detecte SARS-CoV-2 RNA (RT-PCR) Not Detected Not Detecte D-Dimer < 0.27 0.00-0.49 UG/ML My Orders Orders - DIVINA CASANOVA MD Cbc With Automated Diff (08/04/21 06:57) Magnesium (08/04/21 06:57) Chest 1 View, Ap/Pa Only (08/04/21 06:57) Ekg Tracing (08/04/21 06:57) Comprehensive Metabolic Panel (08/04/21 06:57) Myoglobin Serum (08/04/21 06:57) Protime With Inr (08/04/21 06:57) Partial Thromboplastin Time (08/04/21 06:57) O2 (08/04/21 06:57) Monitor-Rhythm Ecg Trace Only (08/04/21 06:57) Ed Iv/Invasive Line Start (08/04/21 06:57) Troponin I (08/04/21 06:57) Covid 19 Inhouse Test (08/04/21 06:57) Influenza A And B By Pcr (08/04/21 06:57) Hcg,Qualitative Serum (08/04/21 06:57) Aspirin Chewable Tablet (Baby Aspirin Ch (08/04/21 08:15) Fibrin Degradation Products (08/04/21 08:14) Troponin I (08/04/21 09:15) Lorazepam Injection (Ativan Injection) (08/04/21 08:45) Olanzapine Tablet (Zyprexa Tablet) (08/04/21 10:42) Ketorolac Injection (Toradol Injection) (08/04/21 11:00) Medications Given in ED Vital Signs/I&O 08/04/21 08/04/21 07:21 11:26 Temp 35.6 Pulse 81 94 Resp 20 18 B/P (MAP) 132/84 (100) 121/89 Pulse Ox 100 99 Blood Pressure Mean: 100 Progress Progress Note #1: Time: 08:20 Progress Note Patient was seen and examined on arrival. Work-up has been unremarkable except for troponin is right at the cutoff range reading 0.029. Aspirin is now being administered and we will repeat troponin in 2 hours. Progress Note #2: Time: 10:53 Progress Note Repeat troponin is normal. Previous value was clinically insignificant, especially in the context of an atypical chest pain reproducible with palpation and inspiration. Patient feels "normal" after receiving the Ativan. She states her mother is picking up her medications today and she plans to resume them. In the meantime, I will give her a small dose of Zyprexa to help with the paranoid symptoms. She acknowledges that her methamphetamine use is a major problem. She plans to isolate in her home with her roommate who is not a user. She plans to avoid contact with her other friends that do use. She plans to seek rehab on an outpatient basis. She reports history of suicidal thinking within the past month but denies any suicidal ideation at this time. Toradol is being given for the chest pain. Initial ECG Impression Date: Aug 04, 2021 Initial ECG Impression Time: 07:13 Initial ECG Rate: 75 Initial ECG Rhythm: Normal Sinus Initial ECG Intervals: Normal Initial ECG Impression: Normal Comment Normal sinus rhythm with no ST elevation or depression. No abnormal intervals or axis deviation. Diagnostic Imaging Diagonstic Imaging: Xray Plain Films/CT/US/NM/MRI: chest Comments Chest x-ray reviewed by me and report reviewed. See report below: NAME: KENDELL GONZALEZ [facility] REC#: [id number] PT STATUS: REG ER : 1995 PHYSICIAN: DIVINA CASANOVA MD ADMIT DATE: 08/04/21/ER Draft Date of Exam:08/04/21 CHEST 1 VIEW, AP/PA ONLY Indication: Chest pain Frontal chest obtained at 0805 a.m. and compared to 04/04/2021. Heart and mediastinal silhouette are normal in appearance. The lungs are clear. There is no pneumothorax or pleural fluid. IMPRESSION: Negative chest. Dictated on workstation # [id number] Dict: 08/04/2104 Trans: 08/04/21 0810 [facility] [id number] Interpreted by: ADITYA CUELLO MD Departure Impression Primary Impression: Chest pain Qualified Codes: R07.9 - Chest pain, unspecified Additional Impressions: Paranoid schizophrenia Anxiety Methamphetamine abuse Disposition: 01 HOME, SELF-CARE Condition: Improved Departure-Patient Inst. Decision time for Depature: 10:52 Referrals: [facility] [place] (PCP/Family) Primary Care Physician Patient Instructions: Methamphetamine, Schizophrenia Add. Discharge Instructions: Resume your usual medications today and follow-up with a primary care provider and your behavioral health provider soon as possible. Abstain completely from methamphetamine and other illicit substances as these will exacerbate your mental health diagnoses. Call with questions or concerns. Return to the ER if you have worsening symptoms. All discharge instructions reviewed with patient and/or family. Voiced understanding. DIVINA CASANOVA MD Aug 04, 2021 08:21
[2021-08-04] MEDS ORDERED: LORazepam INJ 2 MG/ML (ATIVAN) VIAL IVP ONE (08:45)
[2021-08-04] MEDS ORDERED: OLANZapine 2.5 MG (ZyPREXA) TAB PO STA (10:42)
[2021-08-04] MEDS ORDERED: KETOROLAC 30 MG/ML VIAL IVP ONE (11:00)
[2021-08-04 11:26] VITALS: BP 121/89
== END 2021-08-04 11:26 | disposition home or self-care (01) ==
LOC: EDUNIT# 06:47 → ER 06:49
DX: R07.9 Chest pain, unspecified (principal); F20.0 Paranoid schizophrenia; F41.9 Anxiety disorder, unspecified; F15.10 Other stimulant abuse, uncomplicated; J45.909 Unspecified asthma, uncomplicated; F17.210 Nicotine dependence, cigarettes, uncomplicated; Z20.822 Contact with and (suspected) exposure to COVID-19
CPT/HCPCS: 36415; 71045; 80053; 83735; 83874; 84484; 84703; 85025; 85379; 85610; 85730; 87636; 93005; 93041

== ENCOUNTER 2021-09-10 16:13 | Emergency (ER) | payer SELFPAY ==
[~2021-09-10] VITALS: Ht 173 cm; Wt 63.5 kg
--- NOTE | 2021-09-10 16:59 | ED Psychosocial ---
General Chief Complaint: Psych/Social Disorder Stated Complaint: PSYCH Source: patient Exam Limitations: no limitations History of Present Illness Date Seen by Provider: Sep 10, 2021 Time Seen by Provider: 15:42 Initial Comments Hannah is a 26-year-old who presents to the emergency department by ambulance today after "partying all night" for her birthday. Reportedly "snorted" a bunch of benzos and did methamphetamine. It was possibly a roommate who called the ambulance to have her transported to the ER. At presentation the patient appears very paranoid, denies suicidal or homicidal ideation. States that she was not trying to kill her self. Is preoccupied with her "safety" and her family safety. She states that "a bunch of people are after me". She endorses hallucinations both auditory and visual. She states that the TV talks to her. She states that a tele niraj has been telling her things through the TV. She denies command hallucinations but states that she often hears voices that tell her things, random things. She states she has had recent dysuria with urgency and frequency. She is concerned about sexually transmitted infection. She has had nausea without vomiting. No diarrhea. No Covid concerns. Denies fevers or chills or productive cough. Does smoke. Patient is grandiose and hyperreligious. She insists that she wants to go home. She knows that she needs mental health treatment but states that it is her son's birthday in the next couple of days and she also does not want to be inpatient over Halloween. She promises that she will come back to seek further mental health treatment. Does not want to stay in the department for mental health screen. All other review of systems reviewed and negative except as stated. Timing/Duration: yesterday Severity: severe Associated Symptoms: anxiety, impaired concentration, ingestion Allergies and Home Medications Allergies Coded Allergies: paroxetine (Verified Allergy, Severe, DIFF SWALLOWING, 10/09/16) fluoxetine (Unverified Allergy, Unknown, 06/11/17) Patient Home Medication List Home Medication List Reviewed: Yes Cephalexin (Cephalexin) 500 Mg Tablet, 500 MG PO BID Prescribed by: JAYLEN SUNG on 05/02/20 151 Hydroxyzine HCl (Hydroxyzine HCl) 25 Mg Tablet, (Reported) Entered as Reported by: POLO OLGUIN on 08/19/202027 Naproxen (Naproxen) 500 Mg Tablet.dr, 500 MG PO BID Prescribed by: EDELMIRA CANTU on 04/04/21 2342 Sulfamethoxazole/Trimethoprim (Bactrim Ds Tablet) 1 Each Tablet, 1 EACH PO BID Prescribed by: SARAH MOURA on 09/10/21 182 Review of Systems Constitutional: see HPI EENTM: no symptoms reported Respiratory: no symptoms reported Cardiovascular: no symptoms reported Gastrointestinal: no symptoms reported Genitourinary: dysuria, frequency : No Control/STD Prophylaxis: None Musculoskeletal: no symptoms reported Skin: no symptoms reported Psychiatric/Neurological: Anxiety, Emotional Problems All Other Systems Reviewed Negative Unless Noted: Yes Past Iyvmjan-Evhing-Telqku Hx Immunizations Up To Date Tetanus Booster (TDap): Unknown PED Vaccines UTD: Yes Seasonal Allergies Seasonal Allergies: No Past Medical History Surgery/Hospitalization HX: pmh: paranoid schizophrenia Surgeries: Yes (EGD) Respiratory: Yes Asthma Cardiac: Yes Palpitations Neurological: No 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 Disorders: Yes (ABNORMAL PAP) Female 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 Sexually Transmitted Disease: No HIV/AIDS: No Genitourinary: Yes UTI-Chronic Gastrointestinal: Yes (GASTRITIS) Crohns Disease, Esophagitis Musculoskeletal: Yes Fractures Endocrine: No HEENT: No Cancer: No Psychosocial: Yes (POLYSUBSTANCE ABUSE; PARANOID SCHIZOPHRENIA) Anxiety, Personality Disorder, Schizophrenia, Depression Integumentary: No Blood Disorders: No Adverse Reaction/Blood Tranf: No (N/A) Family Medical History FH: bipolar disorder 19 MOTHER FH: heart disease UNCLE Hepatitis C 19 MOTHER Hypertension MATERNAL GRANDFATHER No Pertinent Family Hx SOCIAL HISTORY: -ETOH--OCCASIONAL USE -DRUGS--LONG HISTORY OF METHAMPHETAMINES, COCAINE, CRACK, THC. DENIES IV USE--STATES SHE SMOKES DRUGS -SMOKES 1 PPD Physical Exam Vital Signs - First Documented 09/10/21 16:17 Temp 37.1 Pulse 122 Resp 14 B/P (MAP) 123/97 (106) Pulse Ox 97 O2 Delivery Room Air Capillary Refill : Height, Weight, BMI Height: 5'8.00" Weight: 130lbs. 0oz. 58.775854gn; 22.00 BMI Method:Stated General Appearance: WD/WN, mild distress HEENT: PERRL/EOMI, normal ENT inspection Neck: normal inspection Respiratory: lungs clear, normal breath sounds, no respiratory distress, no accessory muscle use Cardiovascular: regular rate, rhythm, no murmur Gastrointestinal: normal bowel sounds, non tender, soft Extremities: normal range of motion, normal inspection, no pedal edema Neurologic/Psychiatric: alert, normal mood/affect, oriented x 3 Appearance/Memory: denies illness, disheveled, impaired insight Behavior/Eye Contact: cooperative, increased rate of speech, compulsive Thoughts/Hallucinations: auditory hallucinations, delusions, grandiose, obsessive, paranoid, catholic, visual hallucinations Skin: normal color, warm/dry Procedures/Interventions Suture Size: 4-0 Progress/Results/Core Measures Results/Orders Lab Results My Orders Progress Progress Note : Time: 18:19 Progress Note Patient adamantly states that she does not want to be in a psychiatric facility. She states that she knows that she needs mental health help but she is not willing to do this until after Halloween. Patient states that she is not suicidal, homicidal. She does endorse auditory and visual hallucinations ho wever. She seems right now able to make her own decisions. She is homeless, does not really know where she is going on discharge but would like to get to her mother's house to picker tender her daughter. At this point I cannot really continue to hold Marylin against her will here in the emergency department and for some mental health evaluation on her. She would like to be treated for sexually transmitted infection and she does have evidence of urinary tract infection on her urinalysis. We will send a prescr iption to [facility] for Bactrim. She states she will "try" to pick it up. She is given good return precautions. She verbalizes understanding. All questions are sought and answered. Patient is stable for discharge. Departure Impression Primary Impression: Hallucinations Additional Impressions: Polysubstance abuse Urinary tract infection Qualified Codes: N39.0 - Urinary tract infection, site not specified Disposition: 01 HOME, SELF-CARE Condition: Stable Departure-Patient Inst. Decision time for Depature: 18:21 Referrals: [facility] (PCP/Family) Primary Care Physician Patient Instructions: Urinary Tract Infection, Adult ED, Polysubstance Use Disorder Add. Discharge Instructions: Please picker tender the antibiotics at [facility], Bactrim 1 twice a day for 7 days. You will need some follow-up for your mental health, you can follow-up at [facility] or come back to the emergency department for this. If you have worsening burning with urination especially with fever, abdominal pain or vomiting please come back to the emergency room for reevaluation. Scripts Sulfamethoxazole/Trimethoprim (Bactrim Ds Tablet) 1 Each Tablet 1 EACH PO BID for 7 Days, #14 TAB Prov: SARAH MOURA MD 09/10/21 SARAH MOURA MD Sep 10, 2021 16:59
[2021-09-10 17:40] LABS: AMPHETAMINE SCREEN, URINE POSITIVE (NEGATIVE); BENZODIAZEPINES SCREEN URINE POSITIVE (NEGATIVE); CANNABINOID SCREEN, URINE NEGATIVE (NEGATIVE); COCAINE SCREEN URINE NEGATIVE (NEGATIVE); METHAMPHETAMINE SCREEN URINE S POSITIVE (NEGATIVE)
[2021-09-10 17:41] LABS: BARBITURATE SCREEN URINE NEGATIVE (NEGATIVE); METHADONE STAT NEGATIVE (NEGATIVE); OPIATE SCREEN URINE NEGATIVE (NEGATIVE); OXYCODONE STAT NEGATIVE (NEGATIVE); PROPOXYPHENE STAT NEGATIVE (NEGATIVE); TRICYCLIC ANTIDEPRESSANTS SCRE NEGATIVE (NEGATIVE)
[2021-09-10 17:52] LABS: BILIRUBIN,URINE NEGATIVE (NEGATIVE); CLARITY,URINE CLEAR; COLOR,URINE YELLOW; GLUCOSE, URINE (UA) NEGATIVE (NEGATIVE); KETONES,URINE NEGATIVE (NEGATIVE); LEUKOCYTE ESTERASE ,URINE NEGATIVE (NEGATIVE); NITRITE,URINE POSITIVE (NEGATIVE); PH,URINE 6.5 (5-9); PROTEIN,URINE NEGATIVE (NEGATIVE)
[2021-09-10 17:59] LABS: BACTERIA,URINE LARGE /HPF; WBC,URINE 0-2 /HPF
[2021-09-10 18:00] LABS: SQUAMOUS EPITHELIAL CELL,UR 0-2 /HPF
[2021-09-10] MEDS ORDERED: SULF1TAB38 PO (18:23)
[2021-09-10] MEDS ORDERED: cefTRIAXone 1,000 MG VIAL IM ONE (18:30)
[2021-09-10] MEDS ORDERED: LIDOCAINE 1% INJ 20 ML 20 ML VIAL INJ ONE (18:30)
[2021-09-10] MEDS ORDERED: AZITHROMYCIN 250 MG TAB (ZITHROMAX) PO ONE (18:30)
[2021-09-10 18:55] VITALS: BP 119/95
== END 2021-09-10 18:54 | disposition home or self-care (01) ==
LOC: EDUNIT# 16:13 → ER 16:14
DX: F19.10 Other psychoactive substance abuse, uncomplicated (principal); N39.0 Urinary tract infection, site not specified; F20.0 Paranoid schizophrenia; F41.9 Anxiety disorder, unspecified; F32.9 Major depressive disorder, single episode, unspecified; F60.9 Personality disorder, unspecified; J45.909 Unspecified asthma, uncomplicated; F17.210 Nicotine dependence, cigarettes, uncomplicated; Z88.8 Allergy status to other drugs, medicaments and biological substances
CPT/HCPCS: 36415; 80306; 81000; 87077; 87088; 87186; 87491; 87591; 99284

== ENCOUNTER 2021-09-12 11:15 | Emergency (ER) | payer SELFPAY ==
[~2021-09-12] VITALS: Ht 173 cm; Wt 80.0 kg
[~2021-09-12 11:15] MED LIST changes: +SULF1TAB38 PO
[2021-09-12 11:20] VITALS: BP 113/71
--- NOTE | 2021-09-12 11:24 | ED General ---
General Stated Complaint: SUICIDE ATTEMPT Source of Information: Patient Exam Limitations: No Limitations (JAVI ALANIZ APRN) History of Present Illness Date Seen by Provider: Sep 12, 2021 Time Seen by Provider: 11:24 Initial Comments To ER by [facility] accompanied by [place] [employer] with reports of being suicidal. She was found walking down [address] asking for help. Police arrived and she reported to them that she had taken 15-20 of the 3 mg tablets of risperidone at 10 AM this morning. She is also been using methamphetamine. 1 to 2 days ago she used some Xanax and Ativan. She states that she did want to kill herself but does not want to kill herself anymore. History of paranoid schizophrenia and noncompliant with meds. Timing/Duration: 1-2 Days Severity: Moderate Associated Systoms: Denies Symptoms (JAVI ALANIZ APRN) Allergies and Home Medications Allergies Coded Allergies: paroxetine (Verified Allergy, Severe, DIFF SWALLOWING, 10/09/16) fluoxetine (Unverified Allergy, Unknown, 06/11/17) Patient Home Medication List Home Medication List Reviewed: Yes (JAVI ALANIZ APRN) Cephalexin (Cephalexin) 500 Mg Tablet, 500 MG PO BID Prescribed by: JAYLEN SUNG on 05/02/20 1512 Hydroxyzine HCl (Hydroxyzine HCl) 25 Mg Tablet, (Reported) Entered as Reported by: POLO OLGUIN on 08/19/202027 Naproxen (Naproxen) 500 Mg Tablet.dr, 500 MG PO BID Prescribed by: EDELMIRA CANTU on 04/04/21 2342 Sulfamethoxazole/Trimethoprim (Bactrim Ds Tablet) 1 Each Tablet, 1 EACH PO BID Prescribed by: SARAH MOURA on 09/10/21 1823 Review of Systems Review of Systems Constitutional: see HPI EENTM: see HPI Respiratory: no symptoms reported Cardiovascular: no symptoms reported Genitourinary: no symptoms reported Musculoskeletal: no symptoms reported Skin: no symptoms reported Psychiatric/Neurological: See HPI, Anxiety, Depressed, Emotional Problems Hematologic/Lymphatic: No Symptoms Reported Immunological/Allergic: no symptoms reported (JAVI ALANIZ APRN) Past Fthykuy-Sheoer-Iywojw Hx Immunizations Up To Date Tetanus Booster (TDap): Unknown PED Vaccines UTD: Yes (JAVI ALANIZ APRN) Seasonal Allergies Seasonal Allergies: No (JAVI ALANIZ APRN) Past Medical History Surgery/Hospitalization HX: pmh: paranoid schizophrenia Surgeries: Yes (EGD) Respiratory: Yes Asthma Cardiac: Yes Palpitations Neurological: No 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 Disorders: Yes (ABNORMAL PAP) Female 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 Sexually Transmitted Disease: No HIV/AIDS: No Genitourinary: Yes UTI-Chronic Gastrointestinal: Yes (GASTRITIS) Crohns Disease, Esophagitis Musculoskeletal: Yes Fractures Endocrine: No HEENT: No Cancer: No Psychosocial: Yes (POLYSUBSTANCE ABUSE; PARANOID SCHIZOPHRENIA) Anxiety, Personality Disorder, Schizophrenia, Depression Integumentary: No Blood Disorders: No Adverse Reaction/Blood Tranf: No (N/A) (JAVI ALANIZ APRN) Family Medical History FH: bipolar disorder 19 MOTHER FH: heart disease UNCLE Hepatitis C 19 MOTHER Hypertension MATERNAL GRANDFATHER No Pertinent Family Hx SOCIAL HISTORY: -ETOH--OCCASIONAL USE -DRUGS--LONG HISTORY OF METHAMPHETAMINES, COCAINE, CRACK, THC. DENIES IV USE--STATES SHE SMOKES DRUGS -SMOKES 1 PPD (JAVI ALANIZ APRN) Physical Exam Vital Signs Vital Signs - First Documented 09/12/21 11:20 Temp 36.2 Pulse 90 Resp 21 B/P (MAP) 113/71 (85) Pulse Ox 96 O2 Delivery Room Air (SARAH MOURA MD) Vital Signs Capillary Refill : (JAVI ALANIZ APRN) Height, Weight, BMI Height: 5'8.00" Weight: 130lbs. 0oz. 58.471966hr; 21.00 BMI Method:Stated General Appearance: No Apparent Distress, WD/WN, Other (lethargic) Eyes: Bilateral Eye Normal Inspection, Bilateral Eye PERRL, Bilateral Eye EOMI HEENT: PERRL/EOMI, TMs Normal Neck: Full Range of Motion, Normal Inspection Respiratory: Lungs Clear, Normal Breath Sounds, No Accessory Muscle Use, No Respiratory Distress Cardiovascular: Regular Rate, Rhythm, Normal Peripheral Pulses Gastrointestinal: Non Tender, Soft Extremity: Normal Capillary Refill, Normal Inspection Neurologic/Psychiatric: Alert, Oriented x3 Skin: Normal Color, Warm/Dry (JAVI ALANIZ APRN) Procedures/Interventions Suture Size: 4-0 (JAVI ALANIZ APRN) Progress/Results/Core Measures Suspected Sepsis SIRS Temperature: Pulse: Respiratory Rate: Laboratory Tests 09/12/21 11:25: White Blood Count 10.3 Blood Pressure / Mean: Laboratory Tests 09/12/21 11:25: Creatinine 0.86, Platelet Count 347, Total Bilirubin 0.9 (JAVI ALANIZ APRN) Results/Orders Lab Results Laboratory Tests Test 09/12/21 11:25 09/12/21 15:12 09/12/21 18:03 09/12/21 18:44 Range/Units White Blood Count 10.3 4.3-11.0 10^3/uL Red Blood Count 4.31 3.80-5.11 10^6/uL Hemoglobin 13.4 11.5-16.0 g/dL Hematocrit 39 35-52 % Mean Corpuscular Volume 91 80-99 fL Mean Corpuscular Hemoglobin 31 25-34 pg Mean Corpuscular Hemoglobin Concent 34 32-36 g/dL Red Cell Distribution Width 12.1 10.0-14.5 % Platelet Count 347 130-400 10^3/uL Mean Platelet Volume 8.6 L 9.0-12.2 fL Immature Granulocyte % (Auto) 0 % Neutrophils (%) (Auto) 72 42-75 % Lymphocytes (%) (Auto) 18 12-44 % Monocytes (%) (Auto) 8 0-12 % Eosinophils (%) (Auto) 1 0-10 % Basophils (%) (Auto) 0 0-10 % Neutrophils # (Auto) 7.4 1.8-7.8 10^3/uL Lymphocytes # (Auto) 1.9 1.0-4.0 10^3/uL Monocytes # (Auto) 0.9 0.0-1.0 10^3/uL Eosinophils # (Auto) 0.1 0.0-0.3 10^3/uL Basophils # (Auto) 0.0 0.0-0.1 10^3/uL Immature Granulocyte # (Auto) 0.0 0.0-0.1 10^3/uL Sodium Level 138 135-145 MMOL/L Potassium Level 3.5 L 3.6-5.0 MMOL/L Chloride Level 101 98-107 MMOL/L Carbon Dioxide Level 22 21-32 MMOL/L Anion Gap 15 H 5-14 MMOL/L Blood Urea Nitrogen 12 7-18 MG/DL Creatinine 0.86 0.60-1.30 MG/DL Estimat Glomerular Filtration Rate 79 BUN/Creatinine Ratio 14 Glucose Level 101 70-105 MG/DL Calcium Level 10.0 8.5-10.1 MG/DL Corrected Calcium 9.6 8.5-10.1 MG/DL Magnesium Level 2.1 1.6-2.4 MG/DL Total Bilirubin 0.9 0.1-1.0 MG/DL Aspartate Amino Transf (AST/SGOT) 29 5-34 U/L Alanine Aminotransferase (ALT/SGPT) 32 0-55 U/L Alkaline Phosphatase 61 40-136 U/L Total Creatine Kinase 457 H 273 H 29-168 U/L Total Protein 7.5 6.4-8.2 GM/DL Albumin 4.5 3.2-4.5 GM/DL Serum Test, Qualitative NEGATIVE NEGATIVE Salicylates Level < 5.0 L 5.0-20.0 MG/DL Acetaminophen Level < 10 L 10-30 UG/ML Serum Alcohol < 10 <10 MG/DL Urine Color ORANGE Urine Clarity CLEAR Urine pH 6.0 5-9 Urine Specific Walling 1.010 L 1.016-1.022 Urine Protein 1+ H NEGATIVE Urine Glucose (UA) TRACE H NEGATIVE Urine Ketones NEGATIVE NEGATIVE Urine Nitrite POSITIVE H NEGATIVE Urine Bilirubin NEGATIVE NEGATIVE Urine Urobilinogen 4.0 < = 1.0 MG/DL Urine Leukocyte Esterase 1+ H NEGATIVE Urine RBC (Auto) NEGATIVE NEGATIVE Urine RBC NONE /HPF Urine WBC 0-2 /HPF Urine Squamous Epithelial Cells 2-5 /HPF Urine Crystals NONE /LPF Urine Bacteria TRACE /HPF Urine Casts NONE /LPF Urine Mucus NEGATIVE /LPF Urine Culture Indicated YES Urine Opiates Screen NEGATIVE NEGATIVE Urine Oxycodone Screen NEGATIVE NEGATIVE Urine Methadone Screen NEGATIVE NEGATIVE Urine Propoxyphene Screen NEGATIVE NEGATIVE Urine Barbiturates Screen NEGATIVE NEGATIVE Ur Tricyclic Antidepressants Screen NEGATIVE NEGATIVE Urine Phencyclidine Screen NEGATIVE NEGATIVE Urine Amphetamines Screen POSITIVE H NEGATIVE Urine Methamphetamines Screen POSITIVE H NEGATIVE Urine Benzodiazepines Screen POSITIVE H NEGATIVE Urine Cocaine Screen NEGATIVE NEGATIVE Urine Cannabinoids Screen NEGATIVE NEGATIVE SARS-CoV-2 RNA (RT-PCR) Not Detected Not Detecte (SARAH MOURA MD) Medications Given in ED Current Medications Medications Dose Ordered Sig/Angel Route Start Time Stop Time Status Last Admin Dose Admin Ceftriaxone Sodium 1000 mg/ Sterile Water 10 ml @ 200 mls/hr ONCE ONCE IV 09/12/21 17:00 09/12/21 17:02 DC 09/12/21 17:18 200 MLS/HR (SARAH MOURA MD) Vital Signs/I&O 09/12/21 11:20 Temp 36.2 Pulse 90 Resp 21 B/P (MAP) 113/71 (85) Pulse Ox 96 O2 Delivery Room Air 09/13/21 00:00 Intake Total 1000 ml Balance 1000 ml (SARAH MOURA MD) Vital Signs/I&O Capillary Refill : (JAVI ALANIZ APRN) Progress Note : Time: 23:00 Progress Note I went in to talk to Hannah this evening after speaking with the psych resident at [facility]. I advised Suzanne that we had found a psych bed for her at [facility]. She immediately states she was not going. She is paranoid about her house and that had to had been left unlocked. She states she wanted to call her mom. I tried to talk to her about going to a mental health facility and told her that she had been medically cleared from her overdose earlier in the day. She tells me "I don't know what happened I should be ". I asked her why she wanted to leave and she said to check on her things. I tried to reason with her that we had a psych bed available and she states she wanted to go to [facility]. I told her that was not possible at this hour of the night and that we had a bed for her at [facility]. She asked if it was [facility] and I told her yes. She appeared to consider going but then immediately became worried about her things at home and the unlocked doors. She states her children Social Security numbers were at the house and everything would be gone if she went inpatient. I advised her that we could try and contact her mom for her so that she could go to [facility] and again she said no. She states that she is currently not suicidal. States that she knows she needs mental health treatment and that when she goes home to check on her things she will come back. I advised her that the whole process would start over again for medical clearance and she did not seem to understand that she could not go from home over to the [facility]. I advised patient that she would need to leave AMA. She seemed very frustrated and stated "I do not feel right" that she was still having aftereffects from the meds that she took earlier in the evening. I advised the patient again the risks of leaving. She verbalized understanding, will be discharged AMA. (SARAH MOURA MD) Departure Communication (Admissions) Spoke with poison control at 1146. They recommend EKG every 2 hours x3 to monitor for a prolonged QTc interval beyond 500 ms. If she develops hypotension unresponsive to IV fluids then nor epi would be the drug of choice. The metabolite of this may take up to 17 hours to clear her system with the highest risk for arrhythmias within the first 8 hours. As such if she returns to normal after the first 8 hours she can safely go home but it may take longer than that for her to wake up given the duration of the metabolite. 1532-notable to verbal stimuli. Got up to the bathroom to urinate for us. Blood pressure 101/58 heart rate 85. Repeat EKG shows a lengthening though still normal QT interval at 428 ms as compared to the previous 353 ms. She knows that she is at the hospital because she was suicidal this morning but again confirms that she is not suicidal. She also states that she did not actually take any medication today as she initially stated. 1749-arousable to verbal stimuli, has been cooperative, sleeping here. Is no longer suicidal and knows where she is and why shes here. She would like to receive inpatient care for med stabilization as she's of her med. QTC has slightly lengthened, though not to an actionable level and at 8 hours after time of ingestion the risk for med induced qtc prolongation is declining at this point. poison control agrees with medically clearing her if the CK is stable or trending down. (JAVI ALANIZ APRN) Impression Primary Impression: Drug overdose Qualified Codes: T50.904A - Poisoning by unspecified drugs, medicaments and biological substances, undetermined, initial encounter Additional Impressions: Methamphetamine abuse Paranoid schizophrenia Disposition: 07 AGAINST MEDICAL ADVICE Condition: Against Medical Advice Admissions Decision to Admit Reason: Admit from ER (General) Decision to Admit/Date: Sep 12, 2021 Time/Decision to Admit Time: 11:47 (JAVI ALANIZ APRN) Departure-Patient Inst. [facility] [place] Primary Care Physician JAVI ALANIZ APRN Sep 12, 2021 11:24 SARAH MOURA MD Sep 13, 2021 01:01
[2021-09-12] MEDS ORDERED: LACTATED RINGERS 1,000 ML IV SCH ×2 (11:30→14:15)
[2021-09-12 11:45] LABS: BASOPHILS % (AUTO) 0 % (0-10); EOSINOPHILS # (AUTO) 0.1 10^3/uL (0.0-0.3); EOSINOPHILS % (AUTO) 1 % (0-10); HEMATOCRIT 39 % (35-52); HEMOGLOBIN 13.4 g/dL (11.5-16.0); LYMPHOCYTES # (AUTO) 1.9 10^3/uL (1.0-4.0); LYMPHOCYTES % (AUTO) 18 % (12-44); MEAN CORPUSCULAR HEMOGLOBIN 31 pg (25-34); MEAN CORPUSCULAR HGB CONC 34 g/dL (32-36); MEAN CORPUSCULAR VOLUME 91 fL (80-99); MEAN PLATELET VOLUME 8.6 fL (9.0-12.2); MONOCYTES # (AUTO) 0.9 10^3/uL (0.0-1.0); MONOCYTES % (AUTO) 8 % (0-12); NEUTROPHILS # (AUTO) 7.4 10^3/uL (1.8-7.8); NEUTROPHILS % (AUTO) 72 % (42-75); PLATELET COUNT 347 10^3/uL (130-400); WHITE BLOOD COUNT 10.3 10^3/uL (4.3-11.0)
[2021-09-12 11:57] LABS: ALBUMIN 4.5 GM/DL (3.2-4.5); CHLORIDE 101 MMOL/L (98-107); POTASSIUM 3.5 MMOL/L (3.6-5.0); SODIUM 138 MMOL/L (135-145)
[2021-09-12 12:00] LABS: GLUCOSE 101 MG/DL (70-105); TOTAL PROTEIN 7.5 GM/DL (6.4-8.2)
[2021-09-12 12:01] LABS: CARBON DIOXIDE 22 MMOL/L (21-32)
[2021-09-12 12:02] LABS: BILIRUBIN,TOTAL 0.9 MG/DL (0.1-1.0)
[2021-09-12 12:04] LABS: ALKALINE PHOSPHATASE 61 U/L (40-136); CREATININE SERUM 0.86 MG/DL (0.60-1.30); GFR ESTIMATED 79
[2021-09-12 12:05] LABS: BUN/CREATININE RATIO 14
[2021-09-12 12:06] LABS: ACETAMINOPHEN < 10 UG/ML (10-30); SALICYLATE < 5.0 MG/DL (5.0-20.0)
[2021-09-12 12:07] LABS: ALANINE AMINOTRANSFERASE 32 U/L (0-55); CREATINE KINASE 457 U/L (29-168); MAGNESIUM 2.1 MG/DL (1.6-2.4)
--- NOTE | 2021-09-12 12:08 | Diagnostic Imaging Report ---
PROCEDURE: CT head without contrast. TECHNIQUE: Multiple contiguous axial images were obtained through the brain without the use of intravenous contrast. Auto Exposure Controls were utilized during the CT exam to meet ALARA standards for radiation dose reduction. INDICATION: Overdose and facial contusion COMPARISON: 05/13/2020 CT HEAD: CT images of the head were obtained. FINDINGS: Ventricles and sulci are within normal limits for size. There is no intracranial hemorrhage identified. There is no abnormal mass effect or shift of midline structures. IMPRESSION: Unremarkable CT of the head. Dictated by: Dictated on workstation # [id number]
[2021-09-12 15:17] LABS: BILIRUBIN,URINE NEGATIVE (NEGATIVE); CLARITY,URINE CLEAR; COLOR,URINE ORANGE; GLUCOSE, URINE (UA) TRACE (NEGATIVE); KETONES,URINE NEGATIVE (NEGATIVE); LEUKOCYTE ESTERASE ,URINE 1+ (NEGATIVE); NITRITE,URINE POSITIVE (NEGATIVE); PROTEIN,URINE 1+ (NEGATIVE)
[2021-09-12 15:33] LABS: BACTERIA,URINE TRACE /HPF; WBC,URINE 0-2 /HPF
[2021-09-12 15:40] LABS: AMPHETAMINE SCREEN, URINE POSITIVE (NEGATIVE); BARBITURATE SCREEN URINE NEGATIVE (NEGATIVE); BENZODIAZEPINES SCREEN URINE POSITIVE (NEGATIVE); CANNABINOID SCREEN, URINE NEGATIVE (NEGATIVE); COCAINE SCREEN URINE NEGATIVE (NEGATIVE); METHADONE STAT NEGATIVE (NEGATIVE); METHAMPHETAMINE SCREEN URINE S POSITIVE (NEGATIVE); OPIATE SCREEN URINE NEGATIVE (NEGATIVE); OXYCODONE STAT NEGATIVE (NEGATIVE); PROPOXYPHENE STAT NEGATIVE (NEGATIVE); TRICYCLIC ANTIDEPRESSANTS SCRE NEGATIVE (NEGATIVE)
[2021-09-12] MEDS ORDERED: cefTRIAXone 1,000 MG in WATER (STERILE) FOR INJECTION 10 ML IV ONE (17:00)
== END 2021-09-12 23:30 | disposition left against medical advice (07) ==
LOC: EDUNIT# 11:15 → ER 11:16
DX: T43.592A Poisoning by other antipsychotics and neuroleptics, intentional self-harm, initial encounter (principal); F15.10 Other stimulant abuse, uncomplicated; F20.0 Paranoid schizophrenia; J45.909 Unspecified asthma, uncomplicated; F41.9 Anxiety disorder, unspecified; Z20.822 Contact with and (suspected) exposure to COVID-19; Z79.899 Other long term (current) drug therapy; X83.8XXA Intentional self-harm by other specified means, initial encounter
CPT/HCPCS: 70450; 80053; 80306; 81000; 82550; 83735; 84703; 85025; 87088; 87636; 93005; 99283; G0480 ×3; 36415; 80320; 80329

== ENCOUNTER 2021-09-20 20:31 | Emergency (ER) | payer SELFPAY ==
--- NOTE | 2021-09-20 20:45 | ED General ---
General Stated Complaint: MENTAL HEALTH ISSUES/CP Source of Information: Patient Exam Limitations: No Limitations History of Present Illness Date Seen by Provider: Sep 20, 2021 Time Seen by Provider: 20:40 Initial Comments To ER by private vehicle with reports that she needs help with her mental health. She states that she is been using drugs for a long time and wants to go inpatient somewhere. Discussed with her I could help evaluate for any medical emergencies and would be unlikely to get her into a detox center from the emergency room. She became very upset with staff stating "I am someone's mother! How can you turn me down!?". Discussed with her I will be happy to see and evaluate her here in the emergency room but would not likely be able to get her into an addiction treatment center. She then picked up her things and left the emergency room without allowing any evaluation. Timing/Duration: 1-2 Days Severity: Moderate Associated Systoms: Other (mental health issues) Allergies and Home Medications Allergies Coded Allergies: paroxetine (Verified Allergy, Severe, DIFF SWALLOWING, 10/09/16) fluoxetine (Unverified Allergy, Unknown, 06/11/17) Patient Home Medication List Home Medication List Reviewed: Yes Cephalexin (Cephalexin) 500 Mg Tablet, 500 MG PO BID Prescribed by: JAYLEN SUNG on 05/02/20 1512 Hydroxyzine HCl (Hydroxyzine HCl) 25 Mg Tablet, (Reported) Entered as Reported by: POLO OLGUIN on 08/19/202027 Naproxen (Naproxen) 500 Mg Tablet.dr, 500 MG PO BID Prescribed by: EDELMIRA CANTU on 04/04/21 2342 Sulfamethoxazole/Trimethoprim (Bactrim Ds Tablet) 1 Each Tablet, 1 EACH PO BID Prescribed by: SARAH MOURA on 09/10/21 1823 Review of Systems Review of Systems Constitutional: see HPI, other (unable to complete) EENTM: see HPI Respiratory: see HPI Cardiovascular: see HPI Genitourinary: see HPI Musculoskeletal: see HPI Skin: see HPI Psychiatric/Neurological: See HPI Past Cotlqzx-Ruykmp-Zwkxuh Hx Immunizations Up To Date Tetanus Booster (TDap): Unknown PED Vaccines UTD: Yes Seasonal Allergies Seasonal Allergies: No Past Medical History Surgery/Hospitalization HX: pmh: paranoid schizophrenia Surgeries: Yes (EGD) Respiratory: Yes Asthma Cardiac: Yes Palpitations Neurological: No 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 Disorders: Yes (ABNORMAL PAP) Female 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 Sexually Transmitted Disease: No HIV/AIDS: No Genitourinary: Yes UTI-Chronic Gastrointestinal: Yes (GASTRITIS) Crohns Disease, Esophagitis Musculoskeletal: Yes Fractures Endocrine: No HEENT: No Cancer: No Psychosocial: Yes (POLYSUBSTANCE ABUSE; PARANOID SCHIZOPHRENIA) Anxiety, Personality Disorder, Schizophrenia, Depression Integumentary: No Blood Disorders: No Adverse Reaction/Blood Tranf: No (N/A) Family Medical History FH: bipolar disorder 19 MOTHER FH: heart disease UNCLE Hepatitis C 19 MOTHER Hypertension MATERNAL GRANDFATHER No Pertinent Family Hx SOCIAL HISTORY: -ETOH--OCCASIONAL USE -DRUGS--LONG HISTORY OF METHAMPHETAMINES, COCAINE, CRACK, THC. DENIES IV USE--STATES SHE SMOKES DRUGS -SMOKES 1 PPD Physical Exam Vital Signs Capillary Refill : Height, Weight, BMI Height: 5'8.00" Weight: 130lbs. 0oz. 58.120393dm; 26.00 BMI Method:Stated General Appearance: No Apparent Distress, WD/WN, Other (agitated) Eyes: Bilateral Eye Normal Inspection, Bilateral Eye PERRL, Bilateral Eye EOMI HEENT: Other (Unable to assess) Neck: Other (Unable to assess) Respiratory: Other (Unable to assess) Cardiovascular: Other (Unable to assess) Gastrointestinal: Other (Unable to assess) Back: Other (Unable to assess) Neurologic/Psychiatric: Alert, Oriented x3, Other (Agitated) Skin: Normal Color, Warm/Dry Procedures/Interventions Suture Size: 4-0 Progress/Results/Core Measures Suspected Sepsis SIRS Temperature: Pulse: Respiratory Rate: Blood Pressure / Mean: Results/Orders Vital Signs/I&O Capillary Refill : Departure Communication (Admissions) She refuses sign AGAINST MEDICAL ADVICE form Impression Primary Impression: Hx of paranoid schizophrenia Additional Impression: History of methamphetamine use Disposition: 07 AGAINST MEDICAL ADVICE Condition: Against Medical Advice Departure-Patient Inst. Referrals: [facility] (PCP/Family) Primary Care Physician JAVI ALANIZ APRN Sep 20, 2021 20:45
== END 2021-09-20 20:40 | disposition left against medical advice (07) ==
LOC: EDUNIT# 20:31 → ER 20:32
DX: Z86.59 Personal history of other mental and behavioral disorders (principal); Z87.898 Personal history of other specified conditions; J45.909 Unspecified asthma, uncomplicated; F41.9 Anxiety disorder, unspecified; F17.210 Nicotine dependence, cigarettes, uncomplicated; Z79.899 Other long term (current) drug therapy
CPT/HCPCS: 99281

== ENCOUNTER 2022-07-05 18:23 | Emergency (ER) | payer SELFPAY ==
[~2022-07-05] VITALS: Ht 173 cm; Wt 78.0 kg
[~2022-07-05 18:23] MED LIST changes: +BUPR-105; -BUPR150T14; -FLUC200T5; +FLUC200T9; -FLUO20CA46; +FLUO20CA48
--- NOTE | 2022-07-05 18:44 | ED Psychosocial ---
General Chief Complaint: Suicidal Ideation Risk Stated Complaint: MENTAL HEALTH ISSUES Source: patient Exam Limitations: no limitations History of Present Illness Date Seen by Provider: Jul 05, 2022 Time Seen by Provider: 18:40 Initial Comments Patient is a 26-year-old female with a history of methamphetamine abuse, paranoid schizophrenia who presents ED with visual and auditory hallucinations. She states she has had hallucinations over the past year. She states she has a plan to kill herself by overdosing on her pills. This occurred today but she has had these intermittent thoughts over the past year or so. She has been hospitalized 5 times. She does take several medications for her schizophrenia and anxiety. She has feelings that she is not good enough. She states she has been clean from drugs for 4 months until she relapsed 6 days ago by smoking methamphetamines. She reports mild nasal congestion but denies chest pain, cough, shortness of breath, vomiting, diarrhea. She denies of any homicidal thoughts. No alcohol use. She is cooperative Allergies and Home Medications Allergies Coded Allergies: paroxetine (Verified Allergy, Severe, DIFF SWALLOWING, 10/09/16) fluoxetine (Unverified Allergy, Unknown, 06/11/17) Patient Home Medication List Home Medication List Reviewed: Yes Cephalexin (Cephalexin) 500 Mg Tablet, 500 MG PO BID Prescribed by: JAYLEN SUNG on 05/02/20 1512 Hydroxyzine HCl (Hydroxyzine HCl) 25 Mg Tablet, (Reported) Entered as Reported by: POLO OLGUIN on 08/19/202027 Naproxen (Naproxen) 500 Mg Tablet.dr, 500 MG PO BID Prescribed by: EDELMIRA CANTU on 04/04/21 2342 Sulfamethoxazole/Trimethoprim (Bactrim Ds Tablet) 1 Each Tablet, 1 EACH PO BID Prescribed by: SARAH MOURA on 09/10/21 1823 Review of Systems Constitutional: No chills, No diaphoresis, No fever, No malaise, No weakness EENTM: No ear discharge, No hearing loss, No ear pain, No blurred vision Respiratory: No cough, No dyspnea on exertion Cardiovascular: No chest pain Gastrointestinal: No abdominal pain, No diarrhea, No nausea Genitourinary: No decreased output, No discharge Musculoskeletal: No back pain, No joint pain, No muscle pain, No muscle stiffness Skin: No change in color, No change in hair/nails All Other Systems Reviewed Negative Unless Noted: Yes Past Ddaavah-Siezrr-Qodjmk Hx Immunizations Up To Date Tetanus Booster (TDap): Unknown PED Vaccines UTD: Yes Seasonal Allergies Seasonal Allergies: No Past Medical History Surgery/Hospitalization HX: pmh: paranoid schizophrenia Surgeries: Yes (EGD) Respiratory: Yes Asthma Cardiac: Yes Palpitations Neurological: No 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 Disorders: Yes (ABNORMAL PAP) Female 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 Sexually Transmitted Disease: No HIV/AIDS: No Genitourinary: Yes UTI-Chronic Gastrointestinal: Yes (GASTRITIS) Crohns Disease, Esophagitis Musculoskeletal: Yes Fractures Endocrine: No HEENT: No Cancer: No Psychosocial: Yes (POLYSUBSTANCE ABUSE; PARANOID SCHIZOPHRENIA) Anxiety, Personality Disorder, Schizophrenia, Depression Integumentary: No Blood Disorders: No Adverse Reaction/Blood Tranf: No (N/A) Family Medical History FH: bipolar disorder 19 MOTHER FH: heart disease UNCLE Hepatitis C 19 MOTHER Hypertension MATERNAL GRANDFATHER No Pertinent Family Hx SOCIAL HISTORY: -ETOH--OCCASIONAL USE -DRUGS--LONG HISTORY OF METHAMPHETAMINES, COCAINE, CRACK, THC. DENIES IV USE--STATES SHE SMOKES DRUGS -SMOKES 1 PPD Physical Exam Vital Signs - First Documented 07/05/22 18:31 Temp 37.1 Pulse 108 Resp 18 B/P (MAP) 122/92 (102) Pulse Ox 97 O2 Delivery Room Air Capillary Refill : Height, Weight, BMI Height: 5'8.00" Weight: 130lbs. 0oz. 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, no motor/sensory deficits, alert, normal mood/affect; No oriented x 3 Appearance/Memory: appropriate appearance Behavior/Eye Contact: cooperative, good eye contact Thoughts/Hallucinations: normal thought pattern, no apparent hallucination Skin: normal color, warm/dry Lymphatic: no adenopathy Suicide Risk Suicide Risk Suicide Risk Level / RN Screen: Moderate Low Suicide Risk Level []Suicidal Ideation WITHOUT method, intent, plan or behavior more than a month ago []]Modifiable risk factors and strong protective factors []No reported history of suicidal ideation or behavior []Patient reports/exhibits symptoms consistent with psychosis []Patient reports a plan that would be unrealistic/impossible to complete and intent []Suicide attempt prior to arrival (Indicates at LEAST Low Suicide Risk, consider other risk factors) Moderate Suicide Risk Level: []Suicidal ideation with method, WITHOUT plan, intent or behavior in the past month []Multiple risk factors and few protective factors []Patient reports intent to follow through on plan to end life if allowed to leave hospital, and has attempted to elope from the hospital High Suicide Risk Level: [] Suicidal ideation with intent or intent with a plan in the past month [] Patient has harmed self or attempted suicide while in the hospital [] Patient has hx of or current Command Auditory hallucinations to harm self or others that they follow without hesitation [] Patient refuses to disclose plan, and indicates intent to complete [] Patient reports plan that is possible to accomplish and/or has means to complete Risk factors supporting recommendation: [] Non-compliance with treatment (acute or chronic) [] Patient has access to or owns firearms and/or stockpiled medications [] Hx Impulsive behavior [] Pending incarceration or homelessness [] Sexual abuse [] Family history and/or exposure to suicide [] Adverse childhood experiences [] Exposure to violence or negative socio-political cultural, and economic forces [] Current or hx of substance use/abuse [] Chronic physical pain or other acute medical problem (AIDS, COPD, Cancer, etc) [] Perceived burden on family or others [] Patient has attempted to elope [] Unable to answer and/or unable to identify [] Refuses to agree to a safety plan Protective Factors supporting recommendation: [] Identifies reasons for living [] Future plans/goals [] Engaged in work or School [] Good family support network [] Good social support network [] Responsibility to family [] Belief that suicide is immoral, against their orthodoxy beliefs [] High spirituality and involvement in yarsani community [] Fear of or dying due to pain and suffering [] Established outpt psychiatric services [] Unable to answer and/or unable to identify Risk Assessment Tool Score: Moderate Procedures/Interventions Suture Size: 4-0 Progress/Results/Core Measures Results/Orders Lab Results Laboratory Tests Test 07/05/22 18:47 07/05/22 19:28 Range/Units White Blood Count 8.8 4.3-11.0 10^3/uL Red Blood Count 4.76 3.80-5.11 10^6/uL Hemoglobin 14.3 11.5-16.0 g/dL Hematocrit 42 35-52 % Mean Corpuscular Volume 88 80-99 fL Mean Corpuscular Hemoglobin 30 25-34 pg Mean Corpuscular Hemoglobin Concent 34 32-36 g/dL Red Cell Distribution Width 11.9 10.0-14.5 % Platelet Count 366 130-400 10^3/uL Mean Platelet Volume 8.9 L 9.0-12.2 fL Immature Granulocyte % (Auto) 1 % Neutrophils (%) (Auto) 75 42-75 % Lymphocytes (%) (Auto) 18 12-44 % Monocytes (%) (Auto) 6 0-12 % Eosinophils (%) (Auto) 0 0-10 % Basophils (%) (Auto) 1 0-10 % Neutrophils # (Auto) 6.6 1.8-7.8 10^3/uL Lymphocytes # (Auto) 1.6 1.0-4.0 10^3/uL Monocytes # (Auto) 0.5 0.0-1.0 10^3/uL Eosinophils # (Auto) 0.0 0.0-0.3 10^3/uL Basophils # (Auto) 0.0 0.0-0.1 10^3/uL Immature Granulocyte # (Auto) 0.0 0.0-0.1 10^3/uL Sodium Level 141 135-145 MMOL/L Potassium Level 3.9 3.6-5.0 MMOL/L Chloride Level 108 H 98-107 MMOL/L Carbon Dioxide Level 21 21-32 MMOL/L Anion Gap 12 5-14 MMOL/L Blood Urea Nitrogen 7 7-18 MG/DL Creatinine 0.78 0.60-1.30 MG/DL Estimat Glomerular Filtration Rate 107 BUN/Creatinine Ratio 9 Glucose Level 84 70-105 MG/DL Calcium Level 10.0 8.5-10.1 MG/DL Corrected Calcium 8.5-10.1 MG/DL Total Bilirubin 0.4 0.1-1.0 MG/DL Aspartate Amino Transf (AST/SGOT) 11 5-34 U/L Alanine Aminotransferase (ALT/SGPT) 17 0-55 U/L Alkaline Phosphatase 51 40-136 U/L Total Protein 7.6 6.4-8.2 GM/DL Albumin 4.8 H 3.2-4.5 GM/DL TSH [place] Testing 0.84 0.35-4.94 UIU/ML Serum Test, Qualitative NEGATIVE NEGATIVE Salicylates Level < 5.0 L 5.0-20.0 MG/DL Acetaminophen Level < 10 L 10-30 UG/ML Serum Alcohol 11 H <10 MG/DL SARS-CoV-2 RNA (RT-PCR) Not Detected Not Detecte Urine Color YELLOW Urine Clarity CLEAR Urine pH 7.0 5-9 Urine Specific [place] 1.020 1.016-1.022 Urine Protein NEGATIVE NEGATIVE Urine Glucose (UA) NEGATIVE NEGATIVE Urine Ketones NEGATIVE NEGATIVE Urine Nitrite NEGATIVE NEGATIVE Urine Bilirubin NEGATIVE NEGATIVE Urine Urobilinogen 0.2 < = 1.0 MG/DL Urine Leukocyte Esterase NEGATIVE NEGATIVE Urine RBC (Auto) NEGATIVE NEGATIVE Urine RBC RARE /HPF Urine WBC NONE /HPF Urine Squamous Epithelial Cells 2-5 /HPF Urine Crystals NONE /LPF Urine Bacteria TRACE /HPF Urine Casts NONE /LPF Urine Mucus SMALL H /LPF Urine Culture Indicated NO Urine Opiates Screen NEGATIVE NEGATIVE Urine Oxycodone Screen NEGATIVE NEGATIVE Urine Methadone Screen NEGATIVE NEGATIVE Urine Propoxyphene Screen NEGATIVE NEGATIVE Urine Barbiturates Screen NEGATIVE NEGATIVE Ur Tricyclic Antidepressants Screen NEGATIVE NEGATIVE Urine Phencyclidine Screen NEGATIVE NEGATIVE Urine Amphetamines Screen NEGATIVE NEGATIVE Urine Methamphetamines Screen NEGATIVE NEGATIVE Urine Benzodiazepines Screen NEGATIVE NEGATIVE Urine Cocaine Screen NEGATIVE NEGATIVE Urine Cannabinoids Screen NEGATIVE NEGATIVE Vital Signs/I&O 07/05/22 07/05/22 18:31 20:19 Temp 37.1 Pulse 108 89 Resp 18 18 B/P (MAP) 122/92 (102) 114/87 Pulse Ox 97 97 O2 Delivery Room Air Room Air Departure Communication (PCP) Patient presents ED for further evaluation of her hallucinations and suicidal thoughts. She had suicidal thoughts today and plan of overdosing on her medication. On arrival she states she has no current thoughts but been having these intermittent thoughts for the past year Has been hospitalized in the past. Currently seeing Roxanne ENVIRONMENTAL SCIENTIST at [facility] for her mental health. Patient denies of any active auditory or visual hallucinations. Methamphetamine and smoked 6 days ago. Concerning for relapse. She was 4 months sober. She initially was wanting to get evaluated. After lab work was drawn waiting for results, she was requesting to be discharged. She contacted her boyfriend who s he feels safe with, and stated she was wanting to go back home with him and his mother. She lives with both of them. She states she feels safe to go home. Discussed with patient I recommended to stay to get evaluated by behavioral health but she states she needed to go home. Attempted to keep patient here but she was still refusing psych evaluation. discussed a safety plan with patient. She states she will contact her primary care physician on Thursday. She states if any symptoms worsen she will return back to ED. Impression Primary Impression: Hallucination Additional Impression: Suicidal ideation Disposition: 01 HOME, SELF-CARE Condition: Stable Departure-Patient Inst. Decision time for Depature: 20:09 Referrals: [facility] (PCP/Family) Primary Care Physician Patient Instructions: OUTPT MENTAL HEALTH SERVICES Add. Discharge Instructions: Please if anything changes at home you concern for your safety recommend calling PD and/or returning back to the ED All discharge instructions reviewed with patient and/or family. Voiced u nderstanding. NEELIMA JOYCE Jul 05, 2022 18:44
[2022-07-05 19:10] LABS: BASOPHILS % (AUTO) 1 % (0-10); EOSINOPHILS % (AUTO) 0 % (0-10); HEMATOCRIT 42 % (35-52); HEMOGLOBIN 14.3 g/dL (11.5-16.0); LYMPHOCYTES # (AUTO) 1.6 10^3/uL (1.0-4.0); LYMPHOCYTES % (AUTO) 18 % (12-44); MEAN CORPUSCULAR HEMOGLOBIN 30 pg (25-34); MEAN CORPUSCULAR HGB CONC 34 g/dL (32-36); MEAN CORPUSCULAR VOLUME 88 fL (80-99); MEAN PLATELET VOLUME 8.9 fL (9.0-12.2); MONOCYTES # (AUTO) 0.5 10^3/uL (0.0-1.0); MONOCYTES % (AUTO) 6 % (0-12); NEUTROPHILS # (AUTO) 6.6 10^3/uL (1.8-7.8); NEUTROPHILS % (AUTO) 75 % (42-75); PLATELET COUNT 366 10^3/uL (130-400); WHITE BLOOD COUNT 8.8 10^3/uL (4.3-11.0)
[2022-07-05 19:43] LABS: BILIRUBIN,URINE NEGATIVE (NEGATIVE); CLARITY,URINE CLEAR; COLOR,URINE YELLOW; GLUCOSE, URINE (UA) NEGATIVE (NEGATIVE); KETONES,URINE NEGATIVE (NEGATIVE); LEUKOCYTE ESTERASE ,URINE NEGATIVE (NEGATIVE); NITRITE,URINE NEGATIVE (NEGATIVE); PROTEIN,URINE NEGATIVE (NEGATIVE)
[2022-07-05 19:53] LABS: ALANINE AMINOTRANSFERASE 17 U/L (0-55); ALBUMIN 4.8 GM/DL (3.2-4.5); ALKALINE PHOSPHATASE 51 U/L (40-136); BILIRUBIN,TOTAL 0.4 MG/DL (0.1-1.0); BUN/CREATININE RATIO 9; CARBON DIOXIDE 21 MMOL/L (21-32); CHLORIDE 108 MMOL/L (98-107); CREATININE SERUM 0.78 MG/DL (0.60-1.30); GFR ESTIMATED 107; GLUCOSE 84 MG/DL (70-105); POTASSIUM 3.9 MMOL/L (3.6-5.0); SALICYLATE < 5.0 MG/DL (5.0-20.0); SODIUM 141 MMOL/L (135-145); TOTAL PROTEIN 7.6 GM/DL (6.4-8.2)
[2022-07-05 19:54] LABS: ACETAMINOPHEN < 10 UG/ML (10-30)
[2022-07-05 20:11] LABS: BACTERIA,URINE TRACE /HPF; RBC,URINE RARE /HPF
[2022-07-05 20:13] LABS: TSH (THYROID ANALYZER) 0.84 UIU/ML (0.35-4.94)
[2022-07-05 20:19] VITALS: BP 114/87
[2022-07-05 20:20] LABS: AMPHETAMINE SCREEN, URINE NEGATIVE (NEGATIVE); BARBITURATE SCREEN URINE NEGATIVE (NEGATIVE); BENZODIAZEPINES SCREEN URINE NEGATIVE (NEGATIVE); CANNABINOID SCREEN, URINE NEGATIVE (NEGATIVE); COCAINE SCREEN URINE NEGATIVE (NEGATIVE); METHADONE STAT NEGATIVE (NEGATIVE); OPIATE SCREEN URINE NEGATIVE (NEGATIVE); OXYCODONE STAT NEGATIVE (NEGATIVE); PROPOXYPHENE STAT NEGATIVE (NEGATIVE); TRICYCLIC ANTIDEPRESSANTS SCRE NEGATIVE (NEGATIVE)
== END 2022-07-05 20:21 | disposition home or self-care (01) ==
LOC: EDUNIT# 18:23 → ER 18:24
DX: R45.851 Suicidal ideations (principal); R44.3 Hallucinations, unspecified; Z28.310 Unvaccinated for COVID-19
CPT/HCPCS: 80053; 80306; 81000; 84443; 84703; 85025; 87636; 93005; 93041; 99283; G0480 ×3; 36415; 80320; 80329

== ENCOUNTER 2022-07-17 12:28 | Emergency (ER) | payer SELFPAY ==
[~2022-07-17] VITALS: Ht 172.2 cm; Wt 78.0 kg
--- NOTE | 2022-07-17 13:03 | ED Psychosocial ---
General Chief Complaint: Suicidal Ideation Risk Stated Complaint: SHAWN DE LA CRUZ Source: patient Exam Limitations: no limitations History of Present Illness Date Seen by Provider: Jul 17, 2022 Time Seen by Provider: 12:57 Initial Comments Patient is a 26-year-old female with a history of methamphetamine abuse, delusions, depression who presents to ED from [facility] for medical evaluation. Patient was evaluated today regarding her struggles of major depression and severe delusions. She states she hears voices telling her to kill herself and others. No specific plans but has had plans in the past of overdosing. She states she believes she has stuck in her head with increased stress. She states that these voices do talk to her and she describes it as if someone else is speaking for her in her head. She has no current suicidal or homicidal thoughts but has had thoughts with her delusions. She has a history of delusions over the past few years. She states she does have a current bed at [facility] and was recommended to get medically evaluated and will be transferred over to their facility. She also reports feeling paranoid about what people are saying about her. She is on current medication and thinks she needs medication adjustments or different medication. Meth use 2 days ago. She has had detox in the past. She reports hospitalization in the past for her delusions. Denies fever, chest pain, cough, shortness of breath, nausea, vomit ing, diarrhea. Intermittent alcohol use. No visual hllucinations. Allergies and Home Medications Allergies Coded Allergies: paroxetine (Verified Allergy, Severe, DIFF SWALLOWING, 10/09/16) fluoxetine (Unverified Allergy, Unknown, 06/11/17) Patient Home Medication List Home Medication List Reviewed: Yes Cephalexin (Cephalexin) 500 Mg Tablet, 500 MG PO BID Prescribed by: JAYLEN SUNG on 05/02/20 1512 Hydroxyzine HCl (Hydroxyzine HCl) 25 Mg Tablet, (Reported) Entered as Reported by: POLO OLGUIN on 08/19/202027 Naproxen (Naproxen) 500 Mg Tablet.dr, 500 MG PO BID Prescribed by: EDELMIRA CANTU on 04/04/21 0212 Sulfamethoxazole/Trimethoprim (Bactrim Ds Tablet) 1 Each Tablet, 1 EACH PO BID Prescribed by: SARAH MOURA on 09/10/21 182 Review of Systems Constitutional: No chills, No diaphoresis, No malaise, No weakness EENTM: No ear pain, No blurred vision, No double vision, No mouth pain, No mouth swelling, No nose pain, No throat pain Respiratory: No cough, No dyspnea on exertion Cardiovascular: No chest pain Gastrointestinal: No abdominal pain, No diarrhea, No vomiting Genitourinary: No decreased output, No discharge Musculoskeletal: No back pain, No joint pain, No muscle pain Skin: No change in color Psychiatric/Neurological: Depressed, Other (delusions, paranoid) Past Mhhhpqw-Onlxou-Hwirsu Hx Immunizations Up To Date Tetanus Booster (TDap): Unknown PED Vaccines UTD: Yes Seasonal Allergies Seasonal Allergies: No Past Medical History Surgery/Hospitalization HX: pmh: paranoid schizophrenia, anxiety, depressive disorder, ocd Surgeries: Yes (EGD) Respiratory: Yes Asthma Cardiac: Yes Palpitations Neurological: No 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 Disorders: Yes (ABNORMAL PAP) Female 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 Sexually Transmitted Disease: No HIV/AIDS: No Genitourinary: Yes UTI-Chronic Gastrointestinal: Yes (GASTRITIS) Crohns Disease, Esophagitis Musculoskeletal: Yes Fractures Endocrine: No HEENT: No Cancer: No Psychosocial: Yes (POLYSUBSTANCE ABUSE; PARANOID SCHIZOPHRENIA) Anxiety, Personality Disorder, Schizophrenia, Depression Integumentary: No Blood Disorders: No Adverse Reaction/Blood Tranf: No (N/A) Family Medical History FH: bipolar disorder 19 MOTHER FH: heart disease UNCLE Hepatitis C 19 MOTHER Hypertension MATERNAL GRANDFATHER No Pertinent Family Hx SOCIAL HISTORY: -ETOH--OCCASIONAL USE -DRUGS--LONG HISTORY OF METHAMPHETAMINES, COCAINE, CRACK, THC. DENIES IV USE--STATES SHE SMOKES DRUGS -SMOKES 1 PPD Physical Exam Vital Signs - First Documented 07/17/22 12:55 Temp 36.4 Pulse 84 Resp 16 B/P (MAP) 119/74 (89) Pulse Ox 100 O2 Delivery Room Air Capillary Refill : Height, Weight, BMI Height: 5'8.00" Weight: 130lbs. 0oz. 58.068181ei; 26.00 BMI Method:Stated General Appearance: WD/WN, no apparent distress HEENT: PERRL/EOMI, normal ENT inspection, TMs normal, pharynx normal Neck: non-tender, full range of motion, supple, normal inspection Respiratory: chest non-tender, lungs clear, normal breath sounds, no respiratory distress, no accessory muscle use Cardiovascular: regular rate, rhythm, no edema, no gallop, no JVD Gastrointestinal: normal bowel sounds, non tender, soft, no organomegaly Extremities: normal range of motion, non-tender, normal inspection, no pedal edema Neurologic/Psychiatric: publicity person II-XII nml as tested, alert, normal mood/affect, oriented x 3 Appearance/Memory: appropriate appearance Behavior/Eye Contact: cooperative Thoughts/Hallucinations: delusions, paranoid Skin: normal color, warm/dry Suicide Risk Suicide Risk Suicide Risk Level / RN Screen: Moderate Low Suicide Risk Level []Suicidal Ideation WITHOUT method, intent, plan or behavior more than a month ago []]Modifiable risk factors and strong protective factors []No reported history of suicidal ideation or behavior []Patient reports/exhibits symptoms consistent with psychosis []Patient reports a plan that would be unrealistic/impossible to complete and intent []Suicide attempt prior to arrival (Indicates at LEAST Low Suicide Risk, consider other risk factors) Moderate Suicide Risk Level: [x]Suicidal ideation with method, WITHOUT plan, intent or behavior in the past month [x]Multiple risk factors and few protective factors []Patient reports intent to follow through on plan to end life if allowed to leave hospital, and has attempted to elope from the hospital High Suicide Risk Level: [] Suicidal ideation with intent or intent with a plan in the past month [] Patient has harmed self or attempted suicide while in the hospital [] Patient has hx of or current Command Auditory hallucinations to harm self or others that they follow without hesitation [] Patient refuses to disclose plan, and indicates intent to complete [] Patient reports plan that is possible to accomplish and/or has means to complete Risk factors supporting recommendation: [] Non-compliance with treatment (acute or chronic) [] Patient has access to or owns firearms and/or stockpiled medications [] Hx Impulsive behavior [] Pending incarceration or homelessness [] Sexual abuse [] Family history and/or exposure to suicide [] Adverse childhood experiences [] Exposure to violence or negative socio-political cultural, and economic forces [x] Current or hx of substance use/abuse [] Chronic physical pain or other acute medical problem (AIDS, COPD, Cancer, etc) [] Perceived burden on family or others [] Patient has attempted to elope [] Unable to answer and/or unable to identify [] Refuses to agree to a safety plan Protective Factors supporting recommendation: [] Identifies reasons for living [] Future plans/goals [] Engaged in work or School [] Good family support network [] Good social support network [] Responsibility to family [] Belief that suicide is immoral, against their methodist beliefs [] High spirituality and involvement in spiritism community [] Fear of or dying due to pain and suffering [] Established outpt psychiatric services [] Unable to answer and/or unable to identify Risk Assessment Tool Score: Moderate Procedures/Interventions Suture Size: 4-0 Progress/Results/Core Measures Results/Orders Lab Results Laboratory Tests Test 07/17/22 13:00 07/17/22 13:13 Range/Units White Blood Count 8.8 4.3-11.0 10^3/uL Red Blood Count 4.54 3.80-5.11 10^6/uL Hemoglobin 13.8 11.5-16.0 g/dL Hematocrit 41 35-52 % Mean Corpuscular Volume 89 80-99 fL Mean Corpuscular Hemoglobin 30 25-34 pg Mean Corpuscular Hemoglobin Concent 34 32-36 g/dL Red Cell Distribution Width 12.3 10.0-14.5 % Platelet Count 372 130-400 10^3/uL Mean Platelet Volume 8.8 L 9.0-12.2 fL Immature Granulocyte % (Auto) 1 % Neutrophils (%) (Auto) 66 42-75 % Lymphocytes (%) (Auto) 24 12-44 % Monocytes (%) (Auto) 7 0-12 % Eosinophils (%) (Auto) 2 0-10 % Basophils (%) (Auto) 1 0-10 % Neutrophils # (Auto) 5.8 1.8-7.8 10^3/uL Lymphocytes # (Auto) 2.1 1.0-4.0 10^3/uL Monocytes # (Auto) 0.6 0.0-1.0 10^3/uL Eosinophils # (Auto) 0.2 0.0-0.3 10^3/uL Basophils # (Auto) 0.1 0.0-0.1 10^3/uL Immature Granulocyte # (Auto) 0.1 0.0-0.1 10^3/uL Sodium Level 136 135-145 MMOL/L Potassium Level 3.8 3.6-5.0 MMOL/L Chloride Level 105 98-107 MMOL/L Carbon Dioxide Level 23 21-32 MMOL/L Anion Gap 8 5-14 MMOL/L Blood Urea Nitrogen 12 7-18 MG/DL Creatinine 0.86 0.60-1.30 MG/DL Estimat Glomerular Filtration Rate 95 BUN/Creatinine Ratio 14 Glucose Level 102 70-105 MG/DL Calcium Level 9.3 8.5-10.1 MG/DL Corrected Calcium 8.9 8.5-10.1 MG/DL Total Bilirubin 0.5 0.1-1.0 MG/DL Aspartate Amino Transf (AST/SGOT) 18 5-34 U/L Alanine Aminotransferase (ALT/SGPT) 23 0-55 U/L Alkaline Phosphatase 57 40-136 U/L Total Protein 7.3 6.4-8.2 GM/DL Albumin 4.5 3.2-4.5 GM/DL Thyroid Stimulating Hormone (TSH) 1.73 0.35-4.94 UIU/ML Salicylates Level < 5.0 L 5.0-20.0 MG/DL Acetaminophen Level < 10 L 10-30 UG/ML Serum Alcohol < 10 <10 MG/DL Urine Color YELLOW Urine Clarity CLOUDY Urine pH 5.5 5-9 Urine Specific [place] >=1.030 1.016-1.022 Urine Protein NEGATIVE NEGATIVE Urine Glucose (UA) NEGATIVE NEGATIVE Urine Ketones NEGATIVE NEGATIVE Urine Nitrite NEGATIVE NEGATIVE Urine Bilirubin NEGATIVE NEGATIVE Urine Urobilinogen 0.2 < = 1.0 MG/DL Urine Leukocyte Esterase NEGATIVE NEGATIVE Urine RBC (Auto) NEGATIVE NEGATIVE Urine RBC RARE /HPF Urine WBC 5-10 H /HPF Urine Squamous Epithelial Cells >50 H /HPF Urine Crystals NONE /LPF Urine Bacteria LARGE H /HPF Urine Casts NONE /LPF Urine Mucus LARGE H /LPF Urine Culture Indicated YES Urine Test NEGATIVE NEGATIVE Urine Opiates Screen NEGATIVE NEGATIVE Urine Oxycodone Screen NEGATIVE NEGATIVE Urine Methadone Screen NEGATIVE NEGATIVE Urine Propoxyphene Screen NEGATIVE NEGATIVE Urine Barbiturates Screen NEGATIVE NEGATIVE Ur Tricyclic Antidepressants Screen NEGATIVE NEGATIVE Urine Phencyclidine Screen NEGATIVE NEGATIVE Urine Amphetamines Screen POSITIVE H NEGATIVE Urine Methamphetamines Screen POSITIVE H NEGATIVE Urine Benzodiazepines Screen POSITIVE H NEGATIVE Urine Cocaine Screen NEGATIVE NEGATIVE Urine Cannabinoids Screen NEGATIVE NEGATIVE Influenza Type A (RT-PCR) Not Detected Not Detecte Influenza Type B (RT-PCR) Not Detected Not Detecte SARS-CoV-2 RNA (RT-PCR) Not Detected Not Detecte My Orders Orders - NEELIMA JOYCE Ua Culture If Indicated (07/17/22 12:45) Cbc With Automated Diff (07/17/22 12:45) Comprehensive Metabolic Panel (07/17/22 12:45) Alcohol (07/17/22 12:45) Drug Screen Stat (Urine) (07/17/22 12:45) Acetaminophen (07/17/22 12:45) Salicylate (07/17/22 12:45) Ekg Tracing (07/17/22 12:45) Hcg,Qualitative Urine (07/17/22 12:45) Covid 19 Inhouse Test (07/17/22 12:45) Influenza A And B By Pcr (07/17/22 12:45) Urine Culture (07/17/22 13:13) Thyroid Stimulating Hormone (07/17/22 13:47) Vital Signs/I&O 07/17/22 12:55 Temp 36.4 Pulse 84 Resp 16 B/P (MAP) 119/74 (89) Pulse Ox 100 O2 Delivery Room Air Comment Sinus rhythm, nonspecific ST and T wave abnormality, 87 bpm, QRS duration 92 MS, QTc 372 MS. Departure Communication (PCP) Patient was evaluated by [facility] was sent to the ER for medical clearance. Patient has been having delusions and paranoia. History of meth use used 2 days ago. Positive here in the ED. She reports hearing voices telling to hurt herself and others. She is not currently suicidal but has had plans in the past. Would consider moderate risk at this time. 15-minute checks were performed. Affidavit was filled out but she is requesting inpatient which I strongly agree. She is currently on medication which may need to be adjusted. Lab work was otherwise unremarkable. Urinalysis did notice squamous cells no strong evidence of UTI. Culture pending. Patient was discussed with [facility] Dr. Wong who accepted patient for transfer. Patient will be transferred by [facility]. No active hallucinations. She is medically cleared and will be transferred at this time Impression Primary Impression: Delusions Disposition: 02 XFER SHT-TRM HOSP Condition: Stable Transfer Transfer Reason: Exceeds level of care Time Spoke to Accepting Phy: 13:[address] Wong Transfer Time: 13:57 Transfer Facility: [facility] Psych Method of Transfer: Private Vehicle Departure-Patient Inst. Referrals: [facility] (PCP/Family) Primary Care Physician Patient Instructions: OUTPT MENTAL HEALTH SERVICES NEELIMA JOYCE Jul 17, 2022 13:02
[2022-07-17 13:13] LABS: BASOPHILS # (AUTO) 0.1 10^3/uL (0.0-0.1); BASOPHILS % (AUTO) 1 % (0-10); EOSINOPHILS # (AUTO) 0.2 10^3/uL (0.0-0.3); EOSINOPHILS % (AUTO) 2 % (0-10); HEMATOCRIT 41 % (35-52); HEMOGLOBIN 13.8 g/dL (11.5-16.0); LYMPHOCYTES # (AUTO) 2.1 10^3/uL (1.0-4.0); LYMPHOCYTES % (AUTO) 24 % (12-44); MEAN CORPUSCULAR HEMOGLOBIN 30 pg (25-34); MEAN CORPUSCULAR HGB CONC 34 g/dL (32-36); MEAN CORPUSCULAR VOLUME 89 fL (80-99); MEAN PLATELET VOLUME 8.8 fL (9.0-12.2); MONOCYTES # (AUTO) 0.6 10^3/uL (0.0-1.0); MONOCYTES % (AUTO) 7 % (0-12); NEUTROPHILS # (AUTO) 5.8 10^3/uL (1.8-7.8); NEUTROPHILS % (AUTO) 66 % (42-75); PLATELET COUNT 372 10^3/uL (130-400); WHITE BLOOD COUNT 8.8 10^3/uL (4.3-11.0)
[2022-07-17 13:21] LABS: BILIRUBIN,URINE NEGATIVE (NEGATIVE); CLARITY,URINE CLOUDY; COLOR,URINE YELLOW; GLUCOSE, URINE (UA) NEGATIVE (NEGATIVE); KETONES,URINE NEGATIVE (NEGATIVE); LEUKOCYTE ESTERASE ,URINE NEGATIVE (NEGATIVE); NITRITE,URINE NEGATIVE (NEGATIVE); PH,URINE 5.5 (5-9); PROTEIN,URINE NEGATIVE (NEGATIVE)
[2022-07-17 13:21] LABS: ALBUMIN 4.5 GM/DL (3.2-4.5); CHLORIDE 105 MMOL/L (98-107); POTASSIUM 3.8 MMOL/L (3.6-5.0); SODIUM 136 MMOL/L (135-145)
[2022-07-17 13:23] LABS: CALCIUM 9.3 MG/DL (8.5-10.1)
[2022-07-17 13:24] LABS: GLUCOSE 102 MG/DL (70-105); TOTAL PROTEIN 7.3 GM/DL (6.4-8.2)
[2022-07-17 13:25] LABS: CARBON DIOXIDE 23 MMOL/L (21-32)
[2022-07-17 13:26] LABS: BILIRUBIN,TOTAL 0.5 MG/DL (0.1-1.0)
[2022-07-17 13:28] LABS: ALKALINE PHOSPHATASE 57 U/L (40-136); CREATININE SERUM 0.86 MG/DL (0.60-1.30); GFR ESTIMATED 95
[2022-07-17 13:29] LABS: BUN/CREATININE RATIO 14
[2022-07-17 13:30] LABS: SALICYLATE < 5.0 MG/DL (5.0-20.0)
[2022-07-17 13:30] LABS: BACTERIA,URINE LARGE /HPF; HCG,QUALITATIVE URINE NEGATIVE (NEGATIVE); RBC,URINE RARE /HPF; SQUAMOUS EPITHELIAL CELL,UR >50 /HPF
[2022-07-17 13:31] LABS: ALANINE AMINOTRANSFERASE 23 U/L (0-55)
[2022-07-17 13:34] LABS: AMPHETAMINE SCREEN, URINE POSITIVE (NEGATIVE); BARBITURATE SCREEN URINE NEGATIVE (NEGATIVE); BENZODIAZEPINES SCREEN URINE POSITIVE (NEGATIVE); CANNABINOID SCREEN, URINE NEGATIVE (NEGATIVE); COCAINE SCREEN URINE NEGATIVE (NEGATIVE); METHADONE STAT NEGATIVE (NEGATIVE); OPIATE SCREEN URINE NEGATIVE (NEGATIVE); OXYCODONE STAT NEGATIVE (NEGATIVE); PROPOXYPHENE STAT NEGATIVE (NEGATIVE); TRICYCLIC ANTIDEPRESSANTS SCRE NEGATIVE (NEGATIVE)
[2022-07-17 13:39] LABS: ACETAMINOPHEN < 10 UG/ML (10-30)
[2022-07-17 17:08] VITALS: BP 105/68
== END 2022-07-17 17:10 | disposition short-term general hospital (02) ==
LOC: EDUNIT# 12:28 → ER 12:33
DX: F22 Delusional disorders (principal); F17.210 Nicotine dependence, cigarettes, uncomplicated; Z20.822 Contact with and (suspected) exposure to COVID-19; Z28.310 Unvaccinated for COVID-19; Z79.899 Other long term (current) drug therapy
CPT/HCPCS: 80053; 80306; 81000; 84443; 84703; 85025; 87077; 87088; 87636; 93005; 99284; G0480 ×3; 36415; 80320; 80329

== ENCOUNTER 2022-08-16 00:07 | Emergency (ER) | payer SELFPAY ==
[~2022-08-16] VITALS: Ht 167.7 cm; Wt 73.4 kg
--- NOTE | 2022-08-16 00:40 | ED General ---
General Chief Complaint: Overdose Stated Complaint: TOOK 4 100MG OF TRAZADONE,RAPID HR,DEPRESSION Source of Information: Patient History of Present Illness Date Seen by Provider: Aug 16, 2022 Time Seen by Provider: 00:20 Initial Comments PT ARRIVES VIA POV FROM HOME--STATES A FRIEND DROPPED HER OFF STATES SHE SMOKED METH AROUND 1800 TONIGHT WANTED TO GO TO SLEEP, SO SHE TOOK 4 TRAZADONE 100 MG TABLETS--PT'S OWN MEDICATION STATES THEN SHE FREAKED OUT BECAUSE SHE TOOK TOO MUCH TRAZADONE, AND CAME HERE DENIES ANY SUICIDAL THOUGHTS OR INTENT, STATES "I JUST WANTED TO GET CHECKED AND MAKE SURE I'M OK" PT HAS NOT TAKEN ANY OF HER OTHER MEDICATIONS TONIGHT IN ADDITION TO TRAZADONE, SHE IS ALSO PRESCRIBED: -DOXAZOSIN -ESCITALOPRAM -LOXETINE -TOPIRAMATE -XANAX PT C/O "ALOT OF RACING THOUGHTS AND ALOT OF ANXIETY" AND WANTING ANXIETY MEDICATION SHORTLY AFTER ARRIVAL. LMP-SOMETIME IN JUNE. NO CONTROL PCP: [facility]. JAME CRUZ ALSO GOES TO [facility] Allergies and Home Medications Allergies Coded Allergies: paroxetine (Verified Allergy, Severe, DIFF SWALLOWING, 10/09/16) fluoxetine (Unverified Allergy, Unknown, 06/11/17) Patient Home Medication List Home Medication List Reviewed: Yes Cephalexin (Cephalexin) 500 Mg Tablet, 500 MG PO BID Prescribed by: JAYLEN SUNG on 05/02/20 151 Hydroxyzine HCl (Hydroxyzine HCl) 25 Mg Tablet, (Reported) Entered as Reported by: POLO OLGUIN on 08/19/202027 Naproxen (Naproxen) 500 Mg Tablet.dr, 500 MG PO BID Prescribed by: EDELMIRA CANTU on 04/04/21 2342 Sulfamethoxazole/Trimethoprim (Bactrim Ds Tablet) 1 Each Tablet, 1 EACH PO BID Prescribed by: SARAH MOURA on 09/10/21 182 Review of Systems Review of Systems Constitutional: no symptoms reported EENTM: no symptoms reported Respiratory: no symptoms reported Cardiovascular: no symptoms reported Gastrointestinal: no symptoms reported Genitourinary: no symptoms reported : No Musculoskeletal: no symptoms reported Skin: no symptoms reported Psychiatric/Neurological: See HPI Hematologic/Lymphatic: No Symptoms Reported Immunological/Allergic: no symptoms reported Past Pbkrlnp-Fkkmrp-Wxwbem Hx Patient Social History Tobacco Use?: Yes Tobacco type used: Cigarettes Smoking Status: Current Everyday Smoker Use of E-Cig and/or Vaping dev: No Substance use?: Yes Substance type: Methamphetamine, Marijuana Substance frequency: Several times a month Alcohol Use?: No Pt feels they are or have been: No Immunizations Up To Date Tetanus Booster (TDap): Unknown PED Vaccines UTD: Yes Influenza Vaccine Up-to-Date: Yes; Up-to-Date Second COVID19 Vaccination Raúl: 12/21 COVID19 Vaccine Hand Rug Braider: Frannie Seasonal Allergies Seasonal Allergies: No Past Medical History Surgery/Hospitalization HX: pmh: paranoid schizophrenia, anxiety, depressive disorder, ocd Surgeries: Yes (EGD X 2) Respiratory: Yes Asthma Cardiac: Yes Palpitations Neurological: No 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 Disorders: Yes (ABNORMAL PAP) Female 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 Sexually Transmitted Disease: No HIV/AIDS: No Genitourinary: Yes UTI-Chronic Gastrointestinal: Yes (GASTRITIS) Crohns Disease, Esophagitis Musculoskeletal: Yes Fractures Endocrine: No HEENT: No Cancer: No Psychosocial: Yes (POLYSUBSTANCE ABUSE; PARANOID SCHIZOPHRENIA) Anxiety, Personality Disorder, Schizophrenia, Depression Integumentary: No Blood Disorders: No Adverse Reaction/Blood Tranf: No (N/A) Family Medical History FH: bipolar disorder 19 MOTHER FH: heart disease UNCLE Hepatitis C 19 MOTHER Hypertension MATERNAL GRANDFATHER No Pertinent Family Hx SOCIAL HISTORY: -ETOH--OCCASIONAL USE -DRUGS--LONG HISTORY OF METHAMPHETAMINES, COCAINE, CRACK, THC. DENIES IV USE--STATES SHE SMOKES DRUGS -SMOKES 1 PPD Physical Exam Vital Signs Vital Signs - First Documented 08/16/22 00:14 Temp 36.8 Pulse 93 Resp 16 B/P (MAP) 129/90 (103) Pulse Ox 98 O2 Delivery Room Air Capillary Refill : Height, Weight, BMI Height: 5'8.00" Weight: 130lbs. 0oz. 58.173724mi; 26.00 BMI Method:Stated General Appearance: No Apparent Distress, WD/WN HEENT: PERRL/EOMI, Normal ENT Inspection Neck: Normal Inspection Respiratory: Normal Breath Sounds, No Accessory Muscle Use, No Respiratory Distress Cardiovascular: Regular Rate, Rhythm, No Edema, No JVD, No Murmur, Normal Peripheral Pulses Gastrointestinal: Non Tender, Soft Back: Normal Inspection Extremity: Normal Inspection Neurologic/Psychiatric: Alert, Oriented x3, No Motor/Sensory Deficits, electrician II- XII Norm as Tested, Other (PT IS RELATIVELY CALM AND IS ABLE TO LAY/SIT STILL, AND IS VERY COOPERATIVE, NO PRESSURED OR RAPID/ERRATIC SPEECH) Skin: Normal Color, Warm/Dry, Tattoos/Piercings (MULTIPLE TATTOOS), Other (MLUTIPLE SORES/SCARS/SCABS TO FACE) Procedures/Interventions Suture Size: 4-0 Progress/Results/Core Measures Suspected Sepsis SIRS Temperature: Pulse: Respiratory Rate: Laboratory Tests 08/16/22 00:40: White Blood Count 12.1H Blood Pressure / Mean: Laboratory Tests 08/16/22 00:40: Creatinine 0.89, Platelet Count 343, Total Bilirubin 0.3 Results/Orders Lab Results Laboratory Tests Test 08/16/22 00:40 08/16/22 01:15 Range/Units White Blood Count 12.1 H 4.3-11.0 10^3/uL Red Blood Count 4.13 3.80-5.11 10^6/uL Hemoglobin 12.4 11.5-16.0 g/dL Hematocrit 37 35-52 % Mean Corpuscular Volume 89 80-99 fL Mean Corpuscular Hemoglobin 30 25-34 pg Mean Corpuscular Hemoglobin Concent 34 32-36 g/dL Red Cell Distribution Width 12.4 10.0-14.5 % Platelet Count 343 130-400 10^3/uL Mean Platelet Volume 8.4 L 9.0-12.2 fL Immature Granulocyte % (Auto) 1 % Neutrophils (%) (Auto) 67 42-75 % Lymphocytes (%) (Auto) 24 12-44 % Monocytes (%) (Auto) 6 0-12 % Eosinophils (%) (Auto) 2 0-10 % Basophils (%) (Auto) 1 0-10 % Neutrophils # (Auto) 8.1 H 1.8-7.8 10^3/uL Lymphocytes # (Auto) 2.9 1.0-4.0 10^3/uL Monocytes # (Auto) 0.8 0.0-1.0 10^3/uL Eosinophils # (Auto) 0.2 0.0-0.3 10^3/uL Basophils # (Auto) 0.1 0.0-0.1 10^3/uL Immature Granulocyte # (Auto) 0.1 0.0-0.1 10^3/uL Sodium Level 139 135-145 MMOL/L Potassium Level 3.4 L 3.6-5.0 MMOL/L Chloride Level 107 98-107 MMOL/L Carbon Dioxide Level 18 L 21-32 MMOL/L Anion Gap 14 5-14 MMOL/L Blood Urea Nitrogen 7 7-18 MG/DL Creatinine 0.89 0.60-1.30 MG/DL Estimat Glomerular Filtration Rate 91 BUN/Creatinine Ratio 8 Glucose Level 112 H 70-105 MG/DL Calcium Level 9.5 8.5-10.1 MG/DL Corrected Calcium 9.2 8.5-10.1 MG/DL Total Bilirubin 0.3 0.1-1.0 MG/DL Aspartate Amino Transf (AST/SGOT) 18 5-34 U/L Alanine Aminotransferase (ALT/SGPT) 34 0-55 U/L Alkaline Phosphatase 59 40-136 U/L Total Protein 7.2 6.4-8.2 GM/DL Albumin 4.4 3.2-4.5 GM/DL Serum Test, Qualitative NEGATIVE NEGATIVE Salicylates Level < 5.0 L 5.0-20.0 MG/DL Acetaminophen Level < 10 L 10-30 UG/ML Serum Alcohol < 10 <10 MG/DL Urine Color YELLOW Urine Clarity CLEAR Urine pH 6.5 5-9 Urine Specific [place] <=1.005 1.016-1.022 Urine Protein NEGATIVE NEGATIVE Urine Glucose (UA) NEGATIVE NEGATIVE Urine Ketones NEGATIVE NEGATIVE Urine Nitrite NEGATIVE NEGATIVE Urine Bilirubin NEGATIVE NEGATIVE Urine Urobilinogen 0.2 < = 1.0 MG/DL Urine Leukocyte Esterase TRACE H NEGATIVE Urine RBC (Auto) NEGATIVE NEGATIVE Urine RBC NONE /HPF Urine WBC NONE /HPF Urine Squamous Epithelial Cells 5-10 /HPF Urine Crystals NONE /LPF Urine Bacteria NEGATIVE /HPF Urine Casts NONE /LPF Urine Mucus NEGATIVE /LPF Urine Culture Indicated NO Urine Opiates Screen NEGATIVE NEGATIVE Urine Oxycodone Screen NEGATIVE NEGATIVE Urine Methadone Screen NEGATIVE NEGATIVE Urine Propoxyphene Screen NEGATIVE NEGATIVE Urine Barbiturates Screen NEGATIVE NEGATIVE Ur Tricyclic Antidepressants Screen NEGATIVE NEGATIVE Urine Phencyclidine Screen NEGATIVE NEGATIVE Urine Amphetamines Screen POSITIVE H NEGATIVE Urine Methamphetamines Screen POSITIVE H NEGATIVE Urine Benzodiazepines Screen POSITIVE H NEGATIVE Urine Cocaine Screen NEGATIVE NEGATIVE Urine Cannabinoids Screen NEGATIVE NEGATIVE My Orders Orders - EDELMIRA CANTU K DO Acetaminophen (9/17/22 00:20) Alcohol (08/16/22 00:20) Cbc With Automated Diff (08/16/22 00:20) Comprehensive Metabolic Panel (08/16/22 00:20) Drug Screen Stat (Urine) (08/16/22 00:20) Hcg,Qualitative Serum (08/16/22 00:20) Salicylate (08/16/22 00:20) Ua Culture If Indicated (08/16/22 00:20) Ekg Tracing (08/16/22 00:20) Monitor-Rhythm Ecg Trace Only (08/16/22 00:20) Vital Signs/I&O 08/16/22 08/16/22 00:14 05:08 Temp 36.8 Pulse 93 88 Resp 16 19 B/P (MAP) 129/90 (103) 114/61 (78) Pulse Ox 98 97 O2 Delivery Room Air Room Air Capillary Refill : Progress Note : Progress Note POISON CONTROL CONTACTED ON ARRIVAL ADVISE OBSERVATION AND SUPPORTIVE CARE PT DOES NOT KNOW IF HER PILLS ARE INSTANT RELEASE OR EXTENDED RELEASE, AND DID NOT BRING THEM WITH HER, AND UNABLE TO LOCATE THEM THROUGH [facility], SHE GETS THEM THROUGH [facility]. POISON CONTROL ADVISES OBSERVATION FOR 4-6 HOURS IF THEY WERE INSTANT RELEASE, OR 12 HOURS IF THEY WERE EXTENDED RELEASE PT HAS NORMAL VITALS, AND IS NOT SHOWING ANY SIGNS OF CARDIAC OR NEURO TOXICITY, NO SEDATION, NO ABNORMAL VITALS, AND ESSENTIALLY ASYMPTOMATIC FOR ENTIRE ER STAY. 0515--PT VERY EASILY AWAKENS, VITALS STABLE, STATES HE FEELS FINE AND FEELS COMFORTABLE GOING HOME. ECG Initial ECG Impression Date: Aug 16, 2022 Initial ECG Impression Time: 00:44 Initial ECG Rate: 81 Initial ECG Rhythm: Normal Sinus Departure Impression Primary Impression: Purposeful non-suicidal drug overdose Additional Impression: Methamphetamine use Disposition: 01 HOME, SELF-CARE Condition: Stable Departure-Patient Inst. Decision time for Depature: 05:15 Referrals: [facility] (PCP/Family) Primary Care Physician Patient Instructions: ALCOHOL AND SUBSTANCE ABUSE, Drug Abuse and Drug Addiction (DC), Prescription Drug Abuse (DC) Add. Discharge Instructions: HOME, REST LOTS OF CLEAR LIQUIDS--WATER, BROTH, JELLO, GATORADE NO ALCOHOL NO DRUGS OF ANY KIND, EXCEPT WHAT IS PRESCRIBED TO YOU BY YOUR DR. DO NOT TAKE MORE THAN PRESCRIBED AMOUNT FOLLOW UP WITH YOUR DR NEEDED RETURN TO ER IF SYMPTOMS WORSEN All discharge instructions reviewed with patient and/or family. Voiced understanding. EDELMIRA CANTU DO Aug 16, 2022 00:40
[2022-08-16 00:44] LABS: BASOPHILS # (AUTO) 0.1 10^3/uL (0.0-0.1); BASOPHILS % (AUTO) 1 % (0-10); EOSINOPHILS # (AUTO) 0.2 10^3/uL (0.0-0.3); EOSINOPHILS % (AUTO) 2 % (0-10); HEMATOCRIT 37 % (35-52); HEMOGLOBIN 12.4 g/dL (11.5-16.0); LYMPHOCYTES # (AUTO) 2.9 10^3/uL (1.0-4.0); LYMPHOCYTES % (AUTO) 24 % (12-44); MEAN CORPUSCULAR HEMOGLOBIN 30 pg (25-34); MEAN CORPUSCULAR HGB CONC 34 g/dL (32-36); MEAN CORPUSCULAR VOLUME 89 fL (80-99); MEAN PLATELET VOLUME 8.4 fL (9.0-12.2); MONOCYTES # (AUTO) 0.8 10^3/uL (0.0-1.0); MONOCYTES % (AUTO) 6 % (0-12); NEUTROPHILS # (AUTO) 8.1 10^3/uL (1.8-7.8); NEUTROPHILS % (AUTO) 67 % (42-75); PLATELET COUNT 343 10^3/uL (130-400); WHITE BLOOD COUNT 12.1 10^3/uL (4.3-11.0)
[2022-08-16 00:57] LABS: ALBUMIN 4.4 GM/DL (3.2-4.5); CHLORIDE 107 MMOL/L (98-107); POTASSIUM 3.4 MMOL/L (3.6-5.0); SODIUM 139 MMOL/L (135-145)
[2022-08-16 00:58] LABS: CALCIUM 9.5 MG/DL (8.5-10.1)
[2022-08-16 01:00] LABS: GLUCOSE 112 MG/DL (70-105); TOTAL PROTEIN 7.2 GM/DL (6.4-8.2)
[2022-08-16 01:01] LABS: BILIRUBIN,TOTAL 0.3 MG/DL (0.1-1.0); CARBON DIOXIDE 18 MMOL/L (21-32)
[2022-08-16 01:03] LABS: ALKALINE PHOSPHATASE 59 U/L (40-136); CREATININE SERUM 0.89 MG/DL (0.60-1.30); GFR ESTIMATED 91
[2022-08-16 01:05] LABS: ACETAMINOPHEN < 10 UG/ML (10-30); BUN/CREATININE RATIO 8
[2022-08-16 01:06] LABS: SALICYLATE < 5.0 MG/DL (5.0-20.0)
[2022-08-16 01:07] LABS: ALANINE AMINOTRANSFERASE 34 U/L (0-55)
[2022-08-16 01:18] LABS: BILIRUBIN,URINE NEGATIVE (NEGATIVE); CLARITY,URINE CLEAR; COLOR,URINE YELLOW; GLUCOSE, URINE (UA) NEGATIVE (NEGATIVE); KETONES,URINE NEGATIVE (NEGATIVE); LEUKOCYTE ESTERASE ,URINE TRACE (NEGATIVE); NITRITE,URINE NEGATIVE (NEGATIVE); PH,URINE 6.5 (5-9); PROTEIN,URINE NEGATIVE (NEGATIVE)
[2022-08-16 01:25] LABS: BACTERIA,URINE NEGATIVE /HPF
[2022-08-16 01:32] LABS: AMPHETAMINE SCREEN, URINE POSITIVE (NEGATIVE); BARBITURATE SCREEN URINE NEGATIVE (NEGATIVE); BENZODIAZEPINES SCREEN URINE POSITIVE (NEGATIVE); CANNABINOID SCREEN, URINE NEGATIVE (NEGATIVE); COCAINE SCREEN URINE NEGATIVE (NEGATIVE); METHADONE STAT NEGATIVE (NEGATIVE); OPIATE SCREEN URINE NEGATIVE (NEGATIVE); OXYCODONE STAT NEGATIVE (NEGATIVE); PROPOXYPHENE STAT NEGATIVE (NEGATIVE); TRICYCLIC ANTIDEPRESSANTS SCRE NEGATIVE (NEGATIVE)
[2022-08-16 05:21] VITALS: BP 114/61
== END 2022-08-16 05:58 | disposition home or self-care (01) ==
LOC: EDUNIT# 00:07 → ER 00:09
DX: T43.211A Poisoning by selective serotonin and norepinephrine reuptake inhibitors, accidental (unintentional), initial encounter (principal); F15.90 Other stimulant use, unspecified, uncomplicated
CPT/HCPCS: 80053; 80306; 81000; 84703; 85025; 93041; 99283; G0480 ×3; 36415; 80320; 80329; 93005

== ENCOUNTER 2023-01-08 03:40 | Emergency (ER) | payer SELFPAY ==
[~2023-01-08] VITALS: Ht 172.7 cm; Wt 90.7 kg
--- NOTE | 2023-01-08 04:08 | ED GU-Female ---
General Stated Complaint: DARK URINE,LEG,BUTTOCKS & BACK PAIN Source: patient Exam Limitations: no limitations History of Present Illness Date Seen by Provider: Jan 08, 2023 Time Seen by Provider: 03:53 Initial Comments 27-year-old female presents to the emergency department today for dark urine and right buttock pain. She got an Invega shot about a week ago and her right buttock is hurting since that time. Dark urine is within the last 2 or 3 days. She denies any dysuria, hematuria. Last menstrual cycle was about 5 months ago which she states is abnormal for her. She denies the chance of . No vaginal discharge odor or bleeding or other symptoms. No changes in bowel movements. No fevers or chills. Allergies and Home Medications Allergies Coded Allergies: paroxetine (Verified Allergy, Severe, DIFF SWALLOWING, 10/09/16) fluoxetine (Unverified Allergy, Unknown, 06/11/17) Patient Home Medication List Home Medication List Reviewed: Yes Cephalexin (Cephalexin) 500 Mg Tablet, 500 MG PO BID Prescribed by: JAYLEN SUNG on 05/02/20 1512 Hydroxyzine HCl (Hydroxyzine HCl) 25 Mg Tablet, (Reported) Entered as Reported by: POLO OLGUIN on 08/19/202027 Naproxen (Naproxen) 500 Mg Tablet.dr, 500 MG PO BID Prescribed by: EDELMIRA CANTU on 04/04/21 2342 Sulfamethoxazole/Trimethoprim (Bactrim Ds Tablet) 1 Each Tablet, 1 EACH PO BID Prescribed by: SARAH MOURA on 09/10/21 1823 Review of Systems Review of Systems Constitutional: no symptoms reported EENTM: no symptoms reported Respiratory: no symptoms reported Cardiovascular: no symptoms reported Gastrointestinal: no symptoms reported Genitourinary: other Musculoskeletal: other (Pain in right buttock) Skin: no symptoms reported Psychiatric/Neurological: No Symptoms Reported Endocrine: No Symptoms Reported Hematologic/Lymphatic: No Symptoms Reported Past Ugonvfo-Idpwqy-Ennqtu Hx Patient Social History Tobacco Use?: Yes Use of E-Cig and/or Vaping dev: No Substance use?: Yes Substance type: Methamphetamine Alcohol Use?: No Immunizations Up To Date Tetanus Booster (TDap): Unknown PED Vaccines UTD: Yes Second COVID19 Vaccination Raúl: 12/21 Seasonal Allergies Seasonal Allergies: No Past Medical History Surgery/Hospitalization HX: pmh: paranoid schizophrenia, anxiety, depressive disorder, ocd Surgeries: Yes (EGD X 2) Respiratory: Yes Asthma Cardiac: Yes Palpitations Neurological: No 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 Disorders: Yes (ABNORMAL PAP) Female 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 Sexually Transmitted Disease: No HIV/AIDS: No Genitourinary: Yes UTI-Chronic Gastrointestinal: Yes (GASTRITIS) Crohns Disease, Esophagitis Musculoskeletal: Yes Fractures Endocrine: No HEENT: No Cancer: No Psychosocial: Yes (POLYSUBSTANCE ABUSE; PARANOID SCHIZOPHRENIA) Anxiety, Personality Disorder, Schizophrenia, Depression Integumentary: No Blood Disorders: No Adverse Reaction/Blood Tranf: No (N/A) Family Medical History Reviewed Nursing Family Hx FH: bipolar disorder 19 MOTHER FH: heart disease UNCLE Hepatitis C 19 MOTHER Hypertension MATERNAL GRANDFATHER No Pertinent Family Hx SOCIAL HISTORY: -ETOH--OCCASIONAL USE -DRUGS--LONG HISTORY OF METHAMPHETAMINES, COCAINE, CRACK, THC. DENIES IV USE--STATES SHE SMOKES DRUGS -SMOKES 1 PPD Physical Exam Vital Signs Capillary Refill : Height, Weight, BMI Height: 5'8.00" Weight: 130lbs. 0oz. 58.398635pu; 26.00 BMI Method:Stated General Appearance: WD/WN, no apparent distress HEENT: normal ENT inspection, pharynx normal Neck: non-tender, full range of motion, supple Cardiovascular: regular rate, rhythm, no murmur Respiratory: chest non-tender, lungs clear, normal breath sounds, no respiratory distress, no accessory muscle use Gastrointestinal: normal bowel sounds, non tender, soft, no organomegaly Back: other (Palpation room buttock region. No skin changes. No evidence for infection) Extremities: normal range of motion, non-tender, normal inspection, no pedal edema, normal capillary refill Neurologic/Psychiatric: alert, normal mood/affect, oriented x 3 Procedures/Interventions Suture Size: 4-0 Progress/Results/Core Measures Suspected Sepsis SIRS Temperature: Pulse: Respiratory Rate: Blood Pressure / Mean: Results/Orders Lab Results Laboratory Tests Test 01/08/23 04:06 Range/Units Urine Color YELLOW Urine Clarity CLEAR Urine pH 6.0 5-9 Urine Specific [place] 1.025 H 1.016-1.022 Urine Protein NEGATIVE NEGATIVE Urine Glucose (UA) NEGATIVE NEGATIVE Urine Ketones NEGATIVE NEGATIVE Urine Nitrite NEGATIVE NEGATIVE Urine Bilirubin NEGATIVE NEGATIVE Urine Urobilinogen 0.2 < = 1.0 MG/DL Urine Leukocyte Esterase 1+ H NEGATIVE Urine RBC (Auto) NEGATIVE NEGATIVE Urine RBC NONE /HPF Urine WBC 2-5 /HPF Urine Squamous Epithelial Cells 2-5 /HPF Urine Crystals NONE /LPF Urine Bacteria MODERATE H /HPF Urine Casts NONE /LPF Urine Mucus NEGATIVE /LPF Urine Yeast FEW H /HPF Urine Culture Indicated YES My Orders Orders - PEDRO LUIS SHERIFF DO Ua Culture If Indicated (01/08/23 03:48) Urine Bedside (01/08/23 03:48) Urine Culture (01/08/23 04:06) Vital Signs/I&O Capillary Refill : Departure Communication (Admissions) Patient is hemodynamically stable. Her test is negative. No obvious emergent cause of amenorrhea. Advised to follow-up with her primary doctor regarding. Urine is infected, likely the cause of her dark urine. Her pain is clearly musculoskeletal that she has a right buttock and likely related to her recent shot in the area. We discharged with antibiotics and close primary care follow-up. Impression Primary Impression: Urinary tract infection Qualified Codes: N30.00 - Acute cystitis without hematuria Additional Impression: Amenorrhea Disposition: HOME, SELF-CARE Condition: Stable Departure-Patient Inst. Referrals: [facility] (PCP/Family) Primary Care Physician Patient Instructions: Urinary Tract Infection, Adult (DC) Add. Discharge Instructions: Take the antibiotics as prescribed until they are gone. Follow-up with your primary doctor for discussion of your lack of menstrual cycle. Return to the emergency department for any severe concerns. Scripts Cephalexin (Cephalexin) 500 Mg Tablet 500 MG PO BID for 5 Days, #5 TAB Prov: PEDRO LUIS SHERIFF DO 01/08/23 PEDRO LUIS SHERIFF DO Jan 08, 2023 04:07
[2023-01-08 04:15] LABS: BILIRUBIN,URINE NEGATIVE (NEGATIVE); CLARITY,URINE CLEAR; COLOR,URINE YELLOW; GLUCOSE, URINE (UA) NEGATIVE (NEGATIVE); KETONES,URINE NEGATIVE (NEGATIVE); LEUKOCYTE ESTERASE ,URINE 1+ (NEGATIVE); NITRITE,URINE NEGATIVE (NEGATIVE); PROTEIN,URINE NEGATIVE (NEGATIVE)
[2023-01-08 04:23] LABS: BACTERIA,URINE MODERATE /HPF; YEAST,URINE FEW /HPF
[2023-01-08] MEDS ORDERED: CEPH500T PO (04:29)
[2023-01-08 04:37] VITALS: BP 125/72
== END 2023-01-08 04:37 | disposition home or self-care (01) ==
LOC: EDUNIT# 03:40 → ER 03:45
DX: N39.0 Urinary tract infection, site not specified (principal); N91.2 Amenorrhea, unspecified; F17.210 Nicotine dependence, cigarettes, uncomplicated
CPT/HCPCS: 81000; 84703; 87077; 87088; 99282

== ENCOUNTER 2023-04-25 21:01 | Inpatient (IN) | payer SELFPAY ==
[~2023-04-25] VITALS: Ht 172.7 cm; Wt 93.9 kg
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
[2023-04-25 21:13] LABS: BASOPHILS % (AUTO) 0 % (0-10); EOSINOPHILS # (AUTO) 0.1 10^3/uL (0.0-0.3); EOSINOPHILS % (AUTO) 1 % (0-10); HEMATOCRIT 36 % (35-52); HEMOGLOBIN 12.2 g/dL (11.5-16.0); LYMPHOCYTES # (AUTO) 3.2 10^3/uL (1.0-4.0); LYMPHOCYTES % (AUTO) 30 % (12-44); MEAN CORPUSCULAR HEMOGLOBIN 30 pg (25-34); MEAN CORPUSCULAR HGB CONC 34 g/dL (32-36); MEAN CORPUSCULAR VOLUME 87 fL (80-99); MEAN PLATELET VOLUME 8.8 fL (9.0-12.2); MONOCYTES % (AUTO) 9 % (0-12); NEUTROPHILS # (AUTO) 6.2 10^3/uL (1.8-7.8); NEUTROPHILS % (AUTO) 58 % (42-75); PLATELET COUNT 303 10^3/uL (130-400); WHITE BLOOD COUNT 10.6 10^3/uL (4.3-11.0)
[2023-04-25] MEDS ORDERED: LACTATED RINGERS 1,000 ML IV ONE (21:15)
[2023-04-25 21:20] LABS: BILIRUBIN,URINE NEGATIVE (NEGATIVE); CLARITY,URINE CLEAR; COLOR,URINE YELLOW; GLUCOSE, URINE (UA) NEGATIVE (NEGATIVE); KETONES,URINE NEGATIVE (NEGATIVE); LEUKOCYTE ESTERASE ,URINE TRACE (NEGATIVE); NITRITE,URINE NEGATIVE (NEGATIVE); PROTEIN,URINE NEGATIVE (NEGATIVE)
[2023-04-25 21:33] LABS: BACTERIA,URINE TRACE /HPF; WBC,URINE RARE /HPF
[2023-04-25 21:35] LABS: AMPHETAMINE SCREEN, URINE NEGATIVE (NEGATIVE); BARBITURATE SCREEN URINE NEGATIVE (NEGATIVE); BENZODIAZEPINES SCREEN URINE NEGATIVE (NEGATIVE); CANNABINOID SCREEN, URINE NEGATIVE (NEGATIVE); COCAINE SCREEN URINE NEGATIVE (NEGATIVE); METHADONE STAT NEGATIVE (NEGATIVE); OPIATE SCREEN URINE NEGATIVE (NEGATIVE); OXYCODONE STAT NEGATIVE (NEGATIVE); PROPOXYPHENE STAT NEGATIVE (NEGATIVE); TRICYCLIC ANTIDEPRESSANTS SCRE NEGATIVE (NEGATIVE)
[2023-04-25 21:43] LABS: ALANINE AMINOTRANSFERASE 74 U/L (0-55); ALBUMIN 4.2 GM/DL (3.2-4.5); ALKALINE PHOSPHATASE 74 U/L (40-136); BILIRUBIN,TOTAL 0.2 MG/DL (0.1-1.0); BUN/CREATININE RATIO 9; CALCIUM 9.5 MG/DL (8.5-10.1); CARBON DIOXIDE 25 MMOL/L (21-32); CHLORIDE 105 MMOL/L (98-107); CREATININE SERUM 0.82 MG/DL (0.60-1.30); GFR ESTIMATED 100; GLUCOSE 84 MG/DL (70-105); MAGNESIUM 1.9 MG/DL (1.6-2.4); POTASSIUM 3.4 MMOL/L (3.6-5.0); SALICYLATE < 5.0 MG/DL (5.0-20.0); SODIUM 141 MMOL/L (135-145)
[2023-04-25 21:50] LABS: ACETAMINOPHEN < 10 UG/ML (10-30)
[2023-04-25 22:48] LABS: AMPHETAMINE SCREEN, URINE NEGATIVE (NEGATIVE); BARBITURATE SCREEN URINE NEGATIVE (NEGATIVE); BENZODIAZEPINES SCREEN URINE NEGATIVE (NEGATIVE); CANNABINOID SCREEN, URINE NEGATIVE (NEGATIVE); COCAINE SCREEN URINE NEGATIVE (NEGATIVE); METHADONE STAT NEGATIVE (NEGATIVE); OPIATE SCREEN URINE NEGATIVE (NEGATIVE); OXYCODONE STAT NEGATIVE (NEGATIVE); PROPOXYPHENE STAT NEGATIVE (NEGATIVE); TRICYCLIC ANTIDEPRESSANTS SCRE NEGATIVE (NEGATIVE)
[2023-04-25] MEDS ORDERED: ONDANSETRON 4 MG/2 ML (SDV) Z0FRAN IV PRN (23:45)
[2023-04-26] MEDS: D5 1/2 NS W/KCL 20 MEQ/L 1,000 ML IV SCH ×2 (00:14→07:27)
--- NOTE | 2023-04-26 02:20 | Tele-ICU Progress Note ---
Progress Note 27F with schizophrenia admitted with suicide attempt. Had been experiencing demand hallucinations which were telling her to kill herself. She took Buspirone 15 mg x 22 tabs about 45 min prior to arrival. Given activated charcoal by EMS. Ongoing SI in ED. She has been cooperative and neurologically intact throughout her stay. Labs and EKG normal. Tox also normal despite admission to cannabis use (?possibly one of the newer synthetic options). Could not be medically cleared due to the quantity of tabs taken, admitted to ICU for overnight monitoring and AM clearance. - overdose: stable, without toxidrome or sequelae. Continue overnight monitoring and hydration. Poison control following. I did not utilize the audiovisual communication system to interview the patient. She appears very stable and I have some concerns about her perception of my disembodied voice in the setting of ongoing audio and visual hallucinations. CCT 5 min Focused Exam Height, Weight, BMI Height: 5'8.00" Weight: 130lbs. 0oz. 58.423298mf; 31.55 BMI Method:Stated JAMAR CASTILLO MD April 26, 2023 02:20
[2023-04-26 05:31] LABS: BASOPHILS # (AUTO) 0.1 10^3/uL (0.0-0.1); BASOPHILS % (AUTO) 1 % (0-10); EOSINOPHILS # (AUTO) 0.2 10^3/uL (0.0-0.3); EOSINOPHILS % (AUTO) 2 % (0-10); HEMATOCRIT 37 % (35-52); HEMOGLOBIN 12.3 g/dL (11.5-16.0); LYMPHOCYTES # (AUTO) 2.7 10^3/uL (1.0-4.0); LYMPHOCYTES % (AUTO) 29 % (12-44); MEAN CORPUSCULAR HEMOGLOBIN 29 pg (25-34); MEAN CORPUSCULAR HGB CONC 33 g/dL (32-36); MEAN CORPUSCULAR VOLUME 88 fL (80-99); MEAN PLATELET VOLUME 9.4 fL (9.0-12.2); MONOCYTES # (AUTO) 0.9 10^3/uL (0.0-1.0); MONOCYTES % (AUTO) 10 % (0-12); NEUTROPHILS # (AUTO) 5.2 10^3/uL (1.8-7.8); NEUTROPHILS % (AUTO) 57 % (42-75); PLATELET COUNT 331 10^3/uL (130-400); WHITE BLOOD COUNT 9.1 10^3/uL (4.3-11.0)
[2023-04-26] MEDS ORDERED: MAGNESIUM 1 GM/100 ML IVPB 100 ML IV SCH (06:00)
[2023-04-26] MEDS ORDERED: NS IV 500 ML 500 ML IV PRN (06:00)
[2023-04-26] MEDS ORDERED: POTASSIUM CL 10MEQ/50ML IVPB 50 ML IV SCH (06:00)
[2023-04-26] MEDS ORDERED: KCL 20 MEQ TAB (K-DUR) PO SCH (06:00)
[2023-04-26 06:04] LABS: ALBUMIN 3.9 GM/DL (3.2-4.5); BILIRUBIN,TOTAL 0.3 MG/DL (0.1-1.0); CALCIUM 8.9 MG/DL (8.5-10.1); CREATININE SERUM 0.74 MG/DL (0.60-1.30); PHOSPHORUS 3.5 MG/DL (2.3-4.7); POTASSIUM 3.8 MMOL/L (3.6-5.0); TOTAL PROTEIN 6.6 GM/DL (6.4-8.2)
[2023-04-26] MEDS ORDERED: KCL 20 MEQ TAB (K-DUR) PO ONE (06:15)
--- NOTE | 2023-04-26 07:16 | History & Physical-Hospitalist ---
History of Present Illness HPI/Chief Complaint Chief complaint: OD HPI: This is a 27-year-old female with known history of illicit drug use and mental illness who presented to the ER after purposely taking 20 pills. She was monitored in the ICU with one-on-one for suicide precautions and she is still is delusional. She denies any suicidal ideation currently. We will move her down to fourth floor and have [facility] evaluate her. Source: patient Exam Limitations: no limitations Date Seen 04/26/23 Time Seen by a Provider: 11:00 Attending Physician [facility] PCP Admitting Physician: Tonya Shetty DO Attending Physician: Tonya Shetty DO Referring Physician Date of Admission April 25, 2023 at 23:18 Home Medications & Allergies Home Medications Reviewed patient Home Medication Reconciliation performed by pharmacy medication reconciliations smt technician and/or nursing. Patients Allergies have been reviewed. Allergies Allergies Coded Allergies paroxetine (Verified Allergy, Severe, DIFF SWALLOWING, 10/09/16) fluoxetine (Unverified Allergy, Unknown, 06/11/17) Past Cuczpbv-Fohmsd-Vfexjk Hx Patient Social History Marrital Status: single Employed/Student: unemployed Tobacco Use?: Yes Tobacco type used: Cigarettes Smoking Status: Current Everyday Smoker Smokeless Tobacco Frequency: Never a User Use of E-Cig and/or Vaping dev: Yes E-Cig or Vaping type used: Nicotine, Marijuana Use of E-Cig and/or Vaping Luis: Current Everyday User Substance use?: Yes Substance type: Amphetamines, Methamphetamine, Opiates/Opioids, Misuse of prescript meds, Marijuana Additional substance use comme: COCAINE, CRACK Alcohol Use?: Yes Alcohol Frequency: Once in a while Pt feels they are or have been: No Immunizations Up To Date Date of Influenza Vaccine: Aug 30, 2017 First/Initial COVID19 Vaccinat: 12/21 Second COVID19 Vaccination Raúl: 12/21 Tetanus Booster (TDap): Unknown PED Vaccines UTD: Yes Seasonal Allergies Seasonal Allergies: No Current Status status: No status: No Advance Directives: No Communicates: Verbally Primary Language: Slovenian Preferred Spoken Language: Slovenian Is interpretation needed?: No Implanted or Applied Medical D: None Past Medical History Asthma Palpitations 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 HAS OVERDOSED MULTIPLE TIMES, TRIED TO CUT HER WRIST. Review of Systems Constitutional: see HPI, malaise, weakness Physical Exam Physical Exam Vital Signs Vital Signs - First Documented 04/25/23 04/25/23 21:03 23:15 Temp 35.8 Pulse 81 Resp 18 B/P (MAP) 125/80 (95) Pulse Ox 97 O2 Delivery Room Air Capillary Refill : Less Than 3 Seconds Height, Weight, BMI Height: 5'8.00" Weight: 130lbs. 0oz. [id number]; 31.48 BMI Method:Stated General Appearance: No Apparent Distress, Chronically ill Eyes: Right Eye Normal Inspection, Right Eye PERRL HEENT: PERRL/EOMI, Normal ENT Inspection, Pharynx Normal, Moist Mucous Membranes Neck: Full Range of Motion, Normal Inspection, Non Tender Respiratory: Chest Non Tender, Lungs Clear, Normal Breath Sounds, No Accessory Muscle Use, No Respiratory Distress Cardiovascular: Regular Rate, Rhythm, No Edema, No Gallop, No JVD, No Murmur, Normal Peripheral Pulses Gastrointestinal: Normal Bowel Sounds, No Organomegaly, No Pulsatile Mass, Non Tender, Soft Back: Normal Inspection, No CVA Tenderness, No Vertebral Tenderness Extremity: Normal Capillary Refill, Normal Inspection, Normal Range of Motion, Non Tender, No Calf Tenderness, No Pedal Edema Neurologic/Psychiatric: Alert, Oriented x3, No Motor/Sensory Deficits, gold nib grinder II- XII Norm as Tested, Depressed Affect Skin: Normal Color, Warm/Dry Lymphatic: No Adenopathy Results Results/Procedures Labs Laboratory Tests 04/25/23 21:05 04/26/23 04:09 Patient resulted labs reviewed. Assessment/Plan Admission Diagnosis Assessment: Suicide attempt with overdose History of severe mental illness with current delusions Plan: [facility] screening Moved to fourth floor Telemetry sitter indicated Admission Status: Observation TONYA SHETTY DO April 26, 2023 07:16
[2023-04-26] MEDS ORDERED: BUSP15TA60 PO (11:03)
[2023-04-26] MEDS ORDERED: TOPI-241 PO (11:03)
[2023-04-26] MEDS ORDERED: LOXA10CA PO (11:03)
[2023-04-26] MEDS ORDERED: PALI234D IM (11:03)
[2023-04-26] MEDS ORDERED: ESCI20TA39 PO (11:03)
[2023-04-26] MEDS ORDERED: TRAZ-227 PO (11:03)
[2023-04-26] MEDS: NICOTINE 21 MG (NICODERM) PATCH TD SCH (11:33)
[2023-04-26] MEDS: ENOXAPARIN 40 MG/0.4 ML (LOVENOX) SYR SC SCH (16:15)
[2023-04-26] MEDS ORDERED: PALIPERIDONE PALMITATE 234 MG IM SCH (18:15)
[2023-04-26] MEDS ORDERED: LACTULOSE SYRUP 10GM/15ML (ENULOSE) 30ML UDC PO PRN (18:30)
[2023-04-26] MEDS ORDERED: ONDANSETRON 4 MG/2 ML (SDV) Z0FRAN IVP PRN (18:30)
[2023-04-26] MEDS ORDERED: DOCUSATE SODIUM 100 MG (COLACE) CAP PO PRN (18:30)
[2023-04-26] MEDS ORDERED: MENTHOL/ZINC OXIDE (CALMOSEPTINE) 113 GM TUBE TP PRN (18:30)
[2023-04-26] MEDS ORDERED: diphenhydrAMINE 25 MG TAB (BENADRYL) PO PRN ×2 (18:30)
[2023-04-26] MEDS ORDERED: CALCIUM CARBONATE 500 MG (TUMS) TAB.CHEW PO PRN (18:30)
[2023-04-26] MEDS ORDERED: ACETAMINOPHEN 325 MG TABLET PO PRN (18:30)
[2023-04-26] MEDS ORDERED: ONDANSETRON 4 MG (ZOFRAN) ORAL DISSOLVE TAB PO PRN (18:30)
[2023-04-26] MEDS ORDERED: LOPERAMIDE 2 MG (IMODIUM) TABLET PO PRN (18:30)
[2023-04-26 20:00] VITALS: BP 120/71
[2023-04-26] MEDS ORDERED: toPIRamate 25 MG (TOPAMAX) TAB PO SCH (21:00)
[2023-04-26] MEDS: MELATONIN 3 MG TABLET PO PRN (21:10)
[2023-04-26] MEDS: SENNA W/DOCUSATE (SENOKOT S) TABLET PO SCH (21:11)
[2023-04-26] MEDS: busPIRone 15 MG (BUSPAR) TABLET PO SCH (21:11)
[2023-04-26] MEDS: traZODone 100 MG (DESYREL) TAB PO SCH (21:11)
[2023-04-26 23:42] VITALS: BP 99/59
[2023-04-27] MEDS: ACETAMINOPHEN 500 MG TAB (TYLENOL) PO PRN ×2 (01:07→18:50)
[2023-04-27] MEDS ORDERED: PATIENT MAY USE OWN MEDS, ALL MC SCH (01:30)
[2023-04-27 03:55] VITALS: BP 112/76
--- NOTE | 2023-04-27 05:53 | Progress Note - Hospitalist ---
Subjective HPI/CC On Admission Date Seen by Provider: April 27, 2023 Time Seen by Provider: 11:00 Chief complaint: OD HPI: This is a 27-year-old female with known history of illicit drug use and mental illness who presented to the ER after purposely taking 20 pills. She was monitored in the ICU with one-on-one for suicide precautions and she is still is delusional. She denies any suicidal ideation currently. We will move her down to fourth floor and have [facility] evaluate her. Subjective/Events-last exam Patient having no new issues Awaiting psych placement Labs reviewed Review of Systems General: Fatigue, Malaise Objective Exam Vital Signs Vital Signs Date Time Temp Pulse Resp B/P (MAP) Pulse Ox O2 Delivery O2 Flow Rate FiO2 04/27/23 15:53 36.7 78 16 124/75 (91) 99 Room Air Capillary Refill : Less Than 3 Seconds General Appearance: No Apparent Distress, WD/WN, Chronically ill Respiratory: Lungs Clear Cardiovascular: Regular Rate, Rhythm Neurologic/Psychiatric: Alert, Oriented x3, No Motor/Sensory Deficits, Normal Mood/Affect Results/Procedures Lab Laboratory Tests 04/27/23 05:12 Patient resulted labs reviewed. Assessment/Plan Assessment and Plan Assess & Plan/Chief Complaint Assessment: Suicidal ideation with attempt with overdose of BuSpar Longstanding mental illness with delusions Plan: Inpatient psych treatment СВЕТЛАНА BOWMAN DO April 27, 2023 05:53
[2023-04-27 06:06] LABS: BASOPHILS # (AUTO) 0.1 10^3/uL (0.0-0.1); BASOPHILS % (AUTO) 1 % (0-10); EOSINOPHILS # (AUTO) 0.2 10^3/uL (0.0-0.3); EOSINOPHILS % (AUTO) 3 % (0-10); HEMATOCRIT 38 % (35-52); LYMPHOCYTES # (AUTO) 2.7 10^3/uL (1.0-4.0); LYMPHOCYTES % (AUTO) 29 % (12-44); MEAN CORPUSCULAR HEMOGLOBIN 30 pg (25-34); MEAN CORPUSCULAR HGB CONC 34 g/dL (32-36); MEAN CORPUSCULAR VOLUME 89 fL (80-99); MEAN PLATELET VOLUME 9.5 fL (9.0-12.2); MONOCYTES # (AUTO) 0.8 10^3/uL (0.0-1.0); MONOCYTES % (AUTO) 9 % (0-12); NEUTROPHILS # (AUTO) 5.4 10^3/uL (1.8-7.8); NEUTROPHILS % (AUTO) 58 % (42-75); PLATELET COUNT 332 10^3/uL (130-400); WHITE BLOOD COUNT 9.4 10^3/uL (4.3-11.0)
[2023-04-27 06:34] LABS: ALBUMIN 4.1 GM/DL (3.2-4.5); BILIRUBIN,TOTAL 0.3 MG/DL (0.1-1.0); CALCIUM 9.7 MG/DL (8.5-10.1); CREATININE SERUM 0.78 MG/DL (0.60-1.30); POTASSIUM 3.8 MMOL/L (3.6-5.0)
[2023-04-27 08:23] VITALS: BP 101/67
[2023-04-27] MEDS: LOXAPINE SUCCINATE 10 MG PO PRN (08:56)
[2023-04-27] MEDS: busPIRone 15 MG (BUSPAR) TABLET PO SCH ×2 (10:09→20:01)
[2023-04-27] MEDS: traZODone 100 MG (DESYREL) TAB PO SCH ×2 (10:09→20:01)
[2023-04-27] MEDS: SENNA W/DOCUSATE (SENOKOT S) TABLET PO SCH ×2 (10:09→20:04)
[2023-04-27] MEDS: NICOTINE 21 MG (NICODERM) PATCH TD SCH (10:13)
[2023-04-27] MEDS: PATCH REMOVAL TP SCH (10:14)
[2023-04-27 11:28] VITALS: BP 125/77
[2023-04-27] MEDS: ENOXAPARIN 40 MG/0.4 ML (LOVENOX) SYR SC SCH (14:58)
[2023-04-27 15:53] VITALS: BP 124/75
[2023-04-27 19:12] VITALS: BP 116/77
[2023-04-27] MEDS: MELATONIN 3 MG TABLET PO PRN (20:01)
[2023-04-27 23:30] VITALS: BP 111/70
[2023-04-28 03:42] VITALS: BP 105/57
[2023-04-28 05:40] LABS: BASOPHILS # (AUTO) 0.1 10^3/uL (0.0-0.1); BASOPHILS % (AUTO) 1 % (0-10); EOSINOPHILS # (AUTO) 0.2 10^3/uL (0.0-0.3); EOSINOPHILS % (AUTO) 2 % (0-10); HEMATOCRIT 40 % (35-52); HEMOGLOBIN 13.2 g/dL (11.5-16.0); LYMPHOCYTES # (AUTO) 2.9 10^3/uL (1.0-4.0); LYMPHOCYTES % (AUTO) 27 % (12-44); MEAN CORPUSCULAR HEMOGLOBIN 30 pg (25-34); MEAN CORPUSCULAR HGB CONC 33 g/dL (32-36); MEAN CORPUSCULAR VOLUME 89 fL (80-99); MEAN PLATELET VOLUME 9.3 fL (9.0-12.2); MONOCYTES # (AUTO) 0.9 10^3/uL (0.0-1.0); MONOCYTES % (AUTO) 9 % (0-12); NEUTROPHILS # (AUTO) 6.5 10^3/uL (1.8-7.8); NEUTROPHILS % (AUTO) 61 % (42-75); PLATELET COUNT 329 10^3/uL (130-400); WHITE BLOOD COUNT 10.8 10^3/uL (4.3-11.0)
--- NOTE | 2023-04-28 06:08 | Progress Note - Hospitalist ---
Subjective HPI/CC On Admission Date Seen by Provider: April 28, 2023 Time Seen by Provider: 09:00 Chief complaint: OD HPI: This is a 27-year-old female with known history of illicit drug use and mental illness who presented to the ER after purposely taking 20 pills. She was monitored in the ICU with one-on-one for suicide precautions and she is still is delusional. She denies any suicidal ideation currently. We will move her down to fourth floor and have [facility] evaluate her. Objective Exam Vital Signs Vital Signs Date Time Temp Pulse Resp B/P (MAP) Pulse Ox O2 Delivery O2 Flow Rate FiO2 04/28/23 16:14 36.4 88 20 132/68 (89) 98 Room Air Capillary Refill : Less Than 3 Seconds Results/Procedures Lab Laboratory Tests 04/28/23 05:17 Patient resulted labs reviewed. Assessment/Plan Assessment and Plan Assess & Plan/Chief Complaint Assessment: Suicidal ideation with attempt with overdose of BuSpar Longstanding mental illness with delusions Plan: Inpatient psych treatment СВЕТЛАНА BOWMAN DO April 28, 2023 06:08
[2023-04-28 06:09] LABS: ALBUMIN 4.2 GM/DL (3.2-4.5); BILIRUBIN,TOTAL 0.3 MG/DL (0.1-1.0); CALCIUM 9.7 MG/DL (8.5-10.1); CREATININE SERUM 0.88 MG/DL (0.60-1.30); POTASSIUM 3.9 MMOL/L (3.6-5.0); TOTAL PROTEIN 7.1 GM/DL (6.4-8.2)
[2023-04-28 07:23] VITALS: BP 107/56
[2023-04-28] MEDS: busPIRone 15 MG (BUSPAR) TABLET PO SCH (09:29)
[2023-04-28] MEDS: NICOTINE 21 MG (NICODERM) PATCH TD SCH (09:29)
[2023-04-28] MEDS: traZODone 100 MG (DESYREL) TAB PO SCH (09:29)
[2023-04-28] MEDS: PATCH REMOVAL TP SCH (09:31)
[2023-04-28] MEDS: SENNA W/DOCUSATE (SENOKOT S) TABLET PO SCH (09:33)
--- NOTE | 2023-04-28 10:17 | Discharge Summary ---
Discharge Summary Hospital Course Was the Problem List Reviewed?: Yes Problems/Dx: (1) Suicide attempt Status: Acute (2) Intentional overdose of drug in tablet form Status: Acute (3) Paranoid schizophrenia Status: Acute (4) Methamphetamine abuse Status: Acute (5) Polysubstance abuse Status: Acute (6) Hx of paranoid schizophrenia Status: Acute Hospital Course Date of Admission: April 25, 2023 at 23:18 Admission Diagnosis : [facility] Phys[facility] [place] Date of Discharge: 04/28/23 Discharge Diagnosis: [ ] Hospital Course: Patient had a brief hospital course after she was found to have taken an overdose of BuSpar for suicide attempt. She has a history of polysubstance abuse. Mental health inpatient care and she was monitored for several days and left AGAINST MEDICAL ADVICE Labs and Pending Lab Test: Laboratory Tests 04/28/23 05:17: White Blood Count 10.8, Red Blood Count 4.47, Hemoglobin 13.2, Hematocrit 40, Mean Corpuscular Volume 89, Mean Corpuscular Hemoglobin 30, Mean Corpuscular Hemoglobin Concent 33, Red Cell Distribution Width 12.3, Platelet Count 329, Mean Platelet Volume 9.3, Immature Granulocyte % (Auto) 1, Neutrophils (%) (Auto) 61, Lymphocytes (%) (Auto) 27, Monocytes (%) (Auto) 9, Eosinophils (%) (Auto) 2, Basophils (%) (Auto) 1, Neutrophils # (Auto) 6.5, Lymphocytes # (Auto) 2.9, Monocytes # (Auto) 0.9, Eosinophils # (Auto) 0.2, Basophils # (Auto) 0.1, Immature Granulocyte # (Auto) 0.2H, Sodium Level 140, Potassium Level 3.9, Chloride Level 108H, Carbon Dioxide Level 22, Anion Gap 10, Blood Urea Nitrogen 10, Creatinine 0.88, Estimat Glomerular Filtration Rate 92, BUN/Creatinine Ratio 11, Glucose Level 102, Calcium Level 9.7, Corrected Calcium 9.5, Magnesium Level 2.0, Total Bilirubin 0.3, Aspartate Amino Transf (AST/SGOT) 30, Alanine Aminotransferase (ALT/SGPT) 66H, Alkaline Phosphatase 80, Total Protein 7.1, Albumin 4.2 Microbiology 04/26/23 MRSA Screen - Final, Complete No growth Home Meds Active Reported Invega Sustenna (Paliperidone Palmitate) 234 Mg/1.5 Ml Syringe 234 Mg IM MONTHLY Loxapine (Loxapine Succinate) 10 Mg Capsule 10 Mg PO PRN Escitalopram Oxalate 20 Mg Tablet 20 Mg PO DAILY Topiramate 50 Mg Tablet 50 Mg PO BID Buspirone HCl 15 Mg Tablet 15 Mg PO BID Trazodone HCl 100 Mg Tablet 100 Mg PO BID Assessment/Pt Instructions Left AMA Discharge Planning: <30 minutes discharge planning Discharge Instructions Discharge Diet: No Restrictions Discharge Physical Examination Vital Signs Vital Signs Date Time Temp Pulse Resp B/P (MAP) Pulse Ox O2 Delivery O2 Flow Rate FiO2 04/28/23 09:37 Room Air 04/28/23 07:23 36.6 80 18 107/56 (73 97 General Appearance: No Apparent Distress, WD/WN, Chronically ill Allergies: Coded Allergies: paroxetine (Verified Allergy, Severe, DIFF SWALLOWING, 10/09/16) fluoxetine (Unverified Allergy, Unknown, 06/11/17) Discharge Summary Date of Admission April 25, 2023 at 23:18 Date of Discharge Discharge Date: April 28, 2023 Admission Diagnosis Assessment: Suicide attempt with overdose History of severe mental illness with current delusions [facility] Moved to fourth floor Telemetry sitter indicated Discharge Diagnosis Assessment: Suicidal ideation with attempt with overdose of BuSpar Longstanding mental illness with delusions Plan: Inpatient psych treatment СВЕТЛАНА BOWMAN DO April 28, 2023 10:16
[2023-04-28 11:31] VITALS: BP 110/54
[2023-04-28] MEDS: LOXAPINE SUCCINATE 10 MG PO PRN (12:44)
[2023-04-28] MEDS ORDERED: PALI156D IM (14:42)
[2023-04-28] MEDS ORDERED: DOXA4TAB2 PO (14:42)
[2023-04-28] MEDS ORDERED: LAMO100T5 PO (14:42)
[2023-04-28] MEDS: ENOXAPARIN 40 MG/0.4 ML (LOVENOX) SYR SC SCH (16:07)
[2023-04-28 16:14] VITALS: BP 132/68
[2023-04-28] MEDS ORDERED: doxAzosin 4 MG (CARDURA) TAB PO SCH (21:00)
== END 2023-04-28 18:17 | disposition left against medical advice (07) | DRG 918 ==
LOC: EDUNIT# 21:01 → ER 21:04 → ICU 23:18 → 4TH 04-26 16:01
PROVIDERS: ADMIT Internal Medicine; ATTEND Internal Medicine
DX: T43.592A Poisoning by other antipsychotics and neuroleptics, intentional self-harm, initial encounter (principal); F20.0 Paranoid schizophrenia; F15.10 Other stimulant abuse, uncomplicated; F14.10 Cocaine abuse, uncomplicated; F11.10 Opioid abuse, uncomplicated; F12.10 Cannabis abuse, uncomplicated; F60.9 Personality disorder, unspecified; F41.9 Anxiety disorder, unspecified; F32.A Depression, unspecified; F42.9 Obsessive-compulsive disorder, unspecified; J45.909 Unspecified asthma, uncomplicated; F17.210 Nicotine dependence, cigarettes, uncomplicated; F17.290 Nicotine dependence, other tobacco product, uncomplicated; Z79.2 Long term (current) use of antibiotics; Z79.899 Other long term (current) drug therapy; Z88.8 Allergy status to other drugs, medicaments and biological substances
CPT/HCPCS: 36415; 80053; 80306; 80320; 80329; 81000; 83735; 84100; 84703; 85025; 87081; 87636; 93041; 96360

== ENCOUNTER 2023-08-15 22:19 | Observation (INO) | payer OTHER ==
[~2023-08-15] VITALS: Ht 172.7 cm; Wt 100.0 kg
[~2023-08-15 22:19] MED LIST changes: +BUSP15TA60 PO; +DOXA4TAB2 PO; +ESCI20TA39 PO; +LAMO100T5 PO; +LOXA10CA PO; +PALI156D IM; +PALI234D IM; +TOPI-241 PO; +TRAZ-227 PO
[2023-08-15] MEDS ORDERED: LACTATED RINGERS 1,000 ML 1,000 ML IV ONE (22:45)
[2023-08-15 23:28] LABS: BASOPHILS # (AUTO) 0.1 10^3/uL (0.0-0.1); BASOPHILS % (AUTO) 1 % (0-10); EOSINOPHILS # (AUTO) 0.1 10^3/uL (0.0-0.3); EOSINOPHILS % (AUTO) 1 % (0-10); HEMATOCRIT 39 % (35-52); HEMOGLOBIN 12.9 g/dL (11.5-16.0); LYMPHOCYTES # (AUTO) 3.2 10^3/uL (1.0-4.0); LYMPHOCYTES % (AUTO) 28 % (12-44); MEAN CORPUSCULAR HEMOGLOBIN 30 pg (25-34); MEAN CORPUSCULAR HGB CONC 33 g/dL (32-36); MEAN CORPUSCULAR VOLUME 89 fL (80-99); MEAN PLATELET VOLUME 8.7 fL (9.0-12.2); MONOCYTES # (AUTO) 0.8 10^3/uL (0.0-1.0); MONOCYTES % (AUTO) 7 % (0-12); NEUTROPHILS # (AUTO) 7.1 10^3/uL (1.8-7.8); NEUTROPHILS % (AUTO) 63 % (42-75); PLATELET COUNT 397 10^3/uL (130-400); WHITE BLOOD COUNT 11.3 10^3/uL (4.3-11.0)
[2023-08-15 23:38] LABS: CHLORIDE 113 MMOL/L (98-107); POTASSIUM 3.3 MMOL/L (3.6-5.0); SODIUM 142 MMOL/L (135-145)
[2023-08-15 23:39] LABS: ALBUMIN 4.6 GM/DL (3.2-4.5)
[2023-08-15 23:40] LABS: AMYLASE 43 U/L (25-125)
[2023-08-15 23:41] LABS: GLUCOSE 90 MG/DL (70-105); TOTAL PROTEIN 7.5 GM/DL (6.4-8.2)
[2023-08-15 23:42] LABS: CARBON DIOXIDE 16 MMOL/L (21-32)
[2023-08-15 23:43] LABS: BILIRUBIN,TOTAL 0.3 MG/DL (0.1-1.0)
[2023-08-15 23:44] LABS: ALKALINE PHOSPHATASE 70 U/L (40-136)
[2023-08-15 23:45] LABS: CREATININE SERUM 0.94 MG/DL (0.60-1.30); GFR ESTIMATED 85
[2023-08-15 23:46] LABS: BUN/CREATININE RATIO 6
[2023-08-15 23:48] LABS: ALANINE AMINOTRANSFERASE 48 U/L (0-55); CREATINE KINASE 158 U/L (29-168); MAGNESIUM 2.2 MG/DL (1.6-2.4)
[2023-08-15 23:58] LABS: ERYTHROCYTE SEDIMENTATION RATE 10 MM/HR (0-20)
[2023-08-16 00:01] LABS: ACETAMINOPHEN < 10 UG/ML (10-30)
[2023-08-16 00:02] LABS: BILIRUBIN,URINE NEGATIVE (NEGATIVE); CLARITY,URINE CLEAR; COLOR,URINE YELLOW; GLUCOSE, URINE (UA) NEGATIVE (NEGATIVE); KETONES,URINE NEGATIVE (NEGATIVE); LEUKOCYTE ESTERASE ,URINE 1+ (NEGATIVE); NITRITE,URINE NEGATIVE (NEGATIVE); PH,URINE 5.5 (5-9); PROTEIN,URINE NEGATIVE (NEGATIVE)
[2023-08-16 00:03] LABS: BACTERIA,URINE NEGATIVE /HPF
[2023-08-16 00:06] LABS: PROTHROMBIN TIME PATIENT 13.3 SEC (12.2-14.7)
--- NOTE | 2023-08-16 00:06 | ED Psychosocial ---
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--IS UNDER THE INFLUENCE OF SUBSTANCE/S) Allergies and Home Medications Allergies Coded Allergies: paroxetine (Verified Allergy, Severe, DIFF SWALLOWING, 10/09/16) fluoxetine (Unverified Allergy, Unknown, 06/11/17) Patient Home Medication List Buspirone HCl (Buspirone HCl) 15 Mg Tablet, 15 MG PO BID, (Reported) Entered as Reported by: CHIN MCFADDEN on 04/26/23 110 Doxazosin Mesylate (Doxazosin Mesylate) 4 Mg Tablet, 4 MG PO HS, (Reported) Entered as Reported by: MARICRUZ DRAPER on 04/28/23 1442 Escitalopram Oxalate (Escitalopram Oxalate) 20 Mg Tablet, 20 MG PO DAILY, (Reported) Entered as Reported by: CHIN MCFADDEN on 04/26/23 110 Lamotrigine (Lamotrigine) 100 Mg Tablet, 200 MG PO DAILY, (Reported) Entered as Reported by: MARICRUZ DRAPER on 04/28/23 1442 Loxapine Succinate (Loxapine) 10 Mg Capsule, 10 MG PO BID PRN for DELUSIONS, (Reported) Entered as Reported by: CHIN MCFADDEN on 04/26/23 110 Paliperidone Palmitate (Invega Sustenna) 156 Mg/Ml Syringe, 156 MG IM MONTHLY, (Reported) Entered as Reported by: MARICRUZ DRAPER on 04/28/23 144 Topiramate (Topiramate) 50 Mg Tablet, 50 MG PO BID, (Reported) Entered as Reported by: CHIN MCFADDEN on 04/26/23 110 Trazodone HCl (Trazodone HCl) 100 Mg Tablet, 100 MG PO BID, (Reported) Entered as Reported by: CHIN MCFADDEN on 04/26/23 110 Past Zgikdqi-Sdzvje-Ebdrdk Hx Immunizations Up To Date Tetanus Booster (TDap): Unknown PED Vaccines UTD: Yes First/Initial COVID19 Vaccinat: 12/21 Second COVID19 Vaccination Raúl: 12/21 Third COVID19 Vaccination Date: 12/21 Seasonal Allergies Seasonal Allergies: No Past Medical History Surgery/Hospitalization HX: MENTAL HEALTH/EGD Surgeries: Yes (EGD X 2) Respiratory: Yes Asthma Cardiac: Yes Palpitations Neurological: No 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 Disorders: Yes (ABNORMAL PAP) Female 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 [employer] History: IUD Sexually Transmitted Disease: No HIV/AIDS: No Genitourinary: Yes UTI-Chronic Gastrointestinal: Yes (GASTRITIS) Crohns Disease, Esophagitis Musculoskeletal: Yes Fractures Endocrine: No HEENT: No Cancer: No Psychosocial: Yes (POLYSUBSTANCE ABUSE; PARANOID SCHIZOPHRENIA) Anxiety, Suicide Attempts, Personality Disorder, Schizophrenia, Depression Integumentary: No Blood Disorders: No Adverse Reaction/Blood Tranf: No (N/A) Family Medical History FH: bipolar disorder 19 MOTHER FH: heart disease UNCLE Hepatitis C 19 MOTHER Hypertension MATERNAL GRANDFATHER No Pertinent Family Hx SOCIAL HISTORY: -ETOH--OCCASIONAL USE -DRUGS--LONG HISTORY OF DAILY USE OF METHAMPHETAMINES, COCAINE, CRACK, THC, RX DRUGS DENIES IV USE--STATES SHE SMOKES DRUGS -SMOKES 1 PPD MULTIPLE PSYCH ADMITS. HAS OVERDOSED MULTIPLE TIMES, TRIED TO CUT HER WRIST. Physical Exam Capillary Refill : Height, Weight, BMI Height: 5'8.00" Weight: 130lbs. 0oz. [id number]; 31.48 BMI Method:Stated Procedures/Interventions Suture Size: 4-0 Progress/Results/Core Measures Results/Orders Lab Results Laboratory Tests Test 08/15/23 22:36 08/15/23 23:15 08/15/23 23:20 08/15/23 23:30 Range/Units Urine Color YELLOW Urine Clarity CLEAR Urine pH 5.5 5-9 Urine Specific [place] >=1.030 1.016-1.022 Urine Protein NEGATIVE NEGATIVE Urine Glucose (UA) NEGATIVE NEGATIVE Urine Ketones NEGATIVE NEGATIVE Urine Nitrite NEGATIVE NEGATIVE Urine Bilirubin NEGATIVE NEGATIVE Urine Urobilinogen 0.2 < = 1.0 MG/DL Urine Leukocyte Esterase 1+ H NEGATIVE Urine RBC (Auto) TRACE H NEGATIVE Urine RBC NONE /HPF Urine WBC 5-10 H /HPF Urine Crystals NONE /LPF Urine Bacteria NEGATIVE /HPF Urine Casts NONE /LPF Urine Mucus LARGE H /LPF Urine Culture Indicated YES Influenza Type A (RT-PCR) Not Detected Not Detecte Influenza Type B (RT-PCR) Not Detected Not Detecte SARS-CoV-2 RNA (RT-PCR) Not Detected Not Detecte White Blood Count 11.3 H 4.3-11.0 10^3/uL Red Blood Count 4.36 3.80-5.11 10^6/uL Hemoglobin 12.9 11.5-16.0 g/dL Hematocrit 39 35-52 % Mean Corpuscular Volume 89 80-99 fL Mean Corpuscular Hemoglobin 30 25-34 pg Mean Corpuscular Hemoglobin Concent 33 32-36 g/dL Red Cell Distribution Width 12.3 10.0-14.5 % Platelet Count 397 130-400 10^3/uL Mean Platelet Volume 8.7 L 9.0-12.2 fL Immature Granulocyte % (Auto) 1 % Neutrophils (%) (Auto) 63 42-75 % Lymphocytes (%) (Auto) 28 12-44 % Monocytes (%) (Auto) 7 0-12 % Eosinophils (%) (Auto) 1 0-10 % Basophils (%) (Auto) 1 0-10 % Neutrophils # (Auto) 7.1 1.8-7.8 10^3/uL Lymphocytes # (Auto) 3.2 1.0-4.0 10^3/uL Monocytes # (Auto) 0.8 0.0-1.0 10^3/uL Eosinophils # (Auto) 0.1 0.0-0.3 10^3/uL Basophils # (Auto) 0.1 0.0-0.1 10^3/uL Immature Granulocyte # (Auto) 0.1 0.0-0.1 10^3/uL Erythrocyte Sedimentation Rate 10 0-20 MM/HR Sodium Level 142 135-145 MMOL/L Potassium Level 3.3 L 3.6-5.0 MMOL/L Chloride Level 113 H 98-107 MMOL/L Carbon Dioxide Level 16 L 21-32 MMOL/L Anion Gap 13 5-14 MMOL/L Blood Urea Nitrogen 6 L 7-18 MG/DL Creatinine 0.94 0.60-1.30 MG/DL Estimat Glomerular Filtration Rate 85 BUN/Creatinine Ratio 6 Glucose Level 90 70-105 MG/DL Calcium Level 9.0 8.5-10.1 MG/DL Corrected Calcium 8.5-10.1 MG/DL Magnesium Level 2.2 1.6-2.4 MG/DL Total Bilirubin 0.3 0.1-1.0 MG/DL Aspartate Amino Transf (AST/SGOT) 29 5-34 U/L Alanine Aminotransferase (ALT/SGPT) 48 0-55 U/L Alkaline Phosphatase 70 40-136 U/L Total Creatine Kinase 158 29-168 U/L Creatine Kinase MB 1.0 <6.6 NG/ML Myoglobin 51.3 10.0-92.0 NG/ML Troponin I 0.032 H <0.028 NG/ML C-Reactive Protein High Sensitivity 0.22 0.00-0.50 MG/DL Total Protein 7.5 6.4-8.2 GM/DL Albumin 4.6 H 3.2-4.5 GM/DL Amylase Level 43 25-125 U/L Acetaminophen Level < 10 L 10-30 UG/ML Serum Alcohol < 10 <10 MG/DL Serum Test, Qualitative NEGATIVE NEGATIVE My Orders Orders - EDELMIRA CANTU DO Ed Iv/Invasive Line Start (08/15/23 22:37) Ekg Tracing (08/15/23:37) Monitor-Rhythm Ecg Trace Only (08/15/23 22:37) Acetaminophen (08/15/23 22:37) Alcohol (08/15/23 22:37) Amylase (08/15/23 22:37) Cbc With Automated Diff (08/15/23:37) Comprehensive Metabolic Panel (08/15/23 22:37) Creatine Kinase (08/15/23 22:37) Creatine Kinase Mb (08/15/23 22:37) Hs C Reactive Protein (08/15/23 22:37) Drug Screen Stat (Urine) (08/15/23 22:37) Hcg,Qualitative Serum (08/15/23 22:37) Magnesium (08/15/23 22:37) Protime With Inr (08/15/23 22:37) Partial Thromboplastin Time (08/15/23 22:37) Thyroid Analyzer (08/15/23 22:37) Ua Culture If Indicated (08/15/23 22:37) Erythrocyte Sedimentation Rate (08/15/23 22:37) Myoglobin Serum (08/15/23 22:37) Troponin I Yayo (08/15/23:37) Chest 1 View, Ap/Pa Only (08/15/23 22:37) Covid 19 Inhouse Test (08/15/23 22:37) Influenza A And B By Pcr (08/15/23 22:37) Ed Iv/Invasive Line Start (08/15/23 22:37) Lactated Ringers 1,000 Ml (Lactated Ring (08/15/23 22:45) Urine Culture (08/15/23 22:36) Medications Given in ED Current Medications Medications Dose Ordered Sig/Angel Route Start Time Stop Time Status Last Admin Dose Admin Lactated Ringer's 1,000 ml @ 0 mls/hr Q0M ONCE IV 08/15/23 22:45 08/15/23 22:46 DC 08/15/23 23:25 0 MLS/HR Departure Departure-Patient Inst. Referrals: [facility] (PCP/Family) Primary Care Physician EDELMIRA CANTU DO Aug 16, 2023 00:06
[2023-08-16 00:08] LABS: TSH (THYROID ANALYZER) 3.86 UIU/ML (0.35-4.94)
[2023-08-16 00:09] LABS: AMPHETAMINE SCREEN, URINE NEGATIVE (NEGATIVE); BARBITURATE SCREEN URINE NEGATIVE (NEGATIVE); CANNABINOID SCREEN, URINE NEGATIVE (NEGATIVE); COCAINE SCREEN URINE POSITIVE (NEGATIVE); METHADONE STAT NEGATIVE (NEGATIVE); OPIATE SCREEN URINE NEGATIVE (NEGATIVE); OXYCODONE STAT NEGATIVE (NEGATIVE); PROPOXYPHENE STAT NEGATIVE (NEGATIVE); TRICYCLIC ANTIDEPRESSANTS SCRE NEGATIVE (NEGATIVE)
[2023-08-16 02:30] VITALS: BP 113/64
[2023-08-16] MEDS ORDERED: D5 1/2NS + KCL 20 MEQ/L 1000ML 1,000 ML IV ONE (02:54)
[2023-08-16] MEDS: D5 1/2NS + KCL 20 MEQ/L 1000ML 1,000 ML IV SCH ×2 (02:56→11:09)
[2023-08-16] MEDS ORDERED: ONDANSETRON INJECTION 4 MG/2 ML (SDV) IV PRN (03:00)
[2023-08-16] MEDS ORDERED: ACETAMINOPHEN 500 MG TABLET PO PRN (03:00)
[2023-08-16 04:00] VITALS: BP 114/63
[2023-08-16 05:09] LABS: CREATINE KINASE 146 U/L (29-168)
[2023-08-16 05:15] LABS: CREATINE KINASE MB 1.1 NG/ML (<6.6)
--- NOTE | 2023-08-16 06:24 | Diagnostic Imaging Report ---
EXAMINATION: Chest 1 view HISTORY: cocaine use, dyspnea COMPARISON: 08/04/2021 FINDINGS: Heart size and pulmonary vasculature are normal. The lungs are clear without consolidation, pleural effusion, or pneumothorax. The osseous structures are intact. IMPRESSION: 1. No acute radiographic abnormality in the chest. Dictated by: Dictated on workstation # [id number]
--- NOTE | 2023-08-16 06:46 | History & Physical-Hospitalist ---
History of Present Illness HPI/Chief Complaint CC: Suicidal ideation Patient presented to the ED with suicidal ideation. She notes that she had used cocaine that night and had also had 3 drinks containing alcohol. She states she had called the hospital as she was feeling paranoid and had thoughts that someone was trying to kill her. She also states that she had gotten into an argument with her mother prior to presenting to the hospital. Patient notes that her mother is the one who manages her medications. Notes that she was frustrated with pressure at home and thus had requested her mother to provide her with her medications so that she could "kill herself". Patient notes that she has had multiple hospitalizations before for her mental health conditions which includes depression, anxiety and schizoaffective disorder. She is unable to note any medications that help her symptoms overall however does state that Ativan seems to be the most effective improving her quality of life. Patient does note that she has asked multiple providers for Ativan doses but was denied prescriptions because of her substance use as well as her prior history of overdosing on medications. Patient is frustrated as she recently switched providers and has had multiple changes to her medications recently with out any significant improvement in her psychiatric symptoms. On evaluation this a.m., patient is denying any suicidal ideation, does not have a plan, no homicidal ideation or audiovisual hallucinations. Patient initially stated that she would like to go home if there is no where that is able to help her. However then stated that she is frustrated and just wants the voices to stop. Regarding her substance use, she denies any prior history of withdrawal. Denies any history of withdrawal seizures. Patient also notes that she has been having left-sided chest pain, "in her heart". She states this has been going on for about a week. Date Seen 08/16/23 Time Seen by a Provider: 07:30 Attending Physician [place] PCP Admitting Physician: Kalin Lopez MD Attending Physician: Kalin Lopez MD Referring Physician Date of Admission Aug 16, 2023 at 01:48 Home Medications & Allergies Home Medications Reviewed patient Home Medication Reconciliation performed by pharmacy medication reconciliations elevator service technician and/or nursing. Patients Allergies have been reviewed. Allergies Allergies Coded Allergies paroxetine (Verified Allergy, Severe, DIFF SWALLOWING, 10/09/16) fluoxetine (Unverified Allergy, Unknown, 7/13/17) Past Fkghfmf-Shurez-Zhszuk Hx Patient Social History Tobacco Use?: Yes Smoking Status: Smoker Current Status UNK Use of E-Cig and/or Vaping dev: Yes E-Cig or Vaping type used: Nicotine Use of E-Cig and/or Vaping Luis: Current Everyday User Substance use?: Yes Substance type: Other Additional substance use comme: Cocaine Substance frequency: Once in a while Alcohol Use?: Yes Alcohol type: Beer, Hard Liquor Alcohol Frequency: Couple times a week Pt feels they are or have been: No Immunizations Up To Date Date of Influenza Vaccine: Aug 30, 2017 First/Initial COVID19 Vaccinat: 12/21 Second COVID19 Vaccination Raúl: 12/21 Tetanus Booster (TDap): Unknown PED Vaccines UTD: Yes Seasonal Allergies Seasonal Allergies: No Current Status status: No Advance Directives: No Communicates: Verbally Primary Language: Swedish Preferred Spoken Language: Swedish Is interpretation needed?: No Implanted or Applied Medical D: None Past Medical History Asthma 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 HAS OVERDOSED MULTIPLE TIMES, TRIED TO CUT HER WRIST. Review of Systems Constitutional: No chills, No fever EENTM: No blurred vision Respiratory: No cough, No dyspnea on exertion Cardiovascular: chest pain; No edema, No palpitations Gastrointestinal: No abdominal pain, No constipation, No diarrhea, No nausea, No vomiting Genitourinary: No dysuria Musculoskeletal: No muscle pain Skin: No no symptoms reported Psychiatric/Neurological: Anxiety, Depressed, Emotional Problems; Denies Headache; Tremors Physical Exam Physical Exam Vital Signs Vital Signs - First Documented 08/15/23 22:20 Temp 36.9 Pulse 108 Resp 22 B/P (MAP) 104/87 (93) Pulse Ox 98 O2 Delivery Room Air Capillary Refill : Height, Weight, BMI Height: 5'8.00" Weight: 130lbs. 0oz. 58.492661md; 32.82 BMI Method:Stated General Appearance: No Apparent Distress HEENT: PERRL/EOMI Neck: Full Range of Motion, Normal Inspection Respiratory: Chest Non Tender, Lungs Clear, Normal Breath Sounds, No Accessory Muscle Use, No Respiratory Distress Cardiovascular: Regular Rate, Rhythm, No Edema, No Murmur Gastrointestinal: Normal Bowel Sounds Neurologic/Psychiatric: Alert, Oriented x3, Depressed Affect, Other (Labile mood) Skin: Normal Color, Warm/Dry Results Results/Procedures Labs Laboratory Tests 08/15/23 23:20 Patient resulted labs reviewed. Imaging: Reviewed Imaging Films, Reviewed Imaging Report Assessment/Plan Admission Diagnosis Suicidal ideation Admission Status: Inpatient Order (span 2 midnights) Reason for Inpatient Admission: To medically clear patient for possible transfer to inpatient psych facility Diagnosis/Problems Diagnosis/Problems (1) Suicidal ideation Status: Acute Assessment & Plan: Patient noting suicidal ideation yesterday. Denying any suicidal ideation today and denies a plan. Is also denying any homicidal ideation or audiovisual hallucinations. Continue one-to-one monitoring Will discuss with tele mental health line for evaluation of patient's psychiatric condition. This will help determine dispo for whether will be to an inpatient psych facility versus home (2) Chest pain Status: Acute Assessment & Plan: Patient noting chest pain in the ED that has been present for about a week. EKG was normal sinus. Initial troponin was elevated however repeated troponin x2 were negative. Cardiology was consulted for further evaluation. Echocardiogram was done today which appeared to be normal. Chest pain is unlikely to be cardiac in nature and may be more related to patient's psychiatric conditions. Continue to monitor (3) Alcohol use Status: Chronic Assessment & Plan: Patient notes having 3 drinks yesterday, denies any history of withdrawal or withdrawal seizures. Does not appear to be exhibiting any withdrawal symptoms today. Continue close monitoring, can add on CIWA protocol if indicated (4) Cocaine use Assessment & Plan: Patient admits to using cocaine last night. Denies any history of withdrawal. Is not exhibiting any withdrawal symptoms today and vital signs appear to be stable. Continue to monitor Patient would benefit from referral to substance use team at [facility] if she is not working with them already. (5) Paranoid schizophrenia Status: Acute Assessment & Plan: Patient noted to have a labile mood, appears to have changing stories with discussion with different providers. However ultimately, does appear the patient's psychiatric conditions are not well controlled at this time. Unclear which medications would be most helpful as it appears that patient has changed providers recently and thus has had many changes to her medications recently. Appreciate mental health lines help with determining patient's disposition as although she does not express any suicidal ideation, may benefit from psychiatric hospitalization for stabilization of patient's emotions and mood. BERHANE MAYBERRY MD, RESIDENT Aug 16, 2023 06:46
[2023-08-16] MEDS ORDERED: HYDR50TA76 PO (07:48)
[2023-08-16] MEDS ORDERED: ARIP15TA20 PO (07:48)
[2023-08-16] MEDS ORDERED: BUSP5TAB59 PO (07:48)
[2023-08-16] MEDS ORDERED: MIRT-68 PO (07:48)
[2023-08-16] MEDS ORDERED: LITH300T PO (07:48)
[2023-08-16 07:51] VITALS: BP 102/64
--- NOTE | 2023-08-16 10:30 | Consultation-Cardiology ---
HPI-Cardiology Cardiology Consultation: Date of Consultation 08/16/23 Date of Admission Attending Physician [place] Admitting Physician Admitting Physician: Kalin Lopez MD Attending Physician: Kalin Lopez MD Consulting Physician JACINTA GRUBER MD HPI: Time Seen by a Provider: 09:15 Mrs. Montiel is a 27-year-old female with a history of polysubstance abuse including methamphetamine and cocaine, chronic UTIs, tobacco abuse, asthma, palpitations, chronic paranoid schizophrenia, anxiety, depression, suicidal ideation who presented for evaluation after Cocaine administration and development of suicidal ideations. Patient states that she took cocaine yesterday. She states that she felt off afterwards and she is concerned that it was laced with something. She endorsed suicidal ideations yesterday and was admitted for evaluation. Troponin was obtained and came back positive at 0.03, however follow-up troponins x2 have been negative. Personal read of her EKG demonstrates normal sinus rhythm with incomplete right bundle branch block and nonspecific diffuse ST-T wave changes. She denies any suicidal ideations for me today. She denies any chest discomfort or shortness of breath. She denies any palpitations acute onset pain radiating to her neck jaw or back. Review of Systems-Cardiology All Other Systems Reviewed Negative Unless Noted: Yes (All systems were reviewed and are negative except for what is been described in HPI.) ZPD-Fvsdng-Elrlwj Hx Patient Social History Smoking Status: Smoker Current Status UNK Former smoker/When Quit: May 30, 2014 2nd Hand Smoke Exposure: Yes Alcohol Use?: Yes Substance type: Other Pt feels they are or have been: No Immunizations Up To Date Tetanus Booster (TDap): Unknown Date of Influenza Vaccine: Aug 30, 2017 Past Medical History PMH As described under Assessment. Family Medical History Family Medical History: Paternal grandmother with CHF Maternal uncle with CHF Social history: Tobacco: She vapes nicotine products Illicit: History of methamphetamine and cocaine use in the past. Family History: FH: bipolar disorder 19 MOTHER FH: heart disease UNCLE Hepatitis C 19 MOTHER Hypertension MATERNAL GRANDFATHER Allergies and Home Medications Allergies Coded Allergies: paroxetine (Verified Allergy, Severe, DIFF SWALLOWING, 10/09/16) fluoxetine (Unverified Allergy, Unknown, 06/11/17) Patient Home Medication List Home Medication List Reviewed: Yes Aripiprazole (Aripiprazole) 15 Mg Tablet, 15 MG PO DAILY, (Reported) Entered as Reported by: TEJAL NEGRETE on 08/16/23747 Last Action: New Order Buspirone HCl (Buspirone HCl) 5 Mg Tablet, 5 MG BID, (Reported) Entered as Reported by: TEJAL NEGRETE on 08/16/23747 Last Action: New Order Doxazosin Mesylate (Doxazosin Mesylate) 4 Mg Tablet, 4 MG PO HS, (Reported) Entered as Reported by: MARICRUZ DRAPER on 04/28/23 1442 Last Action: Last Taken Edited Escitalopram Oxalate (Escitalopram Oxalate) 20 Mg Tablet, 20 MG PO DAILY, (Reported) Entered as Reported by: CHIN MCFADDEN on 04/26/231102 Last Action: Last Taken Edited Hydroxyzine HCl (Hydroxyzine HCl) 50 Mg Tablet, 50 MG PO PRN, (Reported) Entered as Reported by: TEJAL NEGRETE on 08/16/23747 Last Action: New Order [place] Carbonate ([place] Carbonate ER) 300 Mg Tablet.er, 300 MG PO DAILY, (Reported) Entered as Reported by: TEJAL NEGRETE on 08/16/23747 Last Action: New Order Mirtazapine (Mirtazapine) 15 Mg Tablet, 15 MG PO HS, (Reported) Entered as Reported by: TEJAL NEGRETE on 08/16/23747 Last Action: New Order Topiramate (Topiramate) 50 Mg Tablet, 50 MG PO BID, (Reported) Entered as Reported by: CHIN MCFADDEN on 04/26/231102 Last Action: Last Taken Edited Trazodone HCl (Trazodone HCl) 100 Mg Tablet, 100 MG PO BID, (Reported) Entered as Reported by: CHIN MCFADDEN on 04/26/231102 Last Action: Last Taken Edited Discontinued Medications Buspirone HCl (Buspirone HCl) 15 Mg Tablet, 15 MG PO BID, (Reported) Discontinued Reason: No Longer Taking Entered as Reported by: CHIN MCFADDEN on 04/26/231102 Last Action: Discontinued Lamotrigine (Lamotrigine) 100 Mg Tablet, 200 MG PO DAILY, (Reported) Discontinued Reason: Referral/FU Appt-Addtl Entered as Reported by: MARICRUZ DRAPER on 04/28/23 1442 Last Action: Discontinued Loxapine Succinate (Loxapine) 10 Mg Capsule, 10 MG PO BID PRN for DELUSIONS, (Reported) Discontinued Reason: No Longer Taking Entered as Reported by: CHIN MCFADDEN on 04/26/23 1103 Last Action: Discontinued Paliperidone Palmitate (Invega Sustenna) 156 Mg/Ml Syringe, 156 MG IM MONTHLY, (Reported) Discontinued Reason: No Longer Taking Entered as Reported by: MARICRUZ DRAPER on 04/28/23 1442 Last Action: Discontinued Exam Vital Signs Vital Signs Date Time Temp Pulse Resp B/P (MAP) Pulse Ox O2 Delivery O2 Flow Rate FiO2 08/16/23 08:10 36.9 08/16/23 07:51 72 16 102/64 (77) 97 Room Air Physical Exam Gen: NAD, resting comfortably; seems sluggish in her responses. Neck: No bruits, no JVD Lungs: CTA B; no w-r-r CV: Regular rate and rhythm, nl s1/s2; no murmurs gallops or rubs Abd: + BS, soft NT,ND; no hepatosplenomegaly Ext: 2+ radial and DP pulses; no c-c-e, wwp Labs Laboratory Tests Test 08/15/23 22:36 08/15/23 23:15 08/15/23 23:20 08/15/23 23:30 Range/Units Urine Color YELLOW Urine Clarity CLEAR Urine pH 5.5 5-9 Urine Specific [place] >=1.030 1.016-1.022 Urine Protein NEGATIVE NEGATIVE Urine Glucose (UA) NEGATIVE NEGATIVE Urine Ketones NEGATIVE NEGATIVE Urine Nitrite NEGATIVE NEGATIVE Urine Bilirubin NEGATIVE NEGATIVE Urine Urobilinogen 0.2 < = 1.0 MG/DL Urine Leukocyte Esterase 1+ H NEGATIVE Urine RBC (Auto) TRACE H NEGATIVE Urine RBC NONE /HPF Urine WBC 5-10 H /HPF Urine Crystals NONE /LPF Urine Bacteria NEGATIVE /HPF Urine Casts NONE /LPF Urine Mucus LARGE H /LPF Urine Culture Indicated YES Urine Opiates Screen NEGATIVE NEGATIVE Urine Oxycodone Screen NEGATIVE NEGATIVE Urine Methadone Screen NEGATIVE NEGATIVE Urine Propoxyphene Screen NEGATIVE NEGATIVE Urine Barbiturates Screen NEGATIVE NEGATIVE Ur Tricyclic Antidepressants Screen NEGATIVE NEGATIVE Urine Phencyclidine Screen NEGATIVE NEGATIVE Urine Amphetamines Screen NEGATIVE NEGATIVE Urine Methamphetamines Screen NEGATIVE NEGATIVE Urine Benzodiazepines Screen NEGATIVE NEGATIVE Urine Cocaine Screen POSITIVE H NEGATIVE Urine Cannabinoids Screen NEGATIVE NEGATIVE Influenza Type A (RT-PCR) Not Detected Not Detecte Influenza Type B (RT-PCR) Not Detected Not Detecte SARS-CoV-2 RNA (RT-PCR) Not Detected Not Detecte White Blood Count 11.3 H 4.3-11.0 10^3/uL Red Blood Count 4.36 3.80-5.11 10^6/uL Hemoglobin 12.9 11.5-16.0 g/dL Hematocrit 39 35-52 % Mean Corpuscular Volume 89 80-99 fL Mean Corpuscular Hemoglobin 30 25-34 pg Mean Corpuscular Hemoglobin Concent 33 32-36 g/dL Red Cell Distribution Width 12.3 10.0-14.5 % Platelet Count 397 130-400 10^3/uL Mean Platelet Volume 8.7 L 9.0-12.2 fL Immature Granulocyte % (Auto) 1 % Neutrophils (%) (Auto) 63 42-75 % Lymphocytes (%) (Auto) 28 12-44 % Monocytes (%) (Auto) 7 0-12 % Eosinophils (%) (Auto) 1 0-10 % Basophils (%) (Auto) 1 0-10 % Neutrophils # (Auto) 7.1 1.8-7.8 10^3/uL Lymphocytes # (Auto) 3.2 1.0-4.0 10^3/uL Monocytes # (Auto) 0.8 0.0-1.0 10^3/uL Eosinophils # (Auto) 0.1 0.0-0.3 10^3/uL Basophils # (Auto) 0.1 0.0-0.1 10^3/uL Immature Granulocyte # (Auto) 0.1 0.0-0.1 10^3/uL Erythrocyte Sedimentation Rate 10 0-20 MM/HR Sodium Level 142 135-145 MMOL/L Potassium Level 3.3 L 3.6-5.0 MMOL/L Chloride Level 113 H 98-107 MMOL/L Carbon Dioxide Level 16 L 21-32 MMOL/L Anion Gap 13 5-14 MMOL/L Blood Urea Nitrogen 6 L 7-18 MG/DL Creatinine 0.94 0.60-1.30 MG/DL Estimat Glomerular Filtration Rate 85 BUN/Creatinine Ratio 6 Glucose Level 90 70-105 MG/DL Calcium Level 9.0 8.5-10.1 MG/DL Corrected Calcium 8.5-10.1 MG/DL Magnesium Level 2.2 1.6-2.4 MG/DL Total Bilirubin 0.3 0.1-1.0 MG/DL Aspartate Amino Transf (AST/SGOT) 29 5-34 U/L Alanine Aminotransferase (ALT/SGPT) 48 0-55 U/L Alkaline Phosphatase 70 40-136 U/L Total Creatine Kinase 158 29-168 U/L Creatine Kinase MB 1.0 <6.6 NG/ML Myoglobin 51.3 10.0-92.0 NG/ML Troponin I 0.032 H <0.028 NG/ML C-Reactive Protein High Sensitivity 0.22 0.00-0.50 MG/DL Total Protein 7.5 6.4-8.2 GM/DL Albumin 4.6 H 3.2-4.5 GM/DL Amylase Level 43 25-125 U/L TSH [place] Testing 3.86 0.35-4.94 UIU/ML Acetaminophen Level < 10 L 10-30 UG/ML Serum Alcohol < 10 <10 MG/DL Prothrombin Time 13.3 12.2-14.7 SEC INR Comment 1.0 0.8-1.4 Activated Partial Thromboplast Time 28 24-35 SEC Serum Test, Qualitative NEGATIVE NEGATIVE Test 08/16/23 02:45 08/16/23 04:42 Range/Units Troponin I < 0.028 < 0.028 <0.028 NG/ML Total Creatine Kinase 146 29-168 U/L Creatine Kinase MB 1.1 <6.6 NG/ML ECG Impression ECG Comment Personal read of EKG demonstrates normal sinus rhythm, incomplete right bundle branch block, nonspecific diffuse ST T wave changes. A/P-Cardiology Plan 27-year-old female with a history of polysubstance abuse including methamphe tamine and cocaine, chronic UTIs, tobacco abuse, asthma, palpitations, chronic paranoid schizophrenia, anxiety, depression, suicidal ideation who presented for evaluation after Cocaine administration and development of suicidal ideations. ##NSTEMI: Likely type II in the setting of cocaine administration. Will obtain an echocardiogram. No medical treatment for now. ##Suicidal ideations: Plan per hospitalist. Questionable psych consult. ##Cocaine administration: Patient appears that cocaine was laced with something. Plan per hospitalist ##Disposition: If echocardiogram is within normal limits, we will sign off for now. Suspect this is a type II NSTEMI in the setting of cocaine administration. JACINTA GRUBER MD Aug 16, 2023 10:30 am
[2023-08-16] MEDS: NICOTINE 21 MG PATCH TD SCH (10:31)
[2023-08-16] MEDS ORDERED: hydrOXYzine 25 MG CAPSULE PO PRN (12:45)
[2023-08-16] MEDS ORDERED: PATIENT MAY USE OWN MED,SINGLE MED PO SCH ×4 (12:45)
[2023-08-16 16:56] VITALS: BP 122/80
[2023-08-16] MEDS: toPIRamate 25 MG (TOPAMAX) TAB PO SCH (17:48)
[2023-08-16] MEDS: busPIRone 5 MG TABLET PO SCH (20:57)
[2023-08-16] MEDS ORDERED: MIRTAZAPINE 15 MG TABLET PO SCH (21:00)
[2023-08-16] MEDS ORDERED: traZODone 100 MG (DESYREL) TAB PO SCH (21:00)
[2023-08-16] MEDS ORDERED: MELATONIN 10 MG TABLET PO SCH (21:00)
[2023-08-16 22:41] VITALS: BP 121/73
[2023-08-17 03:34] VITALS: BP 115/78
[2023-08-17 05:51] LABS: BASOPHILS # (AUTO) 0.1 10^3/uL (0.0-0.1); BASOPHILS % (AUTO) 1 % (0-10); EOSINOPHILS # (AUTO) 0.2 10^3/uL (0.0-0.3); EOSINOPHILS % (AUTO) 2 % (0-10); HEMATOCRIT 38 % (35-52); HEMOGLOBIN 12.6 g/dL (11.5-16.0); LYMPHOCYTES # (AUTO) 2.9 10^3/uL (1.0-4.0); LYMPHOCYTES % (AUTO) 33 % (12-44); MEAN CORPUSCULAR HEMOGLOBIN 30 pg (25-34); MEAN CORPUSCULAR HGB CONC 33 g/dL (32-36); MEAN CORPUSCULAR VOLUME 89 fL (80-99); MONOCYTES # (AUTO) 0.7 10^3/uL (0.0-1.0); MONOCYTES % (AUTO) 8 % (0-12); NEUTROPHILS # (AUTO) 4.9 10^3/uL (1.8-7.8); NEUTROPHILS % (AUTO) 56 % (42-75); PLATELET COUNT 402 10^3/uL (130-400); WHITE BLOOD COUNT 8.9 10^3/uL (4.3-11.0)
[2023-08-17 06:17] LABS: ALBUMIN 4.2 GM/DL (3.2-4.5); BILIRUBIN,TOTAL 0.2 MG/DL (0.1-1.0); CALCIUM 8.9 MG/DL (8.5-10.1); CREATININE SERUM 0.89 MG/DL (0.60-1.30); POTASSIUM 3.7 MMOL/L (3.6-5.0); TOTAL PROTEIN 6.8 GM/DL (6.4-8.2)
[2023-08-17 08:13] VITALS: BP 112/67
[2023-08-17] MEDS ORDERED: ARIPiprazole 15 MG TABLET PO SCH (09:00)
[2023-08-17] MEDS ORDERED: ENOXAPARIN 40 MG/0.4 ML SYRINGE SC SCH (09:00)
[2023-08-17] MEDS ORDERED: LITHIUM CARBONATE 300 MG PO SCH (09:00)
[2023-08-17] MEDS ORDERED: PATCH REMOVAL TP SCH (09:00)
[2023-08-17] MEDS: NICOTINE 21 MG PATCH TD SCH (09:19)
[2023-08-17] MEDS: busPIRone 5 MG TABLET PO SCH (09:19)
[2023-08-17] MEDS: toPIRamate 25 MG (TOPAMAX) TAB PO SCH ×2 (09:20→17:47)
--- NOTE | 2023-08-17 10:44 | Progress Note ---
BRENT WHITE 08/17/23 1044: Subjective Date Seen by a Provider: Aug 17, 2023 Time Seen by a Provider: 09:45 Subjective/Events-last exam Patient seen laying comfortably in bed. She says that she feels better, feels like her mood has improved while she has been here, denies suicidal/homicidal ideation, denies auditory/visual hallucinations. Echo showed EF of 55-65%, normal. Cardiology reported that the elevated troponin likely due to recent cocaine use, signed off, troponin today and yesterday was negative. Still awaiting placement, patient's mother has said that she does not want the patient to return to her home. Patient has no other complaints. Review of Systems General: No Chills, No Night Sweats HEENT: No Head Aches, No Visual Changes Pulmonary: No Dyspnea, No Cough Cardiovascular: No: Chest Pain, Palpitations Gastrointestinal: No: Nausea, Vomiting Genitourinary: No Dysuria, No Hematuria Musculoskeletal: No: neck pain, back pain Neurological: No: Weakness, Numbness Objective Exam Last Set of Vital Signs Vital Signs Date Time Temp Pulse Resp B/P (MAP) Pulse Ox O2 Delivery O2 Flow Rate FiO2 08/17/23 08:13 36.6 70 14 112/67 (82) 97 Room Air Capillary Refill : I&O Intake and Output 08/17/23 00:00 Intake Total 3750 ml Balance 3750 ml Intake Oral 1750 ml IV Total 2000 ml # Voids 9 # Bowel Movements 3 Daily Weight Change Unsure General: Alert, Oriented X3 HEENT: Atraumatic Neck: Supple, No JVD Lungs: Clear to Auscultation Heart: Regular Rate, No Murmurs Abdomen: Soft, No Tenderness Extremities: No Clubbing, No Edema Skin: No Rashes, No Breakdown Neuro: Normal Speech, Normal Tone Psych/Mental Status: Mental Status NL Results Lab Laboratory Tests 08/17/23 05:20: White Blood Count 8.9, Red Blood Count 4.26, Hemoglobin 12.6, Hematocrit 38, Me an Corpuscular Volume 89, Mean Corpuscular Hemoglobin 30, Mean Corpuscular Hemoglobin Concent 33, Red Cell Distribution Width 12.5, Platelet Count 402H, Mean Platelet Volume 9.0, Immature Granulocyte % (Auto) 1, Neutrophils (%) (Auto) 56, Lymphocytes (%) (Auto) 33, Monocytes (%) (Auto) 8, Eosinophils (%) (Auto) 2, Basophils (%) (Auto) 1, Neutrophils # (Auto) 4.9, Lymphocytes # (Auto) 2.9, Monocytes # (Auto) 0.7, Eosinophils # (Auto) 0.2, Basophils # (Auto) 0.1, Immature Granulocyte # (Auto) 0.0, Sodium Level 141, Potassium Level 3.7, Chloride Level 115H, Carbon Dioxide Level 17L, Anion Gap 9, Blood Urea Nitrogen 11, Creatinine 0.89, Estimat Glomerular Filtration Rate 91, BUN/Creatinine Ratio 12, Glucose Level 123H, Calcium Level 8.9, Corrected Calcium 8.7, Total Bilirubin 0.2, Aspartate Amino Transf (AST/SGOT) 18, Alanine Aminotransferase (ALT/SGPT) 40, Alkaline Phosphatase 73, Total Protein 6.8, Albumin 4.2 Assessment/Plan Assessment/Plan Assess & Plan/Chief Complaint Suicidal ideation: Denies any suicidal/homicidal ideation, close monitoring, doing well will transfer to 4th floor today, social consulted to help with placement Type 2 OK in the context of cocaine use: repeat troponins negative, no chest pain/SOB, cardiology consulted, signed off Hx of alcohol abuse: continue to monitor for signs of withdrawal, no signs so far Paranoid schizophrenia: Currently denies any visual/audio hallucinations, paranoia improving, awaiting placement into facility Hx of polysubstance abuse: Continue to monitor for signs of withdrawal Current smoker: nicotine patches TONYA SHETTY DO 08/17/231938: Subjective Subjective/Events-last exam Patient doing a lot better Moving from ICU to fourth floor Awaiting psych hospital acceptance Objective Exam General: Alert, Oriented X3, Cooperative, No Acute Distress Psych/Mental Status: Mental Status NL, Mood NL Assessment/Plan Assessment/Plan Assess & Plan/Chief Complaint Awaiting psych hospital acceptance Supervisory-Addendum Brief Verification & Attestation Participated in pt care: history, MDM, physical Personally performed: exam, history, MDM, supervision of care Care discussed with: Medical Student Procedures: n/a Results interpretation: Verified all documentation Verification and Attestation of Medical Student E/M Service A medical student performed and documented this service in my presence. I rev iewed and verified all information documented by the medical student and made modifications to such information, when appropriate. I personally performed the physical exam and medical decision making. Tonya Shetty, Aug 17, 2023,19:39 BRENT WHITE Aug 17, 2023 10:44 TONYA SHETTY DO Aug 17, 2023 19:39
[2023-08-17] MEDS ORDERED: MELA10TA2 PO (11:25)
[2023-08-17 11:37] VITALS: BP 140/76
[2023-08-17] MEDS ORDERED: hydrOXYzine 25 MG CAPSULE PO PRN (12:00)
--- NOTE | 2023-08-17 14:45 | Discharge Summary ---
Discharge Summary Hospital Course Was the Problem List Reviewed?: Yes Problems/Dx: (1) Suicidal ideation Status: Acute (2) Chest pain Status: Acute (3) Alcohol use Status: Chronic (4) Cocaine use (5) Paranoid schizophrenia Status: Acute Hospital Course Date of Admission: Aug 16, 2023 at 01:48 Admission Diagnosis : Family Physician/Provider: [facility] Date of Discharge: 08/17/23 Discharge Diagnosis: [ ] Hospital Course: Uneventful and short hospital course after she was admitted for suicidal ideation with polysubstance abuse. Patient remained medically stable. Patient was transferred to [facility] in stable condition. Labs and Pending Lab Test: Laboratory Tests 08/17/23 05:20: White Blood Count 8.9, Red Blood Count 4.26, Hemoglobin 12.6, Hematocrit 38, Mean Corpuscular Volume 89, Mean Corpuscular Hemoglobin 30, Mean Corpuscular Hemoglobin Concent 33, Red Cell Distribution Width 12.5, Platelet Count 402H, Mean Platelet Volume 9.0, Immature Granulocyte % (Auto) 1, Neutrophils (%) (Auto) 56, Lymphocytes (%) (Auto) 33, Monocytes (%) (Auto) 8, Eosinophils (%) (Auto) 2, Basophils (%) (Auto) 1, Neutrophils # (Auto) 4.9, Lymphocytes # (Auto) 2.9, Monocytes # (Auto) 0.7, Eosinophils # (Auto) 0.2, Basophils # (Auto) 0.1, Immature Granulocyte # (Auto) 0.0, Sodium Level 141, Potassium Level 3.7, Chloride Level 115H, Carbon Dioxide Level 17L, Anion Gap 9, Blood Urea Nitrogen 11, Creatinine 0.89, Estimat Glomerular Filtration Rate 91, BUN/Creatinine Ratio 12, Glucose Level 123H, Calcium Level 8.9, Corrected Calcium 8.7, Total Bilirubin 0.2, Aspartate Amino Transf (AST/SGOT) 18, Alanine Aminotransferase (A LT/SGPT) 40, Alkaline Phosphatase 73, Total Protein 6.8, Albumin 4.2 Microbiology 08/15/23 Urine Culture - Final, Complete See Comments Home Meds Active Reported Melatonin 10 Mg Tablet 10 Mg PO HS Hydroxyzine HCl 50 Mg Tablet 50 Mg PO TID PRN Aripiprazole 15 Mg Tablet 15 Mg PO HS [place] Carbonate ER ([place] Carbonate) 300 Mg Tablet.er 300 Mg PO HS Buspirone HCl 5 Mg Tablet 5 Mg PO BID Doxazosin Mesylate 4 Mg Tablet 4 Mg PO HS Escitalopram Oxalate 20 Mg Tablet 20 Mg PO DAILY Topiramate 50 Mg Tablet 50 Mg PO BID Trazodone HCl 100 Mg Tablet 100 Mg PO HS Assessment/Pt Instructions Psych hospital Discharge Planning: <30 minutes discharge planning Discharge Physical Examination Vital Signs Vital Signs Date Time Temp Pulse Resp B/P (MAP) Pulse Ox O2 Delivery O2 Flow Rate FiO2 08/17/23 11:37 36.5 110 14 140/76 (97) 98 Room Air General Appearance: No Apparent Distress, WD/WN, Chronically ill Allergies: Coded Allergies: paroxetine (Verified Allergy, Severe, DIFF SWALLOWING, 10/09/16) fluoxetine (Unverified Allergy, Unknown, 06/11/17) Discharge Summary Date of Admission Aug 16, 2023 at 01:48 Date of Discharge Discharge Date: Aug 17, 2023 Admission Diagnosis Suicidal ideation Discharge Diagnosis (1) Suicidal ideation Status: Acute Assessment & Plan: Patient noting suicidal ideation yesterday. Denying any suicidal ideation today and denies a plan. Is also denying any homicidal ideation or audiovisual hallucinations. Continue one-to-one monitoring Will discuss with tele mental health line for evaluation of patient's psychiatric condition. This will help determine dispo for whether will be to an inpatient psych facility versus home (2) Chest pain Status: Acute Assessment & Plan: Patient noting chest pain in the ED that has been present for about a week. EKG was normal sinus. Initial troponin was elevated however repeated troponin x2 were negative. Cardiology was consulted for further evaluation. Echocardiogram was done today which appeared to be normal. Chest pain is unlikely to be cardiac in nature and may be more related to patient's psychiatric conditions. Continue to monitor (3) Alcohol use Status: Chronic Assessment & Plan: Patient notes having 3 drinks yesterday, denies any history of withdrawal or withdrawal seizures. Does not appear to be exhibiting any withdrawal symptoms today. Continue close monitoring, can add on CIWA protocol if indicated (4) Cocaine use Assessment & Plan: Patient admits to using cocaine last night. Denies any history of withdrawal. Is not exhibiting any withdrawal symptoms today and vital signs appear to be stable. Continue to monitor Patient would benefit from referral to substance use team at [facility] if she is not working with them already. (5) Paranoid schizophrenia Status: Acute Assessment & Plan: Patient noted to have a labile mood, appears to have changing stories with discussion with different providers. However ultimately, does appear the patient's psychiatric conditions are not well controlled at this time. Unclear which medications would be most helpful as it appears that patient has changed providers recently and thus has had many changes to her medications recently. Appreciate mental health lines help with determining patient's disposition as although she does not express any suicidal ideation, may benefit from psychiatric hospitalization for stabilization of patient's emotions and mood. СВЕТЛАНА BOWMAN DO Aug 17, 2023 14:45
[2023-08-17 14:56] VITALS: BP 115/56
[2023-08-17 16:04] VITALS: BP 115/56
[2023-08-17] MEDS ORDERED: LORazepam 0.5 MG TABLET PO NR (17:30)
[2023-08-17 18:27] VITALS: BP 115/56
[2023-08-17] MEDS ORDERED: PATIENT MAY USE OWN MED,SINGLE MED PO SCH (18:45)
[2023-08-18] MEDS ORDERED: ARIPiprazole 15 MG TABLET PO SCH (21:00)
[2023-08-18] MEDS ORDERED: LITHIUM CARBONATE 300 MG PO SCH (21:00)
== END 2023-08-17 18:34 ==
LOC: EDUNIT# 22:19 → ER 22:22 → ICU 22:23 → UNDOADMOB 08-16 01:48 → 4TH 08-17 13:30 → ICU 08-17 13:30 → UNDODISOB 08-17 18:34
PROVIDERS: ADMIT Internal Medicine; ATTEND Internal Medicine
DX: R45.851 Suicidal ideations (principal); R07.9 Chest pain, unspecified; F10.90 Alcohol use, unspecified, uncomplicated; F14.90 Cocaine use, unspecified, uncomplicated; I21.A1 Myocardial infarction type 2; F20.0 Paranoid schizophrenia; F17.210 Nicotine dependence, cigarettes, uncomplicated; Y90.9 Presence of alcohol in blood, level not specified; J45.909 Unspecified asthma, uncomplicated; N39.0 Urinary tract infection, site not specified; F17.290 Nicotine dependence, other tobacco product, uncomplicated; F41.9 Anxiety disorder, unspecified; F32.A Depression, unspecified; Z79.899 Other long term (current) drug therapy
CPT/HCPCS: 71045; 80053 ×2; 80306; 81000; 82150; 82550 ×2; 82553 ×2; 83735; 83874 ×2; 84443; 84484 ×2; 84703; 85025 ×2; 85610; 85652; 85730; 86141; 87088; 87636; 93005 ×2; 93041; 96360; 96361; 96372; 96375; 96376 ×2; 99284; C8929; G0378 ×2; G0480 ×2; 36415; 80320; 80329; 93306